=== PATIENT | female | born 1945 | race Caucasian/White ===

== ENCOUNTER → 2019-01-19 | Outpatient (CLI) | payer MEDICARE ==
[~2019-01-19] MED LIST: AMLO5TAB6 PO; ASPI-225 PO; CARV3.12 PO; CYCL10TA PO; DICL1GEL TD; DICY20TA PO; ELIQ5TAB PO; FLUO20CA8 PO; FURO40TA2 PO; GABA-843 PO; IPRA0.00 IN; LEVO137T2 PO; LISI-672 PO; LOPE2CAP PO; MELA1LIQ2 PO; NYST10006 EX; OMEP40CA2 PO; PARO40TA3 PO; POLY1.4S OU; SENN1TAB40 PO; SIMV10TA2 PO; TRAM50TA2 PO; TROS20TA3 PO; VITA2000 PO; VITA50005 PO; ZOFR4SOL PO; ZOFR4TAB16 PO; naproxen OR; ventolin inhaler INH
--- NOTE | 2019-01-19 15:50 | REP ---
Chest two views HISTORY: Renal mass Comparison: 02/07/1951 A calcified granuloma is present in the left upper lobe. The right lung is clear. The heart is normal in size. The pulmonary vasculature is normal in appearance. A calcification is present in the soft tissue of the right anterior hemithorax. Degenerative change is present in the thoracic spine. IMPRESSION: No acute disease. Electronically Signed by Christofer Murphy MD 01/19/2019 02:12 P
[2019-01-19 17:52] LABS: CALCIUM LEVEL 8.8 MG/DL (8.8-10.2); CREATININE FOR GFR 1.66 MG/DL (0.55-1.30); GLOMERULAR FILTRATION RATE 32.1 (>39); POTASSIUM SERUM 3.6 MEQ/L (3.5-5.1)
[2019-01-19 18:05] LABS: INR 1.09; PROTHROMBIN TIME 14.2 SECONDS (12.1-14.4)
[2019-01-19 18:06] LABS: PARTIAL THROMBOPLASTIN TIME 35.4 SECONDS (25.4-37.6)
[2019-01-19 18:19] LABS: HEMATOCRIT 40.8 % (36.0-47.0); HEMOGLOBIN 12.6 g/dl (12.0-15.5); MEAN CORPUSCULAR HEMOGLOBIN 27.6 pg (27.0-33.0); MEAN CORPUSCULAR HGB CONC 30.9 g/dl (32.0-36.5); MEAN CORPUSCULAR VOLUME 89.5 fl (80.0-96.0); PLATELET COUNT, AUTOMATED 224 10^3/uL (150-450); RED BLOOD COUNT 4.56 10^6/uL (4.00-5.40); WHITE BLOOD COUNT 7.8 10^3/uL (4.0-10.0)
== END ==
LOC: M SMT 13:46
PROVIDERS: ATTEND Nurse Practitioner Family
DX: Z01.818 Encounter for other preprocedural examination (principal); N28.89 Other specified disorders of kidney and ureter

== ENCOUNTER 2019-01-28 17:19 | Emergency (ER) | payer MEDICARE ==
[~2019-01-28] VITALS: Ht 165.1 cm; Wt 95.5 kg
--- NOTE | 2019-01-28 18:34 | REPVR ---
EXAM: CT Cervical Spine Without Contrast EXAM DATE/TIME: 01/28/2019 5:34 PM CLINICAL HISTORY: 74 years old, female; Injury or trauma; Fall; Initial encounter; Blunt trauma TECHNIQUE: Imaging protocol: Axial computed tomography images of the cervical spine without intravenous contrast. Coronal and sagittal reformatted images were created and reviewed. Radiation optimization: All CT scans at this facility use at least one of these dose optimization techniques: automated exposure control; mA and/or kV adjustment per patient size (includes targeted exams where dose is matched to clinical indication); or iterative reconstruction. COMPARISON: CR C-SPINE W,AP,FLEX,EXT VIEWS 12/14/2014 12:33 PM FINDINGS: Vertebrae: No acute fracture. Grade 1 spondylolisthesis at C3-4 with 2.3 mm of retrolisthesis of C4 with respect to C3.. C2-C3: No disc herniation. No spinal stenosis. No neural foraminal narrowing. C3-C4: Hypertrophic facet arthropathy on the left. No disc herniation. No spinal stenosis. No neural foraminal narrowing. C4-C5: Broad-based posterior disc bulge. Moderate uncovertebral hypertrophy. Facet arthropathy. Mild right foraminal stenosis. No spinal stenosis. C5-C6: Narrowed intervertebral disc space. Advanced hypertrophic facet arthropathy. Moderate to severe bilateral foraminal stenosis. Central canal measures 8 mm. No disc herniation. C6-C7: Narrowed intervertebral disc space. Advanced uncovertebral hypertrophy. Mild to moderate bilateral foraminal stenosis left greater than right . No spinal stenosis. C7-T1: No disc herniation. No spinal stenosis. No neural foraminal narrowing. Soft tissues: Old avulsion fracture versus ossification of the ligamentum nuchae adjacent to the spinous process of T1 . Vascular calcifications related to the carotid bulb and internal carotid arteries bilaterally. Lungs: Lung apices are normal. IMPRESSION: 1. No acute findings 2. Moderately advanced degenerative disc disease in the mid and lower cervical spine. Multilevel foraminal stenosis. Mild central stenosis at C5-6. Electronically signed by: Joseline Wilkerson On 01/28/2019 18:34:16 PM
--- NOTE | 2019-01-28 18:41 | REPVR ---
EXAM: CT Head Without Contrast EXAM DATE/TIME: 01/28/2019 5:34 PM CLINICAL HISTORY: 74 years old, female; Injury or trauma; Fall; Initial encounter; Blunt trauma (contusions or hematomas); Consciousness not specified TECHNIQUE: Imaging protocol: Axial computed tomography images of the head/brain without contrast. Radiation optimization: All CT scans at this facility use at least one of these dose optimization techniques: automated exposure control; mA and/or kV adjustment per patient size (includes targeted exams where dose is matched to clinical indication); or iterative reconstruction. COMPARISON: MRI-Brain W/O FOLL BY WITH 02/22/2015 9:10 AM FINDINGS: Brain: Mild Low density seen in the periventricular white matter extending into the garsia radiata and the centrum semiovale bilaterally. No hemorrhage Ventricles: Normal. No ventriculomegaly. Bones/joints: Motion artifact degrades images of the skull base. Sinuses: Visualized sinuses are unremarkable. No acute sinusitis. Mastoid air cells: Visualized mastoid air cells are unremarkable. No mastoid effusion. Soft tissues: Unremarkable. Other: Faint calcifications in the left lentiform nucleus. IMPRESSION: 1. No acute findings. 2. Mild chronic microvascular ischemic change in the deep white matter Electronically signed by: Joseline Wilkerson On 01/28/2019 18:41:19 PM
[2019-01-28 18:45] VITALS: BP 144/63
== END 2019-01-28 19:11 | disposition home or self-care (01) ==
LOC: M ED 17:19 → EDBD 17:19 → M ED 19:11
DX: S09.90XA Unspecified injury of head, initial encounter (principal); W22.09XA Striking against other stationary object, initial encounter; Y92.019 Unspecified place in single-family (private) house as the place of occurrence of the external cause

== ENCOUNTER 2019-02-02 05:47 | Inpatient (IN) | payer MEDICARE ==
[~2019-02-02] VITALS: Ht 165.1 cm; Wt 94.9 kg
[2019-02-02] VITALS (7 sets, daily range): BP systolic 115–126; BP diastolic 68–86; O2SAT 98
[2019-02-02] MEDS ORDERED: ceFAZolin 2 GM/D5W 50 ML IV BAG (J0690 PER 500MG) As Ordered ONE (06:38)
[2019-02-02] MEDS ORDERED: LR 1,000 ML IV SCH ×2 (07:00→12:15)
[2019-02-02] MEDS ORDERED: fentaNYL 250 MCG/5 ML INJECTION (J3010) As Ordered ONE (07:08)
[2019-02-02] MEDS ORDERED: HYDROmorphone HCL 2 MG/ML 1ML VIAL (J1170) As Ordered ONE (07:09)
[2019-02-02] MEDS ORDERED: LIDOCAINE 1% SDV INJ 30 ML VIAL As Ordered ONE (07:09)
[2019-02-02] MEDS ORDERED: MIDAZOLAM INJ 2 MG/2 ML VIAL (J2250) As Ordered ONE (07:09)
[2019-02-02] MEDS ORDERED: ROCURONIUM BROMIDE 50 MG/5 ML VIAL As Ordered ONE ×2 (07:09→08:48)
[2019-02-02] MEDS ORDERED: PROPOFOL 200 MG/20 ML VIAL As Ordered ONE (07:09)
[2019-02-02] MEDS ORDERED: dexameTHASONE 4 MG/ML 1ML VIAL (J1100) As Ordered ONE (07:09)
[2019-02-02] MEDS ORDERED: LIDOCAINE 2% INJ 100 MG/5 ML SDV (FOR ANES.) As Ordered ONE (07:09)
[2019-02-02] MEDS ORDERED: ONDANSETRON 4MG/2ML VIAL (J2405) As Ordered ONE (07:09)
[2019-02-02] MEDS ORDERED: BUPIVACAINE HCL 0.25% 30 ML VIAL As Ordered ONE (07:09)
[2019-02-02] MEDS ORDERED: ONDANSETRON 4MG/2ML VIAL (J2405) IV PRN ×2 (07:45→12:15)
[2019-02-02] MEDS ORDERED: COMBIVENT RESPIMAT 100-20MCG INHALER 4GM INH PRN (07:45)
[2019-02-02] MEDS ORDERED: PERCOCET 5MG/325MG TAB PO PRN ×2 (07:45→12:15)
[2019-02-02] MEDS ORDERED: ACETAMINOPHEN TAB 650MG DOSE (2X325MG) PO PRN (07:45)
[2019-02-02] MEDS ORDERED: LEVO150T7 PO (08:04)
[2019-02-02] MEDS ORDERED: GLYCOPYRROLATE INJ 0.2 MG/ML 2 ML VIAL As Ordered ONE (08:09)
[2019-02-02] MEDS: CARVedilol 6.25 MG TAB PO SCH ×2 (09:00→20:10)
[2019-02-02] MEDS: GABAPENTIN 300 MG CAP PO SCH ×3 (09:00→20:08)
[2019-02-02] MEDS: DOCUSATE SODIUM 100 MG CAP PO SCH ×2 (09:00→20:08)
[2019-02-02] MEDS ORDERED: MANNITOL 25% 12.5 GM/50 ML VIAL (J2150) As Ordered ONE (09:13)
[2019-02-02] MEDS ORDERED: ACETAMINOPHEN 1000MG 100ML IV BTL (OFIRMEV) (J0131 PER 10MG) As Ordered ONE (11:00)
[2019-02-02] MEDS ORDERED: SUGAMMADEX SODIUM 500 MG/5 ML VIAL (BRIDION) As Ordered ONE (11:04)
[2019-02-02] MEDS ORDERED: LABETALOL HCL 100 MG/20 ML VIAL As Ordered ONE (12:00)
[2019-02-02] MEDS: LABETALOL HCL 100 MG/20 ML VIAL IV SCH ×4 (12:01→12:50)
[2019-02-02] MEDS ORDERED: METOCLOPRAMIDE INJ 10MG/2ML VIAL (J2765) IV PRN (12:15)
[2019-02-02] MEDS ORDERED: fentaNYL 100 MCG/2 ML INJECTION (J3010) IV PRN (12:15)
[2019-02-02] MEDS ORDERED: MEPERIDINE INJ 25 MG/ML VIAL (J2175) IV PRN (12:15)
--- NOTE | 2019-02-02 12:51 | ROOPDOC ---
[facility] Report Of Operation Report of Operation DATE OF PROCEDURE: 02/02/19 PREPROCEDURE DIAGNOSES: Right Renal Neoplasm. POSTPROCEDURE DIAGNOSES: Right Renal Neoplasm. PROCEDURE: Right Robotic-assisted Laparoscopic Partial Nephrectomy with Intraoperative Ultrasound for Tumor Mapping, Laparoscopic Lysis of Adhesions. SURGEON: Casey Paul MD LIQUID SUGAR FORTIFIER: Yina Alfaro NP ANESTHESIA: General OPERATIVE INDICATIONS: This is a 74 year old female with a 2cm right renal neopl asm concerning for cancer. She was brought to the operating room today for removal of the mass. DESCRIPTION OF PROCEDURE: The patient was brought to the operating room and general anesthesia was induced. Prophylactic antibiotics were infused. A Buitrago catheter was placed under sterile conditions. The patient was then placed in the left lateral decubitus position. All pressure points were appropriately padded and an axillary roll was placed. She was secured to the table with tape. The patient was then prepped and draped in the usual sterile fashion. The initial incision was for a 12 mm port in line with the 11th rib along the lateral rectus margin. A Veress needle was then utilized to achieve the pneumoperitoneum. An 8mm port was then placed in through this incision and through which the camera was inserted. There were no injuries from Veress needle placement or initial trocar placement. The remaining ports were then placed under vision. The right hand robotic port was placed along the costal margin in line with the camera port. Another 5 mm port was placed just inferior to the xyphoid for access for a liver retractor. Two left robotic ports were placed with one just inferior to the camera port, and the other between the anterior-superior iliac spine and the umbilicus. Due to adhesions between omentum and the anterior abdominal wall we began by performing a laparoscopic lysis of adhesions. Once the omentum was brought down, the robot was then docked. We started by lifting up the liver with a laparoscopic locking Allis clamp. Next the right colon was dissected off of Gerota's fascia. We then Kocherized the duodenum. At this point the inferior vena cava (IVC) was identified. A plane was made onto the lateral aspect of the IVC and this was carried cephalad until the right renal vein was encountered. This was carefully dissected and just inferior and posterior to the renal vein, the right renal artery was identified. This was also carefully dissected. Next I anesthesia administered 12.5g of mannitol. Gerota's fascia was then opened and I defatted the kidney. On the posterior and inferior aspect of the kidney the tumor was seen. It was mostly exophytic. Ultrasound was then utilized to kel the boundaries of the tumor. Next a bulldog clamp was placed on the renal artery and we began resecting the tumor. The tumor was dissected completely and it appeared that we had a good margin. Once the tumor was removed, the renorrhaphy was performed first by ligating all vessels in the base of resection with a 2-0 vicryl suture using figure of eight stitches. The capsule of the kidney was then reapproximated using 0-vicryl suture with Weck clips to cinch down the suture. Once this was done the clamp was removed and and hemostasis was excellent. The warm ischemia time was 25 minutes. Next Sukhdeep was applied to the resection bed and the tumor was placed in an endocatch bag. The liver retractor was then removed and the robot was undocked after confirming hemostasis within the abdomen. The clerical administrative assistant port was then extended at the skin level and then at the fascia. The specimen was then removed in the endocatch bag. The fascia was then closed with a running #0 Vicryl suture. At this point, the abdomen was reinsufflated and we looked back in with the camera and there was no bleeding underneath the extraction site. No abdominal contents were caught within the closure either. We then removed all the ports under direct vision and there was no bleeding from any of the port sites. At this point, all the incisions were thoroughly irrigated. The subcutaneous tissue of the extraction incision was then reapproximated using interrupted #3-0 Vicryl suture. We then closed the ski n of each site using a running #4-0 subcuticular Monocryl stitch. Local anesthetic was then applied to each incision and Dermabond was then applied and this marked the conclusion of the procedure. The patient was then taken out of the left lateral decubitus position, awakened from anesthesia and transported to the recovery room in stable condition. ESTIMATED BLOOD LOSS: 100 mL INTRAOPERATIVE COMPLICATIONS: None SPECIMENS: Right renal neoplasm WARM ISCHEMIA TIME: 25 minutes NORMAL RIGHT RENAL PARENCHYMA SPARED: 95% PLAN: The patient will be admitted to the hospital postoperatively and she will be discharged home once her renal function is stable and she is tolerating regular diet. CASEY PAUL MD Feb 02, 2019 12:51
[2019-02-02 12:52] LABS: HEMATOCRIT 37.8 % (36.0-47.0); HEMOGLOBIN 11.7 g/dl (12.0-15.5); MEAN CORPUSCULAR HEMOGLOBIN 28.3 pg (27.0-33.0); MEAN CORPUSCULAR VOLUME 91.5 fl (80.0-96.0); PLATELET COUNT, AUTOMATED 166 10^3/uL (150-450); RED BLOOD COUNT 4.13 10^6/uL (4.00-5.40); WHITE BLOOD COUNT 8.9 10^3/uL (4.0-10.0)
[2019-02-02 13:18] LABS: CALCIUM LEVEL 8.3 MG/DL (8.8-10.2); CREATININE FOR GFR 1.34 MG/DL (0.55-1.30); POTASSIUM SERUM 3.9 MEQ/L (3.5-5.1)
[2019-02-02] MEDS ORDERED: LACTATED RINGER'S 500 ML IV ONE (14:00)
[2019-02-02] MEDS: ASPIRIN 81 MG ENTERIC TAB PO SCH (15:17)
[2019-02-02] MEDS: ceFAZolin SOD 1 GM in D5W MINI-BAG PLUS 50 ML IV SCH (15:17)
[2019-02-02] MEDS: NS 1,000 ML IV SCH ×2 (15:17→15:19)
[2019-02-02] MEDS ORDERED: METOPROLOL TART 25 MG TABLET PO PRN (15:45)
[2019-02-02 16:00] LABS: FREE T4 1.51 NG/DL (0.76-1.46); MAGNESIUM LEVEL 1.5 MG/DL (1.8-2.4); THYROID STIMULATING HORMONE 10.4 uIU/ML (0.358-3.740)
[2019-02-02 16:07] LABS: TOTAL T3 57.2 NG/DL (60.0-181.0)
--- NOTE | 2019-02-02 17:03 | CR.PDOC ---
General Date of Consultation: Feb 02, 2019 Referring Provider: CASEY PAUL MD Consultation REASON FOR CONSULTATION/CHIEF COMPLAINT: Atrial fibrillation with rapid ventricular response HISTORY OF PRESENT ILLNESS: The patient is a 73-year-old female with a history of proximal atrial fibrillation on the course as well as carvedilol underwent laparoscopic robotic partial nephrectomy for a 2 cm right kidney mass. In traoperatively, patient was noticed to have gone into atrial fibrillation with rapid ventricular response. She received labetalol without any improvement in the heart rate but did have some problems with dropping of blood pressure. Hospice service was consulted for further management of the patient's atrial fibrillation. I saw the patient on the medical unit postoperatively. She denies any problems with chest pain or shortness of breath. Denies any dizziness or lightheadedness. Does not notice any palpitations. Denies any headache/change in vision. No abdominal pain/nausea or vomiting. She reports she took the Coreg this morning. She reports she stopped the request on Wednesday for the surgery. She also reports some burning in her eyes at this time but no problems with visionno double vision or blurry vision. ALLERGIES: Please see below. HOME MEDICATIONS: Please see below. PAST MEDICAL HISTORY: Hypertension, hypothyroidism, hyperlipidemia, atrial fibrillation on liquids, Crohn's disease, history of congestive heart failure, GERD, obstructive sleep apnea but unable to tolerate CPAP, episode of seizure in 1977, genital warts, diverticulitis, arthritis in the knee, 2 cm right renal mass status post laparoscopic robotic partial nephrectomy today, 2 cm left adrenal adenoma PAST SURGICAL HISTORY: Hysterectomy, right breast lumpectomy for breast cancer followed by 6 weeks of radiation, cholecystectomy, right knee replacement, cardiac catheterization in 2006, small bowel resection for Crohn's disease in 2016, left elbow surgery, left ear surgery for lymph node, bilateral cataract surgery in 2016, status post right partial nephrectomy (laparoscopic, robotic) today as noted above FAMILY HISTORY: Father at 78 from heart attack, mom at 82she had three-vessel bypass, hypertension, heart disease and cancer, one sister passed from colon cancer, another sister had a tumor on her stomach SOCIAL HISTORY: Smoked cigarettes half pack per dayquit in 2018. Denies any history of focal abuse or drug abuse REVIEW OF SYSTEMS: Negative for 10 systems except as noted under history of present illness PHYSICAL EXAMINATION: VITAL SIGNS: Please see below. GENERAL APPEARANCE: Lying propped up in bed. No distress HEENT: PERRL, OMM RESPIRATORY: Clear to auscultation bilaterally. No wheeze. No crackles CARDIOVASCULAR: S1, S2 heard, irregular, tachycardic, no rubs or gallops ABDOMEN: Soft, nontender. Laparoscopic incisions appear intact and dry. Right lower abdominal surgical site incision with drain in place with sanguinous drainage EXTREMITIES: Bilateral pulses present, no edema NEUROLOGICAL: Awake, alert, oriented 3. Moving all 4 extremities. No latera lizing deficit noted. PSYCHIATRIC: Appropriate mood and affect LABORATORY DATA: Please see below. ASSESSMENT/PLAN: Atrial fibrillation with rapid ventricular response: -Likely went into atrial fibrillation related to the stress of surgery -She does see a local head inspector and had echocardiogram last year. -Carvedilol has been resumed. I will add as needed oral metoprolol every 6 hours if she has heart rate persistently over 120. Currently she seems to fluctuate between 90s to 120s. -Hopefully, if her rate is slowed down enough, she may be able to convert back into normal rhythm spontaneously. -Anticoagulation should be resumed once okay by Dr. Paul -Requested thyroid function panel - TSH elevated at 10, free T4 slightly elevated at 1.5, total T3 1 little low. I will leave her on current dosing of levothyroxine she reports this was increased recently -Magnesium level was lowgoal will be to try and keep it close to 2. Goal will be to keep potassium close to 4. Hypomagnesemia: -Replete and recheck Hypothyroidism: -Continue levothyroxine Hypertension: -Currently blood pressure is borderline low. I will discontinue the amlodipine and lisinopril for now. May resume tomorrow if blood pressures are elevated -Continue carvedilol Obstructive sleep apnea: -Did not tolerate CPAP in the past Burning sensation in eyes: -May be related to dryness -Ordered artificial tears Thank you for the consultation. We will continue to follow the patient with you Vital Signs/I&O Vital Signs Date Time Temp Pulse Resp B/P (MAP) Pulse Ox O2 Delivery O2 Flow Rate FiO2 02/02/19 15:24 98 Nasal Cannula 2.0 02/02/19 15:20 97.6 121 14 118/78 (91) Laboratory Data Labs 24H Laboratory Tests 2 02/02/19 11:59: Nucleated Red Blood Cells % (auto) 0.0, Anion Gap 10, Glomerular Filtration Rate 41.0, Blood Urea Nitrogen 25H, Creatinine 1.34H, Sodium Level 139, Potassium Level 3.9, Chloride Level 108H, Carbon Dioxide Level 21, Calcium Level 8.3L, Magnesium Level 1.5L, Thyroid Stimulating Hormone (TSH) 10.400H, Free Thyroxine 1.51H, Total Triiodothyronine 57.2L CBC/BMP Laboratory Tests 02/02/19 11:59 Red Blood Count 4.13, Mean Corpuscular Volume 91.5, Mean Corpuscular Hemoglobin 28.3, Mean Corpuscular Hemoglobin Concent 31.0 L, Red Cell Distribution Width 14.5, Calcium Level 8.3 L Allergies Coded Allergies: No Known Allergies (Verified , 02/02/19) Home Medications Scheduled Amlodipine Besylate (Amlodipine Besylate) 5 Mg Tab, 5 MG PO DAILY, (Reported) Apixaban (Eliquis) 5 Mg Tab, 5 MG PO BID, (Reported) Aspirin (Aspirin EC) 81 Mg Tab, 81 MG PO DAILY, (Reported) Carvedilol (Carvedilol) 3.125 Mg Tab, 2 TABS PO BID, (Reported) Cholecalciferol (Vitamin D3) (Vitamin D3) 2,000 Unit Cap, 2,000 UNIT PO DAILY, (Reported) Cyclobenzaprine HCl (Cyclobenzaprine HCl) 10 Mg Tab, 10 MG PO PRN, (Reported) Diclofenac Sodium (Diclofenac Sodium) 3 % Gel, 3 % TD BID, (Reported) Dicyclomine HCl (Dicyclomine HCl) 20 Mg Tab, 20 MG PO Q6H, (Reported) Ergocalciferol (Vitamin D2) (Vitamin D2) 50,000 Unit Cap, 50,000 UNIT PO Q7D, (Reported) Furosemide (Furosemide) 40 Mg Tab, 40 MG PO DAILY, (Reported) Gabapentin (Gabapentin) 300 Mg Cap, 300 MG PO TID, (Reported) Ipratropium/Albuterol Sulfate (Iprat-Albut 0.5-3(2.5) mg/3 ml) 1 Emre Emre, 1 EMRE IN Q6H, (Reported) Levothyroxine Sodium (Levothyroxine Sodium) 150 Mcg Tablet, 150 MCG PO DAILY, (Reported) Lisinopril (Lisinopril) 30 Mg Tab, 20 MG PO DAILY, (Reported) Loperamide HCl (Loperamide) 2 Mg Tab, 2 MG PO QID, (Reported) Nystatin (Nystop) 100,000 Unit/Gm Pow, 100,000 UNIT EX BID, (Reported) Omeprazole (Omeprazole) 40 Mg Cap, 40 MG PO DAILY, (Reported) Paroxetine HCl (Paroxetine) 40 Mg Tab, 40 MG PO DAILY, (Reported) Polyvinyl Alcohol (Polyvinyl Alcohol Eye Drops) 1.4 % Emre, 1 DROP OU TID, (Reported) Sennosides/Docusate Sodium (Senna Plus Tablet) 1 Tab Tab, 1 TAB PO DAILY, (Reported) Simvastatin (Simvastatin) 10 Mg Tab, 20 MG PO QHS, (Reported) Trospium Chloride (Trospium Chloride) 20 Mg Tab, 20 MG PO BID, (Reported) Scheduled PRN Melatonin (Melatonin) 1 Mg/Ml Liq, 1 MG PO QHSP PRN for SLEEP, (Reported) Ondansetron HCl (Zofran) 4 Mg Tab, 4 MG PO Q6HP PRN for NAUSEA, (Reported) BERTHA MOHAMUD MD Feb 02, 2019 17:03
[2019-02-02] MEDS: MAG SULF 1GM/100ML (MAG RUN) 1 GM in APPROPRIATE DILUENT 1 EA IV SCH ×2 (17:18→18:34)
[2019-02-02] MEDS: POLYVINYL ALCOHOL OPHTH SOLN 15 ML(LIQUITEARS) OU SCH ×2 (17:18→20:06)
[2019-02-02] MEDS: PERCOCET 5MG/325MG TAB PO PRN ×2 (17:22→23:05)
[2019-02-02] MEDS: SIMVASTATIN 20 MG TAB PO SCH (20:08)
[2019-02-03] VITALS (8 sets, daily range): BP systolic 114–144; BP diastolic 65–87; O2SAT 97
[2019-02-03] MEDS: ceFAZolin SOD 1 GM in D5W MINI-BAG PLUS 50 ML IV SCH (00:26)
[2019-02-03] MEDS: NS 1,000 ML IV SCH (00:27)
[2019-02-03] MEDS: MORPHINE 4 MG/ML 1ML VIAL/SYRINGE (J2270) IV PRN ×3 (00:28→20:18)
[2019-02-03] MEDS: LEVOTHYROXINE 150MCG TABLET (0.15MG) PO SCH (05:46)
[2019-02-03 06:51] LABS: MEAN CORPUSCULAR HEMOGLOBIN 27.8 pg (27.0-33.0); MEAN CORPUSCULAR HGB CONC 30.3 g/dl (32.0-36.5); MEAN CORPUSCULAR VOLUME 91.7 fl (80.0-96.0); PLATELET COUNT, AUTOMATED 139 10^3/uL (150-450); RED BLOOD COUNT 3.27 10^6/uL (4.00-5.40)
[2019-02-03 06:53] LABS: HEMOGLOBIN 9.1 g/dl (12.0-15.5)
[2019-02-03 07:02] LABS: CREATININE FOR GFR 1.45 MG/DL (0.55-1.30); GLOMERULAR FILTRATION RATE 37.5 (>39); MAGNESIUM LEVEL 1.9 MG/DL (1.8-2.4); POTASSIUM SERUM 3.5 MEQ/L (3.5-5.1)
--- NOTE | 2019-02-03 07:30 | IPNPDOC ---
Assessment/Plan Date Seen The patient was seen on 02/03/19. Patient Summary This is a 74 y/o F POD 1 s/p robotic right partial nephrectomy. She went in to a fib w/ RVR in the PACU and has since converted to sinus on her home meds. She is doing well w/ minimal pain. Cr is lower than baseline. Her Hb has trended down to 9.1 this am. UOP has been good. Plan/VTE VTE Prophylaxis Ordered?: Yes VTE Exclusion Mechanical Proph: N/A:VTE Prophy Ordered Plan/Urinary Catheter Urinary Catheter: D/C Buitrago Plan - appreciate hospitalist service following for a fib - d/c Buitrago - d/c IVF - strict I/Os - SCDs when in bed - continue home meds except eliquis (will need to be off for at least 2 wks) - advance diet as tolerated - possible discharge home later today or tomorrow if she stays in sinus and if Hb stable Subjective Review oF Systems Chief Complaint The patient is a 74-year-old female admitted with a reason for visit of Renal Mass. Events since Last Encounter No acute events o/n. Good pain control. No n/v. Denies chest pain or SOB. Tolerating diet. No f/c/ns. Objective Physical Examination General Exam: Alert, Cooperative ABDOMEN EXAM: Soft, Tenderness (minimal), Other (incisions clean/dry/intact; DORIS w/ serosanguinous output) Skin Exam: Nl turgor and temperature Psych Exam: Mood NL Other physical findings catheter draining clear urine Vital Signs/I&O Vital Signs Date Time Temp Pulse Resp B/P (MAP) Pulse Ox O2 Delivery O2 Flow Rate FiO2 02/03/19 06:00 97.2 68 12 117/68 (84) 97 2.0 02/03/19 02:59 Nasal Cannula I&O- Last 24 Hours up to 6 AM 02/03/19 06:00 Intake Total 5225 ml Output Total 1820 ml Balance 3405 ml Laboratory Data Labs 24H Laboratory Tests 2 02/02/19 11:59: Nucleated Red Blood Cells % (auto) 0.0, Anion Gap 10, Glomerular Filtration Rate 41.0, Blood Urea Nitrogen 25H, Creatinine 1.34H, Sodium Level 139, Potassium Level 3.9, Chloride Level 108H, Carbon Dioxide Level 21, Calcium Level 8.3L, Magnesium Level 1.5L, Thyroid Stimulating Hormone (TSH) 10.400H, Free Thyroxine 1.51H, Total Triiodothyronine 57.2L 02/03/19 06:11: Nucleated Red Blood Cells % (auto) 0.0, Anion Gap 9, Glomerular Filtration Rate 37.5L, Blood Urea Nitrogen 22H, Creatinine 1.45H, Sodium Level 143, Potassium Level 3.5, Chloride Level 107, Carbon Dioxide Level 27, Calcium Level 8.0L, Magnesium Level 1.9 CBC/BMP Laboratory Tests 02/02/19 11:59 Red Blood Count 4.13, Mean Corpuscular Volume 91.5, Mean Corpuscular Hemoglobin 28.3, Mean Corpuscular Hemoglobin Concent 31.0 L, Red Cell Distribution Width 14.5, Calcium Level 8.3 L 02/03/19 06:11 Red Blood Count 3.27 L, Mean Corpuscular Volume 91.7, Mean Corpuscular Hemoglobin 27.8, Mean Corpuscular Hemoglobin Concent 30.3 L, Red Cell Distrib ution Width 14.6 H, Calcium Level 8.0 L CASEY PAUL MD Feb 03, 2019 07:30
[2019-02-03] MEDS: DOCUSATE SODIUM 100 MG CAP PO SCH ×2 (07:57→20:16)
[2019-02-03] MEDS: OMEPRAZOLE 20 MG CAP PO SCH (07:57)
[2019-02-03] MEDS: ASPIRIN 81 MG ENTERIC TAB PO SCH (07:58)
[2019-02-03] MEDS: GABAPENTIN 300 MG CAP PO SCH ×3 (07:58→20:17)
[2019-02-03] MEDS: PARoxetine 20 MG TAB PO SCH (07:58)
[2019-02-03] MEDS: CARVedilol 6.25 MG TAB PO SCH ×2 (07:58→20:17)
[2019-02-03] MEDS: POLYVINYL ALCOHOL OPHTH SOLN 15 ML(LIQUITEARS) OU SCH ×4 (07:58→20:16)
[2019-02-03] MEDS ORDERED: FUROSEMIDE 40 MG TAB PO SCH (09:00)
[2019-02-03] MEDS ORDERED: LISINOPRIL 20 MG TAB PO SCH (09:00)
[2019-02-03] MEDS ORDERED: amLODIPine 5 MG TAB PO SCH (09:00)
[2019-02-03] MEDS: PERCOCET 5MG/325MG TAB PO PRN ×2 (10:14→16:38)
[2019-02-03] MEDS: SIMETHICONE 80 MG CHEW TAB PO SCH ×2 (16:38→20:16)
[2019-02-03] MEDS ORDERED: FUROSEMIDE 20 MG/2 ML VIAL (J1940) IV ONE (18:30)
--- NOTE | 2019-02-03 20:08 | REP ---
Portable chest, 06:10 p.m., single AP view, the patient semi upright: Comparison is 01/19/2019. There is mild atelectasis inferiorly in the right lung as an interval change. Right upper lobe is clear. The left lung is clear. Cardiac size is normal. The moira, mediastinum, skeletal structures are unremarkable. Impression: Mild atelectasis inferiorly in the right lung. Electronically Signed by Rocky Mejia MD 02/03/2019 08:00 P
[2019-02-03] MEDS: SIMVASTATIN 20 MG TAB PO SCH (20:16)
--- NOTE | 2019-02-03 20:40 | IPNPDOC ---
Subjective Date Seen The patient was seen on 02/03/19. Subjective Chief Complaint/HPI Medical consultation had been requested for atrial fibrillation with rapid ventricular response which the patient developed intraoperatively while undergoing right partial nephrectomy for right renal mass. Patient has a history of paroxysmal atrial fibrillation. Events since last encounter The patient this morning and some pain in her right flank region with some activity. At that time she also felt a little short of breath. Subsequently, the patient's symptoms did improve once she rested in the bed. Later in the day, the patient again had reported some shortness of breath. I will order serum and discontinued this morning. Patient was tolerating oral intake. Denies any nausea or vomiting. No chest pain. No dizziness or lightheadedness. Buitrago catheter was discontinued this morning. Denies feeling constipated. Reports some gaseous bloating but has been passing gas Objective Physical Examination General Exam: Positive: Alert, Cooperative, No Acute Distress Eye Exam: Positive: PERRLA Chest Exam: Positive: Clear to auscultation, Other (patient did not have any rales/rhonchi or wheezes this morning) Heart Exam: Positive: Rate Normal, Normal S1, Normal S2 Telemetry: Positive: Other Telemetry: (patient appeared to be in normal sinus rhythm. She did have a brief run of atrial fibrillation with rapid ventricular response this morning) Abdomen Exam: Positive: Soft, Other (nontender. Right abdominal drain in place with sanguineous drainage) Neuro Exam: Positive: Other (awake, alert, oriented 3 and answering questions appropriately) RAD Interpretation STUDY: CXR Rad Actions: Other Rad Comments: (chest x-ray done this afternoon shows some right lower lobe atelectasis. On my personal review, she also seems to have some slight vascular congestion.) Assessment /Plan Assessment Atrial fibrillation with rapid ventricular response, now in normal sinus rhythm: -And 2 carvedilol, when necessary metoprolol -Anticoagulation will be held for 2 weeks per urology postoperatively Hypomagnesemia: -Resolved Hypothyroidism: -Continue levothyroxine Hypertension: -Blood pressure controlled off amlodipine and lisinopril. -Continue carvedilol Obstructive sleep apnea: -Did not tolerate CPAP in the past Burning sensation in eyes: -Resolved Shortness of breath: -As noted, patient had some shortness of breath this afternoon. Chest x-ray appears to indicate some pulmonary vascular congestion on my review. We will give her a one-time dose of 20 mg IV Lasix. Plan/VTE VTE Prophylaxis Ordered?: Yes VTE Exclusion Mechanical Proph: N/A:VTE Prophy Ordered Plan/Urinary Catheter Urinary Catheter: D/C Buitrago VS, I&O, 24H, Fishbone Vital Signs/I&O Vital Signs Date Time Temp Pulse Resp B/P (MAP) Pulse Ox O2 Delivery O2 Flow Rate FiO2 02/03/19 20:18 22 96 1.0 02/03/19 20:17 82 144/78 02/03/19 18:00 98.4 02/03/19 02:59 Nasal Cannula I&O- Last 24 Hours up to 6 AM 02/03/19 06:00 Intake Total 5225 ml Output Total 1820 ml Balance 3405 ml Laboratory Data 24H LABS Laboratory Tests 2 02/03/19 06:11: Nucleated Red Blood Cells % (auto) 0.0, Anion Gap 9, Glomerular Filtration Rate 37.5L, Blood Urea Nitrogen 22H, Creatinine 1.45H, Sodium Level 143, Potassium Level 3.5, Chloride Level 107, Carbon Dioxide Level 27, Calcium Level 8.0L, Magnesium Level 1.9 CBC/BMP Laboratory Tests 02/03/19 06:11 Red Blood Count 3.27 L, Mean Corpuscular Volume 91.7, Mean Corpuscular Hemoglobin 27.8, Mean Corpuscular Hemoglobin Concent 30.3 L, Red Cell D istribution Width 14.6 H, Calcium Level 8.0 L 02/03/19 15:03 BERTHA MOHAMUD MD Feb 03, 2019 20:40
[2019-02-04 00:54] VITALS: O2SAT 94
[2019-02-04 02:00] VITALS: BP 118/59
[2019-02-04] MEDS: MORPHINE 4 MG/ML 1ML VIAL/SYRINGE (J2270) IV PRN (04:39)
[2019-02-04 06:00] VITALS: BP 120/57
[2019-02-04] MEDS: LEVOTHYROXINE 150MCG TABLET (0.15MG) PO SCH (06:13)
[2019-02-04 06:36] LABS: HEMATOCRIT 26.9 % (36.0-47.0); HEMOGLOBIN 8.4 g/dl (12.0-15.5); MEAN CORPUSCULAR HEMOGLOBIN 28.2 pg (27.0-33.0); MEAN CORPUSCULAR HGB CONC 31.2 g/dl (32.0-36.5); MEAN CORPUSCULAR VOLUME 90.3 fl (80.0-96.0); PLATELET COUNT, AUTOMATED 123 10^3/uL (150-450); RED BLOOD COUNT 2.98 10^6/uL (4.00-5.40); WHITE BLOOD COUNT 9.6 10^3/uL (4.0-10.0)
[2019-02-04 07:04] LABS: CALCIUM LEVEL 7.6 MG/DL (8.8-10.2); CREATININE FOR GFR 1.47 MG/DL (0.55-1.30); GLOMERULAR FILTRATION RATE 36.9 (>39); POTASSIUM SERUM 3.8 MEQ/L (3.5-5.1)
[2019-02-04] MEDS ORDERED: MAG SULF 1GM/100ML (MAG RUN) 1 GM in APPROPRIATE DILUENT 1 EA IV ONE (08:00)
[2019-02-04 08:30] VITALS: O2SAT 93
[2019-02-04] MEDS: PARoxetine 20 MG TAB PO SCH (09:07)
[2019-02-04] MEDS: OMEPRAZOLE 20 MG CAP PO SCH (09:07)
[2019-02-04] MEDS: GABAPENTIN 300 MG CAP PO SCH ×3 (09:07→20:24)
[2019-02-04] MEDS: ASPIRIN 81 MG ENTERIC TAB PO SCH (09:07)
[2019-02-04] MEDS: CARVedilol 6.25 MG TAB PO SCH ×2 (09:07→20:26)
[2019-02-04] MEDS: SIMETHICONE 80 MG CHEW TAB PO SCH ×4 (09:07→20:24)
[2019-02-04] MEDS: DOCUSATE SODIUM 100 MG CAP PO SCH ×2 (09:08→20:24)
[2019-02-04] MEDS: POLYVINYL ALCOHOL OPHTH SOLN 15 ML(LIQUITEARS) OU SCH ×4 (09:08→20:24)
--- NOTE | 2019-02-04 12:56 | IPNPDOC ---
Subjective Date Seen The patient was seen on 02/04/19. 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 She had received a dose of Lasix following which she reports she did urinate quite a bit last night. Reports she is using the incentive spirometer. Reports some discomfort in her abdomen with movement. Has not been out of the bed. This morning when I saw her earlier today. Denies any nausea or vomiting. Ate breakfast. Denies any chest pain. Denies any difficulty with urination. No bowel movement but denies feeling constipated. Passing gas. Objective Physical Examination General Exam: Positive: Alert, Cooperative, No Acute Distress, Other (sitting up in bed) Eye Exam: Positive: PERRLA Chest Exam: Positive: Other (diminished air entry at right lung base. Very slight crackles. No overt wheezing at this time.) Heart Exam: Positive: Rate Normal, Regular Rhythm, Normal S1, Normal S2 Abdomen Exam: Positive: Soft, Other (right abdominal DORIS drain is in place with sanguinous drainageminimal output. Surgical incisions intact with no drainage.) Extremity Exam: Positive: Normal pulses; Negative: Edema Neuro Exam: Positive: Other (awake, alert, oriented 3 and answering questions appropriately) Assessment /Plan Assessment Paroxysmal Atrial fibrillation with rapid ventricular response: -Currently remains in normal sinus rhythm -Continue carvedilol, prn metoprolol -Anticoagulation to be held for 2 weeks postoperatively per urology Hypomagnesemia: -Resolved Hypothyroidism: -Continue levothyroxine Hypertension: -Blood pressure controlled off amlodipine and lisinopril. -Continue carvedilol. Resumed Lasix Obstructive sleep apnea: -Did not tolerate CPAP in the past Burning sensation in eyes: -Resolved Shortness of breath: -Chest x-ray did not show any obvious infiltrates/pneumonia or obvious effusion -Resume home dosing of oral Lasix -Xopenex nebs every 6 hours prn with one treatment now. DVT prophylaxis: -SCDs/compression stockings Plan/VTE VTE Prophylaxis Ordered?: Yes VTE Exclusion Mechanical Proph: N/A:VTE Prophy Ordered Plan/Urinary Catheter Urinary Catheter: D/C Buitrago VS, I&O, 24H, Fishbone Vital Signs/I&O Vital Signs Date Time Temp Pulse Resp B/P (MAP) Pulse Ox O2 Delivery O2 Flow Rate FiO2 02/04/19 10:00 98.9 65 20 96 1.0 02/04/19 09:07 120/57 02/04/19 00:54 Nasal Cannula I&O- Last 24 Hours up to 6 AM 02/04/19 06:00 Intake Total 420 ml Output Total 2005 ml Balance -1585 ml Laboratory Data 24H LABS Laboratory Tests 2 02/04/19 06:06: Nucleated Red Blood Cells % (auto) 0.0, Anion Gap 7L, Glomerular Filtration Rate 36.9L, Blood Urea Nitrogen 23H, Creatinine 1.47H, Sodium Level 140, Potassium Level 3.8, Chloride Level 105, Carbon Dioxide Level 28, Calcium Level 7.6L, Magnesium Level 1.7L CBC/BMP Laboratory Tests 02/03/19 15:03 02/04/19 06:06 Red Blood Count 2.98 L, Mean Corpuscular Volume 90.3, Mean Corpuscular Hemoglobin 28.2, Mean Corpuscular Hemoglobin Concent 31.2 L, Red Cell Distribution Width 14.6 H, Calcium Level 7.6 L BERTHA MOHAMUD MD Feb 04, 2019 12:56
[2019-02-04] MEDS ORDERED: LEVALBUTEROL 1.25 MG/0.5 ML CONCENTRATE NEB INH ONE (13:00)
[2019-02-04] MEDS: FUROSEMIDE 40 MG TAB PO SCH (13:33)
[2019-02-04] MEDS ORDERED: LEVALBUTEROL 1.25 MG/0.5 ML CONCENTRATE NEB INH SCH (14:00)
[2019-02-04] MEDS ORDERED: LEVALBUTEROL 1.25 MG/0.5 ML CONCENTRATE NEB INH PRN (14:00)
[2019-02-04] MEDS: MIRALAX *UNIT DOSE* 17GM PACKET PO SCH (15:11)
[2019-02-04] MEDS: SIMVASTATIN 20 MG TAB PO SCH (20:24)
[2019-02-04 22:00] VITALS: BP 117/54
[2019-02-05 02:35] VITALS: O2SAT 92
[2019-02-05 06:00] VITALS: BP 153/92
[2019-02-05] MEDS ORDERED: MAGNESIUM OXIDE 400 MG TAB (MAG-OX) PO ONE (06:00)
[2019-02-05] MEDS: LEVOTHYROXINE 150MCG TABLET (0.15MG) PO SCH (06:33)
[2019-02-05 07:05] LABS: HEMATOCRIT 28.9 % (36.0-47.0); HEMOGLOBIN 9.1 g/dl (12.0-15.5); MEAN CORPUSCULAR HEMOGLOBIN 28.6 pg (27.0-33.0); MEAN CORPUSCULAR HGB CONC 31.5 g/dl (32.0-36.5); MEAN CORPUSCULAR VOLUME 90.9 fl (80.0-96.0); PLATELET COUNT, AUTOMATED 129 10^3/uL (150-450); RED BLOOD COUNT 3.18 10^6/uL (4.00-5.40); WHITE BLOOD COUNT 8.3 10^3/uL (4.0-10.0)
[2019-02-05 07:20] LABS: CALCIUM LEVEL 8.2 MG/DL (8.8-10.2); CREATININE FOR GFR 1.51 MG/DL (0.55-1.30); GLOMERULAR FILTRATION RATE 35.8 (>39); MAGNESIUM LEVEL 1.8 MG/DL (1.8-2.4); POTASSIUM SERUM 3.8 MEQ/L (3.5-5.1)
[2019-02-05 08:30] VITALS: O2SAT 96
--- NOTE | 2019-02-05 08:39 | IPN ---
DATE: 02/04/2019 The patient is here status post right heminephrectomy by Dr. Lima. Patient's postoperative course was complicated by atrial fibrillation with rapid ventricular response for which she is being treated. She denies any abdominal pain today. She does have some sense of discomfort in the chest, but did not have any rapid ventricular response today, as per all the documentation, and is in normal sinus rhythm. Denies any fever, chills, cough or any postsurgical issues. On physical exam, she is alert, awake, oriented times three, afebrile with stable vital signs. Abdomen is soft, not distended, nontender. There is no hematoma or bruising on the skin. The drain is in place with very little, maybe less than 30 mL in the drain. She has been voiding well since the catheter has been removed yesterday. Her hemoglobin did have a slight dip to 8.4 from 9.4, but this is not anything significant as there is no major drain output. IMPRESSION: Status post right partial nephrectomy, doing well. PLAN: Continue to follow her from a medical standpoint. Once that is stable, she can be discharged. No anticoagulation at least for 2 weeks.
[2019-02-05] MEDS: PARoxetine 20 MG TAB PO SCH (09:09)
[2019-02-05] MEDS: MIRALAX *UNIT DOSE* 17GM PACKET PO SCH (09:09)
[2019-02-05] MEDS: DOCUSATE SODIUM 100 MG CAP PO SCH (09:09)
[2019-02-05] MEDS: OMEPRAZOLE 20 MG CAP PO SCH (09:09)
[2019-02-05 09:10] VITALS: BP 153/92
[2019-02-05] MEDS: POLYVINYL ALCOHOL OPHTH SOLN 15 ML(LIQUITEARS) OU SCH ×2 (09:10→12:17)
[2019-02-05] MEDS: FUROSEMIDE 40 MG TAB PO SCH (09:10)
[2019-02-05] MEDS: ASPIRIN 81 MG ENTERIC TAB PO SCH (09:10)
[2019-02-05] MEDS: SIMETHICONE 80 MG CHEW TAB PO SCH ×2 (09:10→12:16)
[2019-02-05] MEDS: CARVedilol 6.25 MG TAB PO SCH (09:10)
[2019-02-05] MEDS: GABAPENTIN 300 MG CAP PO SCH ×2 (09:10→15:23)
[2019-02-05 14:00] VITALS: BP 129/60
[2019-02-05] MEDS ORDERED: PERCOCET PO (15:09)
[2019-02-05] MEDS ORDERED: PEG1POW PO (15:09)
--- NOTE | 2019-02-05 15:19 | IPNPDOC ---
Subjective Date Seen The patient was seen on 02/05/19. Subjective Chief Complaint/HPI Right renal mass status post right partial nephrectomy, atrial fibrillation with rapid ventricular response Events since last encounter Patient what she is doing better as far as her breathing. Reports some slight wheeze at times. On room air. Denies any chest pain. No nausea or vomiting. Tolerating oral intake well. Had a bowel movement yesterday. Denies abdominal pain and this time although she haD not been out of the bed when I saw her this morning Objective Physical Examination General Exam: Positive: Alert, Cooperative, No Acute Distress, Other (Lying in bed) Eye Exam: Positive: PERRLA Chest Exam: Positive: Other (no overt wheeze today. Diminished air entry in right lung field especially at bases.) Heart Exam: Positive: Rate Normal, Regular Rhythm, Normal S1, Normal S2 Abdomen Exam: Positive: Soft, Other (right abdominal DORIS drain in placeslight sanguinous drainage.) Extremity Exam: Positive: Normal pulses; Negative: Edema Neuro Exam: Positive: Other (awake, alert, oriented 3 and answering questions appropriately) Assessment /Plan Assessment Paroxysmal Atrial fibrillation with rapid ventricular response: -Currently remains in normal sinus rhythm -Continue carvedilol -Anticoagulation to be held for 2 weeks postoperatively per urology Hypomagnesemia: -Resolved Hypothyroidism: -Continue levothyroxine Hypertension: -Holding lisinopril -Continue carvedilol, Lasix and amlodipine Obstructive sleep apnea: -Did not tolerate CPAP in the past Burning sensation in eyes: -Resolved Shortness of breath: -Chest x-ray did not show any obvious infiltrates/pneumonia or obvious effusion -Continue Lasix -Was on Xopenex prn may resume her usual nebs on discharge DVT prophylaxis: -SCDs/compression stockings Disposition: Medically stable for discharge home. Outpatient follow-up advised with the primary care provider in one week. Plan/VTE VTE Prophylaxis Ordered?: Yes VTE Exclusion Mechanical Proph: N/A:VTE Prophy Ordered Plan/Urinary Catheter Urinary Catheter: D/C Buitrago VS, I&O, 24H, Fishbone Vital Signs/I&O Vital Signs Date Time Temp Pulse Resp B/P (MAP) Pulse Ox O2 Delivery O2 Flow Rate FiO2 02/05/19 14:00 97.9 69 18 129/60 (83) 98 02/05/19 08:30 Room Air 02/04/19 14:00 1.0 I&O- Last 24 Hours up to 6 AM 02/05/19 06:00 Intake Total 1980 ml Output Total 720 ml Balance 1260 ml Laboratory Data 24H LABS Laboratory Tests 2 02/05/19 06:30: Nucleated Red Blood Cells % (auto) 0.0, Anion Gap 8, Glomerular Filtration Rate 35.8L, Blood Urea Nitrogen 23H, Creatinine 1.51H, Sodium Level 138, Potassium Level 3.8, Chloride Level 103, Carbon Dioxide Level 27, Calcium Level 8.2L, Phosphorus Level 3.0, Magnesium Level 1.8 CBC/BMP Laboratory Tests 02/05/19 06:30 Red Blood Count 3.18 L, Mean Corpuscular Volume 90.9, Mean Corpuscular Hemoglobin 28.6, Mean Corpuscular Hemoglobin Concent 31.5 L, Red Cell Distribution Width 14.6 H, Calcium Level 8.2 L BERTHA MOHAMUD MD Feb 05, 2019 15:19
--- NOTE | 2019-02-06 09:51 | IPN ---
DATE: 02/05/2019 FOLLOWUP NOTE: Seen this morning. She is status post right partial nephrectomy with atrial fibrillation with rapid ventricular response, which is better today. She has not been complaining of any problems this morning. Her vital signs are stable. She is awake, alert, oriented times three. Abdomen soft, nondistended and nontender. She has a drain in place, which put out less than 30 mL in the last 24 hours. Since her hemoglobin has been stable from 8.4 it came up to 9.1, and hematocrit of 28.9 with platelets of 210, it was decided to remove the drain. The drain was removed with all aseptic precautions and dressing was applied. Patient tolerated the procedure very well. PLAN: From surgical standpoint, patient is hemodynamically stable and can be discharged home if okay by medical specialists. TEE
--- NOTE | 2019-02-06 13:17 | DSES ---
DATE OF ADMISSION: 02/02/2019 DATE OF DISCHARGE: 02/05/2019 ADMISSION DIAGNOSIS: Right renal neoplasm. DISCHARGE DIAGNOSIS: Right renal oncocytoma. ADMITTING PHYSICIAN: Dez Lima MD DISCHARGING PHYSICIAN: Jesse Rivas MD HISTORY OF PRESENT ILLNESS: This is a 74-year-old female who was found with approximately 2-cm enhancing right renal neoplasm concerning for malignancy. She underwent a robotic-assisted laparoscopic right partial nephrectomy on 02/02/2019 and was in hospital postoperatively. HOSPITALIZATION COURSE: The patient's postoperative course was for the most part unremarkable. She had a history of atrial fibrillation and while in the recovery room went into rapid ventricular response. This quickly normalized when she was back on the floor, back on her normal beta donovan. The hospitalist service was consulted to help follow. She remained in sinus throughout the majority of her stay. The remainder of her vital signs were stable. She did have some weakness on postoperative days #1 and #2 and, therefore, was not discharged home on those days. By postoperative day #3, she was ambulating well and tolerating a regular diet. Her pain was very well controlled. Her hemoglobin remained stable at 9.1. Her creatinine was pretty close to her baseline. Her creatinine specifically was 1.5 at discharge, and her baseline appeared to be around 1.6. She had excellent urine output and normal amount out of the Arron-Watkins drain. Her Arron- Watkins drain was, therefore, removed prior to discharge. She was discharged home in good condition. She will followup in clinic in approximately 1 week to discuss pathology results in her postoperative visit. TEE
== END 2019-02-05 16:14 | disposition home or self-care (01) | DRG 658 ==
LOC: M OR 05:47 → M MSPAV 14:20
PROVIDERS: ADMIT Urology; ATTEND Urology
PROC: 8E0W4CZ Robotic Assisted Procedure of Trunk Region, Percutaneous Endoscopic Approach (ICD-10-PCS; 2019-02-02)
PROC: 0TB04ZZ Excision of Right Kidney, Percutaneous Endoscopic Approach (ICD-10-PCS; principal; 2019-02-02 07:30)
DX: D30.01 Benign neoplasm of right kidney (principal); I48.0 Paroxysmal atrial fibrillation; I10 Essential (primary) hypertension; E03.9 Hypothyroidism, unspecified; E78.5 Hyperlipidemia, unspecified; K21.9 Gastro-esophageal reflux disease without esophagitis; D35.01 Benign neoplasm of right adrenal gland; G47.33 Obstructive sleep apnea (adult) (pediatric); A63.0 Anogenital (venereal) warts; E83.42 Hypomagnesemia; Z85.3 Personal history of malignant neoplasm of breast; Z92.3 Personal history of irradiation; Z90.49 Acquired absence of other specified parts of digestive tract; Z96.651 Presence of right artificial knee joint; Z98.41 Cataract extraction status, right eye; Z98.42 Cataract extraction status, left eye; Z87.891 Personal history of nicotine dependence; Z79.82 Long term (current) use of aspirin; Z79.01 Long term (current) use of anticoagulants; Z79.899 Other long term (current) drug therapy

== ENCOUNTER → 2019-02-16 | Outpatient (CLI) | payer MEDICARE ==
[~2019-02-16] MED LIST changes: +LEVO150T7 PO; +PEG1POW PO; +PERCOCET PO
[2019-02-16 13:51] LABS: CALCIUM LEVEL 8.2 MG/DL (8.8-10.2); CREATININE FOR GFR 1.44 MG/DL (0.55-1.30); GLOMERULAR FILTRATION RATE 37.8 (>39); HEMATOCRIT 34.2 % (36.0-47.0); HEMOGLOBIN 10.5 g/dl (12.0-15.5); MEAN CORPUSCULAR HEMOGLOBIN 28.5 pg (27.0-33.0); MEAN CORPUSCULAR HGB CONC 30.7 g/dl (32.0-36.5); MEAN CORPUSCULAR VOLUME 92.7 fl (80.0-96.0); PLATELET COUNT, AUTOMATED 323 10^3/uL (150-450); POTASSIUM SERUM 3.6 MEQ/L (3.5-5.1); RED BLOOD COUNT 3.69 10^6/uL (4.00-5.40); WHITE BLOOD COUNT 6.8 10^3/uL (4.0-10.0)
== END ==
LOC: M SMT 11:06
PROVIDERS: ATTEND Urology
DX: D36.9 Benign neoplasm, unspecified site (principal)

== ENCOUNTER → 2019-04-21 | Outpatient (REF) | payer MEDICARE ==
[2019-04-21 11:51] LABS: BASO % 0.4 % (0.0-1.0); EOS # 0.1 10^3/uL (0.0-0.50); HEMOGLOBIN 11.7 g/dl (12.0-15.5); LYMPH # 1.7 10^3/uL (1.5-4.5); LYMPH % 30.8 % (24.0-44.0); MEAN CORPUSCULAR HGB CONC 30.8 g/dl (32.0-36.5); MEAN CORPUSCULAR VOLUME 90.9 fl (80.0-96.0); MONO # 0.6 10^3/uL (0.0-0.8); MONO % 10.3 % (0.0-5.0); NEUTROPHILS # 3.2 10^3/uL (1.8-7.7); NEUTROPHILS % 56.3 % (36.0-66.0); PLATELET COUNT, AUTOMATED 164 10^3/uL (150-450); RED BLOOD COUNT 4.18 10^6/uL (4.00-5.40); WHITE BLOOD COUNT 5.6 10^3/uL (4.0-10.0)
[2019-04-21 12:57] LABS: ALBUMIN 3.5 GM/DL (3.2-5.2); BILIRUBIN,TOTAL 0.3 MG/DL (0.2-1.0); CALCIUM LEVEL 8.6 MG/DL (8.8-10.2); CREATININE FOR GFR 1.39 MG/DL (0.55-1.30); FREE T4 1.38 NG/DL (0.76-1.46); GLOMERULAR FILTRATION RATE 39.3 (>39); POTASSIUM SERUM 3.9 MEQ/L (3.5-5.1); THYROID STIMULATING HORMONE 7.43 uIU/ML (0.358-3.740); TOTAL PROTEIN 7.4 GM/DL (6.4-8.2)
== END ==
LOC: M LABDRAW1 11:17
PROVIDERS: ATTEND Physician Assistant
DX: E03.9 Hypothyroidism, unspecified (principal); Z90.5 Acquired absence of kidney

== ENCOUNTER → 2019-05-15 | Outpatient (CLI) | payer MEDICARE ==
[2019-05-15 13:06] LABS: BASO % 0.3 % (0.0-1.0); EOS # 0.1 10^3/uL (0.0-0.50); EOS % 1.2 % (0.0-3.0); HEMATOCRIT 39.7 % (36.0-47.0); HEMOGLOBIN 12.4 g/dl (12.0-15.5); LYMPH # 2.3 10^3/uL (1.5-4.5); LYMPH % 33.9 % (24.0-44.0); MEAN CORPUSCULAR HEMOGLOBIN 28.1 pg (27.0-33.0); MEAN CORPUSCULAR HGB CONC 31.2 g/dl (32.0-36.5); MONO # 0.6 10^3/uL (0.0-0.8); MONO % 9.2 % (0.0-5.0); NEUTROPHILS # 3.7 10^3/uL (1.8-7.7); NEUTROPHILS % 55.2 % (36.0-66.0); PLATELET COUNT, AUTOMATED 191 10^3/uL (150-450); RED BLOOD COUNT 4.41 10^6/uL (4.00-5.40); WHITE BLOOD COUNT 6.7 10^3/uL (4.0-10.0)
[2019-05-15 13:31] LABS: ERYTHROCYTE SEDIMENTATION RATE 30 mm/hr (0-30)
[2019-05-18 08:06] LABS: IGASUB3 62.2 mg/dL (13.4-97.9); IgA SERUM (part of Subclasses) 219 mg/dL (64-422); TISSUE TRANSGLUTAMINASE IgA <2 U/mL (0-3); UNITSIGA FOR GLIADIN IGA 3 units (0-19); UNITSIGG FOR GLIADIN IGG 3 units (0-19)
== END ==
LOC: M LAB 11:43
PROVIDERS: ATTEND Internal Medicine Gastroenterology
DX: R19.7 Diarrhea, unspecified (principal)

== ENCOUNTER → 2019-05-18 | Outpatient (REF) | payer MEDICARE | LOC: M LAB REF 11:56 | PROVIDERS: ATTEND Internal Medicine Gastroenterology | DX: R19.7 Diarrhea, unspecified (principal) ==

== ENCOUNTER 2019-06-26 11:40 | Emergency (ER) | payer MEDICARE ==
[~2019-06-26] VITALS: Ht 165.1 cm; Wt 90.3 kg
[~2019-06-26 11:40] MED LIST changes: -IPRA0.00 IN; +IPRA0.00 INH; +LEVO175T2 PO; +MIRA3350 PO
[2019-06-26 13:03] LABS: BASO % 0.3 % (0.0-1.0); EOS # 0.1 10^3/uL (0.0-0.5); HEMATOCRIT 39.9 % (36.0-47.0); LYMPH # 2.3 10^3/uL (1.5-5.0); MEAN CORPUSCULAR HGB CONC 32.6 g/dl (32.0-36.5); MEAN CORPUSCULAR VOLUME 89.1 fl (80.0-96.0); MONO # 0.7 10^3/uL (0.0-0.8); MONO % 9.5 % (0.0-5.0); NEUTROPHILS # 4.7 10^3/uL (1.5-8.5); NEUTROPHILS % 59.9 % (36.0-66.0); PLATELET COUNT, AUTOMATED 183 10^3/uL (150-450); RED BLOOD COUNT 4.48 10^6/uL (4.00-5.40); WHITE BLOOD COUNT 7.8 10^3/uL (4.0-10.0)
[2019-06-26 13:16] LABS: CALCIUM LEVEL 8.8 MG/DL (8.8-10.2); CREATININE FOR GFR 1.24 MG/DL (0.55-1.30); FREE T4 1.45 NG/DL (0.76-1.46); GLOMERULAR FILTRATION RATE 44.9 (>39); POTASSIUM SERUM 3.6 MEQ/L (3.5-5.1); THYROID STIMULATING HORMONE 0.751 uIU/ML (0.358-3.740)
[2019-06-26] MEDS ORDERED: AMIODARONE 200 MG TAB (PACERONE) PO ONE (14:30)
[2019-06-26] MEDS ORDERED: AMIO200T PO (15:12)
[2019-06-26 15:36] VITALS: BP 142/65
--- NOTE | 2019-06-27 07:11 | ECGEPIP ---
[facility] - ED Test Date: 2019-06-26 Pat Name: JEREL CARVER Department: Room: - Gender: Female Header Up: [place] : 1945 Requested By: Lamonte Wilson Order Number: [id number] Reading MD: Lamonte Ramon Measurements Intervals [place] Rate: 67 P: 45 FL: 156 QRS: -19 QRSD: 158 T: 11 QT: 479 QTc: 508 Interpretive Statements SINUS RHYTHM WITH OCCASIONAL VENTRICULAR PREMATURE COMPLEXES INTRAVENTRICULAR CONDUCTION DELAY NO PRIORS FOR COMPARISON Electronically Signed on 06-27-2019 7:10:38 EDT by Lamonte Ramon
== END 2019-06-26 16:03 | disposition home or self-care (01) ==
LOC: M ED 11:40
DX: I48.91 Unspecified atrial fibrillation (principal); I50.9 Heart failure, unspecified; K50.90 Crohn's disease, unspecified, without complications; K21.9 Gastro-esophageal reflux disease without esophagitis; G47.33 Obstructive sleep apnea (adult) (pediatric); Z79.01 Long term (current) use of anticoagulants; Z79.899 Other long term (current) drug therapy

== ENCOUNTER 2019-07-04 08:14 | Day surgery (SDC) | payer MEDICARE ==
[~2019-07-04] VITALS: Ht 165.1 cm; Wt 87.5 kg
[2019-07-04] MEDS: NS 1,000 ML IV ONE (06:00)
[~2019-07-04 08:14] MED LIST changes: +AMIO200T PO
[2019-07-04] MEDS ORDERED: LIDOCAINE 2% INJ 100 MG/5 ML SDV (FOR ANES.) As Ordered ONE (10:05)
[2019-07-04] MEDS ORDERED: fentaNYL 100 MCG/2 ML INJECTION (J3010) As Ordered ONE (10:05)
[2019-07-04] MEDS ORDERED: PROPOFOL 500 MG/50 ML VIAL As Ordered ONE (10:05)
--- NOTE | 2019-07-04 10:58 | ROOR ---
Patient Name: Jennifer Herron Procedure Date: 07/04/2019 10:00 AM Date of : 1945 Age: 74 Room: [facility] Gender: Female Note Status: Finalized Procedure: Upper GI endoscopy Indications: Epigastric abdominal pain, Weight loss Providers: Marquez Vincent MD Referring MD: Jing WU DO Requesting Provider: Medicines: Monitored Anesthesia Care Complications: No immediate complications. Procedure: Pre-Anesthesia Assessment: - Prior to the procedure, a History and Physical was performed, and patient medications and allergies were reviewed. The patient is competent. The risks and benefits of the procedure and the sedation options and risks were discussed with the patient. All questions were answered and informed consent was obtained. Patient identification and proposed procedure were verified by the physician, the nurse and the anesthesiologist in the procedure room. Mental Status Examination: alert and oriented. Airway Examination: normal oropharyngeal airway and neck mobility. Respiratory Examination: clear to auscultation. CV Examination: normal. Prophylactic Antibiotics: The patient does not require prophylactic antibiotics. Prior Anticoagulants: The patient has taken Eliquis (apixaban), last dose was 3 days prior to procedure. ASA Grade Assessment: III - A patient with severe systemic disease. After reviewing the risks and benefits, the patient was deemed in satisfactory condition to undergo the procedure. The anesthesia plan was to use monitored anesthesia care (MAC). Immediately prior to administration of medications, the patient was re-assessed for adequacy to receive sedatives. The heart rate, respiratory rate, oxygen saturations, blood pressure, adequacy of pulmonary ventilation, and response to care were monitored throughout the procedure. The physical status of the patient was re-assessed after the procedure. The Endoscope was introduced through the mouth, and advanced to the second part of duodenum. The upper GI endoscopy was accomplished without difficulty. The patient tolerated the procedure well. Findings: The Z-line was regular and was found 39 cm from the incisors. No gross lesions were noted in the entire esophagus. Diffuse severe inflammation characterized by congestion (edema), erythema, friability and granularity was found in the gastric body and in the gastric antrum. Biopsies were taken with a cold forceps for histology. Verification of patient identification for the specimen was done by the physician and nurse using the patient's name, date and medical record number. A deformity was found in the gastric antrum. (suggestive of extrinsic compression). The duodenal bulb and second portion of the duodenum were normal. Biopsies for histology were taken with a cold forceps for evaluation of celiac disease. Impression: - Z-line regular, 39 cm from the incisors. - No gross lesions in esophagus. - Gastritis. Biopsied. - Deformity in the gastric antrum. - Normal duodenal bulb and second portion of the duodenum. Biopsied. Recommendation: - Patient has a contact number available for emergencies. The signs and symptoms of potential delayed complications were discussed with the patient. Return to normal activities tomorrow. Written discharge instructions were provided to the patient. - High fiber diet. - Resume Eliquis (apixaban) at prior dose tomorrow. Refer to primary physician for further adjustment of therapy. - Continue present medications. 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 - Await pathology results. - Return to GI clinic in [facility] (address [address], [address], [place] [address]) in 4 -- 6 weeks. Please call GI clinic @ [phone] for apppointment date and time. - Return to primary care physician. Marquez Vincent MD Marquez Vincent MD 07/04/2019 10:57:44 AM Electronically signed by Marquez Vincent MD Number of Addenda: 0 Note Initiated On: 07/04/2019 10:00 AM Estimated Blood Loss: Estimated blood loss: none.
[2019-07-04 11:16] VITALS: BP 154/79
--- NOTE | 2019-07-04 11:49 | ROOR ---
Patient Name: Jennifer Herron Procedure Date: 07/04/2019 10:00 AM Date of : 1945 Age: 74 Room: [facility] Gender: Female Note Status: Finalized Procedure: Colonoscopy Indications: Suspected Crohn's disease of the small bowel and colon Providers: Marquez Vincent MD Referring MD: Jing WU DO Requesting Provider: Medicines: Monitored Anesthesia Care Complications: No immediate complications. Procedure: Pre-Anesthesia Assessment: - Prior to the procedure, a History and Physical was performed, and patient medications and allergies were reviewed. The patient is competent. The risks and benefits of the procedure and the sedation options and risks were discussed with the patient. All questions were answered and informed consent was obtained. Patient identification and proposed procedure were verified by the physician, the nurse and the anesthesiologist in the procedure room. Mental Status Examination: alert and oriented. Airway Examination: normal oropharyngeal airway and neck mobility. Respiratory Examination: clear to auscultation. CV Examination: normal. Prophylactic Antibiotics: The patient does not require prophylactic antibiotics. Prior Anticoagulants: The patient has taken Eliquis (apixaban), last dose was 3 days prior to procedure. ASA Grade Assessment: III - A patient with severe systemic disease. After reviewing the risks and benefits, the patient was deemed in satisfactory condition to undergo the procedure. The anesthesia plan was to use monitored anesthesia care (MAC). Immediately prior to administration of medications, the patient was re-assessed for adequacy to receive sedatives. The heart rate, respiratory rate, oxygen saturations, blood pressure, adequacy of pulmonary ventilation, and response to care were monitored throughout the procedure. The physical status of the patient was re-assessed after the procedure. The Colonoscope was introduced through the anus and advanced to the terminal ileum, with identification of the appendiceal orifice and IC valve. The colonoscopy was performed without difficulty. The patient tolerated the procedure well. The quality of the bowel preparation was poor. The terminal ileum, the ileocecal valve, the appendiceal orifice and the rectum were photographed. Scope insertion time was 3 minutes. Scope withdrawal time was 9 minutes. The total duration of the procedure was 12 minutes. Findings: The perianal and digital rectal examinations were normal. The alem-terminal ileum appeared normal. A 10 mm polyp was found in the transverse colon. The polyp was sessile. The polyp was removed with a cold snare. Resection and retrieval were complete. Verification of patient identification for the specimen was done by the physician and nurse using the patient's name, date and medical record number. Estimated blood loss was minimal. A large amount of stool was found from sigmoid to ascending colon, interfering with visualization. Lavage of the area was performed using a large amount of sterile water, resulting in incomplete clearance with continued poor visualization. Multiple small and large-mouthed diverticula were found from sigmoid to descending colon. There was no evidence of diverticular bleeding. Non-bleeding external and internal hemorrhoids were found during retroflexion. The hemorrhoids were medium-sized. Impression: - Preparation of the colon was poor. - The examined portion of the ileum was normal. - One 10 mm polyp in the transverse colon, removed with a cold snare. Resected and retrieved. - Stool from sigmoid to ascending colon. - Moderate diverticulosis from sigmoid to descending colon. There was no evidence of diverticular bleeding. - Non-bleeding external and internal hemorrhoids. Recommendation: - Patient has a contact number available for emergencies. The signs and symptoms of potential delayed complications were discussed with the patient. Return to normal activities tomorrow. Written discharge instructions were provided to the patient. - High fiber diet. - Continue present medications. - Await pathology results. - Repeat colonoscopy in 3 months because the bowel preparation was poor and for surveillance based on pathology results. - Return to GI clinic in [facility] (address [address], [address], [place], [facility]) in 4 -- 6 weeks. Please call GI clinic @ [phone] for apppointment date and time. - Return to primary care physician. Marquez Vincent MD Marquez Vincent MD 07/04/2019 11:48:40 AM Electronically signed by Marquez Vincent MD Number of Addenda: 0 Note Initiated On: 07/04/2019 10:00 AM Estimated Blood Loss: Estimated blood loss was minimal.
== END 2019-07-04 11:30 | disposition home or self-care (01) ==
LOC: M OPP 08:14
PROVIDERS: ATTEND Internal Medicine Gastroenterology
DX: K64.8 Other hemorrhoids (principal); D12.3 Benign neoplasm of transverse colon; K57.30 Diverticulosis of large intestine without perforation or abscess without bleeding; K29.70 Gastritis, unspecified, without bleeding; K31.89 Other diseases of stomach and duodenum; R63.4 Abnormal weight loss; G47.30 Sleep apnea, unspecified; F17.210 Nicotine dependence, cigarettes, uncomplicated; Z79.899 Other long term (current) drug therapy; Z85.3 Personal history of malignant neoplasm of breast; Z92.3 Personal history of irradiation
CPT/HCPCS: 43239; 45385; 88305; J3010

== ENCOUNTER → 2019-07-06 | Outpatient (CLI) | payer MEDICARE ==
[2019-07-06 19:47] LABS: ALBUMIN 3.7 GM/DL (3.2-5.2); BILIRUBIN,TOTAL 0.2 MG/DL (0.2-1.0); CALCIUM LEVEL 8.9 MG/DL (8.8-10.2); CREATININE FOR GFR 1.34 MG/DL (0.55-1.30); FREE T4 1.41 NG/DL (0.76-1.46); POTASSIUM SERUM 4.1 MEQ/L (3.5-5.1); THYROID STIMULATING HORMONE 1.48 uIU/ML (0.358-3.740); TOTAL PROTEIN 7.1 GM/DL (6.4-8.2)
== END ==
LOC: M SMT 14:35
PROVIDERS: ATTEND Family Medicine
DX: N18.3 Chronic kidney disease, stage 3 (moderate) (principal); E03.9 Hypothyroidism, unspecified

== ENCOUNTER 2019-08-01 13:29 | Emergency (ER) | payer MEDICARE ==
[~2019-08-01] VITALS: Ht 165.1 cm; Wt 90.0 kg
[~2019-08-01 13:29] MED LIST changes: -OMEP40CA2 PO; +OMEP40CA97 PO; +SENN-53 PO; -SENN1TAB40 PO
[2019-08-01] MEDS ORDERED: TETRACAINE 0.5% OPHTH SOLN 4ML OU ONE (15:00)
[2019-08-01] MEDS ORDERED: FLUORESCEIN OPHTH 1 MG STRIP OS ONE (15:00)
[2019-08-01 15:43] VITALS: BP 144/74
== END 2019-08-01 15:59 | disposition home or self-care (01) ==
LOC: M ED 13:29
DX: I48.91 Unspecified atrial fibrillation (principal); I50.9 Heart failure, unspecified; I10 Essential (primary) hypertension; F17.200 Nicotine dependence, unspecified, uncomplicated; Z79.01 Long term (current) use of anticoagulants; Z79.84 Long term (current) use of oral hypoglycemic drugs; Z79.899 Other long term (current) drug therapy

== ENCOUNTER 2019-08-24 07:12 | Inpatient (IN) | payer MEDICARE ==
[~2019-08-24] VITALS: Ht 165.1 cm; Wt 74.5 kg
[2019-08-24] VITALS (8 sets, daily range): BP systolic 80–154; BP diastolic 39–74
[2019-08-24] MEDS ORDERED: PACE200T PO (07:34)
[2019-08-24 08:04] LABS: BASO % 0.3 % (0.0-1.0); EOS # 0.1 10^3/uL (0.0-0.5); EOS % 0.8 % (0.0-3.0); HEMATOCRIT 38.3 % (36.0-47.0); HEMOGLOBIN 11.5 g/dl (12.0-15.5); LYMPH # 1.2 10^3/uL (1.5-5.0); LYMPH % 12.2 % (24.0-44.0); MEAN CORPUSCULAR HEMOGLOBIN 28.8 pg (27.0-33.0); MONO # 0.6 10^3/uL (0.0-0.8); MONO % 6.4 % (0.0-5.0); NEUTROPHILS # 7.6 10^3/uL (1.5-8.5); NEUTROPHILS % 79.9 % (36.0-66.0); PLATELET COUNT, AUTOMATED 171 10^3/uL (150-450); RED BLOOD COUNT 3.99 10^6/uL (4.00-5.40); WHITE BLOOD COUNT 9.5 10^3/uL (4.0-10.0)
[2019-08-24 08:16] LABS: INR 1.05; PROTHROMBIN TIME 13.4 SECONDS (11.8-14.0)
[2019-08-24 08:35] LABS: ALBUMIN 3.1 GM/DL (3.2-5.2); BILIRUBIN,DIRECT 0.1 MG/DL (0.0-0.2); BILIRUBIN,TOTAL 0.5 MG/DL (0.2-1.0); CALCIUM LEVEL 8.5 MG/DL (8.8-10.2); CK-MB VALUE MASS 1.9 NG/ML (<3.6); CREATININE FOR GFR 1.51 MG/DL (0.55-1.30); GLOMERULAR FILTRATION RATE 35.8 (>39); MB/CK RELATIVE INDEX 2.07 (< OR =4); POTASSIUM SERUM 3.9 MEQ/L (3.5-5.1); THYROID STIMULATING HORMONE 0.73 uIU/ML (0.358-3.740); THYROXINE (T4) 13.7 UG/DL (4.5-12.0); TOTAL PROTEIN 6.4 GM/DL (6.4-8.2); TROPONIN I 0.03 NG/ML (< 0.10)
--- NOTE | 2019-08-24 09:14 | REP ---
Portable chest, 08:18 a.m., single AP view with the patient sitting: Comparison is 02/03/2019. There is focally increased radiodensity inferiorly in the right lung. This is nonspecific and could represent atelectasis or could represent artifact from the superimposed right breast. The interstitium is mildly coarsened. Cardiac size is upper normal. The moira, mediastinum, skeletal structures are unremarkable. Impression: Increased density inferiorly in the right lung versus artifact from superimposed right breast. Mild interstitial coarsening. Electronically Signed by Rocky Mejia MD 08/24/2019 09:05 A
[2019-08-24] MEDS ORDERED: FUROSEMIDE 40 MG/4 ML VIAL (J1940) IV ONE (09:45)
[2019-08-24] MEDS ORDERED: METOPROLOL 5 MG/5 ML VIAL IV SCH (09:45)
[2019-08-24] MEDS ORDERED: MELA1TAB33 PO (10:35)
[2019-08-24] MEDS ORDERED: ACET-897 PO (10:35)
[2019-08-24] MEDS ORDERED: SIMV20TA2 PO (10:35)
[2019-08-24] MEDS ORDERED: MAALOX 30 ML SUSP *UDC PO PRN (11:45)
[2019-08-24] MEDS: IPRATROPIUM 0.02% SOLN 0.5MG/2.5 ML NEB INH SCH ×3 (12:00→20:24)
[2019-08-24] MEDS: LEVALBUTEROL 1.25 MG/0.5 ML CONCENTRATE NEB INH SCH ×3 (12:00→20:24)
[2019-08-24] MEDS: LOPERAMIDE 2 MG CAPLET PO SCH ×2 (13:40→20:47)
[2019-08-24] MEDS: APIXABAN 5 MG TAB (ELIQUIS) PO SCH ×2 (13:40→20:49)
[2019-08-24] MEDS: METOPROLOL TART 12.5 MG PER 1/2 TAB PO SCH ×2 (13:41→18:00)
[2019-08-24] MEDS: GABAPENTIN 300 MG CAP PO SCH ×2 (16:33→20:46)
[2019-08-24] MEDS ORDERED: FUROSEMIDE 20 MG/2 ML VIAL (J1940) IV SCH (17:00)
[2019-08-24] MEDS ORDERED: FUROSEMIDE 40 MG/4 ML VIAL (J1940) IV SCH (17:00)
[2019-08-24] MEDS: guaiFENesin SYRUP 200 MG/10 ML UDC PO PRN (18:28)
[2019-08-24] MEDS ORDERED: NS 250 ML IV ONE (18:30)
--- NOTE | 2019-08-24 18:47 | ECHO ---
DATE OF PROCEDURE: 08/24/2019 REFERRING PHYSICIAN: Dr. Neena Lawson INDICATION: Congestive heart failure. Height 165 cm, weight 91 kg. DIMENSIONS: IVS: 1.2 LV: 4.4 LVPW: 1.1 LA: 4.5 Aorta: 2.9 IVC: 2.2 FINDINGS: The study is of rather limited technical quality with very difficult visualization. The patient is in atrial fibrillation with controlled rate. Left ventricle is normal size. Mild left ventricular hypertrophy is noted. There is dyskinetic septal motion likely related to underlying conductive system disease. There appears to be global hypokinesis with overall approximately moderate left ventricular (LV) systolic dysfunction. This is based on very limited views. Right ventricle does not appear grossly enlarged. There is biatrial enlargement. Aortic valve is sclerotic but mobility of leaflets is preserved. Same applies for mitral valve. Tricuspid valve appears normal. Pulmonic valve was not well seen. No pericardial effusion is noted. Inferior vena cava is dilated, and there is no appreciable collapse with respiration, indicative of likely high central venous pressure. Aortic root is normal. Aortic arch and abdominal aorta were not well seen. Doppler interrogation of aortic valve reveals no significant stenosis or insufficiency. There is mild mitral and mild tricuspid insufficiency. Calculated pulmonary artery pressure at minimum in 40s, corresponding to moderate pulmonary hypertension. Evaluation of diastolic function is inconclusive due to underlying atrial fibrillation. CONCLUSIONS: 1. Study is of poor technical quality. 2. Normal left ventricular (LV) size with borderline left ventricular hypertrophy (LVH), septal wall motion abnormality and overall probably moderate LV systolic dysfunction. This is not very reliable based on very poor visualization. Right ventricle does not appear grossly enlarged. 3. Biatrial enlargement. 4. No hemodynamically significant valvular disease. 5. Likely high central venous pressure and at least moderate pulmonary hypertension. COMMENT: Subacute bacterial endocarditis (SBE) prophylaxis is not recommended. Both ischemic and nonischemic etiology of the patient's cardiomyopathy should be considered.
[2019-08-24] MEDS: DICYCLOMINE 10 MG CAP PO SCH (20:46)
[2019-08-24] MEDS: SIMVASTATIN 20 MG TAB PO SCH (20:47)
[2019-08-24] MEDS: DOCUSATE SODIUM 100 MG CAP PO SCH (20:47)
--- NOTE | 2019-08-24 20:48 | ECGEPIP ---
[facility] - ED Test Date: 2019-08-24 Pat Name: JEREL CARVER Department: Room: - Gender: Female Contract Assistant: GRANT : 1945 Requested By: AUSTEN Baugh Order Number: [id number] Reading MD: Austen Avalos Measurements Intervals [place] Rate: 120 P: [place]: 0 QRS: 115 QRSD: 166 T: 26 QT: 379 QTc: 538 Interpretive Statements ATRIAL FIBRILLATION WITH RAPID VENTRICULAR RESPONSE WITH ABERRANT CONDUCTION OR VENTRICULAR PREMATURE COMPLEXES Prolonged QTc interval INTRAVENTRICULAR CONDUCTION DELAY Afib is new since tracing done 06-26-19 Electronically Signed on 08-24-2019 20:48:24 EST by Austen Avalos
--- NOTE | 2019-08-24 21:48 | HPEPDOC ---
General Date of Admission Aug 24, 2019 at 11:35 Date of Service: Aug 24, 2019 Chief Complaint The patient is a 74-year-old female admitted with a reason for visit of Atrial Fibrillation With Rvr. 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 2 to 3 days ago she developed a cough, sore throat, congestion and then started having sob and wheezing which became very bad this am and she was unable to catch her breath so came to the ED. In the ED she was found to have afib with rvr. CXR showed chronic interstitial changes and coarse lung markings. ProBNP was elevated. It was felt she had CHF exacerbation and was give IV lasix and metoprolol. SHe had good response to IV lasix and her her rate became controlled . She was admitted ot he hospitalist service for Afib with rvr with CHF exacerbation possibly precipitated by a upper respiratory tract infection or dietary indiscretion. Patient is a current smoker Home Medications Scheduled Amiodarone Hcl (Pacerone) 200 Mg Tablet, 200 MG PO DAILY, (Reported) Apixaban (Eliquis) 5 Mg Tablet, 5 MG PO BID, (Reported) Cholecalciferol (Vitamin D3) (Vitamin D3) 2,000 Unit Cap, 2,000 UNIT PO QHS, (Reported) Dicyclomine HCl (Dicyclomine HCl) 20 Mg Tab, 20 MG PO BID, (Reported) Furosemide (Furosemide) 40 Mg Tab, 40 MG PO DAILY, (Reported) Gabapentin (Gabapentin) 300 Mg Cap, 300 MG PO TID, (Reported) Levothyroxine Sodium (Levothyroxine Sodium) 175 Mcg Tablet, 175 MCG PO DAILY, (Reported) Loperamide HCl (Loperamide) 2 Mg Tab, 2 MG PO BID, (Reported) Omeprazole (Omeprazole) 40 Mg Cap, 40 MG PO DAILY, (Reported) Paroxetine HCl (Paroxetine) 40 Mg Tab, 40 MG PO DAILY, (Reported) Simvastatin (Simvastatin) 20 Mg Tablet, 20 MG PO QHS, (Reported) Trospium Chloride (Trospium Chloride) 20 Mg Tab, 20 MG PO DAILY, (Reported) Scheduled PRN Acetaminophen (Tylenol Extra Strength) 500 Mg Tablet, 1,000 MG PO QID PRN for PAIN, (Reported) Ipratropium/Albuterol Sulfate (Iprat-Albut 0.5-3(2.5) mg/3 ml) 1 Emre Emre, 1 EMRE INH Q6H PRN for SHORTNESS OF BREATH, (Reported) Melatonin (Melatonin) 1 Mg Tablet, 1 MG PO QHS PRN for SLEEP, (Reported) Allergies Coded Allergies: No Known Allergies (Verified , 06/20/19) Past Medical History Medical History Hypertension, hypothyroidism, hyperlipidemia, paroxysmal atrial fibrillation on eliquis, Crohn's disease, Systolic congestive heart failure, GERD, obstructive sleep apnea but unable to tolerate CPAP, episode of seizure in 1977, genital warts, diverticulosis, arthritis in the knee, 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, 2 cm left adrenal adenoma Surgical History Hysterectomy, right breast lumpectomy for breast cancer followed by 6 weeks of radiation, cholecystectomy, right knee replacement, cardiac catheterization in 2006, small bowel resection for Crohn's disease in 2016, left elbow surgery, left ear surgery for lymph node, bilateral cataract surgery in 2015, status post right partial nephrectomy showed oncocytoma Family History Father at 78 from heart attack, mom at 82she had three- vessel bypass, hypertension, heart disease and cancer, one sister passed from colon cancer, another sister had a tumor on her stomach Social History * Smoker: current smoker Alcohol: Denies Drugs: denies A-FIB/CHADSVASC A-FIB History Current/History of A-Fib/PAF?: No Review of Systems Constitutional: Reports: Weakness, Fatigue; Denies: Chills, Fever, Night Sweats Eyes: Denies: Pain, Vision change ENT: Reports: Sore Throat Skin: Denies: Rash, Lesions, Breakdown Pulmonary: Reports: Dyspnea, Cough Cardiovascular: Reports: Palpitations, Orthopnea Gastrointestinal: Reports: Diarrhea; Denies: Nausea, Vomiting, Abdominal Pain Genitourinary: Denies: Dysuria, Frequency, Incontinence, Retention Hematologic: Denies: Bruising, Bleeding Excessively Musculoskeletal: Denies: Neck Pain, Back Pain, Joint Pain, Muscle Pain, Spasms Neurological: Denies: Weakness, Numbness, Change in speech, Confusion Physical Examination General Exam: Positive: Alert, Cooperative, No Acute Distress Eye Exam: Positive: PERRLA, Conjunctiva & lids normal, EOMI; Negative: Sclera icteric ENT Exam: Positive: Atraumatic, Mucous membr. moist/pink, Pharynx Normal Neck Exam: Positive: Supple, JVD; Negative: thyromegaly Chest Exam: Positive: Rales, Rhonchi, Wheezing Heart Exam: Positive: Tachycardic, Irregular Rhythm, Normal S1, Normal S2; Negative: Rate Normal, Bradycardic, Regular Rhythm, Gallops, Murmurs, Rubs Telemetry: Positive: Atrial fibrillation Abdomen Exam: Positive: Normal bowel sounds, Soft; Negative: Tenderness, Hepatospenomegaly Extremity Exam: Negative: Clubbing, Cyanosis, Edema Skin Exam: Positive: Nl turgor and temperature; Negative: Breakdown, Lesion Neuro Exam: Positive: Normal Speech, Strength at 5/5 X4 ext, Normal Tone Psych Exam: Positive: Mental status NL, Mood NL, Oriented x 3 Vital Signs Vital Signs Date Time Temp Pulse Resp B/P (MAP) Pulse Ox O2 Delivery O2 Flow Rate FiO2 08/24/19 16:04 Nasal Cannula 1.0 08/24/19 13:41 108 130/74 08/24/19 12:31 98 08/24/19 07:30 98.0 18 Laboratory Data Labs 24H Laboratory Tests 2 08/24/19 07:52: Immature Granulocyte % (Auto) 0.4, Neutrophils (%) (Auto) 79.9H, Lymphocytes (%) (Auto) 12.2L, Monocytes (%) (Auto) 6.4H, Eosinophils (%) (Auto) 0.8, Basophils (%) (Auto) 0.3, Neutrophils # (Auto) 7.6, Lymphocytes # (Auto) 1.2L, Monocytes # (Auto) 0.6, Eosinophils # (Auto) 0.1, Basophils # (Auto) 0.0, Nucleated Red Blood Cells % (auto) 0.0, Prothrombin Time 13.4, Prothromb Time International Ratio 1.05, Anion Gap 6L, Glomerular Filtration Rate 35.8L, Lactic Acid Level 1.3, Calcium Level 8.5L, Total Bilirubin 0.5, Direct Bilirubin 0.1, Aspartate Amino Transf (AST/SGOT) 26, Alanine Aminotransferase (ALT/SGPT) 25, Alkaline Phosphatase 108, Total Creatine Kinase 92, Creatine Kinase MB 1.9, Creatine Kinase MB Relative Index 2.07, Troponin I 0.03, JK-Qmc-[id number]-Type Natriuretic Peptide 5153H, Total Protein 6.4, Albumin 3.1L, Albumin/Globulin Ratio 0.94L, Thyroid Stimulating Hormone (TSH) 0.730, Thyroxine (T4) 13.7H CBC/BMP Laboratory Tests 08/24/19 07:52 Microbiology Microbiology 08/24/19 Respiratory Virus Panel (PCR) ([facility]) - Final, Complete 08/24/19 Blood Culture, Received Pending 08/24/19 Blood Culture, Received Pending Assessment/Plan 74 year old female with PMH of Hypertension, hypothyroidism, hyperlipidemia, Paroxysmal atrial fibrillation on eliquis, Crohn's disease, Systolic congestive heart failure with EF of 45%, GERD, obstructive sleep apnea but unable to tolerate CPAP, episode of seizure in 1977, genital warts, diverticulosis, arthritis in the knee, 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 2 to 3 days ago she developed a cough, sore throat, congestion and then started having sob and wheezing which became very bad this am and she was unable to catch her breath so came to the ED. In the ED she was found to have afib with rvr. CXR showed chronic interstitial changes and coarse lung markings. ProBNP was elevated. It was felt she had CHF exacerbation and was give IV lasix and metoprolol. SHe had good response to IV lasix and her her rate became controlled . She was admitted ot he hospitalist service for Afib with rvr with CHF exacerbation possibly precipitated by a upper respiratory tract infection or dietary indiscretion. Patient is a current smoker Afib with rvr pateint has history of paroxysmal afib rate became uncontrolled probably due to a upper respiratory tract infection, use of nebs at home. rate was controlled with metoprolol . However her bp dropped later in the ev ening after laisx and metoprolol so metoprolol was stopped. so was given a small bolus of fluid with improvement of BP continue amiodarone and eliquis contsulted cardiology Systolic CHF exacerbation this was probably due to afib with uncontrolled rate Systolic CHF is probably due to ischemic vs non ischemic cardiomyopathy as per echo. had good response to 1 dose of lasix with 1100 cc unire output. however there was Bp drop after this so further doses were held cardiology consulted echo reviewed Moderate pulmonary hypertension with right heart failure will give diuretics prn as needed. Hypothyroid continue synthroid Hyperlipidemia continue statin Chronic diarrhea after bowel surgery for crohn's disease. continue imodium dicyclomine Gi prophylaxis in place. Plan / VTE VTE Prophylaxis Ordered?: Yes ДМИТРИЙ LONGORIA MD Aug 24, 2019 17:32
[2019-08-25] VITALS (8 sets, daily range): BP systolic 100–140; BP diastolic 52–87
[2019-08-25 04:52] LABS: BASO % 0.3 % (0.0-1.0); EOS # 0.1 10^3/uL (0.0-0.5); EOS % 1.5 % (0.0-3.0); HEMOGLOBIN 10.7 g/dl (12.0-15.5); LYMPH # 1.6 10^3/uL (1.5-5.0); LYMPH % 26.4 % (24.0-44.0); MEAN CORPUSCULAR HEMOGLOBIN 29.2 pg (27.0-33.0); MEAN CORPUSCULAR HGB CONC 30.6 g/dl (32.0-36.5); MEAN CORPUSCULAR VOLUME 95.6 fl (80.0-96.0); MONO # 0.7 10^3/uL (0.0-0.8); MONO % 11.5 % (0.0-5.0); NEUTROPHILS # 3.7 10^3/uL (1.5-8.5); NEUTROPHILS % 60.1 % (36.0-66.0); PLATELET COUNT, AUTOMATED 143 10^3/uL (150-450); RED BLOOD COUNT 3.66 10^6/uL (4.00-5.40); WHITE BLOOD COUNT 6.1 10^3/uL (4.0-10.0)
[2019-08-25 05:12] LABS: CALCIUM LEVEL 8.2 MG/DL (8.8-10.2); CREATININE FOR GFR 1.46 MG/DL (0.55-1.30); GLOMERULAR FILTRATION RATE 37.2 (>39); POTASSIUM SERUM 3.7 MEQ/L (3.5-5.1)
[2019-08-25] MEDS: LEVOTHYROXINE 75MCG TABLET (0.075MG) PO SCH (06:28)
[2019-08-25] MEDS: guaiFENesin SYRUP 200 MG/10 ML UDC PO PRN ×2 (06:28→18:22)
[2019-08-25] MEDS: LEVOTHYROXINE 100MCG TABLET (0.1MG) PO SCH (06:28)
[2019-08-25] MEDS: IPRATROPIUM 0.02% SOLN 0.5MG/2.5 ML NEB INH SCH ×4 (08:19→20:15)
[2019-08-25] MEDS: LEVALBUTEROL 1.25 MG/0.5 ML CONCENTRATE NEB INH SCH ×4 (08:19→20:15)
[2019-08-25] MEDS: DOCUSATE SODIUM 100 MG CAP PO SCH ×2 (08:47→20:24)
[2019-08-25] MEDS ORDERED: ENOXAPARIN 40 MG/0.4 ML SYRINGE (J1650) SC SCH (09:00)
[2019-08-25] MEDS: DICYCLOMINE 10 MG CAP PO SCH ×2 (09:21→20:24)
[2019-08-25] MEDS: LOPERAMIDE 2 MG CAPLET PO SCH ×2 (09:21→20:23)
[2019-08-25] MEDS: ACETAMINOPHEN 500 MG TAB PO PRN (09:22)
[2019-08-25] MEDS: GABAPENTIN 300 MG CAP PO SCH ×3 (09:22→20:24)
[2019-08-25] MEDS: AMIODARONE 200 MG TAB (PACERONE) PO SCH (09:22)
[2019-08-25] MEDS: APIXABAN 5 MG TAB (ELIQUIS) PO SCH ×2 (09:22→20:23)
[2019-08-25] MEDS: OMEPRAZOLE 20 MG CAP PO SCH (09:22)
[2019-08-25] MEDS: TROSPIUM 20 MG TAB PO SCH (09:22)
[2019-08-25] MEDS: PARoxetine 20 MG TAB PO SCH (09:29)
[2019-08-25] MEDS ORDERED: DIGOXIN INJ 0.5 MG/2 ML AMP (J1160) IV ONE (13:15)
--- NOTE | 2019-08-25 13:17 | IPNPDOC ---
Subjective Date Seen The patient was seen on 08/25/19. Subjective Chief Complaint/HPI Feels much better that yesterday. Though continues to have bouts of coughing but less than before. SHe still has wheezing. No fever or chills overnight. Heart rate controlled in 90s and low 100s overnight however now has again become uncontrolled to 120s. will give digoxin. Objective Physical Examination General Exam: Positive: Alert, Cooperative, No Acute Distress Eye Exam: Positive: PERRLA, Conjunctiva & lids normal, EOMI; Negative: Sclera icteric ENT Exam: Positive: Atraumatic, Mucous membr. moist/pink, Pharynx Normal Neck Exam: Positive: Supple, JVD; Negative: thyromegaly Chest Exam: Positive: Rhonchi, Wheezing Heart Exam: Positive: Tachycardic, Irregular Rhythm, Normal S1, Normal S2; Negative: Rate Normal, Bradycardic, Regular Rhythm, Gallops, Murmurs, Rubs Telemetry: Positive: Atrial fibrillation Abdomen Exam: Positive: Normal bowel sounds, Soft; Negative: Tenderness, Hepatospenomegaly Extremity Exam: Negative: Clubbing, Cyanosis, Edema Skin Exam: Positive: Nl turgor and temperature; Negative: Breakdown, Lesion Neuro Exam: Positive: Normal Speech, Strength at 5/5 X4 ext, Normal Tone Psych Exam: Positive: Mental status NL, Mood NL, Oriented x 3 Assessment /Plan Assessment 74 year old female with PMH of Hypertension, hypothyroidism, hyperlipidemia, Paroxysmal atrial fibrillation on eliquis, Crohn's disease, Systolic congestive heart failure with EF of 45%, GERD, obstructive sleep apnea but unable to tolerate CPAP, episode of seizure in 1977, genital warts, diverticulosis, arthritis in the knee, 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 2 to 3 days ago she developed a cough, sore throat, congestion and then started having sob and wheezing which became very bad this am and she was unable to catch her breath so came to the ED. In the ED she was found to have afib with rvr. CXR showed chronic interstitial changes and coarse lung markings. ProBNP was elevated. It was felt she had CHF exacerbation and was give IV lasix and metoprolol. SHe had good response to IV lasix and her her rate became co ntrolled . She was admitted ot he hospitalist service for Afib with rvr with CHF exacerbation possibly precipitated by a upper respiratory tract infection or dietary indiscretion. Patient is a current smoker Afib with rvr patient has history of paroxysmal afib rate became uncontrolled probably due to a upper respiratory tract infection, use of nebs at home. rate was controlled with metoprolol however Bp dropped so will give digoxin today. continue amiodarone and eliquis consulted cardiology Systolic CHF exacerbation this was probably due to afib with uncontrolled rate responded well to 1 dose of lasix. now looks euvolemic will continue with fluid restriction , I/O and daily weights, Systolic CHF is probably due to ischemic vs non ischemic cardiomyopathy as per echo. cardiology consulted echo reviewed Moderate pulmonary hypertension with right heart failure will give diuretics prn as needed. Hypothyroid continue synthroid Hyperlipidemia continue statin Chronic diarrhea after bowel surgery for crohn's disease. continue imodium dicyclomine Gi prophylaxis in place. Plan/VTE VTE Prophylaxis Ordered?: Yes VS, I&O, 24H, Fishbone Vital Signs/I&O Vital Signs Date Time Temp Pulse Resp B/P (MAP) Pulse Ox O2 Delivery O2 Flow Rate FiO2 08/25/19 12:53 137 100/52 (68) 08/25/19 08:00 98.0 16 92 Room Air 08/24/19 16:26 1.0 I&O- Last 24 Hours up to 6 AM 08/25/19 06:00 Intake Total 1210 ml Output Total 1100 ml Balance 110 ml Laboratory Data 24H LABS Laboratory Tests 2 08/25/19 04:35: Immature Granulocyte % (Auto) 0.2, Neutrophils (%) (Auto) 60.1, Lymphocytes (%) (Auto) 26.4, Monocytes (%) (Auto) 11.5H, Eosinophils (%) (Auto) 1.5, Basophils (%) (Auto) 0.3, Neutrophils # (Auto) 3.7, Lymphocytes # (Auto) 1.6, Monocytes # (Auto) 0.7, Eosinophils # (Auto) 0.1, Basophils # (Auto) 0.0, Nucleated Red Blood Cells % (auto) 0.0, Anion Gap 3L, Glomerular Filtration Rate 37.2L, Calcium Level 8.2L CBC/BMP Laboratory Tests 08/25/19 04:35 Microbiology Microbiology 08/25/19 Gram Stain - Final, Resulted 08/25/19 Sputum Culture, Resulted Pending 08/24/19 Respiratory Virus Panel (PCR) ([facility]) - Final, Complete 08/24/19 Blood Culture - Preliminary, Resulted No growth after 24 hours . All specim... 08/24/19 Blood Culture - Preliminary, Resulted No growth after 24 hours . All specim... ДМИТРИЙ LONGORIA MD Aug 25, 2019 13:17
[2019-08-25] MEDS ORDERED: SLF 3 ML SYR IV PRN (16:00)
[2019-08-25] MEDS: SIMVASTATIN 20 MG TAB PO SCH (20:22)
[2019-08-25] MEDS: CARVedilol 3.125 MG TAB PO SCH (20:23)
[2019-08-25] MEDS: SLF 3 ML SYR IV SCH (20:25)
[2019-08-26] VITALS: BP 106/78
[2019-08-26] MEDS: guaiFENesin SYRUP 200 MG/10 ML UDC PO PRN ×2 (03:39→21:24)
[2019-08-26 04:00] VITALS: BP 148/81
[2019-08-26] MEDS ORDERED: LEVALBUTEROL 1.25 MG/0.5 ML CONCENTRATE NEB INH PRN ×2 (04:30→06:30)
[2019-08-26] MEDS: LEVOTHYROXINE 75MCG TABLET (0.075MG) PO SCH (05:26)
[2019-08-26] MEDS: LEVOTHYROXINE 100MCG TABLET (0.1MG) PO SCH (05:26)
[2019-08-26] MEDS: SLF 3 ML SYR IV SCH ×3 (05:26→20:44)
[2019-08-26 06:08] LABS: BASO % 0.3 % (0.0-1.0); EOS # 0.1 10^3/uL (0.0-0.5); EOS % 1.4 % (0.0-3.0); HEMATOCRIT 35.7 % (36.0-47.0); HEMOGLOBIN 10.7 g/dl (12.0-15.5); LYMPH # 1.3 10^3/uL (1.5-5.0); LYMPH % 18.5 % (24.0-44.0); MEAN CORPUSCULAR HEMOGLOBIN 28.5 pg (27.0-33.0); MEAN CORPUSCULAR VOLUME 95.2 fl (80.0-96.0); MONO # 0.6 10^3/uL (0.0-0.8); MONO % 8.4 % (0.0-5.0); NEUTROPHILS # 5.1 10^3/uL (1.5-8.5); PLATELET COUNT, AUTOMATED 138 10^3/uL (150-450); RED BLOOD COUNT 3.75 10^6/uL (4.00-5.40); WHITE BLOOD COUNT 7.2 10^3/uL (4.0-10.0)
[2019-08-26 06:25] LABS: CREATININE FOR GFR 1.29 MG/DL (0.55-1.30); GLOMERULAR FILTRATION RATE 42.9 (>39); POTASSIUM SERUM 3.6 MEQ/L (3.5-5.1)
[2019-08-26 06:26] LABS: CALCIUM LEVEL 8.5 MG/DL (8.8-10.2)
[2019-08-26] MEDS ORDERED: METOPROLOL TART 25 MG TABLET PO ONE (06:30)
[2019-08-26 07:32] VITALS: BP 137/87
[2019-08-26] MEDS: IPRATROPIUM 0.02% SOLN 0.5MG/2.5 ML NEB INH SCH ×4 (07:46→20:00)
[2019-08-26] MEDS: DICYCLOMINE 10 MG CAP PO SCH ×2 (08:14→20:40)
[2019-08-26] MEDS: APIXABAN 5 MG TAB (ELIQUIS) PO SCH ×2 (08:15→20:40)
[2019-08-26] MEDS: OMEPRAZOLE 20 MG CAP PO SCH (08:15)
[2019-08-26] MEDS: TROSPIUM 20 MG TAB PO SCH (08:15)
[2019-08-26] MEDS: GABAPENTIN 300 MG CAP PO SCH ×3 (08:15→20:40)
[2019-08-26] MEDS: DOCUSATE SODIUM 100 MG CAP PO SCH ×2 (08:15→20:40)
[2019-08-26] MEDS: AMIODARONE 200 MG TAB (PACERONE) PO SCH (08:15)
[2019-08-26] MEDS: CARVedilol 3.125 MG TAB PO SCH ×2 (08:17→20:41)
[2019-08-26] MEDS: PARoxetine 20 MG TAB PO SCH (08:17)
[2019-08-26] MEDS: LOPERAMIDE 2 MG CAPLET PO SCH ×2 (08:17→20:44)
[2019-08-26] MEDS: ACETAMINOPHEN 500 MG TAB PO PRN (08:22)
[2019-08-26] MEDS: SYMBICORT 80/4.5MCG INHALER 6GM INH SCH ×2 (09:00→20:23)
--- NOTE | 2019-08-26 10:03 | IPNPDOC ---
Subjective Date Seen The patient was seen on 08/26/19. Subjective Chief Complaint/HPI Feels better than before . Say her breathing is better and cough is less. though still has audible wheezing . Her pulse rate is better controlled this morning. she did get a dose of metoprolol at 1 am. No fever or chills, says the nebs are helping. says her appetite is ok and she is eating normal. Objective Physical Examination General Exam: Positive: Alert, Cooperative, No Acute Distress Eye Exam: Positive: PERRLA, Conjunctiva & lids normal, EOMI; Negative: Sclera icteric ENT Exam: Positive: Atraumatic, Mucous membr. moist/pink, Pharynx Normal Neck Exam: Positive: Supple, JVD; Negative: thyromegaly Chest Exam: Positive: Rhonchi, Wheezing Heart Exam: Positive: Tachycardic, Irregular Rhythm, Normal S1, Normal S2; Negative: Rate Normal, Bradycardic, Regular Rhythm, Gallops, Murmurs, Rubs Telemetry: Positive: Atrial fibrillation Abdomen Exam: Positive: Normal bowel sounds, Soft; Negative: Tenderness, Hepatospenomegaly Extremity Exam: Negative: Clubbing, Cyanosis, Edema Skin Exam: Positive: Nl turgor and temperature; Negative: Breakdown, Lesion Neuro Exam: Positive: Normal Speech, Strength at 5/5 X4 ext, Normal Tone Psych Exam: Positive: Mental status NL, Mood NL, Oriented x 3 Assessment /Plan Assessment 74 year old female with PMH of Hypertension, hypothyroidism, hyperlipidemia, Paroxysmal atrial fibrillation on eliquis, Crohn's disease, Systolic congestive heart failure with EF of 45%, GERD, obstructive sleep apnea but unable to tolerate CPAP, episode of seizure in 1977, genital warts, diverticulosis, arthritis in the knee, 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 2 to 3 days ago she developed a cough, sore throat, congestion and then started having sob and wheezing which became very bad this am and she was unable to catch her breath so came to the ED. In the ED she was found to have afib with rvr. CXR showed chronic interstitial changes and coarse lung markings. ProBNP was elevated. It was felt she had CHF exacerbation and was give IV lasix and metoprolol. SHe had good response to IV lasix and her her rate became controlled . She was admitted ot he hospitalist service for Afib with rvr with CHF exacerbation possibly precipitated by a upper respiratory tract infection or dietary indiscretion. Patient is a current smoker Afib with rvr patient has history of paroxysmal afib rate became uncontrolled probably due to a upper respiratory tract infection, use of nebs at home. started on coreg. continue amiodarone and eliquis cardiology following. Suspected COPD with exacerbation probably form a upper respiratory tract viral infection. patient is a smoker for many years. will get pft will start on methyl pred, symbicort continue xopenex and albuterol. Systolic CHF exacerbation EF is about 45% this was probably due to afib with uncontrolled rate responded well to 1 dose of lasix. now looks euvolemic will continue with fluid restriction , I/O and daily weights, Systolic CHF is probably due to ischemic vs non ischemic cardiomyopathy as per echo. cardiology consulted echo reviewed Moderate pulmonary hypertension with right heart failure will give diuretics prn as needed. Hypothyroid continue synthroid Hyperlipidemia continue statin Chronic diarrhea after bowel surgery for crohn's disease. continue imodium dicyclomine Gi prophylaxis in place. Plan/VTE VTE Prophylaxis Ordered?: Yes VS, I&O, 24H, Fishbone Vital Signs/I&O Vital Signs Date Time Temp Pulse Resp B/P (MAP) Pulse Ox O2 Delivery O2 Flow Rate FiO2 08/26/19 09:13 94 Room Air 08/26/19 08:17 91 140/80 08/26/19 07:32 97.4 18 08/24/19 16:26 1.0 I&O- Last 24 Hours up to 6 AM 08/26/19 05:59 Intake Total 1560 ml Output Total 950 ml Balance 610 ml Laboratory Data 24H LABS Laboratory Tests 2 08/26/19 05:27: Immature Granulocyte % (Auto) 0.4, Neutrophils (%) (Auto) 71.0H, Lymphocytes (%) (Auto) 18.5L, Monocytes (%) (Auto) 8.4H, Eosinophils (%) (Auto) 1.4, Basophils (%) (Auto) 0.3, Neutrophils # (Auto) 5.1, Lymphocytes # (Auto) 1.3L, Monocytes # (Auto) 0.6, Eosinophils # (Auto) 0.1, Basophils # (Auto) 0.0, Nucleated Red Blood Cells % (auto) 0.0, Anion Gap 4L, Glomerular Filtration Rate 42.9, Calcium Level 8.5L CBC/BMP Laboratory Tests 08/26/19 05:27 Microbiology Microbiology 08/25/19 Gram Stain - Final, Resulted 08/25/19 Sputum Culture, Resulted Pending 08/24/19 Respiratory Virus Panel (PCR) ([facility]) - Final, Complete 08/24/19 Blood Culture - Preliminary, Resulted No Growth after 48 hours. All Specime... 08/24/19 Blood Culture - Preliminary, Resulted No Growth after 48 hours. All Specime... ДМИТРИЙ LONGORIA MD Aug 26, 2019 10:03
[2019-08-26] MEDS: methylPREDNISolone INJ 40 MG/1 ML VIAL (J2920) IV SCH ×2 (10:19→17:21)
[2019-08-26 12:00] VITALS: BP 163/88
[2019-08-26] MEDS: NYSTATIN 100,000 UNITS/GM TOPICAL PWD 15 GM TOP SCH ×2 (12:13→20:43)
[2019-08-26] MEDS ORDERED: FUROSEMIDE 20 MG/2 ML VIAL (J1940) IV ONE (12:45)
[2019-08-26] MEDS ORDERED: RAMIPRIL 1.25 MG CAP PO ONE (12:45)
--- NOTE | 2019-08-26 13:51 | IPN ---
DATE OF SERVICE: 08/26/2019 Mrs. Jennifer Herron was seen earlier today, she was supine in bed in no acute distress at rest and her granddaughter was at bedside. She denies any chest pain or palpitations. She stated her cough has improved. There is no report of bleeding. She was initially seen on 08/24/2019 and she was admitted with atrial fibrillation with a rapid ventricular rate. She was given IV and by mouth beta donovan and she became hypotensive. Her by mouth beta donovan was held. She was on amiodarone and we continued with the IV amiodarone. She responded after 250 mL of normal saline bolus, her blood pressure. Since then, her heart rate has been under control and she has received also some IV digoxin and yesterday we had decided to restart her beta donovan at a small dose. She was still in atrial fibrillation with a rapid ventricular rate. She denies any nausea, vomiting, diarrhea, melena or hematemesis. She denies any pedal edema. As mentioned above, her cough has improved. She continues to have minimal wheezing. There is no focal manifestation. PHYSICAL EXAMINATION: The patient is alert and oriented, in no acute distress at rest very pleasant. Her vital signs this morning reveal a blood pressure of 140/83 with a pulse of 91, respirations 18 and maximum temperature of 97.4 degrees Fahrenheit with an oxygen saturation of 94-96% on room air. She has a positive fluid balance of 610 mL. Examination of Head: Atraumatic. Neck is supple and no jugular venous distention (JVD) appreciated. Lungs: Revealed minimal end expiratory wheezing, but no crackles. Heart examination revealed irregular heart sounds without gallops. The PMI is slightly displaced inferiorly. There is no rub. I could not appreciate any murmurs. The abdomen is unremarkable. Extremities revealed no pedal edema. Neurological Examination: Negative for focal deficit. LABORATORY DATA: CBC done today revealed a WBC of 7.12, hemoglobin 10.7, hematocrit 35.7 and platelets 138,000. BMP done today revealed a sodium of 141, potassium 3.6, chloride 108, CO2 29, BUN 18, creatinine 1.29, GFR 42.9, fasting glucose 103 and calcium 8.5. Respiratory virus panel was negative. Blood cultures have been negative. Sputum gram stain revealed moderate WBCs and many gram-positive cocci in pairs. Chest x-ray on admission revealed density noted inferiorly in the right lung versus artifact. That was superimposed with the right breast. Minimal interstitial markings noted. Telemetry revealed atrial fibrillation. Echocardiogram done on admission revealed probably moderate global left ventricular systolic dysfunction, septal wall motion abnormality and biatrial enlargement. The study was technically limited due to poor acoustic window. ASSESSMENT: 74-year-old woman with a history of atrial fibrillation, mild left ventricular systolic dysfunction who was admitted on 08/24/2019. She was initially in atrial fibrillation with uncontrolled ventricular rate. Further cardiac workup revealed findings consistent with congestive failure and her echocardiogram revealed probably some deterioration in her left ventricular ejection fraction (LVEF). Initially, she was hypotensive after receiving IV and by mouth beta donovan, but blood pressure has been stable and she was restarted on the carvedilol yesterday in the evening. She is on by mouth amiodarone and she will continue the same. She is also on anticoagulation therapy with Apixaban and she will continue the same. Today, she will be started on a small dose of on SHE inhibitor for her low ejection fraction (EF) and she will be monitored. Will monitor closely her BUN, creatinine and serum potassium. We have discussed about further intervention for her atrial fibrillation, mechanical cardioversion versus ablation and that will be done as outpatient after she sees her primary attendant [employer]. If she remains stable, she can be discharged home on Wednesday. We also have discussed about further cardiac workup, she will benefit from a stress test as outpatient if not done recently. Smoking cessation was also discussed with her and recommended, she is willing to quit. TEE
[2019-08-26] MEDS: LEVALBUTEROL 1.25 MG/0.5 ML CONCENTRATE NEB INH SCH ×3 (14:17→20:00)
[2019-08-26 15:40] VITALS: BP 118/74
[2019-08-26 20:00] VITALS: BP 170/93
[2019-08-26] MEDS: SIMVASTATIN 20 MG TAB PO SCH (20:40)
[2019-08-27] VITALS (8 sets, daily range): BP systolic 138–155; BP diastolic 74–103
[2019-08-27] MEDS: methylPREDNISolone INJ 40 MG/1 ML VIAL (J2920) IV SCH ×3 (01:35→17:14)
[2019-08-27] MEDS: guaiFENesin SYRUP 200 MG/10 ML UDC PO PRN ×3 (03:35→20:21)
[2019-08-27 05:48] LABS: HEMATOCRIT 34.6 % (36.0-47.0); HEMOGLOBIN 10.8 g/dl (12.0-15.5); LYMPH # 0.6 10^3/uL (1.5-5.0); LYMPH % 7.5 % (24.0-44.0); MEAN CORPUSCULAR HEMOGLOBIN 29.2 pg (27.0-33.0); MEAN CORPUSCULAR HGB CONC 31.2 g/dl (32.0-36.5); MEAN CORPUSCULAR VOLUME 93.5 fl (80.0-96.0); MONO # 0.3 10^3/uL (0.0-0.8); MONO % 3.3 % (0.0-5.0); NEUTROPHILS # 6.8 10^3/uL (1.5-8.5); NEUTROPHILS % 88.8 % (36.0-66.0); PLATELET COUNT, AUTOMATED 146 10^3/uL (150-450); WHITE BLOOD COUNT 7.7 10^3/uL (4.0-10.0)
[2019-08-27] MEDS: LEVOTHYROXINE 75MCG TABLET (0.075MG) PO SCH (06:09)
[2019-08-27] MEDS: LEVOTHYROXINE 100MCG TABLET (0.1MG) PO SCH (06:09)
[2019-08-27] MEDS: SLF 3 ML SYR IV SCH ×3 (06:10→20:21)
[2019-08-27 06:25] LABS: CALCIUM LEVEL 8.7 MG/DL (8.8-10.2); CREATININE FOR GFR 1.39 MG/DL (0.55-1.30); GLOMERULAR FILTRATION RATE 39.3 (>39)
[2019-08-27] MEDS: IPRATROPIUM 0.02% SOLN 0.5MG/2.5 ML NEB INH SCH ×4 (08:00→20:00)
[2019-08-27] MEDS: LEVALBUTEROL 1.25 MG/0.5 ML CONCENTRATE NEB INH SCH ×4 (08:00→20:00)
[2019-08-27] MEDS: GABAPENTIN 300 MG CAP PO SCH ×3 (08:29→20:20)
[2019-08-27] MEDS: AMIODARONE 200 MG TAB (PACERONE) PO SCH (08:30)
[2019-08-27] MEDS: TROSPIUM 20 MG TAB PO SCH (08:30)
[2019-08-27] MEDS: DOCUSATE SODIUM 100 MG CAP PO SCH ×2 (08:30→20:20)
[2019-08-27] MEDS: CARVedilol 3.125 MG TAB PO SCH (08:30)
[2019-08-27] MEDS: DICYCLOMINE 10 MG CAP PO SCH ×2 (08:30→20:19)
[2019-08-27] MEDS: APIXABAN 5 MG TAB (ELIQUIS) PO SCH ×2 (08:30→20:20)
[2019-08-27] MEDS: OMEPRAZOLE 20 MG CAP PO SCH (08:30)
[2019-08-27] MEDS: PARoxetine 20 MG TAB PO SCH (08:31)
[2019-08-27] MEDS: NYSTATIN 100,000 UNITS/GM TOPICAL PWD 15 GM TOP SCH ×2 (08:31→20:20)
[2019-08-27] MEDS: LOPERAMIDE 2 MG CAPLET PO SCH ×2 (08:31→20:22)
[2019-08-27] MEDS: SYMBICORT 80/4.5MCG INHALER 6GM INH SCH ×3 (09:00→20:00)
--- NOTE | 2019-08-27 09:20 | IPNPDOC ---
Subjective Date Seen The patient was seen on 08/27/19. Subjective Chief Complaint/HPI SOB and wheezing much better after starting the steroids yesterday. She is off oxygen and has been freely ambulatory in the room. Her cough is also better. Her heart rate is controlled this morning . she is in Afib. Over the night she had converted to sinus rhythm but is back to afib this morning. Objective Physical Examination General Exam: Positive: Alert, Cooperative, No Acute Distress Eye Exam: Positive: PERRLA, Conjunctiva & lids normal, EOMI; Negative: Sclera icteric ENT Exam: Positive: Atraumatic, Mucous membr. moist/pink, Pharynx Normal Neck Exam: Positive: Supple, JVD; Negative: thyromegaly Chest Exam: Positive: Rhonchi, Wheezing Heart Exam: Positive: Tachycardic, Irregular Rhythm, Normal S1, Normal S2; Negative: Rate Normal, Bradycardic, Regular Rhythm, Gallops, Murmurs, Rubs Telemetry: Positive: Atrial fibrillation Abdomen Exam: Positive: Normal bowel sounds, Soft; Negative: Tenderness, Hepatospenomegaly Extremity Exam: Negative: Clubbing, Cyanosis, Edema Skin Exam: Positive: Nl turgor and temperature; Negative: Breakdown, Lesion Neuro Exam: Positive: Normal Speech, Strength at 5/5 X4 ext, Normal Tone Psych Exam: Positive: Mental status NL, Mood NL, Oriented x 3 Assessment /Plan Assessment 74 year old female with PMH of Hypertension, hypothyroidism, hyperlipidemia, Paroxysmal atrial fibrillation on eliquis, Crohn's disease, Systolic congestive heart failure with EF of 45%, GERD, obstructive sleep apnea but unable to tolerate CPAP, episode of seizure in 1977, genital warts, diverticulosis, arthritis in the knee, 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 2 to 3 days ago she developed a cough, sore throat, congestion and then started having sob and wheezing which became very bad this am and she was unable to catch her breath so came to the ED. In the ED she was found to have afib with rvr. CXR showed chronic interstitial changes and coarse lung markings. ProBNP was elevated. It was felt she had CHF exacerbation and was give IV lasix and metoprolol. SHe had good response to IV lasix and her her rate became controlled . She was admitted ot he hospitalist service for Afib with rvr with CHF exacerbation possibly precipitated by a upper respiratory tract infection or dietary indiscretion. Patient is a current smoker Afib with rvr patient has history of paroxysmal afib rate became uncontrolled probably due to a upper respiratory tract infection, use of nebs at home. started on coreg. continue amiodarone and eliquis cardiology following. Suspected COPD with exacerbation probably form a upper respiratory tract viral infection. patient is a smoker for many years. will get pft on methyl pred, symbicort continue xopenex and albuterol. Will get CT chest because of abnormal CXR. Breast lump near her prior surgical site just below the right axilla. Said she feel on her right side about 2 weeks prior to admission could be deep heatoma in fatty tissues If does not resolved in 2 weeks will have to get further evaluation She did say she had her routine mammogram this year and everything was fine. Systolic CHF exacerbation EF is about 45% Systolic CHF is probably due to ischemic vs non ischemic cardiomyopathy as per echo. this was probably due to afib with uncontrolled rate responded well to 1 dose of lasix. now looks euvolemic will continue with fluid restriction , I/O and daily weights started on ramipril Moderate pulmonary hypertension with right heart failure will give diuretics prn as needed. Hypothyroid continue synthroid Hyperlipidemia continue statin Chronic diarrhea after bowel surgery for crohn's disease. continue imodium dicyclomine Gi prophylaxis in place. Plan/VTE VTE Prophylaxis Ordered?: Yes VS, I&O, 24H, Matthewbongonzalo Vital Signs/I&O Vital Signs Date Time Temp Pulse Resp B/P (MAP) Pulse Ox O2 Delivery O2 Flow Rate FiO2 08/27/19 08:30 95 134/86 08/27/19 07:26 97.6 18 97 Nasal Cannula 2.0 I&O- Last 24 Hours up to 6 AM 08/27/19 06:00 Intake Total 1370 ml Output Total 1000 ml Balance 370 ml Laboratory Data 24H LABS Laboratory Tests 2 08/27/19 05:14: Immature Granulocyte % (Auto) 0.4, Neutrophils (%) (Auto) 88.8H, Lymphocytes (%) (Auto) 7.5L, Monocytes (%) (Auto) 3.3, Eosinophils (%) (Auto) 0.0, Basophils (%) (Auto) 0.0, Neutrophils # (Auto) 6.8, Lymphocytes # (Auto) 0.6L, Monocytes # (Auto) 0.3, Eosinophils # (Auto) 0.0, Basophils # (Auto) 0.0, Nucleated Red Blood Cells % (auto) 0.0, Anion Gap 7L, Glomerular Filtration Rate 39.3, Calcium Level 8.7L CBC/BMP Laboratory Tests 08/27/19 05:14 Microbiology Microbiology 08/27/19 Gram Stain, Received Pending 08/27/19 Sputum Culture, Received Pending 08/25/19 Gram Stain - Final, Complete 08/25/19 Sputum Culture - Final, Complete 08/24/19 Respiratory Virus Panel (PCR) ([facility]) - Final, Complete 08/24/19 Blood Culture - Preliminary, Resulted No Growth after 72 hours. All specime... 08/24/19 Blood Culture - Preliminary, Resulted No Growth after 72 hours. All specime... ДМИТРИЙ LONGORIA MD Aug 27, 2019 09:20
--- NOTE | 2019-08-27 09:50 | PFTRPT ---
Height: 65.00 Inches Weight: 176.00 Lbs BSA: 1.87 Diagnosis: A-Fib with RVR, amioderone DATE OF PROCEDURE: 08/27/2019 ORDERED BY: Dr. Lawson Spirometry: Study of excellent technical quality. Forced vital capacity reduced. FEV1 out of proportion. Obstructive index is, therefore, reduced. Flow Volume Loop: Expiratory limb of the flow volume loop consistent with significant flow rate limitation. IMPRESSION: Moderate to severe obstructive ventilatory impairment with air trapping versus true concomitant restriction. Full study recommended. MTDD
[2019-08-27] MEDS: RAMIPRIL 1.25 MG CAP PO SCH (11:33)
--- NOTE | 2019-08-27 11:38 | REP ---
CT of the chest without IV contrast: The study is correlated with the portable plain film study of 08/24/2019. On the comparison portable plain film study there was nonspecific increased density inferiorly in the right lung. On the CT scan today there is a small right pleural effusion. There is also a small left pleural effusion. In addition there is a subtle 2.3 cm ground-glass density medially in the superior segment right lower lobe. This is nonspecific and could represent infiltrate or neoplasm. Follow-up is recommended. There are no other nodules or masses. There are no other infiltrates or pleural effusions. There is no mediastinal or axillary lymphadenopathy. The study is insensitive for hilar lymphadenopathy in the absence of IV contrast. The thoracic aorta is unremarkable except for calcified atheroma. Cardiac size is normal. There is no pericardial effusion. In the upper abdomen the visualized unenhanced hepatic parenchyma, pancreas and spleen are unremarkable. There are surgical clips in the gallbladder fossa. The adrenals are unremarkable. There is a right renal exophytic 2.9 cm right renal upper pole cyst. Impression: Small bilateral pleural effusions. Nonspecific ground-glass density in the superior segment right lower lobe, neoplasm versus infiltrate. I would recommend follow-up to complete resolution. Right renal upper pole cyst. Electronically Signed by Rocky Mejia MD 08/27/2019 11:30 A
[2019-08-27] MEDS ORDERED: CARVedilol 3.125 MG TAB PO ONE (12:00)
[2019-08-27] MEDS: FUROSEMIDE 20 MG TAB PO SCH (12:30)
--- NOTE | 2019-08-27 14:58 | IPN ---
DATE: 08/27/2019 Mrs. Jennifer Herron was seen earlier today, she was laying supine in bed in no acute distress at rest. She appears to be doing better and she stated that she feels much better. She continues to cough, but this has improved. A CAT scan was ordered because of the persistent cough. She continues to be in atrial fibrillation but with a better controlled ventricular rate. She has been on carvedilol and amiodarone. Her echocardiogram in the hospital revealed a moderately depressed global left ventricular systolic function and I started her yesterday on a small dose of an SHE inhibitor. She denies any chest pain or palpitation, she has been ambulating around the nursing station. There is no report of bleeding. There is no nausea or vomiting, diarrhea, melena or hematemesis. PHYSICAL EXAMINATION: The patient is alert and oriented, in no acute distress at rest. Her most recent vital signs this morning reveal a blood pressure of 160/100 and prior to that it was 153/75 with a pulse of 96, respirations 18 and a maximum temperature is 97.3 degrees Fahrenheit with an oxygen saturation of 92% on room air. She has a fluid balance of 300 mL for 08/26/2019. Examination of the Head: Atraumatic. Neck: Neck is supple and no jugular venous distention (JVD) appreciated. The lungs revealed increased respiratory phase, but no wheezing or crackles. There is good air entry. Heart examination revealed irregular heart sound without gallops. The PMI is displaced inferiorly and laterally. There is no rub. Abdomen is soft and nontender. Extremities reveal no pedal edema. Neurological examination is negative for focal deficit. LABORATORY DATA: CBC done today revealed WBC of 7.7 with a hemoglobin of 10.8, hematocrit 36.4 and platelet 146,000. BMP revealed a sodium of 141, potassium 4.0, chloride 106, CO2 28, BUN 24, creatinine 1.39, GFR 39.3 and fasting glucose 136 with a calcium of 8.7. Chest CT done today revealed small bilateral pleural effusion and a nonspecific ground-glass density in the superior segment of the right lower lobe that could be an infiltrate versus a neoplasm. Followup CT is recommended. Upper pole right renal cyst also noted, exophytic and measuring 2.9 cm. IMPRESSION: 1. Status post decompensated congestive failure, acute on chronic, and systolic in nature. Currently on a small dose of SHE inhibitor that started yesterday, beta donovan. She appears to be well compensated. There is slight deterioration in her kidney function and she will need to be monitored. She also was started on a small dose of diuretics with furosemide. 2. Atrial fibrillation, persistent in nature, and heart rate is under control. Today, I have increased her beta donovan. She is on Eliquis/Apixaban for prevention of thromboembolic event and she will continue the same. She is also on amiodarone. 3. Hypertension and this has been under control, but mildly elevated today and she will be monitored. Currently on a higher dose of the carvedilol and also on SHE inhibitor. 4. Hyperlipidemia, on a statin. 5. History of hypothyroidism, on supplement. 6. Right lower lobe density, infiltrate versus neoplasm. This will need to be monitored. She does have a long history of smoking. 7. Right breast nodule reported by the patient and this was discussed with the hospitalist. It will need to be addressed and it seems that she had recent mammogram that was reported as normal. It was a pleasure to participate in the care of Mrs. Jennifer Herron for her underlying cardiac condition. Dr. Brewer will see her if she is still in the hospital tomorrow, 08/28/2019. Just in case she goes home, she should be seen within a week. She also will need a BMP to be done prior to her discharge to check her BUN, creatinine and serum potassium. TEE
[2019-08-27] MEDS ORDERED: METOPROLOL 5 MG/5 ML VIAL IV STA (16:08)
[2019-08-27] MEDS: SIMVASTATIN 20 MG TAB PO SCH (20:20)
[2019-08-27] MEDS: CARVedilol 6.25 MG TAB PO SCH (20:20)
[2019-08-28] MEDS: methylPREDNISolone INJ 40 MG/1 ML VIAL (J2920) IV SCH ×2 (01:02→10:15)
[2019-08-28 04:00] VITALS: BP 164/96
[2019-08-28 05:11] LABS: HEMATOCRIT 33.9 % (36.0-47.0); HEMOGLOBIN 10.4 g/dl (12.0-15.5); LYMPH # 0.6 10^3/uL (1.5-5.0); LYMPH % 6.1 % (24.0-44.0); MEAN CORPUSCULAR HEMOGLOBIN 29.1 pg (27.0-33.0); MEAN CORPUSCULAR HGB CONC 30.7 g/dl (32.0-36.5); MONO # 0.4 10^3/uL (0.0-0.8); MONO % 4.3 % (0.0-5.0); NEUTROPHILS % 88.8 % (36.0-66.0); PLATELET COUNT, AUTOMATED 155 10^3/uL (150-450); RED BLOOD COUNT 3.57 10^6/uL (4.00-5.40)
[2019-08-28] MEDS: SLF 3 ML SYR IV SCH ×2 (05:25→13:43)
[2019-08-28] MEDS: LEVOTHYROXINE 75MCG TABLET (0.075MG) PO SCH (05:25)
[2019-08-28] MEDS: LEVOTHYROXINE 100MCG TABLET (0.1MG) PO SCH (05:25)
[2019-08-28 05:33] LABS: CALCIUM LEVEL 8.4 MG/DL (8.8-10.2); CREATININE FOR GFR 1.41 MG/DL (0.55-1.30); GLOMERULAR FILTRATION RATE 38.7 (>39); POTASSIUM SERUM 3.5 MEQ/L (3.5-5.1)
[2019-08-28] MEDS: IPRATROPIUM 0.02% SOLN 0.5MG/2.5 ML NEB INH SCH ×2 (07:44→11:39)
[2019-08-28] MEDS: LEVALBUTEROL 1.25 MG/0.5 ML CONCENTRATE NEB INH SCH ×2 (07:44→11:39)
[2019-08-28] MEDS: SYMBICORT 80/4.5MCG INHALER 6GM INH SCH (07:50)
[2019-08-28 08:00] VITALS: BP 142/62
--- NOTE | 2019-08-28 08:08 | IPN ---
DATE: 08/28/2019 Mrs. Herron tells me that she is feeling 100% improved since admission and has had no complaints today. She was able to sleep overnight. She had multiple questions regarding her condition. Vital signs this morning - blood pressure was 164/96, even though most of the time is much lower than that, heart rate has been in 60s since she converted to sinus rhythm yesterday afternoon. She has been afebrile. Saturation 93% on 2 liters of oxygen. Weight is documented at 74.5 kg. She is alert and oriented and appropriate. I do not appreciate any distress. Her jugular venous pulse (JVP) is not elevated. Lungs are reasonably clear. Occasional crackle over mostly right base. No wheeze. Heart exam regular rhythm. I would do not appreciate any gallop or rub. Abdomen is soft, nontender. Extremities are free of edema. Neurologically she is intact. LABORATORY: Hemoglobin 10.4, hematocrit 33, platelet count 155,000 and basic metabolic panel reveals sodium 142, potassium 3.5, BUN 34, creatinine 1.4, glucose 127. CURRENT MEDICATIONS: Coreg 6.25 twice a day, furosemide 20 mg daily, ramipril 121 mg daily. She is getting Solu-Medrol, amiodarone 200 mg daily, omeprazole 40 mg daily, Paxil 40 mg daily, Sanctura 20 mg daily, levothyroxine 75 mcg daily, simvastatin 20 mg at bedtime and Eliquis 5 mg twice a day. ASSESSMENT AND PLAN: Mrs. Herron is a 74-year-old female who came with shortness of breath who was found to be in atrial fibrillation with rapid ventricular response (RVR) and had approximately moderate left ventricular systolic dysfunction. 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 She converted back to sinus rhythm. She feels much improved. Telemetry monitoring revealed conversion of sinus rhythm yesterday evening. She still has relatively frequent premature ventricular contractions (PVCs) but I did not find any ventricular tachycardia. I believe it is okay for the patient to go home. I would leave her on current medications. I will see her in followup next week. Anticoagulation obviously should be continued and I would also continue amiodarone and carvedilol. There are several additional problems as far as the finding on CT of the chest is concerned, she should followup with either primary care or pulmonary in this regard.
[2019-08-28] MEDS: DOCUSATE SODIUM 100 MG CAP PO SCH (08:47)
[2019-08-28] MEDS: GABAPENTIN 300 MG CAP PO SCH (08:47)
[2019-08-28] MEDS: OMEPRAZOLE 20 MG CAP PO SCH (08:47)
[2019-08-28] MEDS: FUROSEMIDE 20 MG TAB PO SCH (08:48)
[2019-08-28] MEDS: APIXABAN 5 MG TAB (ELIQUIS) PO SCH (08:48)
[2019-08-28] MEDS: DICYCLOMINE 10 MG CAP PO SCH (08:48)
[2019-08-28] MEDS: AMIODARONE 200 MG TAB (PACERONE) PO SCH (08:48)
[2019-08-28] MEDS: RAMIPRIL 1.25 MG CAP PO SCH (08:48)
[2019-08-28] MEDS: TROSPIUM 20 MG TAB PO SCH (08:48)
[2019-08-28 08:49] VITALS: BP 142/62
[2019-08-28] MEDS: CARVedilol 6.25 MG TAB PO SCH (08:49)
[2019-08-28] MEDS: PARoxetine 20 MG TAB PO SCH (08:49)
[2019-08-28] MEDS: LOPERAMIDE 2 MG CAPLET PO SCH (08:49)
[2019-08-28] MEDS: NYSTATIN 100,000 UNITS/GM TOPICAL PWD 15 GM TOP SCH (08:49)
[2019-08-28] MEDS ORDERED: RAMIPRIL 1.25 MG CAP PO SCH (09:00)
[2019-08-28] MEDS: guaiFENesin SYRUP 200 MG/10 ML UDC PO PRN (10:15)
[2019-08-28] MEDS ORDERED: CARV6.25 PO (11:10)
[2019-08-28] MEDS ORDERED: BREO1INH3 PO (11:15)
[2019-08-28] MEDS ORDERED: AZIT500T5 PO (11:15)
[2019-08-28] MEDS ORDERED: PRED20TA PO (11:15)
[2019-08-28] MEDS ORDERED: GUAI100S51 PO (11:15)
[2019-08-28] MEDS ORDERED: ALTA1CAP PO (11:15)
[2019-08-28 12:00] VITALS: BP 150/67
--- NOTE | 2019-08-31 11:18 | BSSPIR ---
DATE OF PROCEDURE: 08/27/2019 ORDERED BY: Dr. Lawson Study of excellent technical quality. Forced vital capacity reduced. FEV1 out of proportion, obstructive index is therefore reduced. Expiratory limb of the flow volume loop suggests significant flow rate limitation. IMPRESSION: Moderate to severe obstructive ventilatory impairment with air trapping versus true concomitant restriction. Full study recommended.
--- NOTE | 2019-09-06 14:02 | DS.PDOC ---
Discharge Summary General Date of Admission Aug 24, 2019 at 11:35 Date of Discharge 08/28/19 Discharge Summary PROCEDURES PERFORMED DURING STAY: [None]. DISCHARGE DIAGNOSES: Atrial fibrillation with rvr COPD exacerbation URI Breast lump on the right Needs follow up. Systolic CHF exacerbation Ischemic Vs non ischemic Cardiomyopathy Moderate pulmonary hypertension with right heart failure Lung opacity needs follow up CT in 3 months. 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 2 to 3 days ago she developed a cough, sore throat, congestion and then started having sob and wheezing which became very bad this am and she was unable to catch her breath so came to the ED. In the ED she was found to have afib with rvr. CXR showed chronic interstitial changes and coarse lung markings. ProBNP was elevated. It was felt she had CHF exacerbation and was give IV lasix and metoprolol. SHe had good response to IV lasix and her her rate became controlled . She was admitted ot he hospitalist service for Afib with rvr with CHF exacerbation possibly precipitated by a upper respiratory tract infection or dietary indiscretion. Patient is a current smoker Afib with rvr patient has history of paroxysmal afib rate became uncontrolled probably due to a upper respiratory tract infection, use of nebs at home. started on coreg. continue amiodarone and eliquis Suspected COPD with exacerbation probably form a upper respiratory tract viral infection. patient is a smoker for many years. BEdside Spirometry showed Moderate to severe obstructive ventilatory impairment with air trapping versus true concomitant restriction. Full study recommended. continue Breo, prednisone, azithromycin and albuterol CT chest showed Nonspecific ground-glass density in the superior segment right lower lobe, neoplasm versus infiltrate. Breast lump near her prior surgical site just below the right axilla. Said she feel on her right side about 2 weeks prior to admission could be deep heatoma in fatty tissues If does not resolved in 2 weeks will have to get further evaluation She did say she had her routine mammogram this year and everything was fine. Systolic CHF exacerbation EF is about 45% Systolic CHF is probably due to ischemic vs non ischemic cardiomyopathy as per echo. this was probably due to afib with uncontrolled rate responded well to 1 dose of lasix. now looks euvolemic will continue with fluid restriction started on ramipril Moderate pulmonary hypertension with right heart failure will give diuretics prn as needed. Hypothyroid continue synthroid Hyperlipidemia continue statin Chronic diarrhea after bowel surgery for crohn's disease. continue imodium dicyclomine DISCHARGE MEDICATIONS: Please see below. ALLERGIES: Please see below. PHYSICAL EXAMINATION ON DISCHARGE: VITAL SIGNS: Please see below. General Exam: Positive: Alert, Cooperative, No Acute Distress Eye Exam: Positive: PERRLA, Conjunctiva & lids normal, EOMI; Negative: Sclera icteric ENT Exam: Positive: Atraumatic, Mucous membr. moist/pink, Pharynx Normal Neck Exam: Positive: Supple, JVD; Negative: thyromegaly Chest Exam: Positive: Rhonchi, Wheezing Heart Exam: Positive: Tachycardic, Irregular Rhythm, Normal S1, Normal S2; Negative: Rate Normal, Bradycardic, Regular Rhythm, Gallops, Murmurs, Rubs Telemetry: Positive: Atrial fibrillation Abdomen Exam: Positive: Normal bowel sounds, Soft; Negative: Tenderness, Hepatospenomegaly Extremity Exam: Negative: Clubbing, Cyanosis, Edema Skin Exam: Positive: Nl turgor and temperature; Negative: Breakdown, Lesion Neuro Exam: Positive: Normal Speech, Strength at 5/5 X4 ext, Normal Tone Psych Exam: Positive: Mental status NL, Mood NL, Oriented x 3 LABORATORY DATA: Please see below. ACTIVITY: [As tolerated]. DIET: As tolerated with 1800 cc fluid restriction. DISPOSITION: 01 Home, Self-Care. DISCHARGE INSTRUCTIONS: Follow up PMD in 1 to 2 weeks Needs PFT Needs follow up on right breast lump. DISCHARGE CONDITION: [Stable]. TIME SPENT ON DISCHARGE: 35 minutes. Vital Signs/I&Os Vital Signs Label Value Date Time Patient Temperature 97.5 degrees F 08/28/19 1200 Temperature Source Temporal 08/28/19 1200 Pulse 63 08/28/191199 Respiratory Rate 20 bpm 08/28/191199 Blood Pressure Assessment 150/67 (94) 08/28/191199 Bedside Pulse Oximetry 93 % 08/28/19 1200 Item Value Date Time Oxygen Delivery Method Nasal Cannula 08/28/191199 Oxygen Flow Rate 2.0 L/min 08/28/191199 Laboratory Data CBC/BMP Item Value Date Time White Blood Count 9.0 10^3/uL 08/28/19 0448 Red Blood Count 3.57 10^6/uL L 08/28/198 Hemoglobin 10.4 g/dl L 08/28/198 Hematocrit 33.9 % L 08/28/198 Mean Corpuscular Volume 95.0 fl 08/28/19447 Mean Corpuscular Hemoglobin 29.1 pg 08/28/198 Mean Corpuscular Hemoglobin Concent 30.7 g/dl L 08/28/198 Red Cell Distribution Width 15.2 % H 08/28/198 Platelet Count 155 10^3/uL 08/28/19 0448 Immature Granulocyte % (Auto) 0.8 % 08/28/19 0448 Neutrophils (%) (Auto) 88.8 % H 08/28/19 0448 Lymphocytes (%) (Auto) 6.1 % L 08/28/198 Monocytes (%) (Auto) 4.3 % 08/28/19 0448 Eosinophils (%) (Auto) 0.0 % 08/28/19 0448 Basophils (%) (Auto) 0.0 % 08/28/19 0448 Neutrophils # (Auto) 8.0 10^3/uL 08/28/19 0448 Lymphocytes # (Auto) 0.6 10^3/uL L 08/28/19 0448 Monocytes # (Auto) 0.4 10^3/uL 08/28/19 0448 Eosinophils # (Auto) 0.0 10^3/uL 08/28/19 0448 Basophils # (Auto) 0.0 10^3/uL 11/11/19 0448 Nucleated Red Blood Cells % (auto) 0.0 % 08/28/19447 Sodium Level 142 MEQ/L 08/28/19447 Potassium Level 3.5 MEQ/L 08/28/19447 Chloride Level 109 MEQ/L H 08/28/19447 Carbon Dioxide Level 28 MEQ/L 08/28/19447 Anion Gap 5 MEQ/L L 08/28/19447 Blood Urea Nitrogen 34 MG/DL H 08/28/198 Creatinine 1.41 MG/DL H 08/28/198 Glomerular Filtration Rate 38.7 L 08/28/198 Fasting Glucose 127 MG/DL H 08/28/198 Calcium Level 8.4 MG/DL L 08/28/19447 Microbiology Microbiology 08/27/19 Gram Stain - Final, Complete 08/27/19 Sputum Culture - Final, Complete Klebsiella Pneumoniae Discharge Medications Scheduled Amiodarone Hcl (Pacerone) 200 Mg Tablet, 200 MG PO DAILY, (Reported) Apixaban (Eliquis) 5 Mg Tablet, 5 MG PO BID, (Reported) Azithromycin (Azithromycin) 500 Mg Tablet, 500 MG PO DAILY Carvedilol (Carvedilol) 6.25 Mg Tablet, 6.25 MG PO BID Cholecalciferol (Vitamin D3) (Vitamin D3) 2,000 Unit Cap, 2,000 UNIT PO QHS, ( Reported) Dicyclomine HCl (Dicyclomine HCl) 20 Mg Tab, 20 MG PO BID, (Reported) Fluticasone/Vilanterol (Breo Ellipta 200-25 Mcg INH) 1 Each Blst.w.dev, 1 PUFF PO DAILY Furosemide (Furosemide) 40 Mg Tab, 40 MG PO DAILY, (Reported) Gabapentin (Gabapentin) 300 Mg Cap, 300 MG PO TID, (Reported) Levothyroxine Sodium (Levothyroxine Sodium) 175 Mcg Tablet, 175 MCG PO DAILY, (Reported) Loperamide HCl (Loperamide) 2 Mg Tab, 2 MG PO BID, (Reported) Omeprazole (Omeprazole) 40 Mg Cap, 40 MG PO DAILY, (Reported) Paroxetine HCl (Paroxetine) 40 Mg Tab, 40 MG PO DAILY, (Reported) Prednisone (Prednisone) 20 Mg Tablet, 2 TAB PO DAILY Ramipril (Altace) 1.25 Mg Capsule, 1.25 MG PO DAILY Simvastatin (Simvastatin) 20 Mg Tablet, 20 MG PO QHS, (Reported) Trospium Chloride (Trospium Chloride) 20 Mg Tab, 20 MG PO DAILY, (Reported) Scheduled PRN Acetaminophen (Tylenol Extra Strength) 500 Mg Tablet, 1,000 MG PO QID PRN for PAIN, (Reported) Guaifenesin (Guaifenesin) 100 Mg/5 Ml Liquid, 5 ML PO Q6HP PRN for COUGH Ipratropium/Albuterol Sulfate (Iprat-Albut 0.5-3(2.5) mg/3 ml) 1 Emre Emre, 1 EMRE INH Q6H PRN for SHORTNESS OF BREATH, (Reported) Melatonin (Melatonin) 1 Mg Tablet, 1 MG PO QHS PRN for SLEEP, (Reported) Allergies Coded Allergies: No Known Allergies (Verified , 06/20/19) ДМИТРИЙ LONGORIA MD Sep 06, 2019 14:02
== END 2019-08-28 14:28 | disposition home or self-care (01) | DRG 308 ==
LOC: M ED 07:12 → EDBD 07:12 → M ED INP 11:35 → M ICU 13:12 → M PCU 08-25 11:01
PROVIDERS: ADMIT Internal Medicine Nephrology; ATTEND Internal Medicine Nephrology
DX: I48.0 Paroxysmal atrial fibrillation (principal); I50.21 Acute systolic (congestive) heart failure; K50.90 Crohn's disease, unspecified, without complications; J44.1 Chronic obstructive pulmonary disease with (acute) exacerbation; D35.00 Benign neoplasm of unspecified adrenal gland; J06.9 Acute upper respiratory infection, unspecified; I11.0 Hypertensive heart disease with heart failure; E03.9 Hypothyroidism, unspecified; E78.5 Hyperlipidemia, unspecified; I27.29 Other secondary pulmonary hypertension; I42.8 Other cardiomyopathies; K52.9 Noninfective gastroenteritis and colitis, unspecified; K21.9 Gastro-esophageal reflux disease without esophagitis; G47.33 Obstructive sleep apnea (adult) (pediatric); F17.210 Nicotine dependence, cigarettes, uncomplicated; M17.10 Unilateral primary osteoarthritis, unspecified knee; N63.10 Unspecified lump in the right breast, unspecified quadrant; N28.1 Cyst of kidney, acquired; R91.8 Other nonspecific abnormal finding of lung field; Z79.01 Long term (current) use of anticoagulants; Z90.79 Acquired absence of other genital organ(s); Z90.49 Acquired absence of other specified parts of digestive tract; Z85.3 Personal history of malignant neoplasm of breast; Z92.3 Personal history of irradiation; Z96.651 Presence of right artificial knee joint; Z95.5 Presence of coronary angioplasty implant and graft; Z98.41 Cataract extraction status, right eye; Z98.42 Cataract extraction status, left eye; Z79.899 Other long term (current) drug therapy; Z86.19 Personal history of other infectious and parasitic diseases; Z86.69 Personal history of other diseases of the nervous system and sense organs

== ENCOUNTER → 2020-02-28 | Outpatient (CLI) | payer MEDICARE ==
[~2020-02-28] MED LIST changes: +ACET-897 PO; +ALTA1CAP PO; -ASPI-225 PO; +ASPI81TA78 PO; +AZIT500T5 PO; +BREO1INH3 PO; +CARV6.25 PO; +CYCL-707 PO; -CYCL10TA PO; +FLUO20CA20 PO; -FLUO20CA8 PO; +GUAI100S51 PO; -LISI-672 PO; +LISI30TA4 PO; +MELA1TAB33 PO; +PACE200T PO; +PRED20TA PO; -SIMV10TA2 PO; +SIMV10TA21 PO; +SIMV20TA22 PO
[2020-02-28 13:13] LABS: BASO % 0.5 % (0.0-1.0); EOS # 0.1 10^3/uL (0.0-0.5); EOS % 1.6 % (0.0-3.0); HEMATOCRIT 37.9 % (36.0-47.0); HEMOGLOBIN 12.3 g/dl (12.0-15.5); LYMPH # 2.1 10^3/uL (1.5-5.0); LYMPH % 33.1 % (24.0-44.0); MEAN CORPUSCULAR HEMOGLOBIN 30.6 pg (27.0-33.0); MEAN CORPUSCULAR HGB CONC 32.5 g/dl (32.0-36.5); MEAN CORPUSCULAR VOLUME 94.3 fl (80.0-96.0); MONO # 0.5 10^3/uL (0.0-0.8); MONO % 8.2 % (0.0-5.0); NEUTROPHILS # 3.6 10^3/uL (1.5-8.5); NEUTROPHILS % 56.4 % (36.0-66.0); PLATELET COUNT, AUTOMATED 188 10^3/uL (150-450); RED BLOOD COUNT 4.02 10^6/uL (4.00-5.40); WHITE BLOOD COUNT 6.3 10^3/uL (4.0-10.0)
[2020-02-28 13:42] LABS: ALBUMIN 3.4 GM/DL (3.2-5.2); BILIRUBIN,TOTAL 0.2 MG/DL (0.2-1.0); CALCIUM LEVEL 8.9 MG/DL (8.8-10.2); CHOLESTEROL RISK RATIO 2.969 (<5); CREATININE FOR GFR 1.26 MG/DL (0.55-1.30); FREE T4 1.38 NG/DL (0.76-1.46); POTASSIUM SERUM 3.6 MEQ/L (3.5-5.1); THYROID STIMULATING HORMONE 0.659 uIU/ML (0.358-3.740); TOTAL 25(OH) VITAMIN D 22.3 NG/ML (30.0-100.0); TOTAL PROTEIN 6.6 GM/DL (6.4-8.2)
== END ==
LOC: M PLALAB 12:11
PROVIDERS: ATTEND Physician Assistant
DX: E03.9 Hypothyroidism, unspecified (principal); I48.0 Paroxysmal atrial fibrillation; E78.2 Mixed hyperlipidemia; F33.0 Major depressive disorder, recurrent, mild

== ENCOUNTER → 2020-09-03 | Outpatient (CLI) | payer MEDICARE ==
[~2020-09-03] MED LIST changes: -AMIO200T PO; +AMIO200T3 PO; +AMLO1TAB24 PO; -AMLO5TAB6 PO; +MELA1TAB2 PO; -MELA1TAB33 PO
[2020-09-03 10:24] LABS: BASO % 0.5 % (0.0-1.0); EOS # 0.1 10^3/uL (0.0-0.5); EOS % 2.2 % (0.0-3.0); HEMATOCRIT 39.5 % (36.0-47.0); HEMOGLOBIN 12.2 g/dl (12.0-15.5); LYMPH # 1.4 10^3/uL (1.5-5.0); LYMPH % 22.3 % (24.0-44.0); MEAN CORPUSCULAR HEMOGLOBIN 29.8 pg (27.0-33.0); MEAN CORPUSCULAR HGB CONC 30.9 g/dl (32.0-36.5); MEAN CORPUSCULAR VOLUME 96.3 fl (80.0-96.0); MONO # 0.5 10^3/uL (0.0-0.8); MONO % 8.2 % (0.0-5.0); NEUTROPHILS # 4.2 10^3/uL (1.5-8.5); NEUTROPHILS % 66.5 % (36.0-66.0); PLATELET COUNT, AUTOMATED 202 10^3/uL (150-450); WHITE BLOOD COUNT 6.3 10^3/uL (4.0-10.0)
[2020-09-03 11:11] LABS: ALBUMIN 3.5 GM/DL (3.2-5.2); BILIRUBIN,TOTAL 0.7 MG/DL (0.2-1.0); CALCIUM LEVEL 8.9 MG/DL (8.8-10.2); CHOLESTEROL RISK RATIO 2.081 (<5); CREATININE FOR GFR 1.33 MG/DL (0.55-1.30); FREE T4 1.88 NG/DL (0.76-1.46); GLOMERULAR FILTRATION RATE 41.3 (>39); POTASSIUM SERUM 3.9 MEQ/L (3.5-5.1); THYROID STIMULATING HORMONE 0.069 uIU/ML (0.358-3.740); TOTAL PROTEIN 7.2 GM/DL (6.4-8.2)
== END ==
LOC: M LAB 09:16
PROVIDERS: ATTEND Physician Assistant
DX: R19.7 Diarrhea, unspecified (principal); I48.0 Paroxysmal atrial fibrillation; Z79.899 Other long term (current) drug therapy

== ENCOUNTER → 2020-09-03 | Outpatient (CLI) | payer MEDICARE ==
[2020-09-03 10:22] LABS: BASO % 0.5 % (0.0-1.0); EOS # 0.2 10^3/uL (0.0-0.5); EOS % 2.3 % (0.0-3.0); HEMATOCRIT 41.1 % (36.0-47.0); HEMOGLOBIN 12.6 g/dl (12.0-15.5); LYMPH # 1.5 10^3/uL (1.5-5.0); LYMPH % 22.4 % (24.0-44.0); MEAN CORPUSCULAR HEMOGLOBIN 29.7 pg (27.0-33.0); MEAN CORPUSCULAR HGB CONC 30.7 g/dl (32.0-36.5); MEAN CORPUSCULAR VOLUME 96.9 fl (80.0-96.0); MONO # 0.5 10^3/uL (0.0-0.8); MONO % 8.3 % (0.0-5.0); NEUTROPHILS # 4.3 10^3/uL (1.5-8.5); NEUTROPHILS % 66.3 % (36.0-66.0); PLATELET COUNT, AUTOMATED 200 10^3/uL (150-450); RED BLOOD COUNT 4.24 10^6/uL (4.00-5.40); WHITE BLOOD COUNT 6.5 10^3/uL (4.0-10.0)
[2020-09-03 11:11] LABS: CALCIUM LEVEL 8.8 MG/DL (8.8-10.2); CREATININE FOR GFR 1.37 MG/DL (0.55-1.30); FREE T4 1.86 NG/DL (0.76-1.46); GLOMERULAR FILTRATION RATE 39.9 (>39); POTASSIUM SERUM 3.8 MEQ/L (3.5-5.1); THYROID STIMULATING HORMONE 0.069 uIU/ML (0.358-3.740); TOTAL T3 84.3 NG/DL (60.0-181.0)
== END ==
LOC: M LAB 09:21
PROVIDERS: ATTEND Internal Medicine Cardiovascular Disease
DX: I48.0 Paroxysmal atrial fibrillation (principal)

== ENCOUNTER → 2020-10-10 | Outpatient (CLI) | payer MEDICARE | LOC: M LABSMTC 09:34 | PROVIDERS: ATTEND Internal Medicine Cardiovascular Disease | DX: Z20.828 Contact with and (suspected) exposure to other viral communicable diseases (principal) ==

== ENCOUNTER 2020-10-28 03:29 | Inpatient (IN) | payer MEDICARE ==
[~2020-10-28] VITALS: Ht 165.1 cm; Wt 100.6 kg
[~2020-10-28 03:29] MED LIST changes: -DICY20TA PO; +DICY20TA3 PO; +GABA-282 PO; -GABA-843 PO; -MELA1TAB2 PO; +MELA1TAB31 PO
[2020-10-28 04:08] LABS: BASO % 0.2 % (0.0-1.0); EOS # 0.1 10^3/uL (0.0-0.5); EOS % 0.3 % (0.0-3.0); HEMATOCRIT 35.5 % (36.0-47.0); HEMOGLOBIN 10.6 g/dl (12.0-15.5); LYMPH # 0.9 10^3/uL (1.5-5.0); LYMPH % 5.6 % (24.0-44.0); MEAN CORPUSCULAR HEMOGLOBIN 29.4 pg (27.0-33.0); MEAN CORPUSCULAR HGB CONC 29.9 g/dl (32.0-36.5); MEAN CORPUSCULAR VOLUME 98.6 fl (80.0-96.0); MONO # 0.1 10^3/uL (0.0-0.8); MONO % 0.4 % (0.0-5.0); NEUTROPHILS # 14.8 10^3/uL (1.5-8.5); NEUTROPHILS % 93.1 % (36.0-66.0); PLATELET COUNT, AUTOMATED 342 10^3/uL (150-450); WHITE BLOOD COUNT 15.9 10^3/uL (4.0-10.0)
[2020-10-28 04:42] LABS: ALBUMIN 3.2 GM/DL (3.2-5.2); ALT/SGPT 314 U/L (12-78); BILIRUBIN,TOTAL 1.5 MG/DL (0.2-1.0); BLOOD UREA NITROGEN 22 MG/DL (7-18); CALCIUM LEVEL 8.5 MG/DL (8.8-10.2); CARBON DIOXIDE LEVEL 29 MEQ/L (21-32); CHLORIDE LEVEL 105 MEQ/L (98-107); CPK CREATINE PHOSPHOKINASE 58 U/L (26-192); CREATININE FOR GFR 1.37 MG/DL (0.55-1.30); GLOMERULAR FILTRATION RATE 39.9 (>39); GLUCOSE, FASTING 135 MG/DL (70-100); MB/CK RELATIVE INDEX 1.72 (< OR =4); NT-PRO BNP 799 PG/ML (<450); POTASSIUM SERUM 3.8 MEQ/L (3.5-5.1); SODIUM LEVEL 140 MEQ/L (136-145); TOTAL PROTEIN 6.9 GM/DL (6.4-8.2); TROPONIN I < 0.02 NG/ML (< 0.10)
[2020-10-28 04:48] LABS: INR 1.79; PROTHROMBIN TIME 21.2 SECONDS (12.5-14.3)
[2020-10-28 05:09] LABS: LIPASE 131 U/L (73-393)
--- NOTE | 2020-10-28 05:27 | REPVR ---
PROCEDURE INFORMATION: Exam: XR Chest, 1 View Exam date and time: 10/28/2020 5:11 AM Age: 75 years old Clinical indication: Cough and dyspnea; Additional info: Dyspnea/cough TECHNIQUE: Imaging protocol: XR of the chest Views: 1 view. COMPARISON: CT Chest without contrast 08/27/2019 9:33 AM FINDINGS: Lungs: There is right lower lobe infiltrate. Pleural space: Unremarkable. No pleural effusion. No pneumothorax. Heart/Mediastinum: The cardiomediastinal silhouette is magnified versus enlarged. Vasculature: There is aortic knob calcifications. Bones/joints: Unremarkable. IMPRESSION: Right lower lobe lung infiltrates. Electronically signed by: Pa Allen On 10/28/2020 05:28:06 AM
[2020-10-28] MEDS ORDERED: METO1TAB87 PO (05:54)
[2020-10-28] MEDS ORDERED: FUROSEMIDE 40 MG TAB PO ONE (06:30)
[2020-10-28] MEDS ORDERED: METOPROLOL TART 25 MG TABLET PO ONE (06:30)
[2020-10-28] MEDS ORDERED: COMBIVENT RESPIMAT 100-20MCG INHALER 4GM INH SCH (06:30)
[2020-10-28] MEDS ORDERED: ISOVUE-370 76% 100ML VIAL As Ordered ONE (06:31)
[2020-10-28] MEDS ORDERED: AMIO200T3 PO (07:16)
[2020-10-28] MEDS ORDERED: XARE10TA PO (07:16)
[2020-10-28] MEDS ORDERED: D200CAP3 PO (07:16)
[2020-10-28] MEDS ORDERED: ARIP1TAB6 PO (07:16)
[2020-10-28] MEDS ORDERED: SYNT150T PO (07:16)
[2020-10-28] MEDS ORDERED: MELA1TAB9 PO (07:16)
[2020-10-28] MEDS ORDERED: NYST1POW9 TOP (07:16)
[2020-10-28] MEDS ORDERED: PARO40TA3 PO (07:16)
[2020-10-28] MEDS ORDERED: TROS20TA3 PO (07:16)
[2020-10-28] MEDS ORDERED: METO25TA4 PO (07:16)
[2020-10-28] MEDS ORDERED: FURO40TA2 PO (07:16)
[2020-10-28] MEDS ORDERED: LISI-538 PO (07:16)
[2020-10-28] MEDS ORDERED: ATOR40TA75 PO (07:17)
[2020-10-28 07:18] VITALS: O2SAT 90
[2020-10-28] MEDS ORDERED: cefTRIAXone SOD 2 GM in D5W MINI-BAG PLUS 50 ML IV ONE (07:30)
[2020-10-28] MEDS ORDERED: DOXYCYCLINE HYCLATE 100 MG in D5W MINI-BAG PLUS 100 ML IV ONE (07:30)
--- NOTE | 2020-10-28 07:51 | REPVR ---
PROCEDURE INFORMATION: Exam: CT Angiography Chest With Contrast Exam date and time: 10/28/2020 7:16 AM Age: 75 years old Clinical indication: Other: Pleuritic cp, R/O clot TECHNIQUE: Imaging protocol: Computed tomographic angiography of the chest with intravenous contrast. 3D rendering (Not supervised by radiologist): MIP and/or 3D reconstructed images were created by the technologist. Radiation optimization: All CT scans at this facility use at least one of these dose optimization techniques: automated exposure control; mA and/or kV adjustment per patient size (includes targeted exams where dose is matched to clinical indication); or iterative reconstruction. Contrast material: ISOVUE 370; Contrast volume: 100 ml; Contrast route: INTRAVENOUS (IV); COMPARISON: CT Chest without contrast 08/27/2019 9:33 AM FINDINGS: Pulmonary arteries: Study is suboptimal for the evaluation of mid to distal segmental and subsegmental pulmonary arteries. No filling defect seen through the proximal segmental pulmonary arteries. The pulmonary trunk is dilated measuring up to 3.8 centimetres. There is dilatation of the main pulmonary arteries. Aorta: There is [id number] aortic mural calcifications. Lungs: There is 8 mm left apical calcified nodule. There is trace bilateral pleural effusions . There is right lower lobe thickened interlobular septi coupled with bronchial wall thickening. There is a 2-3 mm nodule in the inferior right upper lobe on axial image 82. Pleural space: See "Lungs" finding. Heart: There is no right heart dilatation or septal deviation to the left. There is moderate pericardial effusion predominantly anterior measuring up to 1.8 cm in thickness. Lymph nodes: Unremarkable. No enlarged lymph nodes. Bones/joints: Unremarkable. No acute fracture. Soft tissues: There are coarse calcifications in the right breast. IMPRESSION: 1. No CT evidence of pulmonary embolism through the proximal segmental pulmonary arteries. 2. Dilated pulmonary trunk and arteries suggestive of pulmonary hypertension but no CT findings of right heart strain. 3. Moderate pericardial effusion more pronounced anteriorly measuring up to 1.8 cm in thickness. Correlation with echocardiography is suggested. 4. Right lower lobe peribronchial thickening with nonspecific thickened interlobular septi. Findings could be secondary to bronchitis. Early interstitial infiltrates cannot be excluded. 5. Trace bilateral pleural effusions. 6. 2-3 mm nodule in the inferior right upper lobe.For patients at low risk (minimal or absent history of smoking and of other known risk factors), no routine follow-up is indicated. For patients at high risk (history of smoking or of other known risk factors), consider optional CT Chest at 12 months. (Reference: Nasim) Please refer to CT of the abdomen and pelvis performed at the same time for detailed findings in the upper abdomen. REFERENCES: Nasim Chery, et al. Guidelines for Management of Incidental Pulmonary Nodules Detected on CT Images: From the [employer]ner Society 2017. Radiology. 2017;284(1):228-243. Electronically signed by: Pa Allen On 10/28/2020 07:51:49 AM
--- NOTE | 2020-10-28 08:02 | REPVR ---
PROCEDURE INFORMATION: Exam: US Abdomen, Limited; Right Upper Quadrant Exam date and time: 10/28/2020 7:54 AM Age: 75 years old Clinical indication: Abdominal pain; Prior surgery; Surgery date: 6+ months; Surgery type: Velia; Additional info: Upper abd pain, elevated lfts TECHNIQUE: Imaging protocol: US abdomen. Real time ultrasound with image documentation. Limited exam focused on the right upper quadrant. COMPARISON: CT ABD PELVIS WITH CONTRAST 10/28/2020 7:12 AM FINDINGS: Liver: There is a 4.9 x 7.8 x 3.0 cm left hepatic lobe complex cystic structure. Gallbladder: Patient is status post cholecystectomy. Common bile duct: There is CHD dilatation measuring up to 1.4 cm with moderate intrahepatic biliary ductal dilatation. Pancreas: The pancreas is obscured by bowel gas. Right kidney: The right kidney measures 9.0 x 5.7 x 5.4 cm. There is no right sided hydronephrosis. There is 2.9 x 2.8 x 3.0 cm right upper renal pole exophytic simple appearing cyst. IMPRESSION: 1. Status post cholecystectomy. 2. Dilated extrahepatic and intrahepatic biliary tree could be secondary to distal CBD stricture, stones or pancreatic head obstructive process. Pancreas obscured by bowel gas. Correlate with LFTs and bilirubin level. MRI of the pancreas with contrast with MRCP is suggested for further evaluation. 3. 4.9 x 7.8 x 3.0 cm complex left hepatic lobe cystic structure corresponding to subcapsular collection seen on CT scan likely hematoma. 4. 2.9 x 2.8 x 3.0 cm simple right upper renal pole cyst. COMMENTS: Consistent with the [employer]'s Incidental Findings Committee white paper (J Am Lena Radiol 2018): Any incidental renal lesion less than 1 cm or classified as too small to characterize, or any incidental cystic renal lesion characterized as simple-appearing, is likely benign. No follow-up imaging is recommended for these lesions per consensus recommendations based on imaging criteria. Electronically signed by: Pa Allen On 10/28/2020 08:02:50 AM
--- NOTE | 2020-10-28 08:09 | REPVR ---
PROCEDURE INFORMATION: Exam: CT Abdomen And Pelvis With Contrast Exam date and time: 10/28/2020 7:16 AM Age: 75 years old Clinical indication: Other: Pleuritic cp, R/O clot TECHNIQUE: Imaging protocol: Computed tomography of the abdomen and pelvis with intravenous contrast. Radiation optimization: All CT scans at this facility use at least one of these dose optimization techniques: automated exposure control; mA and/or kV adjustment per patient size (includes targeted exams where dose is matched to clinical indication); or iterative reconstruction. Contrast material: ISOVUE 370; Contrast volume: 100 ml; Contrast route: INTRAVENOUS (IV); COMPARISON: No relevant prior studies available. FINDINGS: Liver: There is a 8.3 x 6.0 x 3.1 cm left hepatic lobe heterogeneous slightly dense collection with concave deformity of the left hepatic lobe underneath it. Few incompletely characterize left hepatic lobe hypodensity seen measuring up to 1.5 cm. Gallbladder and bile ducts: The patient is status post cholecystectomy. There is significant CBD dilatation measuring up to 1.7 centimetres coupled with moderate to severe intrahepatic biliary ductal dilatation. Distal CBD in the region of the ampulla is not clearly visualized. Pancreas: Normal. No ductal dilation. Spleen: The spleen is significantly heterogeneous in enhancement with large peripheral areas of hypoattenuation. Adrenal glands: There is 1.4 cm right adrenal gland and 2.1 cm left adrenal gland nodules. Kidneys and ureters: There is 3 cm right upper renal pole exophytic simple cyst. Few small left renal cysts seen the largest measuring 9 mm. There is no hydronephrosis. There is bilateral perinephric stranding more pronounced on the left. Stomach and bowel: There is suggestion of mild diffuse colonic wall thickening as well as some thickened small bowel loops. Appendix: No evidence of appendicitis. Intraperitoneal space: Unremarkable. No free air. No significant fluid collection. Vasculature: There is moderate aortic and iliac mural calcifications. The infrarenal aorta is ectatic measuring 2.5 cm in diameter. Lymph nodes: Unremarkable. No enlarged lymph nodes. Urinary bladder: Unremarkable as visualized. Reproductive: The patient is status post hysterectomy. There is no adnexal mass. Bones/joints: There is marked multilevel lumbar spine DJD. Soft tissues: Unremarkable. IMPRESSION: 1. 8.3 x 6.0 x 3.1 cm heterogeneous slightly dense mass/collection in the left hepatic lobe with concave deformity of the underlying liver possibly subcapsular hematoma although hepatic lesion cannot be completely excluded. Additionally seen are few scattered left hepatic lobe hypodense lesions measuring up to 1.5 cm, not characterized on this exam. Correlate with patient's clinical history. If indicated MRI with contrast may be obtained for further evaluation. 2. Status post cholecystectomy. 3. Significant extrahepatic and intrahepatic biliary ductal dilatation with the distal CBD not clearly seen. Findings could be secondary to distal CBD stricture, obstructing stone or subtle/occult pancreatic head lesion. MRI with contrast with MRCP is suggested for further evaluation. 4. Heterogeneous spleen with large peripheral areas of hypoattenuation. It is not clear if these represent splenic infarcts or due to heterogeneous early phase of imaging. Follow-up exam is suggested. Main splenic artery is patent. 5. Bilateral non characterized adrenal nodules measuring 1.4 cm on the right and 2.1 cm on the left. These can be further evaluated with the above suggested MRI as. 6. Bilateral simple appearing renal cysts. 7. Bilateral perinephric stranding much more pronounced than on the left kidney. Underlying element of pyelonephritis cannot be completely excluded although no CT findings of pyelonephritis seen. 8. Suggestion of thickened small and large bowel loops. Correlate clinically for enterocolitis. 9. Status post hysterectomy with no adnexal mass seen. 10. Ectatic infrarenal aorta measuring up to 2.5 centimetres.Follow-up imaging in 5 years is recommended. COMMENTS: Consistent with the [employer]'s Incidental Findings Committee white paper (J Am Lena Radiol 2018): Any incidental renal lesion less than 1 cm or classified as too small to characterize, or any incidental cystic renal lesion characterized as simple-appearing, is likely benign. No follow-up imaging is recommended for these lesions per consensus recommendations based on imaging criteria. Electronically signed by: Pa Allen On 10/28/2020 08:10:22 AM
[2020-10-28] MEDS ORDERED: XARE15TA PO (12:33)
--- NOTE | 2020-10-28 13:54 | REP ---
INDICATION: biliary tract dilation, elevated LFTs/bilirubin. COMPARISON: CT abdomen 10/28/2020. TECHNIQUE: Multiple heavily T2 weighted sequences are obtained in the axial and coronal planes. 3D MIP reconstruction images are performed. FINDINGS: The patient has had prior cholecystectomy. There is mild prominence of the intrahepatic bile ducts as well as the common bile duct, as expected status post cholecystectomy. The maximum diameter of the common bile duct is approximately 8 mm. This appears to have decreased in caliber compared to the prior CT of abdomen performed earlier today. There is no evidence of choledocholithiasis. The pancreatic duct is normal in caliber. The suspected fluid collection in the left lobe of the liver is noted measuring approximately 2.9 by 4.9 x 7.6 cm. There are 2 cysts in the upper pole the right kidney. Study is limited due to patient motion. IMPRESSION: Status post cholecystectomy. Mild prominence of intrahepatic bile ducts as well as common bile duct, as expected. Maximum diameter of the common bile duct is 8 mm. No choledocholithiasis. The caliber of the biliary system has decreased since the CT exam performed earlier today. <Electronically signed by Rocky Mcclain > 10/28/20 [id number]
--- NOTE | 2020-10-28 15:04 | HPEPDOC ---
General Date of Admission Oct 28, 2020 at 14:29 Date of Service: Oct 28, 2020 Chief Complaint The patient is a 75-year-old female admitted with a reason for visit of CHF. 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 Also patient stated that she has been having nausea and one episode of vomiting without blo od. Of note patient had cardiac ablation on 10/12/20 In ER patient was found to have white blood count of 15.9, hemoglobin 10.6, total bilirubin 1.5, AST 556, ALT 314, alk phos 596, BNP 799, creat 1.3. MRI ducts as well as common bile duct, as expected. Maximum diameter of the common bile duct is 8 mm. No choledocholithiasis. The caliber of the biliary system has decreased since the CT exam performed earlier today. Chest CT showed No CT evidence of pulmonary embolism through the proximal segmental pulmonary arteries. Dilated pulmonary trunk and arteries suggestive of pulmonary hypertension but no CT findings of right heart strain. Moderate pericardial effusion more pronounced anteriorly measuring up to 1.8 cm in thickness. CTA Moderate pericardial effusion more pronounced anteriorly measuring up to 1.8 cm in thickness. Correlation with echocardiography is suggested. Home Medications Scheduled Amiodarone HCl (Amiodarone HCl) 200 Mg Tablet, 200 MG PO DAILY, (Reported) Aripiprazole (Aripiprazole) 5 Mg Tablet, 5 MG PO QHS, (Reported) Atorvastatin Calcium (Atorvastatin Calcium) 40 Mg Tablet, 40 MG PO QHS, (Reported) Cholecalciferol (Vitamin D3) (Vitamin D3) 50 Mcg Capsule, 2,000 UNITS PO DAILY, (Reported) Furosemide (Furosemide) 40 Mg Tablet, 40 MG PO DAILY, (Reported) Levothyroxine Sodium (Synthroid) 150 Mcg Tablet, 150 MCG PO QAM, (Reported) Lisinopril (Lisinopril) 20 Mg Tablet, 20 MG PO DAILY, (Reported) Melatonin (Melatonin) 5 Mg Tablet, 5 MG PO QHS, (Reported) Metoprolol Tartrate (Metoprolol Tartrate) 25 Mg Tablet, 25 MG PO BID, (Reported) Nystatin (Nystatin Powder) 15 Gm Powder, 1 APLCT TOP DAILY, (Reported) APPLY TO ABDOMEN Paroxetine HCl (Paroxetine) 40 Mg Tablet, 40 MG PO DAILY, (Reported) Rivaroxaban (Xarelto) 15 Mg Tablet, 15 MG PO QHS, (Reported) SAMPLE FROM 'S OFFICE, VERIFIED DOSE WITH NURSE Trospium Chloride (Trospium Chloride) 20 Mg Tablet, 20 MG PO DAILY, (Reported) Allergies Coded Allergies: No Known Allergies (Verified , 10/28/20) Past Medical History Medical History Hypertension, hypothyroidism, hyperlipidemia, paroxysmal atrial fibrillation on eliquis, Crohn's disease, Systolic congestive heart failure, GERD, obstructive sleep apnea but unable to tolerate CPAP, episode of seizure in 1977, genital warts, diverticulosis, arthritis in the knee, 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, 2 cm left adrenal adenoma Surgical History Hysterectomy, right breast lumpectomy for breast cancer followed by 6 weeks of radiation, cholecystectomy, right knee replacement, cardiac catheterization in 2006, small bowel resection for Crohn's disease in 2016, left elbow surgery, left ear surgery for lymph node, bilateral cataract surgery in 2015, status post right partial nephrectomy showed oncocytoma Family History Father at 78 from heart attack, mom at 82she had three- vessel bypass, hypertension, heart disease and cancer, one sister passed from colon cancer, another sister had a tumor on her stomach Social History * Smoker: former Smoker Alcohol: Denies Drugs: denies A-FIB/CHADSVASC A-FIB History Current/History of A-Fib/PAF?: Yes Current PO Anticoag Therapy: Yes Review of Systems Constitutional: Denies: Chills, Fever Eyes: Denies: Pain ENT: Denies: Head Aches Skin: Denies: Rash, Lesions Pulmonary: Reports: Dyspnea Cardiovascular: Denies: Chest Pain Gastrointestinal: Reports: Nausea, Vomiting Genitourinary: Denies: Dysuria, Frequency Hematologic: Denies: Bruising Endocrine: Denies: Polydipsia Musculoskeletal: Denies: Neck Pain Neurological: Denies: Weakness Psych: Reports: Mood Normal Physical Examination General Exam: Positive: Alert, Cooperative Eye Exam: Positive: PERRLA ENT Exam: Positive: Atraumatic Neck Exam: Positive: Supple, JVD Chest Exam: Positive: Diminished Heart Exam: Positive: Irregular Rhythm Telemetry: Positive: Atrial fibrillation Abdomen Exam: Positive: Normal bowel sounds Extremity Exam: Negative: Cyanosis Skin Exam: Positive: Nl turgor and temperature Neuro Exam: Positive: Strength at 5/5 X4 ext, Cranial Nerves 3-12 NL Psych Exam: Positive: Mental status NL Vital Signs Vital Signs Date Time Temp Pulse Resp B/P (MAP) Pulse Ox O2 Delivery O2 Flow Rate FiO2 10/28/20 12:47 80 93 10/28/20 12:17 18 Room Air 10/28/20 10:45 135/82 (99) 10/28/20 07:41 98.2 10/28/20 04:01 96 Laboratory Data Labs 24H Laboratory Tests 2 10/28/20 03:52: Immature Granulocyte % (Auto) 0.4, Neutrophils (%) (Auto) 93.1H, Lymphocytes (%) (Auto) 5.6L, Monocytes (%) (Auto) 0.4, Eosinophils (%) (Auto) 0.3, Basophils (%) (Auto) 0.2, Neutrophils # (Auto) 14.8H, Lymphocytes # (Auto) 0.9L, Monocytes # (Auto) 0.1, Eosinophils # (Auto) 0.1, Basophils # (Auto) 0.0, Nucleated Red Blood Cells % (auto) 0.0, Prothrombin Time 21.2H, Prothromb Time International Ratio 1.79, Anion Gap 6L, Glomerular Filtration Rate 39.9, Calcium Level 8.5L, Total Bilirubin 1.5H, Direct Bilirubin 1.0H, Aspartate Amino Transf (AST/SGOT) 556H, Alanine Aminotransferase (ALT/SGPT) 314H, Alkaline Phosphatase 596H, Total Creatine Kinase 58, Creatine Kinase MB 1.0, Creatine Kinase MB Relative Index 1.72, Troponin I < 0.02, [id number]-Type Natriuretic Peptide 799H, Total Protein 6.9, Albumin 3.2, Albumin/Globulin Ratio 0.9L, Lipase 131, Thyroid Stimulating Hormone (TSH) 2.130 CBC/BMP Laboratory Tests 10/28/20 03:52 Microbiology Microbiology 10/28/20 Blood Culture, Received Pending 10/28/20 Blood Culture, Received Pending 10/28/20 Respiratory Virus Panel (PCR) ([facility]) - Final, Complete Assessment/Plan Patient is 75 years old female with past medical history of Hypertension, hypothyroidism, hyperlipidemia, Paroxysmal atrial fibrillation on eliquis, Crohn 's disease, congestive heart failure with EF of 45%, GERD, obstructive sleep apnea but unable to tolerate CPAP, episode of seizure in 1977, genital warts, diverticulosis, arthritis in the knee, 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 Also patient stated that she has been having nausea and one episode of vomiting without blood. Of note patient had cardiac ablation on 10/12/20 In ER patient was found to have white blood count of 15.9, hemoglobin 10.6, total bilirubin 1.5, AST 556, ALT 314, alk phos 596, BNP 799, creat 1.3. MRI ducts as well as common bile duct, as expected. Maximum diameter of the common bile duct is 8 mm. No choledocholithiasis. The caliber of the biliary system has decreased since the CT exam performed earlier today. Chest CT showed No CT evidence of pulmonary embolism through the proximal segmental pulmonary arteries. Dilated pulmonary trunk and arteries suggestive of pulmonary hypertension but no CT findings of right heart strain. Moderate pericardial effusion more pronounced anteriorly measuring up to 1.8 cm in thickness. CTA Moderate pericardial effusion more pronounced anteriorly measuring up to 1.8 cm in thickness. Correlation with echocardiography is suggested. Problems (1) Pericardial effusion Status: Acute Problem Text: There is concern for hemopericardium given recent cardiac ablation in September 2020 I discussed the case with Dr. Brewer. Recommendation echo STAT Dr. Brewer will talk with market development executive from [facility] Patient hemodynamically stable for now (2) Liver lesion Problem Text: CT showed There is a 8.3 x 6.0 x 3.1 cm left hepatic lobe heterogeneous slightly dense collection with concave deformity of the left hepatic lobe underneath it. Few incompletely characterize left hepatic lobe hypodensity seen measuring up to 1.5 cm. MRCP showed The suspected fluid collection in the left lobe of the liver is noted measuring approximately 2.9 by 4.9 x 7.6 cm. There are 2 cysts in the upper pole the right kidney. We'll check stool for parasites and ova, antibiotic for echinococcus and ameba. Due to concern of liver abscess we started Zosyn LFT showed obstructive pattern with transaminitis. We will check hep panel Appreciate/agree with GI consult I talked to Dr. 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 Plan for EGD tomorrow. However also concern for possible subscapular bleeding, patient was on anticoagulation Nothing by mouth after midnight (3) Dilation of biliary tract Status: Acute Problem Text: MRCP showed the size of CBD 8 mm There is possibility that patient has passed the stone after CT was done Will continue to monitor LFT (4) Atrial fibrillation Status: Chronic Problem Text: Heart rate under control Oral targeted anticoagulation on hold due to possible EGD tomorrow and possible hemopericardium Plan / VTE VTE Prophylaxis Ordered?: Yes JEREMY KATZ DO Oct 28, 2020 15:04
[2020-10-28 18:34] LABS: HEPATITIS A ANTIBODY IGM NEGATIVE (NEGATIVE); HEPATITIS B CORE ANTIBODY IGM NEGATIVE (NEGATIVE); HEPATITIS B SURFACE ANTIGEN NEGATIVE (NEGATIVE); HEPATITIS C VIRUS ABY INDEX < 0.0 INDEX (<0.8)
--- NOTE | 2020-10-28 18:37 | CR.PDOC ---
General Date of Consultation: Oct 28, 2020 Referring Provider: JEREMY KATZ DO Attending Physician: CANDIS ADORNO MD Consultation Primary physician/ hospitalist: -Dr. Mcclain / Dr. Pena Reason for consult: Abnormal liver tests and abdominal imaging. HPI: 75 years old female with HTN, HLD, CHF, Paroxysmal atrial fibrillation ( switched from eliquis to Xarelto recently, h/o recent cardiac ablation therapy in 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 Patient reports having similar episodes in past with worsening shortness of breath when she was treated in [facility]. This time patient also noted to have mild epigastric pain and some nausea with atleast one reported episode of vomiting. Patient was noted to have liver subcapsular collection/ cyst on CT scan and abnormal Labs and GI was consulted for the same, Patient on examination denies any severe or uncontrolled abdominal pain, has normal appetite and denies any active GI symptoms. On specific questioning she reports some discomfort in epigastric area where she had some intervention done in [facility] ( patient is not clear about what exactly was done from epigastric area, but on exam there is some erythematous goff). Patient denies any active nausea or vomiting or fever when I examined the patient. Pertinent negative GI symptoms: Patient denies fever, sick contacts, recent travel, diarrhea, loss of appetite, early satiety or unintentional weight loss. No history of hematemesis, melena or hematochezia. Patient reports regular bowel movements. Review of Systems: GI: as stated above CVS: No chest pain, No palpitations, No leg swelling. 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 Skin: No rash : No hematuria, No burning sensation of the urine ENT: No ear discharge/ pain, No dysphagia. Eyes: No photophobia. Jaundice Home medications: reviewed. Antithrombotic agents: - On Xarelto (last dose on Wednesday - As per patient) Medical h/o: As above. Surgical h/o: None on abdomen. Social h/o: Alcohol: -Denies, smoking: Denies, IVDA/ drugs: Denies. Family h/o of GI cancers - None Prior Endoscopies: Had EGD and Colonoscopy in 2019 in [facility] - reports reviewed in provation. Noted gastritis, no H. pylori, no celiac, Colon bowel prep was poor, noted prior right colon surgery with ileo-colonic anastomosis, no IBD noted. but had one tubular adenoma. Recommended surveillance Colonoscopy in 1 year. Prior GI evaluations: Previously seen in Gi clinic by me. Exam: Vitals: reviewed General: Alert and oriented x 3, not in distress HEENT: NO pallor, no icterus. Normal oropharynx, NO cervical lymph nodes. Chest: symmetric with bilateral clear air entry, CVS: S1, S2 heard, normal, no murmurs . Abdomen: non-distended, some erythema in epigastric area with minimal tenderness, soft, no palpable masses, normal bowel sounds heard. Rectal exam: Patient refused / Deferred at this time in view of scheduled colonoscopy. Extremities: no pedal edema, pulses palpable. 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 Moves all extremities Skin: no rash. Labs: reviewed. Imaging: reviewed. Impression: - Mild epigastric pain and Abnormal Liver tests with cystic lesion in periphery of the left hepatic lobe ( appears subcapsular collection) -- new, with recent history of cardiac ablation in [facility], also noted biliary dilation in CT scan but not noted in MRCP -- DDx-- Cholangitis from biliary obstruction vs infected collection in liver vs rule out malignant process. In view of recent intervention cannot rule out hematoma with secondary infection in liver. Recommendations: - Patient educated about the test results, possible differential diagnoses and A ll questions answered. - Broad spectrum antibiotics. - Septic work up - Obtain prior records from [facility] and prior imaging and labs if any to compare. - In view of the clinical picture, will proceed with ERCP with possible CBD stent placement. The procedure, indications, risks (bleeding, perforation, infection, hypotension, respiratory depression, allergy, need for endotracheal intubation, surgery, colostomy, cardiac arrest, even ), benefits, limitations (e.g., missing a lesion), and all other alternatives (including no intervention) were explained to the patient who understood and agreed for the procedure. - Cardiology evaluation - If not contraindicated from cardiology, consider holding Xarelto for now as there is high suspicion for hematoma/ internal bleeding ( drop in hemoglobin). - Monitor hemoglobin and hematocrit and transfuse if needed. - Follow operative note for ERCP for post procedure recommendations. Plan of care discussed with patient and primary team. Patient verbalized understanding and agreed with the plan. Vital Signs/I&O Vital Signs Date Time Temp Pulse Resp B/P (MAP) Pulse Ox O2 Delivery O2 Flow Rate FiO2 10/28/20 17:53 82 16 Room Air 10/28/20 12:47 93 10/28/20 10:45 135/82 (99) 10/28/20 07:41 98.2 10/28/20 04:01 96 Laboratory Data Labs 24H Laboratory Tests 2 10/28/20 03:52: Immature Granulocyte % (Auto) 0.4, Neutrophils (%) (Auto) 93.1H, Lymphocytes (%) (Auto) 5.6L, Monocytes (%) (Auto) 0.4, Eosinophils (%) (Auto) 0.3, Basophils (%) (Auto) 0.2, Neutrophils # (Auto) 14.8H, Lymphocytes # (Auto) 0.9L, Monocytes # (Auto) 0.1, Eosinophils # (Auto) 0.1, Basophils # (Auto) 0.0, Nucleated Red Blood Cells % (auto) 0.0, Prothrombin Time 21.2H, Prothromb Time International Ratio 1.79, Anion Gap 6L, Glomerular Filtration Rate 39.9, Calcium Level 8.5L, Total Bilirubin 1.5H, Direct Bilirubin 1.0H, Aspartate Amino Transf (AST/SGOT) 556H, Alanine Aminotransferase (ALT/SGPT) 314H, Alkaline Phosphatase 596H, Total Creatine Kinase 58, Creatine Kinase MB 1.0, Creatine Kinase MB Relative Index 1.72, Troponin I < 0.02, XM-Yjy-C-Type Natriuretic Peptide 799H, Total Protein 6.9, Albumin 3.2, Albumin/Globulin Ratio 0.9L, Lipase 131, Thyroid Stimulating Hormone (TSH) 2.130 10/28/20 17:09: CBC/BMP Laboratory Tests 10/28/20 03:52 Microbiology Microbiology 10/28/20 Blood Culture, Received Pending 10/28/20 Blood Culture, Received Pending 10/28/20 Respiratory Virus Panel (PCR) (NATAN) - Final, Complete Allergies Coded Allergies: No Known Allergies (Verified , 10/28/20) Home Medications Scheduled Amiodarone HCl (Amiodarone HCl) 200 Mg Tablet, 200 MG PO DAILY, (Reported) Aripiprazole (Aripiprazole) 5 Mg Tablet, 5 MG PO QHS, (Reported) Atorvastatin Calcium (Atorvastatin Calcium) 40 Mg Tablet, 40 MG PO QHS, (Reported) Cholecalciferol (Vitamin D3) (Vitamin D3) 50 Mcg Capsule, 2,000 UNITS PO DAILY, (Reported) Furosemide (Furosemide) 40 Mg Tablet, 40 MG PO DAILY, (Reported) Levothyroxine Sodium (Synthroid) 150 Mcg Tablet, 150 MCG PO QAM, (Reported) Lisinopril (Lisinopril) 20 Mg Tablet, 20 MG PO DAILY, (Reported) Melatonin (Melatonin) 5 Mg Tablet, 5 MG PO QHS, (Reported) Metoprolol Tartrate (Metoprolol Tartrate) 25 Mg Tablet, 25 MG PO BID, (Reported) Nystatin (Nystatin Powder) 15 Gm Powder, 1 APLCT TOP DAILY, (Reported) APPLY TO ABDOMEN Paroxetine HCl (Paroxetine) 40 Mg Tablet, 40 MG PO DAILY, (Reported) Rivaroxaban (Xarelto) 15 Mg Tablet, 15 MG PO QHS, (Reported) SAMPLE FROM 'S OFFICE, VERIFIED DOSE WITH NURSE Trospium Chloride (Trospium Chloride) 20 Mg Tablet, 20 MG PO DAILY, (Reported) CANDIS ADORNO MD Oct 28, 2020 18:37
[2020-10-28] MEDS: PIPERACILLIN/TAZOBACTAM SOD 3.375 GM in D5W MINI-BAG PLUS 50 ML IV SCH ×2 (20:04→23:28)
[2020-10-28] MEDS: PARoxetine 20MG TABLET PO SCH (20:04)
[2020-10-28] MEDS: METOPROLOL TART 25 MG TABLET PO SCH (21:00)
[2020-10-28 22:17] VITALS: BP 115/56
[2020-10-29] MEDS ORDERED: FUROSEMIDE 40MG/4ML VIAL (J1940) IV SCH
[2020-10-29] MEDS: PIPERACILLIN/TAZOBACTAM SOD 3.375 GM in D5W MINI-BAG PLUS 50 ML IV SCH ×4 (03:46→21:48)
[2020-10-29] MEDS: ACETAMINOPHEN TAB 650MG DOSE (2X325MG) PO PRN ×2 (03:46→11:10)
[2020-10-29 04:00] VITALS: BP 128/60
[2020-10-29 06:03] LABS: HEMATOCRIT 26.2 % (36.0-47.0); MEAN CORPUSCULAR HEMOGLOBIN 30.3 pg (27.0-33.0); MEAN CORPUSCULAR HGB CONC 31.7 g/dl (32.0-36.5); MEAN CORPUSCULAR VOLUME 95.6 fl (80.0-96.0); PLATELET COUNT, AUTOMATED 214 10^3/uL (150-450); RED BLOOD COUNT 2.74 10^6/uL (4.00-5.40); WHITE BLOOD COUNT 23.9 10^3/uL (4.0-10.0)
[2020-10-29 06:09] LABS: HEMOGLOBIN 8.3 g/dl (12.0-15.5)
[2020-10-29] MEDS: LEVOTHYROXINE 150MCG TABLET (0.15MG) PO SCH (06:15)
[2020-10-29 06:34] LABS: ALBUMIN 2.3 GM/DL (3.2-5.2); CALCIUM LEVEL 7.6 MG/DL (8.8-10.2); CREATININE FOR GFR 1.7 MG/DL (0.55-1.30); GLOMERULAR FILTRATION RATE 31.1 (>39); MAGNESIUM LEVEL 1.7 MG/DL (1.8-2.4); POTASSIUM SERUM 3.4 MEQ/L (3.5-5.1); TOTAL PROTEIN 5.7 GM/DL (6.4-8.2)
[2020-10-29] MEDS ORDERED: POTASSIUM CHLORIDE 10 MEQ SR TABLET PO ONE (06:45)
[2020-10-29 08:00] VITALS: BP 132/90
--- NOTE | 2020-10-29 08:00 | ECGEPIP ---
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
[2020-10-29] MEDS: PARoxetine 20MG TABLET PO SCH (08:20)
[2020-10-29] MEDS: METOPROLOL TART 25 MG TABLET PO SCH ×2 (08:21→21:00)
[2020-10-29] MEDS: MAGNESIUM OXIDE 400 MG TAB (MAG-OX) PO SCH (08:21)
--- NOTE | 2020-10-29 08:46 | ECGEPIP ---
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
[2020-10-29] MEDS ORDERED: AMIODARONE 200 MG TAB (PACERONE) PO SCH (09:00)
--- NOTE | 2020-10-29 09:47 | ECHO ---
DATE OF PROCEDURE: 10/28/2020 Age: 75 Gender: Female Height: 65 inches Weight: 209 pounds Body surface area: 2.02 m2 PATIENT LOCATION: Inpatient currently in the emergency room holding area. REFERRING PHYSICIAN: Dwight Meyer DO INDICATION: Pericardial effusion. MEASUREMENTS: 2D Measurements: RV 3.2 cm LV 4.6 cm Septum 1.3 cm Posterior wall 1.3 cm Aortic Root 3.2 cm LA 4.7 cm LVEF 50% Doppler Measurements: AV 1.82 m/s LVOT 1.06 m/s MV-E 110, A 87, E/A ratio 1.2 Early mitral deceleration time 203 msec E prime medial 7.3, A prime medial 5.4, E prime lateral 6.5 Average E/E prime ratio 15.5/PCWP 22.7 mmHg PV 0.7 m/s Pulmonary artery acceleration time 90 msec RVSP 39 mmHg IVC 1.8 cm COMMENTS: Normal sinus rhythm with left bundle branch block. Technically challenging study in light of the patients body habitus, but diagnostically useful information was still obtained. M-mode and two-dimensional echocardiography was performed with pulse, continuous wave, color flow, and tissue Doppler studies. Mild concentric left ventricular hypertrophy with septal wall motion abnormality due to left bundle branch block, but no more than minimally impaired global resting systolic function. Moderately dilated left atrium with grade 2 LV diastolic dysfunction and currently elevated mean left atrial pressure. Normal right ventricular chamber size with Doppler evidence of at least mild pulmonary hypertension. Normal right atrial size and IVC size with normal respiratory collapse against an elevated central venous pressure. Normal aortic dimensions. Mild aortic valvular sclerosis without stenosis or insufficiency. [id number]-[id number] degenerative changes of the mitral valve apparatus without inflow tract obstruction, but moderate insufficiency. Normal appearing tricuspid valve with moderate insufficiency. No apparent intracardiac mass. Small posterior pericardial effusion measuring 2-4 mm and also small anterior effusion measuring 4 mm. No sign of cardiac compression or cardiac tamponade echocardiographically. MTDD
[2020-10-29] MEDS: D5W 1,000 ML IV SCH (11:09)
[2020-10-29] MEDS: ONDANSETRON 4MG/2ML VIAL IV PRN (11:10)
[2020-10-29 12:00] VITALS: BP 140/72
[2020-10-29] MEDS ORDERED: ISOVUE-300 61% 50ML VIAL As Ordered ONE (13:20)
[2020-10-29] MEDS ORDERED: ROCURONIUM BROMIDE 50 MG/5 ML VIAL As Ordered ONE (13:30)
[2020-10-29] MEDS ORDERED: propofoL 200 MG/20 ML VIAL As Ordered ONE (13:30)
[2020-10-29] MEDS ORDERED: METOCLOPRAMIDE INJ 10MG/2ML VIAL (J2765 PER 1) As Ordered ONE (13:30)
[2020-10-29] MEDS ORDERED: LIDOCAINE 2% 100MG/5ML SDV (FOR ANES.) As Ordered ONE (13:30)
[2020-10-29] MEDS ORDERED: MIDAZOLAM INJ 2MG/2ML VIAL (J2250 PER 1MG) As Ordered ONE (13:30)
[2020-10-29] MEDS ORDERED: fentaNYL 100 MCG/2 ML INJECTION (J3010) As Ordered ONE ×2 (13:30→15:49)
[2020-10-29] MEDS ORDERED: ONDANSETRON 4MG/2ML VIAL As Ordered ONE (13:30)
--- NOTE | 2020-10-29 14:51 | IPNPDOC ---
Text Note Date of Service The patient was seen on 10/29/20. NOTE Subjective: No any acute events overnight. Patient denied fever, chills, nausea, vomiting. Complains of headache Objective: GENERAL APPEARANCE: NAD HEENT: no scleral icterus, no JVD, EOMI CARDIOVASCULAR: Irregularly irregular LUNGS: CTA ABDOMEN: soft & not tender w palpitation MUSCULOSKELETAL: no cyanosis, no swelling INTEGUMENT: no generalized palor NEUROLOGICAL: cranial nerve function from 2-12 intact intact, follows commands, speech not dysarthric Assessment/Plan Patient is 75 years old female with past medical history of Hypertension, hypothyroidism, hyperlipidemia, Paroxysmal atrial fibrillation on eliquis, Crohn's disease, congestive heart failure with EF of 45%, GERD, obstructive sleep apnea but unable to tolerate CPAP, episode of seizure in 1977, genital w arts, diverticulosis, arthritis in the knee, 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 Also patient stated that she has been having nausea and one episode of vomiting without blood. Of note patient had cardiac ablation on 10/12/20 In ER patient was found to have white blood count of 15.9, hemoglobin 10.6, total bilirubin 1.5, AST 556, ALT 314, alk phos 596, BNP 799, creat 1.3. MRI ducts as well as common bile duct, as expected. Maximum diameter of the common bile duct is 8 mm. No choledocholithiasis. The caliber of the biliary system has decreased since the CT exam performed earlier today. Chest CT showed No CT evidence of pulmonary embolism through the proximal segmental pulmonary arteries. Dilated pulmonary trunk and arteries suggestive of pulmonary hypertension but no CT findings of right heart strain. Moderate pericardial effusion more pronounced anteriorly measuring up to 1.8 cm in thickness. CTA Moderate pericardial effusion more pronounced anteriorly measuring up to 1.8 cm in thickness. Correlation with echocardiography is suggested. Problems (1) Pericardial effusion here is concern for hemopericardium given recent cardiac ablation in September 2020 I discussed the case with Dr. Brewer. Recommendation echo STAT Echo was done and showed Small posterior pericardial effusion measuring 2-4 mm and also small anterior effusion measuring 4 mm. No sign of cardiac compression or cardiac tamponade echocardiographically. No indication for drain (2) Liver lesion Problem Text: CT showed There is a 8.3 x 6.0 x 3.1 cm left hepatic lobe heterogeneous slightly dense collection with concave deformity of the left hepatic lobe underneath it. Few incompletely characterize left hepatic lobe hypodensity seen measuring up to 1.5 cm. MRCP showed The suspected fluid collection in the left lobe of the liver is noted measuring approximately 2.9 by 4.9 x 7.6 cm. There are 2 cysts in the upper pole the right kidney. Await stool for parasites and ova, antibiotic for echinococcus and ameba. Due to concern of liver abscess we started Zosyn LFT showed obstructive pattern with transaminitis. hep panel negative I talked to Dr. 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 Plan for EGD tomorrow. also concern for possible subscapular infected hematoma, patient was on anticoagulation. With rising leukocytes count there is possibility for abscess. .US shows 4.9 x 7.8 x 3.0 cm complex left hepatic lobe cystic structure corresponding to subcapsular collection seen on CT scan likely hematoma IR will drain its tomorrow Nothing by mouth after midnight MRCP showed the size of CBD 8 mm There is possibility that patient has passed the stone after CT was done Will continue to monitor LFT ERCP will be done today Atrial fibrillation Heart rate under control Oral targeted anticoagulation on hold Headache Pain management VS,Fishbone, I+O VS, Fishbone, I+O Laboratory Tests 10/29/20 05:47 Vital Signs Date Time Temp Pulse Resp B/P (MAP) Pulse Ox O2 Delivery O2 Flow Rate FiO2 10/29/20 12:00 97.8 78 18 140/72 (94) 92 Room Air 10/28/20 04:01 96 I&O- Last 24 Hours up to 6 AM 10/29/20 06:00 Intake Total 200 ml Output Total 300 ml Balance -100 ml JEREMY KATZ DO Oct 29, 2020 14:51
[2020-10-29] MEDS ORDERED: SUGAMMADEX SODIUM 500 MG/5 ML VIAL (BRIDION) As Ordered ONE (15:23)
[2020-10-29] MEDS ORDERED: fentaNYL 100 MCG/2 ML INJECTION (J3010) IV PRN (15:30)
[2020-10-29] MEDS ORDERED: LR 1,000 ML IV SCH (15:30)
[2020-10-29] MEDS ORDERED: oxyCODONE 5MG TAB PO PRN (15:30)
[2020-10-29] MEDS ORDERED: ONDANSETRON 4MG/2ML VIAL IV PRN (15:30)
--- NOTE | 2020-10-29 15:30 | ROOR ---
Patient Name: Jennifer Herron Procedure Date: 10/29/2020 1:36 PM Date of : 1945 Age: 75 Room: Main OR Gender: Female Note Status: Finalized Procedure: ERCP Indications: Abnormal abdominal CT, Suspected ascending cholangitis, Jaundice Providers: Marquez Vincent MD Referring MD: 2. Inpatient 2. Inpatient Requesting Provider: Medicines: Monitored Anesthesia Care Complications: No immediate complications. Procedure: Pre-Anesthesia Assessment: - Prior to the procedure, a History and Physical was performed, and patient medications and allergies were reviewed. The patient is competent. The risks and benefits of the procedure and the sedation options and risks were discussed with the patient. All questions were answered and informed consent was obtained. Patient identification and proposed procedure were verified by the physician, the nurse and the anesthesiologist in the procedure room. Mental Status Examination: normal. Airway Examination: normal oropharyngeal airway and neck mobility. Respiratory Examination: clear to auscultation. CV Examination: normal. Prophylactic Antibiotics: The patient does not require prophylactic antibiotics. Prior Anticoagulants: The patient has taken no previous anticoagulant or antiplatelet agents. ASA Grade Assessment: II - A patient with mild systemic disease. After reviewing the risks and benefits, the patient was deemed in satisfactory condition to undergo the procedure. The anesthesia plan was to use monitored anesthesia care (MAC). Immediately prior to administration of medications, the patient was re-assessed for adequacy to receive sedatives. The heart rate, respiratory rate, oxygen saturations, blood pressure, adequacy of pulmonary ventilation, and response to care were monitored throughout the procedure. The physical status of the patient was re-assessed after the procedure. The Duodenoscope was introduced through the mouth, and advanced to the duodenum and used to inject contrast into the bile duct. The ERCP was accomplished without difficulty. The patient tolerated the procedure well. Findings: The car inspector film was normal. The esophagus was successfully intubated under direct vision without detailed examination of the pharynx, larynx, and associated structures, and upper GI tract. The upper GI tract was grossly normal. The major papilla was prominent. The major papilla was bulging. A 0.035 inch x 260 cm straight Hydra Jagwire was passed into the biliary tree. The short-nosed traction sphincterotome was passed over the guidewire and the bile duct was then deeply cannulated. Contrast was injected. I personally interpreted the bile duct images. Ductal flow of contrast was adequate. Image quality was adequate. Contrast extended to the entire biliary tree. The main bile duct was moderately dilated and diffusely dilated, uncertain significance. The largest diameter was 14 mm. The lower third of the main bile duct and hepatic duct bifurcation contained segmental stenoses. One 10 mm by 6 cm covered metal stent was placed into the common bile duct. Bile flowed through the stent. The stent was in good position. Cells for cytology were obtained by brushing in the hepatic duct bifurcation. Pancreatic duct was neither cannulated nor opacified. Sphincterotomy was not done due to recent use of anticoagulation and risk of bleeding. Impression: - The major papilla appeared to be prominent. - The major papilla appeared to be bulging. - Segmental biliary strictures were suspected in the lower third of the main bile duct and at bifurcation of the CBD. The strictures were indeterminate. - The entire main bile duct was moderately dilated, uncertain significance. - One covered metal stent was placed into the common bile duct. Dark Bile drained through the stent. No pus in CBD/ cholangitis. - Cells for cytology obtained at the hepatic duct bifurcation. Recommendation: - Return patient to [facility] for [facility] care. - Patient has a contact number available for emergencies. The signs and symptoms of potential delayed complications were discussed with the patient. Return to normal activities tomorrow. Written discharge instructions were provided to the patient. - No ibuprofen, naproxen, or other non-steroidal anti-inflammatory drugs. - Await cytology results. - Use broad spectrum antibiotics for 7 days. - Look elsewhere for a source of sepsis. - Perform magnetic resonance imaging (MRI) with gadolinium in 2 days to follow up on the lesion in left lobe of liver. - Refer to an interventional radiologist based on the clinical course and for liver collection. - Repeat ERCP in 3 months to remove stent. - Return to GI clinic in [facility] (address [address], [address], [place] [address]) in 4 -- 6 weeks. Please call GI clinic @ [phone] for apppointment date and time. - Return to primary care physician. Procedure Code(s): --- Professional --- 46470, Endoscopic retrograde cholangiopancreatography (ERCP); with placement of endoscopic stent into biliary or pancreatic duct, including pre- and post-dilation and guide wire passage, when performed, including sphincterotomy, when performed, each stent [id number], 26, Endoscopic catheterization of the biliary ductal system, radiological supervision and interpretation Diagnosis Code(s): --- Professional --- K83.8, Other specified diseases of biliary tract K83.1, Obstruction of bile duct R17, Unspecified jaundice R93.5, Abnormal findings on diagnostic imaging of other abdominal regions, including retroperitoneum CPT copyright 2019 [employer]. All rights reserved. The codes documented in this report are preliminary and upon tar chaser review may be revised to meet current compliance requirements. Marquez Vincent MD Marquez Vincent MD 10/29/2020 3:30:01 PM Electronically signed by Marquez Vincent MD Number of Addenda: 0 Note Initiated On: 10/29/2020 1:36 PM Estimated Blood Loss: Estimated blood loss: none.
[2020-10-29] MEDS ORDERED: oxyCODONE 5MG TAB As Ordered ONE (15:50)
[2020-10-29 16:15] VITALS: BP 135/58
[2020-10-29] MEDS ORDERED: amLODIPine 10 MG TAB PO ONE (16:30)
[2020-10-29] MEDS ORDERED: lisinopriL 20 MG TAB PO ONE (16:30)
--- NOTE | 2020-10-29 17:15 | REP ---
INDICATION: ABNORMAL LIVER TESTS. COMPARISON: None. TECHNIQUE: Multiple C-arm views performed during ERCP. FINDINGS: Metallic clips are seen in the gallbladder fossa. The common bile duct is catheterized and contrast is injected. There is opacification of intrahepatic and extrahepatic bile ducts. The cystic duct remnant is opacified. A stent is placed in the distal common bile duct. 31 seconds of fluoroscopy time was utilized. IMPRESSION: Placement of stent distal common bile duct. <Electronically signed by Rocky Mcclain > 10/29/20 [id number]
[2020-10-29 18:31] LABS: BASO % 0.1 % (0.0-1.0); HEMATOCRIT 30.2 % (36.0-47.0); HEMOGLOBIN 9.3 g/dl (12.0-15.5); LYMPH # 0.4 10^3/uL (1.5-5.0); LYMPH % 1.6 % (24.0-44.0); MEAN CORPUSCULAR HEMOGLOBIN 29.5 pg (27.0-33.0); MEAN CORPUSCULAR HGB CONC 30.8 g/dl (32.0-36.5); MEAN CORPUSCULAR VOLUME 95.9 fl (80.0-96.0); MONO # 0.4 10^3/uL (0.0-0.8); MONO % 1.8 % (0.0-5.0); NEUTROPHILS # 21.1 10^3/uL (1.5-8.5); PLATELET COUNT, AUTOMATED 219 10^3/uL (150-450); RED BLOOD COUNT 3.15 10^6/uL (4.00-5.40); WHITE BLOOD COUNT 23.7 10^3/uL (4.0-10.0)
[2020-10-29 19:04] LABS: ALBUMIN 2.8 GM/DL (3.2-5.2); BILIRUBIN,DIRECT 1.9 MG/DL (0.0-0.2); BILIRUBIN,TOTAL 2.3 MG/DL (0.2-1.0); CREATININE FOR GFR 1.92 MG/DL (0.55-1.30); TOTAL PROTEIN 5.9 GM/DL (6.4-8.2)
[2020-10-29 20:00] VITALS: BP 98/56
--- NOTE | 2020-10-29 20:32 | CR ---
CONSULTATION DATE: 10/29/2020 REFERRING PHYSICIAN: Dwight Meyer DO INDICATION: Pericardial effusion. HISTORY OF PRESENT ILLNESS: Mrs. Herron is known to me. She is a pleasant 75-year-old female who has longstanding history of paroxysmal atrial fibrillation and dilated cardiomyopathy. She presented to [facility] yesterday with complaints about epigastric discomfort, dyspnea and feeling exhausted. The evaluation in the emergency room revealed presence of sinus rhythm but imaging of the chest that included CT angiography and later also MRI of the liver revealed evidence for pericardial effusion that was judged to be moderate and also a cystic structure in the left lobe of the liver with wide differential diagnosis. Liver function tests were also quite elevated. Because of pericardial effusion, Dr. Meyer asked me to see the patient. She later had an echocardiogram that I eventually interpreted yesterday late evening. It revealed mildly reduced left ventricular systolic function but only at worst small pericardial effusion, certainly not moderate. When I saw the patient again this morning, she reported that since yesterday her condition improved a little bit. The discomfort in the epigastric area and over the lower chest is better. It is principally when she takes a deep breath or pushes in her abdomen. It has been present since she has A fib ablation on October 15, 2020. The procedure then was complicated by pericardial effusion that required pericardiocentesis from subxiphoid approach. Approximately 300 mL of blood were aspirated then but the drain was removed the following day and she was discharged home without any obvious consequences but yet she reports that almost since discharge, she had the symptoms that eventually made her to come to our emergency room. PAST MEDICAL HISTORY: 1. Paroxysmal atrial fibrillation as above. 2. Brachial plexopathy. 3. Dilated cardiomyopathy. 4. Lumbar spondylosis. 5. Hyperlipidemia. 6. Hypertension. 7. Spinal stenosis. 8. Obesity. 9. History of anemia. Last echocardiogram was at [facility] on October 18 that revealed EF estimated around 55% with septal wall motion abnormalities consistent with her conductive system disease and mild mitral insufficiency. She does not have known coronary artery disease. Last functional evaluation was in June, where a nuclear stress test revealed normal perfusion. SURGICAL HISTORY: 1. Right breast lumpectomy. 2. Cataract surgery. 3. Cholecystectomy. 4. Hysterectomy. 5. Right knee arthroplasty. 6. Lymphadenectomy. 7. Partial right nephrectomy. OUTPATIENT MEDICATIONS: 1. Lipitor 40 mg a day. 2. Zyrtec 10 mg a day. 3. Vitamin D. 4. Furosemide 40 mg daily. 5. DuoNeb inhaler. 6. Levothyroxine 150 mcg daily. 7. Lisinopril 20 mg daily. 8. Metoprolol 25 mg twice a day. 9. Paxil 40 mg a day. 10. Xarelto 15 mg daily. 11. Sanctura 20 mg daily. ALLERGIES: No known mediation allergies. FAMILY HISTORY: Both parents had heart attack. SOCIAL HISTORY: The patient currently is a nonsmoker. She denies significant alcohol use. REVIEW OF SYSTEMS: She denies any recent fever, chills, nausea, vomiting or diarrhea. She has chest discomfort and epigastric discomfort as described above. She has chronic dyspnea that she believes is mildly worse. No PND, no orthopnea. No vomiting even though she had episodes of nausea and no visible bleeding. No peripheral edema. No palpitations. No near/syncope. PHYSICAL EXAMINATION: Mrs. Herron is an elderly white female who appeared somewhat than her calendar age, currently in no apparent distress. During my evaluation this morning, her blood pressure was reported as 128/60, heart rate was in the 70s, sinus rhythm with very rare ectopic beats. She was afebrile and saturation was 92 to 96% on room air. Her JVP was about 2 cm above clavicle. Lungs sounded clear. I did not appreciate any wheezing, crackles or rhonchi. Heart exam revealed a regular rhythm without appreciable murmur, gallop or rub. There was tenderness over the lower sternum and epigastrium in the right upper quadrant. No guarding per se. Bowel sounds present. Extremities are free of edema. Peripheral pulses palpable and neurologically, she was intact. LABORATORY DATA: As of this morning, basic metabolic panel revealed sodium 136, potassium 3,4, BUN 34, creatinine 1.7, glucose 79. Liver function tests elevated at AST 323, ALT 330, alkaline phosphatase 414, albumin 2.3. CBC this morning: WBC count 23.7 with hemoglobin 9.3, hematocrit 30.2 and platelet count 219,000. Urinalysis that was obtained since I saw the patient this morning is essentially unremarkable with only 1+ positive leukocyte esterase and some white blood cells. She had blood cultures that are present and are growing gram negative bacteria from yesterday. ECG reveals presence of sinus rhythm with nonspecific IVCD of left bundle branch type. She had several imaging studies that were outlined in history of present illness but in general, they indicate the presence of small pericardial effusion, some chronic lung abnormalities and this cystic structure in the liver. ASSESSMENT AND PLAN: Mrs. Herron is an elderly white female who has a history of dilated cardiomyopathy with only mildly reduced left ventricular systolic function and longstanding history of symptomatic paroxysmal atrial fibrillation. She underwent AF ablation on October 15, 2020 in [facility]. The procedure was complicated by pericardial effusion that required drainage from subxiphoid access. I believe that the cystic structure in the liver is very likely hematoma that was caused during pericardiocentesis. It fits the clinical characteristics. As far as the pericardial effusion is concerned, it is fairly minimal by an echocardiogram and I do not believe that it requires any specific intervention. What is more perplexing is the patient's elevated white cell counts today and positive blood culture. The source is unclear. Apparently, there is considerable that the cystic structure can be infected which I certainly cannot rule out. I will leave evaluation in this matter to the appropriate specialists. I would also check for other more prosaic causes of gram negative bacteremia like UTI even though the patient does not report any obvious symptoms to suggest so. As far as cardiac issues are concerned, I would discontinue the patient's amiodarone which was already done. The medication that used to be used on an outpatient basis was actually discontinued already several months ago. I also would not administer Xarelto at least for several days. It is possible that patient may need some invasive procedures and she is currently in sinus rhythm and consequently I believe that it is safer to monitor the patient without any anticoagulation. I will follow the patient with you. NOED
[2020-10-29] MEDS: ATORVASTATIN 20 MG TAB PO SCH (21:48)
[2020-10-30] VITALS (8 sets, daily range): BP systolic 90–140; BP diastolic 51–65
[2020-10-30] MEDS: ACETAMINOPHEN TAB 650MG DOSE (2X325MG) PO PRN ×2 (01:50→09:09)
[2020-10-30] MEDS: D5W 1,000 ML IV SCH (05:03)
[2020-10-30] MEDS: LEVOTHYROXINE 150MCG TABLET (0.15MG) PO SCH (05:03)
[2020-10-30] MEDS: PIPERACILLIN/TAZOBACTAM SOD 3.375 GM in D5W MINI-BAG PLUS 50 ML IV SCH ×2 (05:03→10:39)
[2020-10-30] MEDS: METOPROLOL TART 25 MG TABLET PO SCH ×2 (09:00→20:54)
[2020-10-30] MEDS ORDERED: NS 500 ML IV ONE (09:00)
[2020-10-30] MEDS: amLODIPine 10 MG TAB PO SCH (09:00)
[2020-10-30] MEDS: lisinopriL 20 MG TAB PO SCH (09:00)
[2020-10-30] MEDS: PARoxetine 20MG TABLET PO SCH (09:03)
[2020-10-30] MEDS: MAGNESIUM OXIDE 400 MG TAB (MAG-OX) PO SCH (09:04)
[2020-10-30] MEDS ORDERED: SLF 3 ML SYR IV PRN (10:15)
[2020-10-30] MEDS: MORPHINE 2 MG/ML 1ML VIAL (J2270) IV PRN ×2 (12:31→20:56)
[2020-10-30] MEDS: SLF 3 ML SYR IV SCH ×2 (13:20→21:51)
[2020-10-30] MEDS ORDERED: fentaNYL 100 MCG/2 ML INJECTION (J3010) As Ordered ONE (14:02)
[2020-10-30] MEDS ORDERED: diphenhydrAMINE 50MG/ML VIAL (J1200) As Ordered ONE (14:02)
[2020-10-30] MEDS ORDERED: LIDOCAINE 1% MDV 20ML VIAL As Ordered ONE (14:02)
--- NOTE | 2020-10-30 14:02 | IRMSE ---
[facility] IR Moderate Sedation Eval. Date and Time Date: Oct 30, 2020 Time: 14:02 ASA Classification ASA Classification: III-Severe systemic dis. Mallampati Score: II NPO: Yes Obstructive Sleep Apnea: No Interval Plan: moderate sedation MARCOS SPENCER MD Oct 30, 2020 14:02
[2020-10-30] MEDS ORDERED: MIDAZOLAM INJ 2MG/2ML VIAL (J2250 PER 1MG) As Ordered ONE (14:03)
--- NOTE | 2020-10-30 15:01 | IRINPTCON ---
[facility] IR Inpatient Consultation IR Inpatient Consultation DATE: Oct 30, 2020 REASON FOR CONSULTATION/CHIEF COMPLAINT: Liver abscess. HISTORY OF PRESENT ILLNESS: 75-year-old female with extensive heart history underwent cardiac ablation at the latter part of September 2020. She was in the hospital for a few days after her heart ablation. At the time of her heart ablation she was told that the liver may have been impacted. After discharge, medina sánchez describes feeling short of breath and couldn't quite catch her breath. She was always cold but denies fevers. She was nauseous. She denies extreme abdominal pain, fevers, chills or rigors. She noticed her urine was dark but no change in stool color. She denies jaundice. She denies recent travel, any prior liver abscess, liver procedures, liver disease or malignancy. She was then admitted to the hospital at which time a CT scan was performed. This demonstrated internal/external hepatic biliary obstruction for which she underwent ERCP yesterday. At ERCP she was noted to have segmental biliary strictures which were biopsied and she underwent CBD stent placement. On CT there was a low-density lesion seen in the left hepatic lob, suspected hematoma and/or abscess and she was referred to me for abscess drain. ALLERGIES: Please see below. HOME MEDICATIONS: Please see below. PAST MEDICAL HISTORY: Hypertension Hyperlipidemia CHF Proximal atrial fibrillation JONNA PAST SURGICAL HISTORY: Cardiac ablation Ileocolonic anastomosis Prior bowel surgery Laparoscopic partial nephrectomy FAMILY HISTORY: Noncontributory SOCIAL HISTORY: Former smoker. Denies alcohol or drugs. REVIEW OF SYSTEMS: Otherwise negative PHYSICAL EXAMINATION: VITAL SIGNS: Please see below. GENERAL APPEARANCE: Appears well. Comfortable at rest. HEENT: No scleral icterus. RESPIRATORY: Normal breathing at rest. CARDIOVASCULAR: Normal rate. ABDOMEN: Non-distended. Soft nontender. No rebound or guarding. No tenderness over left hepatic lobe. EXTREMITIES: Edematous. NEUROLOGICAL: Alert and oriented. PSYCHIATRIC: Appropriate to circumstance. LABORATORY DATA: 10/29/2020 hemoglobin 9.3 hematocrit 30.2 WBC 23.7 platelets 219 sodium 136 potassium 3.4 BUN 34 creatinine 1.7 bilirubin 2.3 AST 254 ALT 310 ALP 448 INR 1.79 on 10/28/2020 Imaging: I personally reviewed the CT abdomen and pelvis with IV contrast performed 10/28/2020. Hypodense non-rim enhancing lesion in the left hepatic lobe. This measures 50 Hounsfield units. Right and left hepatic lobe Intra hepatic biliary duct dilation and extra hepatic biliary duct dilation. I performed a focused noncontrast CT through the liver. This demonstrates no hypodense collection in the left hepatic lobe. The appearance on the contrast- enhanced CT is that of an ablation zone. On this noncontrast images, the area measures 46 Hounsfield units. ASSESSMENT/PLAN: 75-year-old female status post recent cardiac ablation at at which time she was informed that the liver may have been impacted. She presented to the ER with shortness of breath and nausea and was incidentally found to have intra-and extra hepatic biliary duct dilation of unknown etiology and leukocytosis. She underwent ERCP and CBD stent placement for segmental stenosis. The area on her left hepatic lobe on noncontrast and contrast-enhanced images combined, appears to be that of an ablation zone. There is no indication at present to interrogate this region further with a needle. I recommend patient to follow-up with her classifier operator at [facility] after disch arge. Thank you for this referral. Allergies Coded Allergies: No Known Allergies (Verified , 10/28/20) Home Medications Scheduled Amiodarone HCl (Amiodarone HCl), 200 MG PO DAILY, (Reported) Aripiprazole (Aripiprazole), 5 MG PO QHS, (Reported) Atorvastatin Calcium (Atorvastatin Calcium), 40 MG PO QHS, (Reported) Cholecalciferol (Vitamin D3) (Vitamin D3), 2,000 UNITS PO DAILY, (Reported) Furosemide (Furosemide), 40 MG PO DAILY, (Reported) Levothyroxine Sodium (Synthroid), 150 MCG PO QAM, (Reported) Lisinopril (Lisinopril), 20 MG PO DAILY, (Reported) Melatonin (Melatonin), 5 MG PO QHS, (Reported) Metoprolol Tartrate (Metoprolol Tartrate), 25 MG PO BID, (Reported) Nystatin (Nystatin Powder), 1 APLCT TOP DAILY, (Reported) Paroxetine HCl (Paroxetine), 40 MG PO DAILY, (Reported) Rivaroxaban (Xarelto), 15 MG PO QHS, (Reported) Trospium Chloride (Trospium Chloride), 20 MG PO DAILY, (Reported) Discontinued Medications Acetaminophen (Tylenol Extra Strength), 1,000 MG PO QID PRN for PAIN, (Reported) Discontinued Reason: Re-entering as new Amiodarone Hcl (Pacerone), 200 MG PO DAILY, (Reported) Discontinued Reason: Re-entering as new Apixaban (Eliquis), 5 MG PO BID, (Reported) Discontinued Reason: Re-entering as new Azithromycin (Azithromycin), 500 MG PO DAILY Discontinued Reason: Re-entering as new Carvedilol (Carvedilol), 6.25 MG PO BID Discontinued Reason: Re-entering as new Cholecalciferol (Vitamin D3) (Vitamin D3), 2,000 UNIT PO QHS, (Reported) Discontinued Reason: Re-entering as new Dicyclomine HCl (Dicyclomine HCl), 20 MG PO BID, (Reported) Discontinued Reason: Re-entering as new Fluticasone/Vilanterol (Breo Ellipta 200-25 Mcg INH), 1 PUFF PO DAILY Discontinued Reason: Re-entering as new Furosemide (Furosemide), 40 MG PO DAILY, (Reported) Discontinued Reason: Re-entering as new Gabapentin (Gabapentin), 300 MG PO TID, (Reported) Discontinued Reason: Re-entering as new Guaifenesin (Guaifenesin), 5 ML PO Q6HP PRN for COUGH Discontinued Reason: Re-entering as new Ipratropium/Albuterol Sulfate (Iprat-Albut 0.5-3(2.5) mg/3 ml), 1 EMRE INH Q6H PRN for SHORTNESS OF BREATH, (Reported) Discontinued Reason: Re-entering as new Levothyroxine Sodium (Levothyroxine Sodium), 175 MCG PO DAILY, (Reported) Discontinued Reason: Re-entering as new Loperamide HCl (Loperamide), 2 MG PO BID, (Reported) Discontinued Reason: Re-entering as new Melatonin (Melatonin), 1 MG PO QHS PRN for SLEEP, (Reported) Discontinued Reason: Re-entering as new Metoprolol Tartrate (Metoprolol Tartrate), 25 MG PO DAILY, (Reported) Discontinued Reason: Re-entering as new Omeprazole (Omeprazole), 40 MG PO DAILY, (Reported) Discontinued Reason: Re-entering as new Paroxetine HCl (Paroxetine), 40 MG PO DAILY, (Reported) Discontinued Reason: Re-entering as new Prednisone (Prednisone), 2 TAB PO DAILY Discontinued Reason: Re-entering as new Ramipril (Altace), 1.25 MG PO DAILY Discontinued Reason: Re-entering as new Rivaroxaban (Xarelto), 1 TAB PO QHS, (Reported) Discontinued Reason: Prescription changed Simvastatin (Simvastatin), 20 MG PO QHS, (Reported) Discontinued Reason: Re-entering as new Trospium Chloride (Trospium Chloride), 20 MG PO DAILY, (Reported) Discontinued Reason: Re-entering as new VS, I&O, 24H, Fishbone Vital Signs/I&O Vital Signs Date Time Temp Pulse Resp B/P (MAP) Pulse Ox O2 Delivery O2 Flow Rate FiO2 10/30/20 12:41 20 10/30/20 12:00 97.0 63 103/56 (72) 94 Room Air 10/30/20 00:00 2.0 10/28/20 04:01 96 I&O- Last 24 Hours up to 6 AM 10/30/20 06:00 Intake Total 1505 ml Output Total 600 ml Balance 905 ml Laboratory Data 24H LABS Laboratory Tests 2 10/29/20 16:55: Urine Color LUIS, Urine Appearance CLOUDYH, Urine pH 5.0, Urine Specific [place] 1.025, Urine Protein 1+H, Urine Glucose (UA) NEGATIVE, Urine Ketones NEGATIVE, Urine Blood NEGATIVE, Urine Nitrite NEGATIVE, Urine Bilirubin NEGATIVE, Urine Urobilinogen 0.2, Urine Leukocyte Esterase 1+H, Urine WBC (Auto) 53H, Urine RBC (Auto) 3, Urine Hyaline Casts (Auto) 0, Urine Bacteria (Auto) NEGATIVE, Urine Squamous Epithelial Cells 16, Urine Transitional Epithelial Cells 1, Urine Renal Epithelial Cells 1, Urine Sperm (Auto) 10/29/20 18:06: Immature Granulocyte % (Auto) 7.5H, Neutrophils (%) (Auto) 89.0H, Lymphocytes (%) (Auto) 1.6L, Monocytes (%) (Auto) 1.8, Eosinophils (%) (Auto) 0.0, Basophils (%) (Auto) 0.1, Neutrophils # (Auto) 21.1H, Lymphocytes # (Auto) 0.4L, Monocytes # (Auto) 0.4, Eosinophils # (Auto) 0.0, Basophils # (Auto) 0.0, Nucleated Red Blood Cells % (auto) 0.0, Glomerular Filtration Rate 27.0L, Total Bilirubin 2.3H, Direct Bilirubin 1.9H, Aspartate Amino Transf (AST/SGOT) 254H, Alanine Aminotransferase (ALT/SGPT) 310H, Alkaline Phosphatase 448H, Total Protein 5.9L, Albumin 2.8#L, Albumin/Globulin Ratio 0.9L 10/30/20 09:31: Procalcitonin 40.55 CBC/BMP Laboratory Tests 10/29/20 18:06 Microbiology Microbiology 10/29/20 Urine Culture - Final, Complete 10/29/20 Blood Culture - Preliminary, Resulted No growth after 24 hours . All specim... 10/29/20 Blood Culture - Preliminary, Resulted No growth after 24 hours . All specim... 10/29/20 Campylobacter (PCR), Received Pending 10/29/20 Clostridium difficile Toxin A&B PCR, Received Pending 10/29/20 Plesiomonas shigelloides (PCR), Received Pending 10/29/20 Salmonella (PCR)(NATAN), Received Pending 10/29/20 Vibrio Species (PCR), Received Pending 10/29/20 Vibrio Cholerae (PCR), Received Pending 10/29/20 Yersinia enterocolitica (PCR), Received Pending 10/29/20 Enteroaggregative E. coli (PCR), Received Pending 10/29/20 Enteropathogenic E. coli (PCR), Received Pending 10/29/20 Enterotoxigenic E. coli (PCR), Received Pending 10/29/20 E. coli Shiga-like Toxin (PCR), Received Pending 10/29/20 Escherichia coli 0157 (PCR), Received Pending 10/29/20 Enteroinvasive E. coli/Shigella PCR, Received Pending 10/29/20 Cryptosporidium (PCR), Received Pending 10/29/20 Cyclospora cayetanensis (PCR), Received Pending 10/29/20 Entamoeba histolytica (PCR), Received Pending 10/29/20 Giardia lamblia (PCR), Received Pending 10/29/20 Adenovirus Type F 40/41 (PCR), Received Pending 10/29/20 Astrovirus (PCR), Received Pending 10/29/20 Norovirus GI/GII (PCR), Received Pending 10/29/20 Rotavirus A (PCR), Received Pending 10/29/20 Sapovirus I/II/IV/V (PCR), Received Pending 10/28/20 Blood Culture - Final, Complete Escherichia Coli 10/28/20 Blood Culture - Final, Complete Escherichia Coli 10/28/20 Respiratory Virus Panel (PCR) (NATAN) - Final, Complete MARCOS SPENCER MD Oct 30, 2020 15:01
[2020-10-30] MEDS: NS 1,000 ML IV SCH (15:19)
--- NOTE | 2020-10-30 15:21 | IPNPDOC ---
Text Note Date of Service The patient was seen on 10/30/20. NOTE Subjective: Patient complains of generalized weakness. No fever overnight Objective: GENERAL APPEARANCE: NAD HEENT: no scleral icterus, no JVD, EOMI CARDIOVASCULAR: Irregularly irregular LUNGS: CTA ABDOMEN: soft & not tender w palpitation MUSCULOSKELETAL: no cyanosis, no swelling INTEGUMENT: no generalized palor NEUROLOGICAL: cranial nerve function from 2-12 intact intact, follows commands, speech not dysarthric Assessment/Plan Patient is 75 years old female with past medical history of Hypertension, hypothyroidism, hyperlipidemia, Paroxysmal atrial fibrillation on eliquis, Crohn's disease, congestive heart failure with EF of 45%, GERD, obstructive sleep apnea but unable to tolerate CPAP, episode of seizure in 1977, genital warts, diverticulosis, arthritis in the knee, 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 Also patient stated that she has been having nausea and one episode of vomiting without blood. Of note patient had cardiac ablation on 10/12/20 In ER patient was found to have white blood count of 15.9, hemoglobin 10.6, total bilirubin 1.5, AST 556, ALT 314, alk phos 596, BNP 799, creat 1.3. MRI ducts as well as common bile duct, as expected. Maximum diameter of the common bile duct is 8 mm. No choledocholithiasis. The caliber of the biliary system has decreased since the CT exam performed earlier today. Chest CT showed No CT evidence of pulmonary embolism through the proximal segmental pulmonary arteries. Dilated pulmonary trunk and arteries suggestive of pulmonary hypertension but no CT findings of right heart strain. Moderate pericardial effusion more pronounced anteriorly measuring up to 1.8 cm in thickness. CTA Moderate pericardial effusion more pronounced anteriorly measuring up to 1.8 cm in thickness. Correlation with echocardiography is suggested. Problems Sepsis Patient developed hypotension with increased leukocytosis Source of infection most likely from GI system 2 sets of Blood culture positive for Escherichia coli IV fluid Continue broad-spectrum antibiotics Pericardial effusion here is concern for hemopericardium given recent cardiac ablation in September 2020 I discussed the case with Dr. Brewer. Recommendation echo STAT Echo was done and showed Small posterior pericardial effusion measuring 2-4 mm and also small anterior effusion measuring 4 mm. No sign of cardiac compression or cardiac tamponade echocardiographically. No indication for drain Liver lesion Problem Text: CT showed There is a 8.3 x 6.0 x 3.1 cm left hepatic lobe heterogeneous slightly dense collection with concave deformity of the left hepatic lobe underneath it. Few incompletely characterize left hepatic lobe hypodensity seen measuring up to 1.5 cm. MRCP showed The suspected fluid collec tion in the left lobe of the liver is noted measuring approximately 2.9 by 4.9 x 7.6 cm. There are 2 cysts in the upper pole the right kidney. Await stool for parasites and ova, antibiotic for echinococcus and ameba. Due to concern of liver abscess we started Zosyn LFT showed obstructive pattern with transaminitis. hep panel negative I talked to Dr. 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 Plan for EGD tomorrow. also concern for possible subscapular infected hematoma, patient was on anticoagulation. With rising leukocytes count there is possibility for abscess. .US shows 4.9 x 7.8 x 3.0 cm complex left hepatic lobe cystic structure corresponding to subcapsular collection seen on CT scan likely hematoma IR will drain its today Nothing by mouth after midnight MRCP showed the size of CBD 8 mm There is possibility that patient has passed the stone after CT was done Will continue to monitor LFT ERCP was done on 10/29/20, stent was placed in the distal part of common bile duct Atrial fibrillation Heart rate under control Oral targeted anticoagulation on hold Headache Pain management VS,Fishbone, I+O VS, Fishbone, I+O Laboratory Tests 10/29/20 18:06 Vital Signs Date Time Temp Pulse Resp B/P (MAP) Pulse Ox O2 Delivery O2 Flow Rate FiO2 10/30/20 12:41 20 10/30/20 12:00 97.0 63 103/56 (72) 94 Room Air 10/30/20 00:00 2.0 10/28/20 04:01 96 I&O- Last 24 Hours up to 6 AM 10/30/20 06:00 Intake Total 1505 ml Output Total 600 ml Balance 905 ml JEREMY KATZ DO Oct 30, 2020 15:21
[2020-10-30] MEDS ORDERED: ALBUTEROL 90 MCG/ACT 8GM HFA INHALER INH PRN (15:45)
[2020-10-30] MEDS: CEFEPIME HCL 1 GM in D5W MINI-BAG PLUS 50 ML IV SCH (15:57)
[2020-10-30 16:10] LABS: BASO % 0.2 % (0.0-1.0); EOS # 0.2 10^3/uL (0.0-0.5); EOS % 1.2 % (0.0-3.0); HEMATOCRIT 29.8 % (36.0-47.0); HEMOGLOBIN 9.2 g/dl (12.0-15.5); LYMPH # 0.6 10^3/uL (1.5-5.0); LYMPH % 4.3 % (24.0-44.0); MEAN CORPUSCULAR HEMOGLOBIN 29.9 pg (27.0-33.0); MEAN CORPUSCULAR HGB CONC 30.9 g/dl (32.0-36.5); MEAN CORPUSCULAR VOLUME 96.8 fl (80.0-96.0); MONO # 0.4 10^3/uL (0.0-0.8); MONO % 3.1 % (0.0-5.0); NEUTROPHILS # 11.8 10^3/uL (1.5-8.5); NEUTROPHILS % 89.2 % (36.0-66.0); PLATELET COUNT, AUTOMATED 182 10^3/uL (150-450); RED BLOOD COUNT 3.08 10^6/uL (4.00-5.40); WHITE BLOOD COUNT 13.2 10^3/uL (4.0-10.0)
[2020-10-30 16:54] LABS: ALBUMIN 2.6 GM/DL (3.2-5.2); BILIRUBIN,TOTAL 1.4 MG/DL (0.2-1.0); CALCIUM LEVEL 7.9 MG/DL (8.8-10.2); CREATININE FOR GFR 2.04 MG/DL (0.55-1.30); GLOMERULAR FILTRATION RATE 25.2 (>39); POTASSIUM SERUM 3.7 MEQ/L (3.5-5.1)
[2020-10-30] MEDS: BENZONATATE 100 MG CAP PO SCH (20:55)
[2020-10-30] MEDS: ATORVASTATIN 20 MG TAB PO SCH (20:55)
[2020-10-31] VITALS (7 sets, daily range): BP systolic 108–151; BP diastolic 58–94
[2020-10-31] MEDS: NS 1,000 ML IV SCH ×3 (00:59→20:57)
[2020-10-31] MEDS: CEFEPIME HCL 1 GM in D5W MINI-BAG PLUS 50 ML IV SCH ×2 (03:00→14:05)
[2020-10-31 05:04] LABS: BASO % 0.1 % (0.0-1.0); EOS # 0.1 10^3/uL (0.0-0.5); EOS % 0.9 % (0.0-3.0); HEMATOCRIT 27.3 % (36.0-47.0); HEMOGLOBIN 8.5 g/dl (12.0-15.5); LYMPH # 0.7 10^3/uL (1.5-5.0); LYMPH % 6.4 % (24.0-44.0); MEAN CORPUSCULAR HEMOGLOBIN 29.6 pg (27.0-33.0); MEAN CORPUSCULAR HGB CONC 31.1 g/dl (32.0-36.5); MEAN CORPUSCULAR VOLUME 95.1 fl (80.0-96.0); MONO # 0.5 10^3/uL (0.0-0.8); MONO % 4.9 % (0.0-5.0); NEUTROPHILS # 9.4 10^3/uL (1.5-8.5); NEUTROPHILS % 87.3 % (36.0-66.0); PLATELET COUNT, AUTOMATED 163 10^3/uL (150-450); RED BLOOD COUNT 2.87 10^6/uL (4.00-5.40); WHITE BLOOD COUNT 10.7 10^3/uL (4.0-10.0)
[2020-10-31 05:32] LABS: ALBUMIN 2.3 GM/DL (3.2-5.2); BILIRUBIN,TOTAL 0.8 MG/DL (0.2-1.0); CALCIUM LEVEL 7.6 MG/DL (8.8-10.2); CREATININE FOR GFR 1.5 MG/DL (0.55-1.30); GLOMERULAR FILTRATION RATE 35.9 (>39); POTASSIUM SERUM 3.7 MEQ/L (3.5-5.1); TOTAL PROTEIN 5.4 GM/DL (6.4-8.2)
[2020-10-31] MEDS: LEVOTHYROXINE 150MCG TABLET (0.15MG) PO SCH (05:41)
[2020-10-31] MEDS: ACETAMINOPHEN TAB 650MG DOSE (2X325MG) PO PRN ×2 (05:41→14:45)
[2020-10-31] MEDS: SLF 3 ML SYR IV SCH ×3 (05:41→22:00)
[2020-10-31] MEDS: METOPROLOL TART 25 MG TABLET PO SCH ×2 (09:00→20:58)
[2020-10-31] MEDS: amLODIPine 10 MG TAB PO SCH (09:02)
[2020-10-31] MEDS: MORPHINE 2 MG/ML 1ML VIAL (J2270) IV PRN ×2 (09:02→17:21)
[2020-10-31] MEDS: PARoxetine 20MG TABLET PO SCH (09:03)
[2020-10-31] MEDS: MAGNESIUM OXIDE 400 MG TAB (MAG-OX) PO SCH (09:03)
[2020-10-31] MEDS: BENZONATATE 100 MG CAP PO SCH ×2 (09:03→20:58)
[2020-10-31] MEDS: lisinopriL 20 MG TAB PO SCH (09:03)
[2020-10-31] MEDS ORDERED: AMIODARONE 200 MG TAB (PACERONE) PO ONE (13:30)
--- NOTE | 2020-10-31 14:14 | IPNPDOC ---
Text Note Date of Service The patient was seen on 10/31/20. NOTE Subjective: Patient stated that he continues to have generalized weakness. Du ring the daytime patient developed 34 beats of V. tach on telemetry Objective: GENERAL APPEARANCE: NAD HEENT: no scleral icterus, no JVD, EOMI CARDIOVASCULAR: Irregularly irregular LUNGS: CTA ABDOMEN: soft & not tender w palpitation MUSCULOSKELETAL: no cyanosis, no swelling INTEGUMENT: no generalized palor NEUROLOGICAL: cranial nerve function from 2-12 intact intact, follows commands, speech not dysarthric Assessment/Plan Patient is 75 years old female with past medical history of Hypertension, hypothyroidism, hyperlipidemia, Paroxysmal atrial fibrillation on eliquis, Crohn's disease, congestive heart failure with EF of 45%, GERD, obstructive sleep apnea but unable to tolerate CPAP, episode of seizure in 1977, genital warts, diverticulosis, arthritis in the knee, 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 Also patient stated that she has been having nausea and one episode of vomiting without blood. Of note patient had cardiac ablation on 10/12/20 In ER patient was found to have white blood count of 15.9, hemoglobin 10.6, total bilirubin 1.5, AST 556, ALT 314, alk phos 596, BNP 799, creat 1.3. MRI ducts as well as common bile duct, as expected. Maximum diameter of the common bile duct is 8 mm. No choledocholithiasis. The caliber of the biliary system has decreased since the CT exam performed earlier today. Chest CT showed No CT evidence of pulmonary embolism through the proximal segmental pulmonary arteries. Dilated pulmonary trunk and arteries suggestive of pulmonary hypertension but no CT findings of right heart strain. Moderate pericardial effusion more pronounced anteriorly measuring up to 1.8 cm in thickness. CTA Moderate pericardial effusion more pronounced anteriorly measuring up to 1.8 cm in thickness. Correlation with echocardiography is suggested. Problems Sepsis Resolved No leukocytosis today Source of infection most likely from GI system 2 sets of Blood culture positive for Escherichia coli. Repeated blood culture negative Continue broad-spectrum antibiotics Pericardial effusion here is concern for hemopericardium given recent cardiac ablation in September 2020 I discussed the case with Dr. Brewer. Recommendation echo STAT Echo was done and showed Small posterior pericardial effusion measuring 2-4 mm a nd also small anterior effusion measuring 4 mm. No sign of cardiac compression or cardiac tamponade echocardiographically. No indication for drain Liver lesion Problem Text: CT showed There is a 8.3 x 6.0 x 3.1 cm left hepatic lobe heterogeneous slightly dense collection with concave deformity of the left hepatic lobe underneath it. Few incompletely characterize left hepatic lobe hypodensity seen measuring up to 1.5 cm. MRCP showed The suspected fluid collection in the left lobe of the liver is noted measuring approximately 2.9 by 4.9 x 7.6 cm. There are 2 cysts in the upper pole the right kidney. Await stool for parasites and ova, antibiotic for echinococcus and ameba. Due to concern of liver abscess we started Zosyn LFT showed obstructive pattern with transaminitis. hep panel negative I talked to Dr. 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 Plan for EGD tomorrow. also concern for possible subscapular infected hematoma, patient was on anticoagulation. With rising leukocytes count there is possibility for abscess. .US shows 4.9 x 7.8 x 3.0 cm complex left hepatic lobe cystic structure corresponding to subcapsular collection seen on CT scan likely hematoma Dr John reviewed CT and she thinks this is abscess and no fluid to drain. Most likely it some necrotic liver tissue which was accidentally burned during cardiac ablation Common bile duct dilatation MRCP showed the size of CBD 8 mm There is possibility that patient has passed the stone after CT was done Will continue to monitor LFT ERCP was done on 10/29/20, stent was placed in the distal part of common bile duct LFT improved Atrial fibrillation Heart rate under control Oral targeted anticoagulation on hold Headache Pain management Vtach EKG shows normal sinus rhythm I talked Dr. Brewer, amiodarone was started again VS,Fishbone, I+O VS, Fishbone, I+O Laboratory Tests 10/30/20 15:16 10/31/20 04:53 Vital Signs Date Time Temp Pulse Resp B/P (MAP) Pulse Ox O2 Delivery O2 Flow Rate FiO2 10/31/20 12:00 96.8 72 18 151/82 (105) 98 Room Air 10/31/20 04:00 1.0 10/28/20 04:01 96 I&O- Last 24 Hours up to 6 AM 10/31/20 06:00 Intake Total 1340 ml Output Total 850 ml Balance 490 ml JEREMY KATZ DO Oct 31, 2020 14:14
--- NOTE | 2020-10-31 14:43 | IPN ---
PROGRESS NOTE DATE: 10/31/2020 SUBJECTIVE: Mrs. Herron remains about the same. She denies any chest pain or shortness of breath and was able to sleep without difficulty. She still has epigastric discomfort, especially when taking a deep breath. The aspiration of liver mass planned for yesterday was not performed as it was felt not appropriate by IR. OBJECTIVE: VITAL SIGNS: This morning blood pressure 140/69, heart rate has been 60s and 70s. She has been afebrile. O2 saturation 97% on room air. GENERAL APPEARANCE: She is alert and oriented x2. NECK: Her JVP is not high. LUNGS: Clear. HEART: Reveals regular rhythm without gallop, rub, or murmur. ABDOMEN: Soft. EXTREMITIES: Free of edema. LABORATORY DATA: CBC with WBC count of 10.7, hemoglobin 8.5, hematocrit 27.3, and platelet count 163,000. Basic metabolic panel is essentially normal with sodium 138, potassium 3.7, BUN 28, creatinine 1.5, and glucose 83. ASSESSMENT AND PLAN: Mrs. Herron is a 75-year-old female who underwent atrial fibrillation ablation on 10/15/2020, that was complicated by pericardial effusion that required drainage. She presented to our facility approximately one week later complaining of epigastric discomfort and she has a cystic lesion in the liver, which in my opinion most likely represents hematoma. Also, she somewhat surprisingly to me was grown gram-negative rods from blood. It was felt that she might have infected hematoma of the liver, but Dr. Villarreal apparently made the judgment that the collection in the liver should not be drained, and she is being treated medically. From a cardiac perspective, she has been well. She is maintaining sinus rhythm. There have not been any arrhythmias on telemetry. We have been holding her anticoagulation because of, in my opinion, while she is being monitored it is fairly safe and there is still potential for bleeding including significant drop in hemoglobin since her admission. By echocardiogram, she has fairly trivial pericardial effusion even though it was judged to be moderate by CT scan, but I do not believe there is any concern about the need for pericardiocentesis. I do believe that the anticoagulation can be restarted probably within a day or two, definitely upon discharge. Otherwise, I do not have much else to contribute to her management and I am going to sign off her care. TEE
--- NOTE | 2020-10-31 19:25 | ECGEPIP ---
[facility] Test Date: 2020-10-31 Pat Name: JEREL CARVER Department: Room: [place] [address] Gender: Female [employer]: LEI : [id number] Requested By: JEREMY KATZ Order Number: [id number] Reading MD: Darrin Brewer Measurements Intervals [place] Rate: 78 P: 40 NE: 163 QRS: 116 QRSD: 160 T: 34 QT: 434 QTc: 496 Interpretive Statements SINUS RHYTHM INTRAVENTRICULAR CONDUCTION DELAY OF LEFT BUNDLE BRANCH BLOCK TYPE SIMILAR TO 10/28/20 Electronically Signed on 10-31-2020 19:25:33 EST by Darrin Brewer
[2020-10-31] MEDS: ATORVASTATIN 20 MG TAB PO SCH (20:58)
[2020-11-01] VITALS: BP 122/58
[2020-11-01] MEDS: ACETAMINOPHEN TAB 650MG DOSE (2X325MG) PO PRN (00:33)
[2020-11-01 04:00] VITALS: BP 142/64
[2020-11-01] MEDS: CEFEPIME HCL 1 GM in D5W MINI-BAG PLUS 50 ML IV SCH ×2 (04:09→16:04)
[2020-11-01 05:27] LABS: BASO % 0.2 % (0.0-1.0); EOS # 0.1 10^3/uL (0.0-0.5); EOS % 1.1 % (0.0-3.0); HEMOGLOBIN 8.8 g/dl (12.0-15.5); LYMPH % 8.8 % (24.0-44.0); MEAN CORPUSCULAR HEMOGLOBIN 29.2 pg (27.0-33.0); MEAN CORPUSCULAR HGB CONC 30.3 g/dl (32.0-36.5); MEAN CORPUSCULAR VOLUME 96.3 fl (80.0-96.0); MONO # 0.9 10^3/uL (0.0-0.8); MONO % 8.4 % (0.0-5.0); NEUTROPHILS % 81.1 % (36.0-66.0); PLATELET COUNT, AUTOMATED 162 10^3/uL (150-450); RED BLOOD COUNT 3.01 10^6/uL (4.00-5.40); WHITE BLOOD COUNT 11.1 10^3/uL (4.0-10.0)
[2020-11-01] MEDS: ONDANSETRON 4MG/2ML VIAL IV PRN (05:30)
[2020-11-01] MEDS: SLF 3 ML SYR IV SCH ×3 (05:30→20:35)
[2020-11-01] MEDS: LEVOTHYROXINE 150MCG TABLET (0.15MG) PO SCH (05:30)
[2020-11-01 06:05] LABS: ALBUMIN 2.4 GM/DL (3.2-5.2); BILIRUBIN,TOTAL 0.7 MG/DL (0.2-1.0); CALCIUM LEVEL 8.1 MG/DL (8.8-10.2); CREATININE FOR GFR 1.07 MG/DL (0.55-1.30); GLOMERULAR FILTRATION RATE 53.1 (>39); POTASSIUM SERUM 3.7 MEQ/L (3.5-5.1); TOTAL PROTEIN 6.5 GM/DL (6.4-8.2)
[2020-11-01 08:00] VITALS: BP 164/78
[2020-11-01] MEDS: PARoxetine 20MG TABLET PO SCH (08:36)
[2020-11-01] MEDS: AMIODARONE 200 MG TAB (PACERONE) PO SCH (08:37)
[2020-11-01] MEDS: BENZONATATE 100 MG CAP PO SCH ×2 (08:37→20:33)
[2020-11-01] MEDS: lisinopriL 20 MG TAB PO SCH (08:37)
[2020-11-01] MEDS: MAGNESIUM OXIDE 400 MG TAB (MAG-OX) PO SCH (08:37)
[2020-11-01] MEDS: amLODIPine 10 MG TAB PO SCH (08:37)
[2020-11-01] MEDS: MORPHINE 2 MG/ML 1ML VIAL (J2270) IV PRN ×2 (08:38→20:36)
[2020-11-01] MEDS: METOPROLOL TART 25 MG TABLET PO SCH ×2 (08:39→20:35)
[2020-11-01] MEDS: FUROSEMIDE 40MG/4ML VIAL (J1940) IV SCH ×3 (11:26→23:56)
--- NOTE | 2020-11-01 11:35 | REP ---
INDICATION: sob. COMPARISON: 10/28/2020 TECHNIQUE: Portable FINDINGS: The technique utilized in obtaining the radiograph has magnified the cardiac silhouette and attenuated the interstitial markings. The patchy opacities seen previously in the right lower lobe are essentially unchanged possibly increased slightly. There is cardiomegaly accentuated by technique status quo. There are no additional abnormal opacities. IMPRESSION: As above <Electronically signed by Venkata Valdovinos > 11/01/20 0222
[2020-11-01 12:00] VITALS: BP 152/65
[2020-11-01] MEDS ORDERED: LORazepam 1 MG TAB PO ONE (12:45)
[2020-11-01] MEDS: IPRATROPIUM 0.5MG/ALBUTEROL 2.5MG INH SOL UD 3ML (DUONEB) NEB SCH ×2 (13:28→21:00)
[2020-11-01 16:00] VITALS: BP 164/88
--- NOTE | 2020-11-01 16:32 | IPNPDOC ---
Text Note Date of Service The patient was seen on 11/01/20. NOTE Subjective: Patient stated that she is very sad about multiple hospitalization for past 2 months. She stated that her dose of antidepressants was recently increased Objective: GENERAL APPEARANCE: NAD HEENT: no scleral icterus, no JVD, EOMI CARDIOVASCULAR: Irregularly irregular LUNGS: CTA ABDOMEN: soft & not tender w palpitation MUSCULOSKELETAL: no cyanosis, no swelling INTEGUMENT: no generalized palor NEUROLOGICAL: cranial nerve function from 2-12 intact intact, follows commands, speech not dysarthric Assessment/Plan Patient is 75 years old female with past medical history of Hypertension, hypothyroidism, hyperlipidemia, Paroxysmal atrial fibrillation on eliquis, Cr ohn's disease, congestive heart failure with EF of 45%, GERD, obstructive sleep apnea but unable to tolerate CPAP, episode of seizure in 1977, genital warts, diverticulosis, arthritis in the knee, 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 Also patient stated that she has been having nausea and one episode of vomiting without blood. Of note patient had cardiac ablation on 10/12/20 In ER patient was found to have white blood count of 15.9, hemoglobin 10.6, total bilirubin 1.5, AST 556, ALT 314, alk phos 596, BNP 799, creat 1.3. MRI ducts as well as common bile duct, as expected. Maximum diameter of the common bile duct is 8 mm. No choledocholithiasis. The caliber of the biliary system has decreased since the CT exam performed earlier today. Chest CT showed No CT evidence of pulmonary embolism through the proximal segmental pulmonary arteries. Dilated pulmonary trunk and arteries suggestive of pulmonary hypertension but no CT findings of right heart strain. Moderate pericardial effusion more pronounced anteriorly measuring up to 1.8 cm in thickness. CTA Moderate pericardial effusion more pronounced anteriorly measuring up to 1.8 cm in thickness. Correlation with echocardiography is suggested. Problems Sepsis Resolved No leukocytosis today Source of infection most likely from GI system 2 sets of Blood culture positive for Escherichia coli. Repeated blood culture negative Continue broad-spectrum antibiotics Pericardial effusion here is concern for hemopericardium given recent cardiac ablation in September 2020 I discussed the case with Dr. Brewer. Recommendation echo STAT Echo was done and showed Small posterior pericardial effusion measuring 2-4 mm and also small anterior effusion measuring 4 mm. No sign of cardiac compression or cardiac tamponade echocardiographically. No indication for drain Liver lesion Problem Text: CT showed There is a 8.3 x 6.0 x 3.1 cm left hepatic lobe heterogeneous slightly dense collection with concave deformity of the left hepatic lobe underneath it. Few incompletely characterize left hepatic lobe hypodensity seen measuring up to 1.5 cm. MRCP showed The suspected fluid collection in the left lobe of the liver is noted measuring approximately 2.9 by 4.9 x 7.6 cm. There are 2 cysts in the upper pole the right kidney. Await stool for parasites and ova, antibiotic for echinococcus and ameba. Due to concern of liver abscess we started Zosyn LFT showed obstructive pattern with transaminitis. hep panel negative I talked to Dr. 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 Plan for EGD tomorrow. also concern for possible subscapular infected hematoma, patient was on anticoagulation. With rising leukocytes count there is possibility for abscess. .US shows 4.9 x 7.8 x 3.0 cm complex left hepatic lobe cystic structure corresponding to subcapsular collection seen on CT scan likely hematoma Dr John reviewed CT and she thinks this is abscess and no fluid to drain. Most likely it some necrotic liver tissue which was accidentally burned during cardiac ablation Common bile duct dilatation MRCP showed the size of CBD 8 mm There is possibility that patient has passed the stone after CT was done Will continue to monitor LFT ERCP was done on 10/29/20, stent was placed in the distal part of common bile duct LFT improved Atrial fibrillation Heart rate under control Oral targeted anticoagulation on hold Headache Pain management Vtach resolved Acute diastolic CHF Secondary to fluid overload due to treatment of sepsis Lasix IV Fluid restriction I's and O's Cardiac diet VS,Fishbone, I+O VS, Fishbone, I+O Laboratory Tests 11/01/20 05:10 Vital Signs Date Time Temp Pulse Resp B/P (MAP) Pulse Ox O2 Delivery O2 Flow Rate FiO2 11/01/20 12:00 97.2 90 22 152/65 (94) 94 Nasal Cannula 2.0 10/28/20 04:01 96 I&O- Last 24 Hours up to 6 AM 11/01/20 06:00 Intake Total 1260 ml Output Total 1250 ml Balance 10 ml DROZHZHIN,JEREMY DO Nov 01, 2020 16:32
[2020-11-01] MEDS ORDERED: RIVAROXABAN 15 MG TAB (XARELTO) PO SCH ×2 (18:00→21:00)
[2020-11-01 20:00] VITALS: BP 152/83
[2020-11-01] MEDS: ATORVASTATIN 20 MG TAB PO SCH (20:33)
[2020-11-02] VITALS: BP 135/69
[2020-11-02] MEDS: IPRATROPIUM 0.5MG/ALBUTEROL 2.5MG INH SOL UD 3ML (DUONEB) NEB SCH ×3 (01:50→13:18)
[2020-11-02] MEDS: CEFEPIME HCL 1 GM in D5W MINI-BAG PLUS 50 ML IV SCH (03:46)
[2020-11-02 04:00] VITALS: BP 140/78
[2020-11-02] MEDS: LEVOTHYROXINE 150MCG TABLET (0.15MG) PO SCH (05:23)
[2020-11-02] MEDS: SLF 3 ML SYR IV SCH (05:23)
[2020-11-02] MEDS: MORPHINE 2 MG/ML 1ML VIAL (J2270) IV PRN (05:24)
[2020-11-02 08:00] VITALS: BP 141/63
[2020-11-02 09:41] LABS: BASO % 0.2 % (0.0-1.0); EOS # 0.1 10^3/uL (0.0-0.5); HEMATOCRIT 26.2 % (36.0-47.0); HEMOGLOBIN 8.3 g/dl (12.0-15.5); LYMPH % 9.3 % (24.0-44.0); MEAN CORPUSCULAR HEMOGLOBIN 29.6 pg (27.0-33.0); MEAN CORPUSCULAR HGB CONC 31.7 g/dl (32.0-36.5); MEAN CORPUSCULAR VOLUME 93.6 fl (80.0-96.0); MONO # 1.1 10^3/uL (0.0-0.8); MONO % 10.6 % (0.0-5.0); NEUTROPHILS # 8.1 10^3/uL (1.5-8.5); NEUTROPHILS % 78.3 % (36.0-66.0); PLATELET COUNT, AUTOMATED 160 10^3/uL (150-450); WHITE BLOOD COUNT 10.3 10^3/uL (4.0-10.0)
[2020-11-02 10:21] LABS: ALBUMIN 2.3 GM/DL (3.2-5.2); BILIRUBIN,TOTAL 0.7 MG/DL (0.2-1.0); CALCIUM LEVEL 7.8 MG/DL (8.8-10.2); CREATININE FOR GFR 1.05 MG/DL (0.55-1.30); GLOMERULAR FILTRATION RATE 54.2 (>39); MAGNESIUM LEVEL 1.8 MG/DL (1.8-2.4); POTASSIUM SERUM 3.4 MEQ/L (3.5-5.1); TOTAL PROTEIN 5.5 GM/DL (6.4-8.2)
[2020-11-02] MEDS: FUROSEMIDE 40MG/4ML VIAL (J1940) IV SCH (10:49)
[2020-11-02 10:50] VITALS: BP 141/63
[2020-11-02] MEDS: amLODIPine 10 MG TAB PO SCH (10:50)
[2020-11-02] MEDS: MAGNESIUM OXIDE 400 MG TAB (MAG-OX) PO SCH (10:50)
[2020-11-02] MEDS: lisinopriL 20 MG TAB PO SCH (10:51)
[2020-11-02] MEDS: METOPROLOL TART 25 MG TABLET PO SCH (10:51)
[2020-11-02] MEDS: BENZONATATE 100 MG CAP PO SCH (10:51)
[2020-11-02] MEDS: AMIODARONE 200 MG TAB (PACERONE) PO SCH (10:51)
[2020-11-02] MEDS: PARoxetine 20MG TABLET PO SCH (10:53)
[2020-11-02] MEDS ORDERED: LEVO500T3 PO (11:10)
[2020-11-02] MEDS ORDERED: LASI40TA9 PO (11:10)
[2020-11-02] MEDS ORDERED: AMLO1TAB25 PO (11:10)
[2020-11-02 12:00] VITALS: BP 145/71
--- NOTE | 2020-11-02 15:59 | DS.PDOC ---
Discharge Summary General Date of Admission Oct 28, 2020 at 14:29 Date of Discharge 11/02/20 Discharge Summary PROCEDURES PERFORMED DURING STAY: [None]. ADMITTING DIAGNOSES: Sepsis Pericardial effusion Liver lesion Common bile duct dilatation Atrial fibrillation chronic Headache Vtach Acute diastolic CHF DISCHARGE DIAGNOSES: Sepsis Pericardial effusion Liver lesion Common bile duct dilatation Atrial fibrillation chronic Headache Vtach Acute diastolic CHF COMPLICATIONS/CHIEF COMPLAINT: CHF. 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 Also patient stated that she has been having nausea and one episode of vomiting without blood. Of note patient had cardiac ablation on 10/12/20 In ER patient was found to have white blood count of 15.9, hemoglobin 10.6, total bilirubin 1.5, AST 556, ALT 314, alk phos 596, BNP 799, creat 1.3. MRI ducts as well as common bile duct, as expected. Maximum diameter of the common bile duct is 8 mm. No choledocholithiasis. The caliber of the biliary system has decreased since the CT exam performed earlier today. Chest CT showed No CT evidence of pulmonary embolism through the proximal segmental pulmonary arteries. Dilated pulmonary trunk and arteries suggestive of pulmonary hypertension but no CT findings of right heart strain. Moderate pericardial effusion more pronounced anteriorly measuring up to 1.8 cm in thickness. CTA M oderate pericardial effusion more pronounced anteriorly measuring up to 1.8 cm in thickness. Correlation with echocardiography is suggested. During hospital stay following issue addressed Sepsis Resolved No leukocytosis today Source of infection most likely from GI system 2 sets of Blood culture positive for Escherichia coli. Repeated blood culture negative Patient received Continue broad-spectrum antibiotics Pericardial effusion here is concern for hemopericardium given recent cardiac ablation in September 2020 I discussed the case with Dr. Brewer. Recommendation echo STAT Echo was done and showed Small posterior pericardial effusion measuring 2-4 mm and also small anterior effusion measuring 4 mm. No sign of cardiac compression or cardiac tamponade echocardiographically. No indication for drain Liver lesion Problem Text: CT showed There is a 8.3 x 6.0 x 3.1 cm left hepatic lobe heterogeneous slightly dense collection with concave deformity of the left hepatic lobe underneath it. Few incompletely characterize left hepatic lobe hypodensity seen measuring up to 1.5 cm. MRCP showed The suspected fluid collection in the left lobe of the liver is noted measuring approximately 2.9 by 4.9 x 7.6 cm. There are 2 cysts in the upper pole the right kidney. Await stool for parasites and ova, antibiotic for echinococcus and ameba. Due to concern of liver abscess we started Zosyn LFT showed obstructive pattern with transaminitis. hep panel negative I talked to Dr. 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 Plan for EGD tomorrow. also concern for possible subscapular infected hematoma, patient was on anticoagulation. With rising leukocytes count there is possibility for abscess. .US shows 4.9 x 7.8 x 3.0 cm complex left hepatic lobe cystic structure corresponding to subcapsular collection seen on CT scan likely hematoma Dr John reviewed CT and she thinks this is abscess and no fluid to drain. Most likely it some necrotic liver tissue which was accidentally burned during cardiac ablation Common bile duct dilatation MRCP showed the size of CBD 8 mm There is possibility that patient has passed the stone after CT was done Will continue to monitor LFT ERCP was done on 10/29/20, stent was placed in the distal part of common bile duct LFT improved Atrial fibrillation Heart rate under control Oral targeted anticoagulation on hold Headache Pain management Vtach resolved Amiodarone Acute diastolic CHF Secondary to fluid overload due to treatment of sepsis Lasix IV Fluid restriction I's and O's Cardiac diet DISCHARGE MEDICATIONS: Please see below. ALLERGIES: Please see below. PHYSICAL EXAMINATION ON DISCHARGE: VITAL SIGNS: Please see below. GENERAL APPEARANCE: NAD HEENT: no scleral icterus, no JVD, EOMI CARDIOVASCULAR: Irregularly irregular LUNGS: CTA ABDOMEN: soft & not tender w palpitation MUSCULOSKELETAL: no cyanosis, no swelling INTEGUMENT: no generalized palor NEUROLOGICAL: cranial nerve function from 2-12 intact intact, follows commands, speech not dysarthric LABORATORY DATA: Please see below. IMAGING:Exam: CT Abdomen And Pelvis With Contrast Exam date and time: 10/28/2020 7:16 AM Age: 75 years old Clinical indication: Other: Pleuritic cp, R/O clot TECHNIQUE: Imaging protocol: Computed tomography of the abdomen and pelvis with intravenous contrast. Radiation optimization: All CT scans at this facility use at least one of these dose optimization techniques: automated exposure control; mA and/or kV adjustment per patient size (includes targeted exams where dose is matched to clinical indication); or iterative reconstruction. Contrast material: ISOVUE 370; Contrast volume: 100 ml; Contrast route: INTRAVENOUS (IV); COMPARISON: No relevant prior studies available. FINDINGS: Liver: There is a 8.3 x 6.0 x 3.1 cm left hepatic lobe heterogeneous slightly dense collection with concave deformity of the left hepatic lobe underneath it. Few incompletely characterize left hepatic lobe hypodensity seen measuring up to 1.5 cm. Gallbladder and bile ducts: The patient is status post cholecystectomy. There is significant CBD dilatation measuring up to 1.7 centimetres coupled with moderate to severe intrahepatic biliary ductal dilatation. Distal CBD in the region of the ampulla is not clearly visualized. Pancreas: Normal. No ductal dilation. Spleen: The spleen is significantly heterogeneous in enhancement with large peripheral areas of hypoattenuation. Adrenal glands: There is 1.4 cm right adrenal gland and 2.1 cm left adrenal gland nodules. Kidneys and ureters: There is 3 cm right upper renal pole exophytic simple cyst. Few small left renal cysts seen the largest measuring 9 mm. There is no hydronephrosis. There is bilateral perinephric stranding more pronounced on the left. Stomach and bowel: There is suggestion of mild diffuse colonic wall thickening as well as some thickened small bowel loops. Appendix: No evidence of appendicitis. Intraperitoneal space: Unremarkable. No free air. No significant fluid collection. Vasculature: There is moderate aortic and iliac mural calcifications. The infrarenal aorta is ectatic measuring 2.5 cm in diameter. Lymph nodes: Unremarkable. No enlarged lymph nodes. Urinary bladder: Unremarkable as visualized. Reproductive: The patient is status post hysterectomy. There is no adnexal mass. Bones/joints: There is marked multilevel lumbar spine DJD. Soft tissues: Unremarkable. IMPRESSION: 1. 8.3 x 6.0 x 3.1 cm heterogeneous slightly dense mass/collection in the left hepatic lobe with concave deformity of the underlying liver possibly subcapsular hematoma although hepatic lesion cannot be completely excluded. Additionally seen are few scattered left hepatic lobe hypodense lesions measuring up to 1.5 cm, not characterized on this exam. Correlate with patient's clinical history. If indicated MRI with contrast may be obtained for further evaluation. 2. Status post cholecystectomy. 3. Significant extrahepatic and intrahepatic biliary ductal dilatation with the distal CBD not clearly seen. Findings could be secondary to distal CBD stricture, obstructing stone or subtle/occult pancreatic head lesion. MRI with contrast with MRCP is suggested for further evaluation. 4. Heterogeneous spleen with large peripheral areas of hypoattenuation. It is not clear if these represent splenic infarcts or due to heterogeneous early phase of imaging. Follow-up exam is suggested. Main splenic artery is patent. 5. Bilateral non characterized adrenal nodules measuring 1.4 cm on the right and 2.1 cm on the left. These can be further evaluated with the above suggested MRI as. 6. Bilateral simple appearing renal cysts. 7. Bilateral perinephric stranding much more pronounced than on the left kidney. Underlying element of pyelonephritis cannot be completely excluded although no CT findings of pyelonephritis seen. 8. Suggestion of thickened small and large bowel loops. Correlate clinically for enterocolitis. 9. Status post hysterectomy with no adnexal mass seen. 10. Ectatic infrarenal aorta measuring up to 2.5 centimetres.Follow-up imaging in 5 years is recommended. COMMENTS: Consistent with the [employer]'s Incidental Findings Committee white paper (J Am Lena Radiol 2018): Any incidental renal lesion less than 1 cm or classified as too small to characterize, or any incidental cystic renal lesion characterized as simple-appearing, is likely benign. No follow-up imaging is recommended for these lesions per consensus recommendations based on imaging criteria. Electronically signed by: Justino Allen On 10/28/2020 08:10:22 AM DD: JUSTINO ALLEN MD 10/28/20 0716 DT: LEONARD 10/28/20809 DS: ABRAHAN 10/28/20809 [~ rep ct labl] PROGNOSIS: Fair ACTIVITY: [As tolerated]. DIET: Cardiac ITEMS TO FOLLOWUP ON ON OUTPATIENT: Follow-up with singing waiter or waitress, build and release manager and PCP DISCHARGE CONDITION: [Stable]. TIME SPENT ON DISCHARGE: Greater than 40minutes. Vital Signs/I&Os Vital Signs Date Time Temp Pulse Resp B/P (MAP) Pulse Ox O2 Delivery O2 Flow Rate FiO2 11/02/20 12:00 97.7 65 20 145/71 (95) 96 Room Air 11/02/20 00:00 2.0 10/28/20 04:01 96 I&O- Last 24 Hours up to 6 AM 11/02/20 06:00 Intake Total 900 ml Output Total 2950 ml Balance -2050 ml Laboratory Data Labs 24H Laboratory Tests 2 11/02/20 09:13: Immature Granulocyte % (Auto) 0.6, Neutrophils (%) (Auto) 78.3H, Lymphocytes (%) (Auto) 9.3L, Monocytes (%) (Auto) 10.6H, Eosinophils (%) (Auto) 1.0, Basophils (%) (Auto) 0.2, Neutrophils # (Auto) 8.1, Lymphocytes # (Auto) 1.0L, Monocytes # (Auto) 1.1H, Eosinophils # (Auto) 0.1, Basophils # (Auto) 0.0, Nucleated Red Blood Cells % (auto) 0.0, Anion Gap 8, Glomerular Filtration Rate 54.2, Calcium Level 7.8L, Magnesium Level 1.8, Total Bilirubin 0.7, Aspartate Amino Transf (AST/SGOT) 48H, Alanine Aminotransferase (ALT/SGPT) 101H, Alkaline Phosphatase 268H, Total Protein 5.5L, Albumin 2.3L, Albumin/Globulin Ratio 0.7L CBC/BMP Laboratory Tests 11/02/20 09:13 Microbiology Microbiology 10/29/20 Urine Culture - Final, Complete 10/29/20 Blood Culture - Preliminary, Resulted No Growth after 72 hours. All specime... 10/29/20 Blood Culture - Preliminary, Resulted No Growth after 72 hours. All specime... 10/29/20 Campylobacter (PCR) - Final, Complete 10/29/20 Clostridium difficile Toxin A&B PCR - Final, Complete 10/29/20 Plesiomonas shigelloides (PCR) - Final, Complete 10/29/20 Salmonella (PCR)(NATAN) - Final, Complete 10/29/20 Vibrio Species (PCR) - Final, Complete 10/29/20 Vibrio Cholerae (PCR) - Final, Complete 10/29/20 Yersinia enterocolitica (PCR) - Final, Complete 10/29/20 Enteroaggregative E. coli (PCR) - Final, Complete 10/29/20 Enteropathogenic E. coli (PCR) - Final, Complete 10/29/20 Enterotoxigenic E. coli (PCR) - Final, Complete 10/29/20 E. coli Shiga-like Toxin (PCR) - Final, Complete 10/29/20 Escherichia coli 0157 (PCR) - Final, Complete 10/29/20 Enteroinvasive E. coli/Shigella PCR - Final, Complete 10/29/20 Cryptosporidium (PCR) - Final, Complete 10/29/20 Cyclospora cayetanensis (PCR) - Final, Complete 10/29/20 Entamoeba histolytica (PCR) - Final, Complete 10/29/20 Giardia lamblia (PCR) - Final, Complete 10/29/20 Adenovirus Type F 40/41 (PCR) - Final, Complete 10/29/20 Astrovirus (PCR) - Final, Complete 10/29/20 Norovirus GI/GII (PCR) - Final, Complete 10/29/20 Rotavirus A (PCR) - Final, Complete 10/29/20 Sapovirus I/II/IV/V (PCR) - Final, Complete 10/28/20 Blood Culture - Final, Complete Escherichia Coli 10/28/20 Blood Culture - Final, Complete Escherichia Coli 10/28/20 Respiratory Virus Panel (PCR) (NATAN) - Final, Complete Discharge Medications Scheduled Amiodarone HCl (Amiodarone HCl) 200 Mg Tablet, 200 MG PO DAILY, (Reported) Amlodipine Besylate (Amlodipine Besylate) 10 Mg Tablet, 10 MG PO DAILY Aripiprazole (Aripiprazole) 5 Mg Tablet, 5 MG PO QHS, (Reported) Atorvastatin Calcium (Atorvastatin Calcium) 40 Mg Tablet, 40 MG PO QHS, (Reported) Cholecalciferol (Vitamin D3) (Vitamin D3) 50 Mcg Capsule, 2,000 UNITS PO DAILY, (Reported) Furosemide (Lasix) 40 Mg Tablet, 40 MG PO BID Levofloxacin (Levofloxacin) 500 Mg Tablet, 1 TAB PO DAILY Levothyroxine Sodium (Synthroid) 150 Mcg Tablet, 150 MCG PO QAM, (Reported) Lisinopril (Lisinopril) 20 Mg Tablet, 20 MG PO DAILY, (Reported) Melatonin (Melatonin) 5 Mg Tablet, 5 MG PO QHS, (Reported) Metoprolol Tartrate (Metoprolol Tartrate) 25 Mg Tablet, 25 MG PO BID, (Reported) Nystatin (Nystatin Powder) 15 Gm Powder, 1 APLCT TOP DAILY, (Reported) APPLY TO ABDOMEN Paroxetine HCl (Paroxetine) 40 Mg Tablet, 40 MG PO DAILY, (Reported) Rivaroxaban (Xarelto) 15 Mg Tablet, 15 MG PO QHS, (Reported) SAMPLE FROM 'S OFFICE, VERIFIED DOSE WITH NURSE Trospium Chloride (Trospium Chloride) 20 Mg Tablet, 20 MG PO DAILY, (Reported) Allergies Coded Allergies: No Known Allergies (Verified , 10/28/20) JEREMY KATZ DO Nov 02, 2020 15:59
== END 2020-11-02 16:04 | disposition home health service (06) | DRG 862 ==
LOC: M ED 03:29 → M ED INP 14:29 → M PCU 22:15
PROVIDERS: ADMIT Internal Medicine; ATTEND Internal Medicine
PROC: 0FB78ZX Excision of Common Hepatic Duct, Via Natural or Artificial Opening Endoscopic, Diagnostic (ICD-10-PCS; 2020-10-29)
PROC: 0F798DZ Dilation of Common Bile Duct with Intraluminal Device, Via Natural or Artificial Opening Endoscopic (ICD-10-PCS; principal; 2020-10-29 14:00)
DX: T81.43XA Infection following a procedure, organ and space surgical site, initial encounter (principal); K83.1 Obstruction of bile duct; I50.31 Acute diastolic (congestive) heart failure; A41.51 Sepsis due to Escherichia coli [E. coli]; I31.3 Pericardial effusion (noninflammatory); K50.90 Crohn's disease, unspecified, without complications; I48.20 Chronic atrial fibrillation, unspecified; R17 Unspecified jaundice; I42.0 Dilated cardiomyopathy; I97.638 Postprocedural hematoma of a circulatory system organ or structure following other circulatory system procedure; I47.2 Ventricular tachycardia; I11.0 Hypertensive heart disease with heart failure; E03.9 Hypothyroidism, unspecified; K21.9 Gastro-esophageal reflux disease without esophagitis; G47.33 Obstructive sleep apnea (adult) (pediatric); D35.02 Benign neoplasm of left adrenal gland; K76.89 Other specified diseases of liver; N28.1 Cyst of kidney, acquired; E78.5 Hyperlipidemia, unspecified; Z79.01 Long term (current) use of anticoagulants; Z79.899 Other long term (current) drug therapy; Z90.5 Acquired absence of kidney; Z85.3 Personal history of malignant neoplasm of breast; Z92.3 Personal history of irradiation; Z90.49 Acquired absence of other specified parts of digestive tract; Z96.651 Presence of right artificial knee joint; Z98.41 Cataract extraction status, right eye; Z98.42 Cataract extraction status, left eye; Z87.891 Personal history of nicotine dependence; Z11.52 Encounter for screening for COVID-19; Z98.0 Intestinal bypass and anastomosis status; R93.5 Abnormal findings on diagnostic imaging of other abdominal regions, including retroperitoneum; R51.9 Headache, unspecified; Y83.8 Other surgical procedures as the cause of abnormal reaction of the patient, or of later complication, without mention of misadventure at the time of the procedure; Z53.09 Procedure and treatment not carried out because of other contraindication

== ENCOUNTER → 2020-11-12 | Outpatient (CLI) | payer MEDICARE ==
[~2020-11-12] MED LIST changes: +AMLO1TAB25 PO; +ARIP1TAB6 PO; +ATOR40TA75 PO; +D200CAP3 PO; +LASI40TA9 PO; +LEVO500T3 PO; +LISI20TA33 PO; +MELA1TAB9 PO; +METO1TAB87 PO; +METO25TA4 PO; +NYST1POW9 TOP; +SYNT150T PO; +XARE10TA PO; +XARE15TA PO
[2020-11-12 10:53] LABS: BASO # 0.1 10^3/uL (0.0-0.2); EOS # 0.1 10^3/uL (0.0-0.5); EOS % 2.1 % (0.0-3.0); HEMATOCRIT 33.5 % (36.0-47.0); HEMOGLOBIN 10.2 g/dl (12.0-15.5); LYMPH # 1.8 10^3/uL (1.5-5.0); LYMPH % 26.5 % (24.0-44.0); MEAN CORPUSCULAR HEMOGLOBIN 28.7 pg (27.0-33.0); MEAN CORPUSCULAR HGB CONC 30.4 g/dl (32.0-36.5); MEAN CORPUSCULAR VOLUME 94.4 fl (80.0-96.0); MONO # 0.8 10^3/uL (0.0-0.8); MONO % 11.7 % (0.0-5.0); NEUTROPHILS # 3.9 10^3/uL (1.5-8.5); NEUTROPHILS % 58.4 % (36.0-66.0); PLATELET COUNT, AUTOMATED 378 10^3/uL (150-450); RED BLOOD COUNT 3.55 10^6/uL (4.00-5.40); WHITE BLOOD COUNT 6.7 10^3/uL (4.0-10.0)
[2020-11-12 11:20] LABS: ALBUMIN 3.3 GM/DL (3.2-5.2); BILIRUBIN,TOTAL 0.6 MG/DL (0.2-1.0); CALCIUM LEVEL 9.2 MG/DL (8.8-10.2); CREATININE FOR GFR 2.04 MG/DL (0.55-1.30); GLOMERULAR FILTRATION RATE 25.2 (>39); MAGNESIUM LEVEL 1.9 MG/DL (1.8-2.4); POTASSIUM SERUM 4.1 MEQ/L (3.5-5.1); TOTAL PROTEIN 7.2 GM/DL (6.4-8.2)
== END ==
LOC: M PLALAB 08:35
PROVIDERS: ATTEND Physician Assistant
DX: R78.81 Bacteremia (principal)

== ENCOUNTER → 2020-11-28 | Outpatient (CLI) | payer MEDICARE ==
[2020-11-28 14:21] LABS: BASO % 0.5 % (0.0-1.0); EOS # 0.3 10^3/uL (0.0-0.5); EOS % 4.3 % (0.0-3.0); HEMATOCRIT 36.5 % (36.0-47.0); LYMPH # 1.6 10^3/uL (1.5-5.0); LYMPH % 25.2 % (24.0-44.0); MEAN CORPUSCULAR HEMOGLOBIN 28.5 pg (27.0-33.0); MEAN CORPUSCULAR HGB CONC 30.1 g/dl (32.0-36.5); MEAN CORPUSCULAR VOLUME 94.6 fl (80.0-96.0); MONO # 0.8 10^3/uL (0.0-0.8); MONO % 11.7 % (0.0-5.0); NEUTROPHILS # 3.8 10^3/uL (1.5-8.5); PLATELET COUNT, AUTOMATED 198 10^3/uL (150-450); RED BLOOD COUNT 3.86 10^6/uL (4.00-5.40); WHITE BLOOD COUNT 6.5 10^3/uL (4.0-10.0)
[2020-11-28 14:57] LABS: ALBUMIN 3.5 GM/DL (3.2-5.2); BILIRUBIN,TOTAL 0.4 MG/DL (0.2-1.0); CALCIUM LEVEL 8.5 MG/DL (8.8-10.2); CREATININE FOR GFR 2.04 MG/DL (0.55-1.30); FREE T4 1.78 NG/DL (0.76-1.46); GLOMERULAR FILTRATION RATE 25.2 (>39); POTASSIUM SERUM 4.4 MEQ/L (3.5-5.1); THYROID STIMULATING HORMONE 0.638 uIU/ML (0.358-3.740); TOTAL 25(OH) VITAMIN D 27.5 NG/ML (30.0-100.0); TOTAL PROTEIN 7.2 GM/DL (6.4-8.2)
== END ==
LOC: M PLALAB 09:58
PROVIDERS: ATTEND Physician Assistant
DX: I50.22 Chronic systolic (congestive) heart failure (principal); I48.0 Paroxysmal atrial fibrillation; Z79.899 Other long term (current) drug therapy

== ENCOUNTER → 2020-12-19 | Outpatient (CLI) | payer MEDICARE ==
[~2020-12-19] MED LIST changes: +E-Z-GAS II EFFERVESCENT PACKET (SODIUM BICARB./CITRIC ACID/SIMETHICONE) As Ordered ONE; +E-Z-HD 98% w/w 340GM SUSP BTL As Ordered ONE; +E-Z-PAQUE 96% w/w SUSP 176GM BTL As Ordered ONE; -PEG1POW PO; +POLY17PO18 PO
--- NOTE | 2020-12-19 17:06 | REP ---
INDICATION: CROHNS, ABNORMAL FINDING ON IMAGING. COMPARISON: None TECHNIQUE: This procedure was performed by Priscilla Heredia [facility], under the direct supervision of Dr. Mcclain. Images were reviewed with Dr. Mcclain prior to dictation. Liquid barium and gas producing crystals were given in the erect position, as well as liquid barium in the prone oblique position in order to perform a double contrast upper GI examination. Additionally liquid barium was given at the end of the examination in order to perform a small-bowel follow-through. FINDINGS: The packager machine film shows no organomegaly or pathological masses. The intestinal gas pattern is unremarkable. The oral and pharyngeal stages of deglutition were unremarkable. Esophageal transport is prompt and efficient and there is no evidence of esophagitis, stricture, or mucosal ring. There is evidence of a hiatal hernia. Gastroesophageal reflux was visualized to the level of the hortensia. The stomach lora are normally outlined. The rugal folds are smooth and regular. There is no gastritis, neoplasm, or ulcerative disease. The duodenal lora are normally outlined. The mucosal folds are smooth and regular. There is no duodenitis, peptic ulcer disease or neoplasm. The visualized portion of the proximal small bowel appears normal in course and caliber. The barium column was followed through the small bowel to the level of the terminal ileum. Small bowel transit time is approximately 120 minutes. During fluoroscopy gentle palpation shows all loops are freely movable and pliable. There is no fixed angulated loops. The small bowel mucosal pattern is normal in course and caliber. There is no transition to suggest a partial small bowel obstruction. Spot filming of the terminal ileum shows it to be unremarkable. IMPRESSION: 1. Gastroesophageal reflux to the level of the hortensia. 2. Small hiatal hernia. 3. Unremarkable small bowel follow-through. 1.0 minutes of fluoroscopy time was utilized for this procedure. Some fluoroscopic images are performed with last image hold technology. These images require no additional radiation. <Electronically signed by Priscilla Heredia > 12/19/20 1647 <Electronically signed by Rocky Mcclain > 12/19/20 1707
== END ==
LOC: M RAD 07:58
PROVIDERS: ATTEND Internal Medicine Gastroenterology
DX: R93.3 Abnormal findings on diagnostic imaging of other parts of digestive tract (principal); K21.9 Gastro-esophageal reflux disease without esophagitis; K44.9 Diaphragmatic hernia without obstruction or gangrene; K50.90 Crohn's disease, unspecified, without complications

== ENCOUNTER → 2020-12-30 | Outpatient (CLI) | payer MEDICARE ==
[~2020-12-30] MED LIST changes: -E-Z-GAS II EFFERVESCENT PACKET (SODIUM BICARB./CITRIC ACID/SIMETHICONE) As Ordered ONE; -E-Z-HD 98% w/w 340GM SUSP BTL As Ordered ONE; -E-Z-PAQUE 96% w/w SUSP 176GM BTL As Ordered ONE
--- NOTE | 2020-12-30 08:03 | REP ---
INDICATION: CROHNS, ABNORMAL FINDING ON IMAGING COMPARISON: None. TECHNIQUE: Real time leija scale ultrasound examination using curved array transducer. FINDINGS: Liver demonstrates coarsened echotexture and a 2.9 x 1.6 x 1.5 cm hypoechoic lesion along the left lobe which may represent complex cyst but has decreased in size when compared with CT dated 10/28/2020. Pancreas is incompletely evaluated due to interposed bowel gas. The gallbladder is surgically absent. Compensatory ductal dilatation is appreciated and the common bile duct measures 8.5 mm diameter. Right kidney is normal in reniform shape without hydronephrosis and measures 9.6 x 6.4 x 4.9 cm with 2.5 x 3.0 x 2.9 cm and 1.1 x 1.1 x 1.0 cm upper pole cysts. No ascites in the visualized right upper quadrant. IMPRESSION: 1. Hepatocellular disease/fatty infiltration to the liver with 2.9 cm presumed complex cyst which is decreased in size from CT dated 10/28/2020. Consider pre and postcontrast CT of the abdomen for confirmation. <Electronically signed by Tin Vuong > 12/30/20 075
== END ==
LOC: M RAD 06:24
PROVIDERS: ATTEND Internal Medicine Gastroenterology
DX: R93.3 Abnormal findings on diagnostic imaging of other parts of digestive tract (principal); K76.0 Fatty (change of) liver, not elsewhere classified

== ENCOUNTER → 2021-01-23 | Outpatient (CLI) | payer MEDICARE ==
[2021-01-23 13:58] LABS: BASO # 0.1 10^3/uL (0.0-0.2); BASO % 0.6 % (0.0-1.0); EOS # 0.3 10^3/uL (0.0-0.5); EOS % 3.4 % (0.0-3.0); HEMATOCRIT 40.3 % (36.0-47.0); HEMOGLOBIN 12.5 g/dl (12.0-15.5); LYMPH # 1.8 10^3/uL (1.5-5.0); LYMPH % 22.1 % (24.0-44.0); MEAN CORPUSCULAR HEMOGLOBIN 28.5 pg (27.0-33.0); MONO # 0.8 10^3/uL (0.0-0.8); MONO % 9.6 % (2.0-8.0); NEUTROPHILS # 5.2 10^3/uL (1.5-8.5); NEUTROPHILS % 64.1 % (36.0-66.0); PLATELET COUNT, AUTOMATED 198 10^3/uL (150-450); RED BLOOD COUNT 4.38 10^6/uL (4.00-5.40); WHITE BLOOD COUNT 8.1 10^3/uL (4.0-10.0)
[2021-01-23 14:31] LABS: ALBUMIN 3.7 GM/DL (3.2-5.2); BILIRUBIN,DIRECT 0.1 MG/DL (0.0-0.2); BILIRUBIN,TOTAL 0.4 MG/DL (0.2-1.0); TOTAL PROTEIN 7.5 GM/DL (6.4-8.2)
== END ==
LOC: M PLALAB 10:29
PROVIDERS: ATTEND Internal Medicine Gastroenterology
DX: R93.3 Abnormal findings on diagnostic imaging of other parts of digestive tract (principal); K76.9 Liver disease, unspecified; R94.5 Abnormal results of liver function studies

== ENCOUNTER → 2021-03-18 | Outpatient (CLI) | payer MEDICARE ==
[~2021-03-18] MED LIST changes: +ACET1TAB16 PO; +TIZA4TAB4 PO; +VITA200016 PO
== END ==
LOC: M LABSMTC 10:47
PROVIDERS: ATTEND Anesthesiology
DX: Z01.818 Encounter for other preprocedural examination (principal); Z11.52 Encounter for screening for COVID-19

== ENCOUNTER 2021-03-21 10:58 | Day surgery (SDC) | payer MEDICARE ==
[~2021-03-21] VITALS: Ht 165.1 cm; Wt 97.3 kg
[~2021-03-21 10:58] MED LIST changes: +LIDOCAINE 1% MDV 20ML VIAL SQ PRN; +LR 1,000 ML IV ONE; +NS 1,000 ML IV ONE
[2021-03-21] MEDS ORDERED: ISOVUE-300 61% 50ML VIAL As Ordered ONE (12:45)
[2021-03-21] MEDS ORDERED: fentaNYL 100 MCG/2 ML INJECTION (J3010) As Ordered ONE (13:37)
[2021-03-21] MEDS ORDERED: ROCURONIUM BROMIDE 50 MG/5 ML VIAL As Ordered ONE (13:37)
[2021-03-21] MEDS ORDERED: MIDAZOLAM INJ 2MG/2ML VIAL (J2250 PER 1MG) As Ordered ONE (13:37)
[2021-03-21] MEDS ORDERED: propofoL 200 MG/20 ML VIAL As Ordered ONE (13:37)
[2021-03-21] MEDS ORDERED: ONDANSETRON 4MG/2ML VIAL As Ordered ONE (13:37)
[2021-03-21] MEDS ORDERED: LIDOCAINE 2% 100MG/5ML SDV (FOR ANES.) As Ordered ONE (13:37)
[2021-03-21] MEDS ORDERED: dexameTHASONE 4 MG/ML 1ML VIAL (J1100 PER 1MG) As Ordered ONE (13:37)
[2021-03-21] MEDS ORDERED: SUGAMMADEX SODIUM 500 MG/5 ML VIAL (BRIDION) As Ordered ONE (13:48)
[2021-03-21] MEDS ORDERED: KETOROLAC 60MG 2ML VIAL As Ordered ONE (13:50)
--- NOTE | 2021-03-21 14:22 | ROOR ---
Patient Name: Jennifer Herron Procedure Date: 03/21/2021 12:44 PM Date of : 1945 Age: 76 Room: [facility] Gender: Female Note Status: Finalized Procedure: ERCP Indications: Biliary stent removal Providers: Marquez Vincent MD Referring MD: Jing WU DO Requesting Provider: Medicines: Monitored Anesthesia Care Complications: No immediate complications. Procedure: Pre-Anesthesia Assessment: - Prior to the procedure, a History and Physical was performed, and patient medications and allergies were reviewed. The patient is competent. The risks and benefits of the procedure and the sedation options and risks were discussed with the patient. All questions were answered and informed consent was obtained. Patient identification and proposed procedure were verified by the physician, the nurse and the anesthesiologist in the procedure room. Mental Status Examination: alert and oriented. Airway Examination: normal oropharyngeal airway and neck mobility. Respiratory Examination: clear to auscultation. CV Examination: normal. Prophylactic Antibiotics: The patient does not require prophylactic antibiotics. Prior Anticoagulants: The patient has taken no previous anticoagulant or antiplatelet agents. ASA Grade Assessment: III - A patient with severe systemic disease. After reviewing the risks and benefits, the patient was deemed in satisfactory condition to undergo the procedure. The anesthesia plan was to use monitored anesthesia care (MAC). Immediately prior to administration of medications, the patient was re-assessed for adequacy to receive sedatives. The heart rate, respiratory rate, oxygen saturations, blood pressure, adequacy of pulmonary ventilation, and response to care were monitored throughout the procedure. The physical status of the patient was re-assessed after the procedure. The Duodenoscope was introduced through the mouth, and advanced to the duodenum and used to locate the major papilla. The ERCP was accomplished without difficulty. The patient tolerated the procedure well. Findings: A senior net developer film of the abdomen was obtained. Surgical clips, consistent with a previous cholecystectomy, were seen in the area of the right upper quadrant of the abdomen. The esophagus was successfully intubated under direct vision. The scope was advanced to a normal major papilla in the descending duodenum without detailed examination of the pharynx, larynx and associated structures, and upper GI tract. The upper GI tract was grossly normal. There was no stent seen emerging from the major papilla. A biliary sphincterotomy had been performed. The sphincterotomy appeared open. A standard esophagogastroduodenoscopy scope was used for the examination of the upper gastrointestinal tract. The scope was passed under direct vision through the upper GI tract. Scattered moderate inflammation characterized by erythema and granularity was found in the gastric antrum. Impression: - No biliary stent seen. ( spontaneously passed). - Prior biliary sphincterotomy appeared open. - Gastritis. Recommendation: - The patient will be observed post-procedure, until all discharge criteria are met. - Patient has a contact number available for emergencies. The signs and symptoms of potential delayed complications were discussed with the patient. Return to normal activities tomorrow. Written discharge instructions were provided to the patient. - No ibuprofen, naproxen, or other non-steroidal anti-inflammatory drugs. - Continue present medications. - Return to GI clinic if persistent symptoms or new symptoms. - Return to primary care physician. Procedure Code(s): --- Professional --- 21941, Esophagogastroduodenoscopy, flexible, transoral; diagnostic, including collection of specimen(s) by brushing or washing, when performed (separate procedure) Diagnosis Code(s): --- Professional --- K29.70, Gastritis, unspecified, without bleeding Z46.59, Encounter for fitting and adjustment of other gastrointestinal appliance and device CPT copyright 2019 [employer]. All rights reserved. The codes documented in this report are preliminary and upon demolition crane operator review may be revised to meet current compliance requirements. Marquez Vincent MD Marquez Vincent MD 03/21/2021 2:22:13 PM Electronically signed by Marquez Vincent MD Number of Addenda: 0 Note Initiated On: 03/21/2021 12:44 PM Estimated Blood Loss: Estimated blood loss was minimal.
--- NOTE | 2021-03-21 14:35 | REP ---
INDICATION: REMOVED COMMON BILE DUCT STENT, BRUSH CYTOLOGY. COMPARISON: None. TECHNIQUE: Multiple C-arm views abdomen. FINDINGS: Endoscope overlies the gastroesophageal region with the tip in the right upper quadrant. Cholecystectomy clips are noted in the right upper quadrant. Bowel gas pattern is normal. IMPRESSION: 9 seconds of fluoroscopy time was utilized. <Electronically signed by Rocky Mcclain > 03/21/21 [id number]
[2021-03-21] MEDS ORDERED: ONDANSETRON 4MG/2ML VIAL IV PRN (14:45)
[2021-03-21] MEDS ORDERED: METOCLOPRAMIDE INJ 10MG/2ML VIAL (J2765 PER 1) IV PRN (14:45)
[2021-03-21] MEDS ORDERED: fentaNYL 100 MCG/2 ML INJECTION (J3010) IV PRN (14:45)
[2021-03-21] MEDS ORDERED: LR 1,000 ML IV SCH (14:45)
[2021-03-21] MEDS ORDERED: ACETAMINOPHEN TAB 650MG DOSE (2X325MG) PO PRN (14:50)
[2021-03-21 15:30] VITALS: BP 165/90
[2021-03-21 16:00] VITALS: BP 171/89
[2021-03-21 17:00] VITALS: BP 165/92
[2021-03-21 18:00] VITALS: BP 151/76
[2021-03-21 19:00] VITALS: BP 140/82
[2021-03-21 19:46] VITALS: BP 147/84
[2021-03-22 02:00] VITALS: BP 156/82
[2021-03-22 06:06] VITALS: BP 176/89
== END 2021-03-22 14:40 | disposition home or self-care (01) ==
LOC: M SDC 10:58 → M MS5PR 15:30 → M SDC 03-22 14:40
PROVIDERS: ATTEND Internal Medicine Gastroenterology
DX: K29.70 Gastritis, unspecified, without bleeding (principal); I48.91 Unspecified atrial fibrillation; I10 Essential (primary) hypertension; E78.00 Pure hypercholesterolemia, unspecified; E03.9 Hypothyroidism, unspecified; K50.90 Crohn's disease, unspecified, without complications; K21.9 Gastro-esophageal reflux disease without esophagitis; F41.9 Anxiety disorder, unspecified; F32.9 Major depressive disorder, single episode, unspecified; R51.9 Headache, unspecified; G47.30 Sleep apnea, unspecified; R56.9 Unspecified convulsions; M19.90 Unspecified osteoarthritis, unspecified site; Z87.891 Personal history of nicotine dependence; Z85.3 Personal history of malignant neoplasm of breast; J44.9 Chronic obstructive pulmonary disease, unspecified; Z92.3 Personal history of irradiation; Z79.899 Other long term (current) drug therapy; Z79.891 Long term (current) use of opiate analgesic; Z79.01 Long term (current) use of anticoagulants
CPT/HCPCS: 43275; 74330; J1100; J1885; J2250; J2405; J3010; Q9967

== ENCOUNTER → 2021-05-05 | Outpatient (REF) | payer MEDICARE ==
[~2021-05-05] MED LIST changes: -LIDOCAINE 1% MDV 20ML VIAL SQ PRN; -LR 1,000 ML IV ONE; -NS 1,000 ML IV ONE; +OMEP40CA4 PO; -OMEP40CA97 PO
== END ==
LOC: M LAB REF 17:55
PROVIDERS: ATTEND Internal Medicine Nephrology
DX: E83.42 Hypomagnesemia (principal)

== ENCOUNTER 2021-05-29 21:45 | Inpatient (IN) | payer MEDICARE ==
[~2021-05-29] VITALS: Ht 165.1 cm; Wt 95.5 kg
[~2021-05-29 21:45] MED LIST changes: +RIVAROXABAN 15 MG TAB (XARELTO) PO SCH
[2021-05-29] MEDS ORDERED: METOPROLOL TART 25 MG TABLET PO ONE (22:10)
[2021-05-29] MEDS: METOPROLOL 5 MG/5 ML VIAL IV SCH ×3 (22:21→22:43)
[2021-05-29 22:44] LABS: BASO % 0.4 % (0.0-1.0); EOS # 0.2 10^3/uL (0.0-0.5); EOS % 2.9 % (0.0-3.0); HEMATOCRIT 40.4 % (36.0-47.0); LYMPH # 2.1 10^3/uL (1.5-5.0); LYMPH % 25.5 % (24.0-44.0); MEAN CORPUSCULAR HEMOGLOBIN 29.7 pg (27.0-33.0); MEAN CORPUSCULAR HGB CONC 32.2 g/dl (32.0-36.5); MEAN CORPUSCULAR VOLUME 92.2 fl (80.0-96.0); MONO # 0.8 10^3/uL (0.0-0.8); MONO % 9.9 % (2.0-8.0); NEUTROPHILS # 5.1 10^3/uL (1.5-8.5); NEUTROPHILS % 61.2 % (36.0-66.0); PLATELET COUNT, AUTOMATED 169 10^3/uL (150-450); RED BLOOD COUNT 4.38 10^6/uL (4.00-5.40); WHITE BLOOD COUNT 8.3 10^3/uL (4.0-10.0)
[2021-05-29 23:14] LABS: CALCIUM LEVEL 8.4 MG/DL (8.8-10.2); CREATININE FOR GFR 1.45 MG/DL (0.55-1.30); FREE T4 1.29 NG/DL (0.76-1.46); GLOMERULAR FILTRATION RATE 37.3 (>39); POTASSIUM SERUM 3.2 MEQ/L (3.5-5.1); THYROID STIMULATING HORMONE 10.4 uIU/ML (0.358-3.740)
--- NOTE | 2021-05-29 23:30 | REPVR ---
PROCEDURE INFORMATION: Exam: XR Chest Exam date and time: 05/29/21 (10:24pm) Age: 76 years old Clinical indication: Angina pectoris TECHNIQUE: Imaging protocol: Portable CXR Views: 1 view COMPARISON: Portable CXR of 11/01/20 Portable CXR of 08/24/19 FINDINGS: Comparison is made with portable CXR's done on 11/01/20 and 08/24/19. Stable cardiomegaly. Uncoiled thoracic aorta. Aortic knob calcifications again seen. Diffuse prominent coarse lung markings again seen. No focal infiltrates. No pleural effusions. No pneumothorax. IMPRESSION: No definite acute pathology. No consolidation. No pleural effusions. Prominent coarse lung markings again seen, diffusely (appear to be chronic changes). Electronically signed by: Ashley Garber On 05/29/2021 23:29:55 PM
[2021-05-29] MEDS ORDERED: POTASSIUM CHLORIDE 10 MEQ SR TABLET PO ONE (23:35)
[2021-05-29 23:45] LABS: MAGNESIUM LEVEL 1.3 MG/DL (1.8-2.4)
[2021-05-30] MEDS ORDERED: MAG SULF 1GM/100ML (MAG RUN) 1 GM in IV 1 EA IV ONE ×2 (01:00→09:00)
[2021-05-30] MEDS ORDERED: AMIODARONE HCL 150 MG in IV 1 EA IV ONE ×2 (01:20→03:00)
[2021-05-30] MEDS ORDERED: ACETAMINOPHEN TAB 650MG DOSE (2X325MG) PO PRN (03:45)
[2021-05-30] MEDS ORDERED: XARE15TA PO (04:00)
[2021-05-30] MEDS ORDERED: METO1TAB87 PO (04:00)
[2021-05-30] MEDS ORDERED: ACET-897 PO (04:00)
[2021-05-30] MEDS ORDERED: PAXI40TA10 PO (04:00)
[2021-05-30] MEDS ORDERED: OMEP-221 PO (04:00)
[2021-05-30] MEDS ORDERED: SYNT150T PO (04:00)
[2021-05-30] MEDS ORDERED: NYST1POW9 TOP (04:00)
[2021-05-30] MEDS ORDERED: TROS20TA3 PO (04:00)
[2021-05-30] MEDS ORDERED: ALBU83IN INH (04:00)
[2021-05-30] MEDS ORDERED: ABIL1TAB11 PO (04:00)
[2021-05-30] MEDS ORDERED: HOME MED LIST COMPLETE! XX SCH (04:00)
[2021-05-30] MEDS ORDERED: TIZA4TAB4 PO (04:00)
[2021-05-30] MEDS ORDERED: LISI20TA33 PO (04:00)
[2021-05-30] MEDS ORDERED: D200CAP PO (04:00)
[2021-05-30] MEDS ORDERED: ALBUTEROL SULFATE 2.5 MG/0.5 ML INH NEB SOLN INH PRN (04:25)
[2021-05-30] MEDS ORDERED: traMADol 50 MG TAB PO PRN (04:25)
--- NOTE | 2021-05-30 04:39 | HPEPDOC ---
General Date of Admission 05/30/21 Date of Service: May 30, 2021 Chief Complaint The patient is a 76-year-old female admitted with a reason for visit of Heart Racing. 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 Patient found to be in A. fib RVR. Patient reports that she can still feel her heart racing but otherwise without complaints. Pt denies cunningham, sinus congestion, sore throat, productive cough, sob,chest pain, n/v/d, abdominal pain, weakness, sensory changes or syncope. Patient reports she has been in her usual state of health until Wednesday when she had an episode of A. fib RVR and went to [facility] given a dose of metoprolol with resolution and went home until this evening reported -while sitting down -palpitations sensation. When she checked her heart rate -she said it was as high in the 140s and thus, she decided to come in. Patient reports compliance with all medications and no new supplements, dietary changes, stress increase or new medications. Patient reports that in the past there was a consideration whether or not her metoprolol would be increased, however her kidney doctor did not want this to occur but she is unable to state why. Of note, EKG A. fib RVR. Trop 0.04, potassium 3.2 and magnesium 1.3. 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 Heart rate during exam while receiving amiodarone bolus in the 120s. Patient will be admitted for further evaluation management presenting concerns Home Medications Scheduled Aripiprazole (Abilify) 5 Mg Tablet, 5 MG PO QHS, (Reported) Cholecalciferol (Vitamin D3) (Vitamin D3) 50 Mcg Capsule, 50 MCG PO QHS, (Re ported) Levothyroxine Sodium (Synthroid) 150 Mcg Tablet, 150 MCG PO DAILY, (Reported) Lisinopril (Lisinopril) 20 Mg Tablet, 20 MG PO QHS, (Reported) Metoprolol Tartrate (Metoprolol Tartrate) 25 Mg Tablet, 25 MG PO BID, (Reported) Nystatin (Nystatin Powder) 15 Gm Powder, 1 DOSE TOP DAILY, (Reported) APPLY TO ABDOMEN AFTER SHOWER Omeprazole (Omeprazole) 40 Mg Capsule.dr, 40 MG PO DAILY, (Reported) Paroxetine HCl (Paxil) 40 Mg Tablet, 40 MG PO DAILY, (Reported) Rivaroxaban (Xarelto) 15 Mg Tablet, 15 MG PO QHS, (Reported) Tizanidine HCl (Tizanidine HCl) 4 Mg Tablet, 4 MG PO QHS, (Reported) Trospium Chloride (Trospium Chloride) 20 Mg Tablet, 20 MG PO DAILY, (Reported) Scheduled PRN Acetaminophen (Tylenol Extra Strength) 500 Mg Tablet, 1,000 MG PO Q6H PRN for PAIN LEVEL 1-5, (Reported) Albuterol Sulf (Albuterol Sulfate) 2.5 Mg/3 Ml Vial.neb, 2.5 MG INH Q4H PRN for SHORTNESS OF BREATH, (Reported) Allergies Coded Allergies: No Known Allergies (Verified , 03/14/21) Past Medical History Medical History Hypertension, hypothyroidism, hyperlipidemia, Paroxysmal atrial fibrillation on Xarelto, Crohn's disease, congestive heart failure, GERD, obstructive sleep apnea but unable to tolerate CPAP, episode of seizure in 1977, genital warts, diverticulosis status post bowel resection, arthritis in the knee, 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, 2 cm left adrenal adenoma and chronic back pain Surgical History bowel resection, 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, hysterectomy, cholecystectomy, cataract surgery OU, heart cath 2006, ablation 2019 Family History Significant Family History: No pertinent family hx Social History * Smoker: former Smoker Alcohol: Denies Drugs: denies Recent Travel/Sick Contacts: Denies: Recent travel, Recent sick contacts Psychosocial History: No pertinent psych hx A-FIB/CHADSVASC A-FIB History Current/History of A-Fib/PAF?: Yes Current PO Anticoag Therapy: Yes Review of Systems Constitutional: Reports: Malaise; Denies: Chills, Fever, Night Sweats Eyes: Denies: Pain, Vision change ENT: Denies: Head Aches, Ear Pain, Dysphagia Skin: Denies: Rash, Lesions, Breakdown Pulmonary: Denies: Dyspnea, Cough Cardiovascular: Reports: Palpitations; Denies: Chest Pain, Orthopnea, Paroxysmal Noc. Dyspnea, Lt Headedness Gastrointestinal: Denies: Nausea, Vomiting, Abdominal Pain, Diarrhea Genitourinary: Denies: Dysuria, Frequency, Incontinence, Retention Hematologic: Denies: Bruising, Bleeding Excessively Musculoskeletal: Denies: Neck Pain, Back Pain, Joint Pain, Muscle Pain, Spasms Neurological: Denies: Weakness, Numbness, Change in speech, Confusion Psych: Reports: Mood Normal; Denies: Depression, Memory Issues Physical Examination General Exam: Positive: Alert, No Acute Distress Eye Exam: Positive: PERRLA, Conjunctiva & lids normal, EOMI; Negative: Sclera icteric ENT Exam: Positive: Atraumatic, Mucous membr. moist/pink, Pharynx Normal Neck Exam: Positive: Supple; Negative: JVD, thyromegaly Chest Exam: Positive: Clear to auscultation, Normal air movement Heart Exam: Positive: Tachycardic, Irregular Rhythm, Normal S1, Normal S2; Negative: Murmurs, Rubs Telemetry: Positive: Atrial fibrillation Abdomen Exam: Positive: Normal bowel sounds, Soft; Negative: Tenderness, Hepatospenomegaly Extremity Exam: Positive: Edema (trace), Normal pulses; Negative: Clubbing, Cyanosis Skin Exam: Positive: Nl turgor and temperature; Negative: Breakdown, Lesion Neuro Exam: Positive: Normal Gait, Normal Speech, Cranial Nerves 3-12 NL, Reflexes 2+ Psych Exam: Positive: Mental status NL, Mood NL, Oriented x 3 Vital Signs Vital Signs Date Time Temp Pulse Resp B/P (MAP) Pulse Ox O2 Delivery O2 Flow Rate FiO2 05/30/21 02:16 138 93 05/30/21 01:49 131/66 (87) 05/29/21 23:48 98.3 05/29/21 23:46 20 Room Air Laboratory Data Labs 24H Laboratory Tests 2 05/29/21 22:33: Immature Granulocyte % (Auto) 0.1, Neutrophils (%) (Auto) 61.2, Lymphocytes (%) (Auto) 25.5, Monocytes (%) (Auto) 9.9H, Eosinophils (%) (Auto) 2.9, Basophils (%) (Auto) 0.4, Neutrophils # (Auto) 5.1, Lymphocytes # (Auto) 2.1, Monocytes # (Auto) 0.8, Eosinophils # (Auto) 0.2, Basophils # (Auto) 0.0, Nucleated Red Blood Cells % (auto) 0.0, Anion Gap 7L, Glomerular Filtration Rate 37.3L, Calcium Level 8.4L, Magnesium Level 1.3L, Thyroid Stimulating Hormone (TSH) 10.400H, Free Thyroxine 1.29 CBC/BMP Laboratory Tests 05/29/21 22:33 Assessment/Plan 1. A. fib RVR: -Telemetry, monitor on PCU. Patient status post second dose of amiodarone. -Continue patient's home medications. -Replete electrolytes. -Consider underlying stressors; will check cortisol given history of adrenal adenoma. -Continue Xarelto. -Consider further cardiology consultation pending patient response after amiodarone. 2. Hypomagnesium and hypokalemia: Replete. Recheck with a.m. labs. 3. Hypertension: Monitor, continue home medications 4. CKD: Patient stable at 1.47. Avoid nephrotoxins as able. 5. HDL: Continue home med. 6. Hypothyroid : TSH elevated with normal T4 . Continue Synthroid 7. Crohn's and GERD: Continue patient's home medications. 8. Depression/anxiety: Monitor patient mood and encourage expression. Continue home medications. De-escalation techniques as needed. 9. Chronic back pain: Patient reports back pain 8 out of 10 typically she takes Tylenol for this. She reports that her back pain has been bothering her but does not identify this as acute on chronic episode of back pain. Plan to monitor patient and encouraged nonpharmacologic management as able. As needed pain control. Will add Lidoderm patch. DVT: SCDs and Xarelto CODE STATUS: Full code Dispo planning: Home once heart rate stable Plan / VTE VTE Prophylaxis Ordered?: Yes DENIS CHÁVEZ NP May 30, 2021 03:49
[2021-05-30 04:42] LABS: RSV AMPLIFICATION NEGATIVE (NEGATIVE)
[2021-05-30 05:25] LABS: BASO % 0.3 % (0.0-1.0); EOS # 0.1 10^3/uL (0.0-0.5); EOS % 1.3 % (0.0-3.0); HEMATOCRIT 37.1 % (36.0-47.0); HEMOGLOBIN 12.1 g/dl (12.0-15.5); LYMPH # 1.5 10^3/uL (1.5-5.0); LYMPH % 18.8 % (24.0-44.0); MEAN CORPUSCULAR HEMOGLOBIN 30.2 pg (27.0-33.0); MEAN CORPUSCULAR HGB CONC 32.6 g/dl (32.0-36.5); MEAN CORPUSCULAR VOLUME 92.5 fl (80.0-96.0); MONO # 0.7 10^3/uL (0.0-0.8); MONO % 9.1 % (2.0-8.0); NEUTROPHILS # 5.6 10^3/uL (1.5-8.5); NEUTROPHILS % 70.2 % (36.0-66.0); PLATELET COUNT, AUTOMATED 152 10^3/uL (150-450); RED BLOOD COUNT 4.01 10^6/uL (4.00-5.40); WHITE BLOOD COUNT 7.9 10^3/uL (4.0-10.0)
[2021-05-30 05:53] LABS: NT-PRO BNP 3800 PG/ML (<450); TROPONIN I < 0.02 NG/ML (< 0.10)
[2021-05-30] MEDS ORDERED: LEVOTHYROXINE 150MCG TABLET (0.15MG) PO SCH (06:00)
[2021-05-30 06:02] LABS: CALCIUM LEVEL 8.4 MG/DL (8.8-10.2); CREATININE FOR GFR 1.44 MG/DL (0.55-1.30); GLOMERULAR FILTRATION RATE 37.6 (>39); MAGNESIUM LEVEL 1.6 MG/DL (1.8-2.4); POTASSIUM SERUM 3.8 MEQ/L (3.5-5.1)
--- NOTE | 2021-05-30 07:54 | ECGEPIP ---
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
[2021-05-30] MEDS ORDERED: LIDOCAINE 5% (LIDODERM) PATCH TD SCH (09:00)
[2021-05-30] MEDS ORDERED: PARoxetine 20MG TABLET PO SCH (09:00)
[2021-05-30] MEDS ORDERED: METOPROLOL TART 25 MG TABLET PO SCH (09:00)
[2021-05-30] MEDS ORDERED: PANTOPRAZOLE 40MG TAB (PROTONIX) PO SCH (09:00)
[2021-05-30 10:21] VITALS: BP 149/70
[2021-05-30 14:16] VITALS: BP 174/78
[2021-05-30 14:54] LABS: TROPONIN I 0.02 NG/ML (< 0.10)
[2021-05-30] MEDS ORDERED: MAGN64TASA PO (15:01)
--- NOTE | 2021-05-30 17:29 | DS.PDOC ---
Discharge Summary General Date of Admission May 30, 2021 at 03:42 Date of Discharge 05/30/21 Attending Physician: MISAEL CAMPBELL MD Discharge Summary PROCEDURES PERFORMED DURING STAY: None ADMITTING DIAGNOSES: 1. Afib RvR DISCHARGE DIAGNOSES: 1. Afib RvR 2/2 hypomagnesium and hypokalemia COMPLICATIONS/CHIEF COMPLAINT: Atrial Fibrillation With Rvr. HISTORY OF PRESENT ILLNESS: Jennifer is 76F PMH HTN, hypothyroidism, HLD, PAfib s/p ablation (2019) on Xarelto, CKD3B, CHF, Crohn's disease, GERD, JONNA noncompliant w/ CPAP, diverticulosis s/p bowel resection, 2cm right renal mass s/p partial nephrectomy and 2cm left adrenal adenoma who presented to ED w/ palpitations. She experienced palpitations 05/27/21 and went to [facility] where she was found to be in Afib RvR. She received Metoprolol (PO x1, IV x2) w/ resolution of sx and HR stabilization and was d/c home. She again experienced palpitations at rest (05/29/21) and came to [facility] ED. She was again found to be in Afib RVR w/ HR 145. Pt follows closely w/ Nephrology for CKD3B and claimed that she was advised not to increase Metoprolol home dose. Reported medication compliance. Denied recent illness, dietary changes, increased stress, new medications/supplements. Denied headache, changes in vision, chest pain, SOB, n/v, abd pain, weakness, syncope. ED EKG significant for Afib RVR, HR 150. ED labs significant for K+ 3.2, Mg2+ 1.3. Pt received appropriate electrolyte repletion, Metoprolol 40mg x1, Diltiazem 25mg x1, Amiodarone 150mg x2, as recommended by Cardiology. HR during Amiodarone administration in the 120s. HOSPITAL COURSE: Pt admitted for further electrolyte monitoring and HR stabilization. Pt continued Metoprolol 25mg BID w/ appropriate repletion Mg (1.6) and K+ (3.8). O2sat 93%RA, ProBNP 3800; CHF exacerbation unlikely based on clinical evaluation. TSH 10.4, Free T4 1.29. AM cortisol 15.4. Pt noted to be in NSR on telemetry (05/30). Pt reported resolution of palpitations and denied new onset additional sx. HR 87 and stabilized w/out exceeding 73 during her hospitalization. Kidney fxn (BUN 27, Cr 1.44) noted to be at pt's baseline. DISCHARGE MEDICATIONS: Please see below. ALLERGIES: Please see below. PHYSICAL EXAMINATION ON DISCHARGE: VITAL SIGNS: Please see below. GENERAL: walking around the room, NAD HEENT: NC/AT, EOMI, nares patent, moist mucous membranes NECK: supple CARDIOVASCULAR EXAMINATION: normal heart sounds, RRR, no MRG RESPIRATORY EXAMINATION: CTA b/l, no WRR, no accessory muscles used ABDOMINAL EXAMINATION: normal BS, soft nontender, nondistended EXTREMITIES: no edema, normal ROM SKIN: no new rashes/abrasions/wounds NEUROLOGICAL EXAMINATION: no FND PSYCHIATRIC EXAMINATION: AOx3, normal mood/affect LABORATORY DATA: Please see below. IMAGING: CXR (05/30): No definite acute pathology. No consolidation. No pleural effusions. Prominent coarse lung markings again seen, diffusely (appear to be chronic changes). PROGNOSIS: good ACTIVITY: As tolerated DIET: regular DISCHARGE PLAN: 1. Afib RvR 2/2 hypomagnesium and hypokalemia- F/u PCP 7-10days Continue Metoprolol 25mg BID Start MagChloride 64mg QD DISPOSITION: 01 Home, Self-Care. DISCHARGE INSTRUCTIONS: 1. F/u PCP, 7-10days ITEMS TO FOLLOWUP ON ON OUTPATIENT: 1. PCP- hypomagnesium, consider stopping PPI as this could be contributing to hypomagnesium DISCHARGE CONDITION: Stable TIME SPENT ON DISCHARGE: 20 minutes. Vital Signs/I&Os Vital Signs Date Time Temp Pulse Resp B/P (MAP) Pulse Ox O2 Delivery O2 Flow Rate FiO2 05/30/21 15:01 70 05/30/21 14:16 174/78 (110) 05/30/21 10:45 99 05/30/21 10:30 16 05/30/21 08:15 Room Air 05/29/21 23:48 98.3 Laboratory Data Labs 24H Laboratory Tests 2 05/29/21 22:33: Immature Granulocyte % (Auto) 0.1, Neutrophils (%) (Auto) 61.2, Lymphocytes (%) (Auto) 25.5, Monocytes (%) (Auto) 9.9H, Eosinophils (%) (Auto) 2.9, Basophils (%) (Auto) 0.4, Neutrophils # (Auto) 5.1, Lymphocytes # (Auto) 2.1, Monocytes # (Auto) 0.8, Eosinophils # (Auto) 0.2, Basophils # (Auto) 0.0, Nucleated Red Blood Cells % (auto) 0.0, Anion Gap 7L, Glomerular Filtration Rate 37.3L, Calcium Level 8.4L, Magnesium Level 1.3L, Thyroid Stimulating Hormone (TSH) 10.400H, Free Thyroxine 1.29 05/29/21 22:43: POC Troponin I (Misc) 0.03 05/30/21 03:56: Coronavirus (COVID-19)(PCR) NEGATIVE, Influenza Type A (RT-PCR) NEGATIVE, Influenza Type B (RT-PCR) NEGATIVE, Respiratory Syncytial Virus (PCR) NEGATIVE 05/30/21 05:13: Immature Granulocyte % (Auto) 0.3, Neutrophils (%) (Auto) 70.2H, Lymphocytes (%) (Auto) 18.8L, Monocytes (%) (Auto) 9.1H, Eosinophils (%) (Auto) 1.3, Basophils (%) (Auto) 0.3, Neutrophils # (Auto) 5.6, Lymphocytes # (Auto) 1.5, Monocytes # (Auto) 0.7, Eosinophils # (Auto) 0.1, Basophils # (Auto) 0.0, Nucleated Red Bloo d Cells % (auto) 0.0, Anion Gap 9, Glomerular Filtration Rate 37.6L, Calcium Level 8.4L, Magnesium Level 1.6L, Troponin I 0.02, AG-Oef-X-Type Natriuretic Peptide 3800H, Cortisol Baseline 15.4 CBC/BMP Laboratory Tests 05/29/21 22:33 05/30/21 05:13 Discharge Medications Scheduled Aripiprazole (Abilify) 5 Mg Tablet, 5 MG PO QHS, (Reported) Cholecalciferol (Vitamin D3) (Vitamin D3) 50 Mcg Capsule, 50 MCG PO QHS, (Reported) Levothyroxine Sodium (Synthroid) 150 Mcg Tablet, 150 MCG PO DAILY, (Reported) Lisinopril (Lisinopril) 20 Mg Tablet, 20 MG PO QHS, (Reported) Magnesium Chloride (Mag64) 64 Mg Tablet.dr, 64 MG PO DAILY Metoprolol Tartrate (Metoprolol Tartrate) 25 Mg Tablet, 25 MG PO BID, (Reported) Nystatin (Nystatin Powder) 15 Gm Powder, 1 DOSE TOP DAILY, (Reported) APPLY TO ABDOMEN AFTER SHOWER Omeprazole (Omeprazole) 40 Mg Capsule.dr, 40 MG PO DAILY, (Reported) Paroxetine HCl (Paxil) 40 Mg Tablet, 40 MG PO DAILY, (Reported) Rivaroxaban (Xarelto) 15 Mg Tablet, 15 MG PO QHS, (Reported) Tizanidine HCl (Tizanidine HCl) 4 Mg Tablet, 4 MG PO QHS, (Reported) Trospium Chloride (Trospium Chloride) 20 Mg Tablet, 20 MG PO DAILY, (Reported) Scheduled PRN Acetaminophen (Tylenol Extra Strength) 500 Mg Tablet, 1,000 MG PO Q6H PRN for PAIN LEVEL 1-5, (Reported) Albuterol Sulf (Albuterol Sulfate) 2.5 Mg/3 Ml Vial.neb, 2.5 MG INH Q4H PRN for SHORTNESS OF BREATH, (Reported) Allergies Coded Allergies: No Known Allergies (Verified , 03/14/21) Luisana Green DO May 30, 2021 17:29
[2021-05-30] MEDS ORDERED: **NOTE PATIENT COMMENT** MISC XX SCH (21:00)
--- NOTE | 2021-05-31 11:20 | ECGEPIP ---
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 Order Number: [id number] Reading MD: Armin Talbert Measurements Intervals [place] Rate: 59 P: 48 TN: 152 QRS: 163 QRSD: 154 T: 200 QT: 504 QTc: 498 Interpretive Statements sinus bradycardia with isolated PVC. extreme right axis deviation Left bundle branch block rhythm change from 05/29/21. current tracing appearance is similar to 10/31/20 Electronically Signed on 05-31-2021 11:20:33 EDT by Armin Talbert
== END 2021-05-30 15:57 | disposition home or self-care (01) | DRG 641 ==
LOC: M ED 22:55 → M ED INP 05-30 03:42
PROVIDERS: ADMIT Internal Medicine; ATTEND Internal Medicine
DX: E83.42 Hypomagnesemia (principal); K50.90 Crohn's disease, unspecified, without complications; I13.0 Hypertensive heart and chronic kidney disease with heart failure and stage 1 through stage 4 chronic kidney disease, or unspecified chronic kidney disease; I48.91 Unspecified atrial fibrillation; E87.6 Hypokalemia; E78.5 Hyperlipidemia, unspecified; E03.9 Hypothyroidism, unspecified; I50.9 Heart failure, unspecified; K21.9 Gastro-esophageal reflux disease without esophagitis; G47.33 Obstructive sleep apnea (adult) (pediatric); B07.9 Viral wart, unspecified; M17.0 Bilateral primary osteoarthritis of knee; Z79.899 Other long term (current) drug therapy; Z79.01 Long term (current) use of anticoagulants; Z87.891 Personal history of nicotine dependence; Z20.822 Contact with and (suspected) exposure to COVID-19; N18.9 Chronic kidney disease, unspecified; F32.9 Major depressive disorder, single episode, unspecified; F41.9 Anxiety disorder, unspecified; M54.9 Dorsalgia, unspecified

== ENCOUNTER 2021-06-03 07:12 | Emergency (ER) | payer MEDICARE ==
[~2021-06-03] VITALS: Ht 165.1 cm; Wt 97.7 kg
[~2021-06-03 07:12] MED LIST changes: +ABIL1TAB11 PO; +ALBU83IN INH; +D200CAP PO; +MAGN64TASA PO; +OMEP-221 PO; +PAXI40TA10 PO; -RIVAROXABAN 15 MG TAB (XARELTO) PO SCH
[2021-06-03] MEDS ORDERED: FURO40TA2 (07:34)
[2021-06-03 08:54] LABS: HEMATOCRIT 39.6 % (36.0-47.0); HEMOGLOBIN 12.4 g/dl (12.0-15.5); MEAN CORPUSCULAR HEMOGLOBIN 30.1 pg (27.0-33.0); MEAN CORPUSCULAR HGB CONC 31.3 g/dl (32.0-36.5); MEAN CORPUSCULAR VOLUME 96.1 fl (80.0-96.0); PLATELET COUNT, AUTOMATED 185 10^3/uL (150-450); RED BLOOD COUNT 4.12 10^6/uL (4.00-5.40); WHITE BLOOD COUNT 6.1 10^3/uL (4.0-10.0)
[2021-06-03 09:21] LABS: C REACTIVE PROTEIN QUANTITATIV 0.3 MG/DL (0.00-0.30); CALCIUM LEVEL 8.8 MG/DL (8.8-10.2); CREATININE FOR GFR 1.39 MG/DL (0.55-1.30); GLOMERULAR FILTRATION RATE 39.1 (>39)
[2021-06-03 09:29] LABS: BASO % 0.3 % (0.0-1.0); EOS # 0.2 10^3/uL (0.0-0.5); EOS % 2.6 % (0.0-3.0); LYMPH # 1.2 10^3/uL (1.5-5.0); LYMPH % 19.8 % (24.0-44.0); MONO # 0.6 10^3/uL (0.0-0.8); MONO % 10.4 % (2.0-8.0); NEUTROPHILS % 66.6 % (36.0-66.0)
[2021-06-03 09:39] LABS: PLATELET ESTIMATE NORMAL (NORMAL)
[2021-06-03 10:03] VITALS: BP 184/90
== END 2021-06-03 10:26 | disposition home or self-care (01) ==
LOC: M ED 07:12
DX: Z71.1 Person with feared health complaint in whom no diagnosis is made (principal); I48.91 Unspecified atrial fibrillation; I11.0 Hypertensive heart disease with heart failure; I50.9 Heart failure, unspecified; K21.9 Gastro-esophageal reflux disease without esophagitis; E07.9 Disorder of thyroid, unspecified; G47.33 Obstructive sleep apnea (adult) (pediatric); K76.9 Liver disease, unspecified; Z79.899 Other long term (current) drug therapy; Z79.01 Long term (current) use of anticoagulants

== ENCOUNTER → 2021-06-05 | Outpatient (CLI) | payer MEDICARE ==
[~2021-06-05] MED LIST changes: +FURO40TA2
--- NOTE | 2021-06-05 10:07 | REPMRS ---
Patient History The patient states she had a clinical breast exam in April 2021. Patient is postmenopausal, has history of cancer in the right breast at age 56, and had previous chest radiation therapy at age 56. Family history of breast cancer in mother, colorectal cancer in sister, unknown cancer in sister. No breast complaints today but best views possible-patient just discharged from the hospital-very weak and has lost weight not sure how much Patient signed the MRS sheet 1st covid vaccine 12/31/20-left arm-Moderna 2nd covid vaccine 01/28/21-left arm CBE-05/07 T-C/NA Priors done @ [facility]-on PACS Patient Identification Verified Digital Woman Screen Mammo: June 05, 2021 - Exam #: [id number] Bilateral CC and MLO view(s) were taken. Technologist: Tabatha Benjamin, Technologist FINDINGS: There are scattered fibroglandular densities. Screening. This patient?s lifetime risk for the development of invasive breast cancer can?t be calculated due to her age (less than 20 or greater than 85 years) or a prior history of in situ or invasive breast cancer. Digital screening (2D) mammography was performed bilaterally. Additionally, breast tomosynthesis (3D mammography) was performed bilaterally in the CC and MLO projections. Today's exam was compared to the prior exam/exams. By history, the patient has no complaints of a palpable breast abnormality or other significant breast complaints. The patient is status post lumpectomy/chemo radiation therapy due to breast carcinoma. The breasts are unchanged in size and shape. There are no alem-areas of internal architectural distortion. There are no alem-soft tissue densities or areas of spiculation.Once again, stable benign appearing calcifications are seen. There is unchanged post radiation skin thickening. IMPRESSION: BI-RADS Category 2- Benign Findings. There is no evidence of malignant alteration of the breasts. Routine bilateral screening mammogram recommended at its regularly scheduled annual interval. The Volpara volumetric breast density category is B, there are scattered areas of fibroglandular densities. This mammogram was read with the assistance of [employer],an FDA approved computer aided detection system for mammography. Negative x-ray reports should not delay surgical consultation if a dominant or clinically suspicious mass is present. Not all breast cancers can be identified by mammography. Therefore, we recommend that you continue to perform regular breast self-examination and physical examination and then promptly contact your physician of any concerns or changes. Adenosis and dense breasts may obscure an underlying neoplasm. Assessment: BI-RADS/ACR category 2 mammogram. Benign Findings. Recommendation Routine screening mammogram of both breasts in 1 year. Electronically Signed By: Venkata Valdovinos DO 06/05/21 1007
== END ==
LOC: M WHC 07:40
PROVIDERS: ATTEND Family Medicine
DX: Z12.31 Encounter for screening mammogram for malignant neoplasm of breast (principal)

== ENCOUNTER → 2021-07-09 | Outpatient (CLI) | payer MEDICARE ==
[2021-07-09 10:28] LABS: BASO % 0.5 % (0.0-1.0); EOS # 0.2 10^3/uL (0.0-0.5); EOS % 2.4 % (0.0-3.0); HEMATOCRIT 36.5 % (36.0-47.0); HEMOGLOBIN 11.5 g/dl (12.0-15.5); LYMPH # 1.6 10^3/uL (1.5-5.0); LYMPH % 23.6 % (24.0-44.0); MEAN CORPUSCULAR HEMOGLOBIN 29.5 pg (27.0-33.0); MEAN CORPUSCULAR HGB CONC 31.5 g/dl (32.0-36.5); MEAN CORPUSCULAR VOLUME 93.6 fl (80.0-96.0); MONO # 0.6 10^3/uL (0.0-0.8); MONO % 8.9 % (2.0-8.0); NEUTROPHILS # 4.2 10^3/uL (1.5-8.5); NEUTROPHILS % 64.3 % (36.0-66.0); PLATELET COUNT, AUTOMATED 165 10^3/uL (150-450); WHITE BLOOD COUNT 6.6 10^3/uL (4.0-10.0)
[2021-07-09 11:04] LABS: CREATININE FOR GFR 1.44 MG/DL (0.55-1.30); FREE T4 1.26 NG/DL (0.76-1.46); GLOMERULAR FILTRATION RATE 37.6 (>39); MAGNESIUM LEVEL 1.9 MG/DL (1.8-2.4); POTASSIUM SERUM 4.2 MEQ/L (3.5-5.1); THYROID STIMULATING HORMONE 2.92 uIU/ML (0.358-3.740)
== END ==
LOC: M PLALAB 08:09
PROVIDERS: ATTEND Physician Assistant
DX: I48.0 Paroxysmal atrial fibrillation (principal)

== ENCOUNTER 2021-07-11 18:10 | Inpatient (IN) | payer MEDICARE ==
[~2021-07-11] VITALS: Ht 165.1 cm; Wt 101.6 kg
[~2021-07-11 18:10] MED LIST changes: -FURO40TA2
[2021-07-11] MEDS ORDERED: METOPROLOL 5 MG/5 ML VIAL IV SCH (18:35)
[2021-07-11] MEDS ORDERED: FUROSEMIDE 100MG/10ML VIAL (J1940) IV ONE (18:35)
[2021-07-11] MEDS ORDERED: FUROSEMIDE 100MG/10ML VIAL (J1940) As Ordered ONE (18:35)
[2021-07-11] MEDS ORDERED: AMIODARONE 150MG/3ML INJ (J0282) IVP STA (18:42)
[2021-07-11] MEDS ORDERED: NITROGLYCERIN 2% OINT 1 GM *U/D* PKT TOP ONE (18:50)
[2021-07-11 18:53] LABS: BASO # 0.1 10^3/uL (0.0-0.2); BASO % 0.5 % (0.0-1.0); EOS # 0.2 10^3/uL (0.0-0.5); EOS % 1.7 % (0.0-3.0); HEMATOCRIT 48.8 % (36.0-47.0); HEMOGLOBIN 15.3 g/dl (12.0-15.5); LYMPH # 5.4 10^3/uL (1.5-5.0); LYMPH % 38.5 % (24.0-44.0); MEAN CORPUSCULAR HEMOGLOBIN 29.7 pg (27.0-33.0); MEAN CORPUSCULAR HGB CONC 31.4 g/dl (32.0-36.5); MEAN CORPUSCULAR VOLUME 94.6 fl (80.0-96.0); MONO % 7.4 % (2.0-8.0); NEUTROPHILS # 7.2 10^3/uL (1.5-8.5); NEUTROPHILS % 51.7 % (36.0-66.0); PLATELET COUNT, AUTOMATED 210 10^3/uL (150-450); RED BLOOD COUNT 5.16 10^6/uL (4.00-5.40)
--- NOTE | 2021-07-11 19:05 | REP ---
INDICATION: DYSPNEA/COUGH. COMPARISON: Portable chest, 05/29/2021. TECHNIQUE: Upright AP portable chest image was obtained. FINDINGS: There is cardiomegaly, pulmonary venous hypertension and pulmonary interstitial edema consistent with congestive heart failure. There are no significant pleural effusions. There is calcific vascular disease of the thoracic aorta. IMPRESSION: Congestive heart failure. <Electronically signed by Rayray Coello > 07/11/21 0700
--- NOTE | 2021-07-11 19:31 | ECGEPIP ---
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
[2021-07-11 19:43] LABS: ALBUMIN 3.8 GM/DL (3.2-5.2); ALT/SGPT 29 U/L (12-78); BILIRUBIN,DIRECT < 0.1 MG/DL (0.0-0.2); BILIRUBIN,TOTAL 0.6 MG/DL (0.2-1.0); BLOOD UREA NITROGEN 24 MG/DL (7-18); CALCIUM LEVEL 9.4 MG/DL (8.8-10.2); CARBON DIOXIDE LEVEL 21 MEQ/L (21-32); CHLORIDE LEVEL 107 MEQ/L (98-107); CK-MB VALUE MASS 2.6 NG/ML (<3.6); CPK CREATINE PHOSPHOKINASE 136 U/L (26-192); CREATININE FOR GFR 1.36 MG/DL (0.55-1.30); GLOMERULAR FILTRATION RATE 40.1 (>39); GLUCOSE, FASTING 145 MG/DL (70-100); MAGNESIUM LEVEL 2.3 MG/DL (1.8-2.4); MB/CK RELATIVE INDEX 1.91 (< OR =4); NT-PRO BNP 4338 PG/ML (<450); SODIUM LEVEL 138 MEQ/L (136-145); THYROXINE (T4) 12.6 UG/DL (4.5-12.0); TOTAL PROTEIN 8.3 GM/DL (6.4-8.2); TROPONIN I < 0.02 NG/ML (< 0.10)
[2021-07-11 20:15] LABS: RSV AMPLIFICATION NEGATIVE (NEGATIVE)
[2021-07-11] MEDS ORDERED: MAGN64TASA PO (20:19)
[2021-07-11] MEDS ORDERED: MED REC COMMENT (20:22)
[2021-07-11] MEDS ORDERED: HOME MED LIST COMPLETE! XX SCH (20:25)
[2021-07-11] MEDS ORDERED: ALBUTEROL SULFATE 2.5 MG/0.5 ML INH NEB SOLN INH PRN (21:30)
[2021-07-11] MEDS: RIVAROXABAN 15 MG TAB (XARELTO) PO SCH (21:43)
[2021-07-11] MEDS: tiZANidine 4 MG TAB PO SCH (21:44)
--- NOTE | 2021-07-11 22:01 | HPEPDOC ---
General Date of Admission Date of Service: Jul 11, 2021 Attending Physician: JUANJOSE BARTON MD Chief Complaint The patient is a 76-year-old female admitted with a reason for visit of Difficulty Breathing. History of Present Illness CC: palpitations and shortness of breath HISTORY OF PRESENT ILLNESS: Is a very pleasant 76-year-old elderly female who presents to [facility] ER with a chief complaint of palpitations and shortness of breath. Patient states that she started to feel shortness of breath and palpitations around the same time at about 1500 and shortly after started to experience 10 out of 10 chest pain. She then proceeded to call EMS and was brought into the ER. Patient also reports that she has noticed increased lower extremity swelling for the past week and also reports increased cough with clear sputum production for the past week but denies any paroxysmal nocturnal dyspnea. Upon arrival to the ER, she was hypoxic in the mid 80s and was placed on suppl emental oxygen and placed on the dye range tender and an EKG was performed showing A. fib with RVR. She was given Nitropaste for chest pain but she became progressively more lethargic and hypoxic and her heart rate went into the 170s. A decision was made to synchronize cardiovert her at 100 J which brought in her heart rate decreased to the 120s. She was then given 300 mg IV bolus of amiodarone. Patient also received 60 mg IV Lasix and placed on CPAP of 10 cm H20 and initially 50% of FiO2 however patient was still showed signs of respiratory distress and FiO2 was turned up to 70% with improvement of her symptoms. REVIEW OF SYSTEMS: General: Denies fever, shaking chills, unintentional weight loss HEENT: Denies changes in vision including blurry vision or double vision, or hearing loss nasal congestion or sore throat, she occasionally has intermittent dull headaches Heart: Experiencing out of 10 chest pain prior to arriving in the ER that has now resolved. Was experiencing palpitations prior to arriving to the ER but now feels comfortable. Has noticed increased lower extremity swelling in the past week. Pulm: Increased shortness of breath, cough with clear sputum production for the past week. Denies hemoptysis, epistaxis. 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 CAD, HTN, NM Father- . CAD, HTN, NM SOCIAL HISTORY: Former Smoker. Quit 1 year ago (1/2 pack per day) with 40+ pack year hx Denies ETOH or illicit drug use PHYSICAL EXAM: VS: Please see below GENERAL: Elderly female sitting up in bed satting with CPAP on face with settings of 10 cm of water and tidal volume 480 satting at 95%. She is able to converse with me without any acute respiratory distress or use of accessory muscles. AAOx3 NEURO: No focal neurological deficits HEENT: Head is normocephalic and atraumatic. Extraocular muscles are intact. Pupils are equal, round, and reactive to light and accommodation. Nares appears normal. Moist mucous membranes. PULM: Wheezing throughout diffuse crackles. No rhonchi of rales appreciated. No dullness to percussion or tactile fremitus. CARDIO: A. fib with rate controlled (70), no significant murmurs, gallops, rubs or clicks. 2+ peripheral edema bilaterally. PMI displaced. Unable to appreciate JVP with hepatojugular reflux. ABDOMEN: Obese, soft, nontender, and nondistended. Normal bowel sounds. No significant organomegaly appreciated. EXTREMITIES: No cyanosis, clubbing, rash, lesions. IMAGING: Chest x-ray: Cardiomegaly pulmonary venous hypertension and pulmonary interstitial edema consistent with CHF. No significant pleural effusions. Calcific vascular disease of the thoracic aorta ASSESSMENT AND PLAN: 76 y/o female with history of dilated cardiomyopathy, heart failure with preserved ejection fraction, longstanding history of symptomatic paroxysmal atrial fibrillation, status post AV ablation in September 2020, severe JONNA noncompliant on CPAP, who presents to [facility] ER with symptomatic abrupt onset A. fib with RVR. Patient's heart rate was in the 170s becoming disoriented and the decision was made to synchronize cardiovert at 100 J was given an additional 300 IV bolus of amiodarone. Her rate did improve initially from 170S-120s and when I saw her in the ER her rate was in the high 70s. Patient was hypoxic and was put on BiPAP on 10 cmH2O 50% FiO2 but was drawing low tidal volumes in the 200s and her FiO2 was increased to 70% she was able to sat over 90%. She is also noted to be in acute CHF e xacerbation and was diuresed with IV Lasix 60 mg in the hospitalist team was called to admit the patient for further management of her care. Katie jaeger RVR Admit to ICU with telemetry consult cardiology on-call (Dr. Morgan) Status post synchronized cardioversion, 300 mg IV bolus of amiodarone.rate is controlled currently Patient's last echo was done in October 2020 showing LVEF 50 percent. Mild concentric left ventricular hypertrophy with septal wall motion abnormality due to left bundle branch block. Moderately dilated left atrium with grade 2 left ventricular diastolic dysfunction and elevated mean left atrial pressure. Mild to moderate degenerative changes of the mitral valve without inflow tract obstruction but moderate insufficiency. She was given Nitropaste. Pressure did become soft with SBP at 1 point in the [address]scall Dr. Jeffries allergist/pediatric pulmonologist on-call he recommended to DC the Nitropaste hold her home lisinopril. We will Continue metoprolol 25 mg p.o. at q6H Tylenol 650 p.o. every 6 for fever or pain We will continue her Xarelto. Cardiology on consult appreciate further recommendations when is happening Acute decompensated systolic and diastolic heart failure Diuresed in ER with IV 60mg lasix, will continue her on lasix 40mg IV BID strict ins and outs and daily weigh ins consider upping her Lasix if she does not diurese. Out of bed with assistance with fall precautions Continue CPAP at 14 cm of H2O 2 g sodium diet Her home med lisinopril currently on hold per cardiology recommendations due to her pressures at one point being soft, but may resume if she becomes hypertensiv e Echo ordered pending Abnormal thyroid function tests Both her TSH and T4 are relatively high which is suspicious for pituitary adenoma and will order for an MRI brain Patient has a documented history of hypothyroidism and is taking Synthroidwe will hold Synthroid. If patient is hyperthyroid this may contribute to her symptomatic A. fib with RVR. Severe JONNA noncompliant with CPAP Patient was diagnosed with JONNA and was placed on 14 cm H2O to 18 cm H2O back in however patient states that she does not wear her machine due to intolerance She also had another pulmonary function test in 2019 with results showing moderate to severe obstructive ventilatory impairment with air trapping versus true concomitant restriction Will need to follow-up with pulmonary outpatient Obesity Complicating medical care DVT prophylaxis: Xarelto CODE STATUS full Home Medications Scheduled Aripiprazole (Abilify) 5 Mg Tablet, 5 MG PO QHS, (Reported) Cholecalciferol (Vitamin D3) (Vitamin D3) 50 Mcg Capsule, 50 MCG PO QHS, (Reported) Furosemide (Furosemide) 40 Mg Tablet, 40 MG PO DAILY, (Reported) Levothyroxine Sodium (Synthroid) 150 Mcg Tablet, 150 MCG PO DAILY, (Reported) Lisinopril (Lisinopril) 20 Mg Tablet, 20 MG PO QHS, (Reported) Magnesium Chloride (Mag64) 64 Mg Tablet.dr, 64 MG PO DAILY, (Reported) Metoprolol Tartrate (Metoprolol Tartrate) 25 Mg Tablet, 25 MG PO BID, (Reported) Nystatin (Nystatin Powder) 15 Gm Powder, 1 DOSE TOP DAILY, (Reported) APPLY TO ABDOMEN AFTER SHOWER Omeprazole (Omeprazole) 40 Mg Capsule.dr, 40 MG PO DAILY, (Reported) Paroxetine HCl (Paxil) 40 Mg Tablet, 40 MG PO DAILY, (Reported) Rivaroxaban (Xarelto) 15 Mg Tablet, 15 MG PO QHS, (Reported) Tizanidine HCl (Tizanidine HCl) 4 Mg Tablet, 4 MG PO QHS, (Reported) Trospium Chloride (Trospium Chloride) 20 Mg Tablet, 20 MG PO DAILY, (Reported) Scheduled PRN Acetaminophen (Tylenol Extra Strength) 500 Mg Tablet, 1,000 MG PO Q6H PRN for PA IN LEVEL 1-5, (Reported) Albuterol Sulf (Albuterol Sulfate) 2.5 Mg/3 Ml Vial.neb, 2.5 MG INH Q4H PRN for SHORTNESS OF BREATH, (Reported) Miscellaneous Medications [Med Rec Comment] , (Reported) USED EXTERNAL AND DISCHARGE FROM 08/13/21 PATIENT UNABLE TO VERIFY AND NO FAMILY Allergies Coded Allergies: No Known Allergies (Verified , 03/14/21) A-FIB/CHADSVASC A-FIB History Current/History of A-Fib/PAF?: Yes Current PO Anticoag Therapy: Yes Vital Signs Vital Signs Date Time Temp Pulse Resp B/P (MAP) Pulse Ox O2 Delivery O2 Flow Rate FiO2 07/11/21 20:00 91 26 176/89 (118) 97 NIPPV (BIPAP/CPAP) 70 07/11/21 18:30 4.0 Laboratory Data Labs 24H Laboratory Tests 2 07/11/21 18:35: Immature Granulocyte % (Auto) 0.2, Neutrophils (%) (Auto) 51.7, Lymphocytes (%) (Auto) 38.5, Monocytes (%) (Auto) 7.4, Eosinophils (%) (Auto) 1.7, Basophils (%) (Auto) 0.5, Neutrophils # (Auto) 7.2, Lymphocytes # (Auto) 5.4H, Monocytes # (Auto) 1.0H, Eosinophils # (Auto) 0.2, Basophils # (Auto) 0.1, Nucleated Red Blood Cells % (auto) 0.0, Anion Gap 10, Glomerular Filtration Rate 40.1, Calcium Level 9.4, Magnesium Level 2.3, Total Bilirubin 0.6, Direct Bilirubin < 0.1, Aspartate Amino Transf (AST/SGOT) 47H, Alanine Aminotransferase (ALT/SGPT) 29, Alkaline Phosphatase 142H, Total Creatine Kinase 136, Creatine Kinase MB 2.6, Creatine Kinase MB Relative Index 1.91, Troponin I < 0.02, YB-Pls-E-Type Natr iuretic Peptide 4338H, Total Protein 8.3H, Albumin 3.8, Albumin/Globulin Ratio 0.8L, Thyroid Stimulating Hormone (TSH) 8.920H, Thyroxine (T4) 12.6H 07/11/21 19:21: Coronavirus (COVID-19)(PCR) NEGATIVE, Influenza Type A (RT-PCR) NEGATIVE, Influenza Type B (RT-PCR) NEGATIVE, Respiratory Syncytial Virus (PCR) NEGATIVE CBC/BMP Laboratory Tests 07/11/21 18:35 Plan / VTE VTE Prophylaxis Ordered?: Yes GME ATTESTATION GME ATTESTATION My faculty preceptor for this patient encounter was physically present during the encounter and was fully available. All aspects of the patient interview, examination, medical decision making process, and medical care plan development were reviewed and approved by the faculty preceptor. The faculty preceptor is aware and concurs with the plan as stated in the body of this note and will attest to such by his/her cosignature. ATTENDING NOTE IDelphine, have independently examined this patient and performed my own physical exam, as well as reviewed the documentation and edited where necessary. I have discussed in detail with the resident / student the findings and plan of treatment as documented by the resident / student and edited their note. I agree with their findings and treatment plan and have edited their documentation. I will continue to follow the patient during this hospital stay. Michelle Villalta DO Jul 11, 2021 21:25 JUANJOSE BARTON MD Jul 13, 2021 06:36
[2021-07-11 22:14] VITALS: BP 143/80
[2021-07-11 22:31] VITALS: BP 122/69
[2021-07-12] VITALS (12 sets, daily range): BP systolic 102–160; BP diastolic 58–90
[2021-07-12] MEDS ORDERED: DOXYCYCLINE HYCLATE 100 MG in D5W MINI-BAG PLUS 100 ML IV SCH (01:00)
[2021-07-12 05:08] LABS: BASO % 0.2 % (0.0-1.0); LYMPH # 0.9 10^3/uL (1.5-5.0); LYMPH % 6.8 % (24.0-44.0); MEAN CORPUSCULAR HGB CONC 32.2 g/dl (32.0-36.5); MONO % 7.4 % (2.0-8.0); NEUTROPHILS # 11.2 10^3/uL (1.5-8.5); NEUTROPHILS % 85.2 % (36.0-66.0); PLATELET COUNT, AUTOMATED 158 10^3/uL (150-450); RED BLOOD COUNT 3.87 10^6/uL (4.00-5.40); WHITE BLOOD COUNT 13.2 10^3/uL (4.0-10.0)
[2021-07-12 05:14] LABS: HEMOGLOBIN 11.6 g/dl (12.0-15.5)
[2021-07-12 05:28] LABS: CALCIUM LEVEL 8.3 MG/DL (8.8-10.2); CREATININE FOR GFR 1.69 MG/DL (0.55-1.30); GLOMERULAR FILTRATION RATE 31.2 (>39); MAGNESIUM LEVEL 1.8 MG/DL (1.8-2.4); POTASSIUM SERUM 4.2 MEQ/L (3.5-5.1)
[2021-07-12] MEDS: METOPROLOL TART 25 MG TABLET PO SCH ×6 (06:00→23:44)
--- NOTE | 2021-07-12 08:34 | REP ---
INDICATION: dyspnea. COMPARISON: Portable chest, 07/11/2021. TECHNIQUE: Upright AP portable chest image was obtained. FINDINGS: There has been interval improved aeration of the lungs. There is improvement in the patient's congestive heart failure with mild pulmonary edema at this time. The heart is enlarged. There is calcific vascular disease of the thoracic aorta. IMPRESSION: Improved congestive heart failure. <Electronically signed by Rayray Coello > 07/12/21 [id number]
[2021-07-12] MEDS: FLUBLOK(EGG FREE)(QUAD)INFLUENZA VACC 0.5ML SYRINGE 18YRS & OLDER IM ONE ×2 (09:57→10:05)
[2021-07-12] MEDS: FUROSEMIDE 40MG/4ML VIAL (J1940) IV SCH ×2 (09:59→17:37)
[2021-07-12] MEDS: PANTOPRAZOLE 20 MG TAB PO SCH (10:00)
[2021-07-12] MEDS: PARoxetine 20MG TABLET PO SCH (10:01)
--- NOTE | 2021-07-12 11:42 | IPNPDOC ---
Subjective Date Seen The patient was seen on 07/12/21. Subjective Chief Complaint/HPI Feels much better this morning. Denies any shortness of breath. She remembers calling the ambulance and coming to the emergency room however the rest of the emergency room stay does not remember . She does not remember getting cardioverted. No fever or chills. Objective Physical Examination General Exam: Positive: Alert, Cooperative, No Acute Distress Eye Exam: Positive: PERRLA, Conjunctiva & lids normal, EOMI; Negative: Sclera icteric ENT Exam: Positive: Atraumatic, Mucous membr. moist/pink, Pharynx Normal Neck Exam: Positive: Supple; Negative: JVD, thyromegaly Chest Exam: Positive: Clear to auscultation, Normal air movement Heart Exam: Positive: Rate Normal, Regular Rhythm, Normal S1, Normal S2; Negative: Murmurs, Rubs Telemetry: Positive: Sinus Abdomen Exam: Positive: Normal bowel sounds, Soft; Negative: Tenderness Extremity Exam: Positive: Edema (Trace edema); Negative: Clubbing, Cyanosis Assessment /Plan Assessment 76-year-old elderly female with PMH of systolic and diastolic CHF, dilated cardiomyopathy paroxysmal Afib s/p ablation in sep 2020, obesity, JONNA does not use her CPAP , ductal carcinoma; s/p right lumpectomy with an axilla node dissection, Hypertension, Hyperlipidemia, Left bundle branch block, Supraventricular tachycardia, Hypothyroidism, Depression, Brachial plexopathy, Lumbar spondylosis Spinal stenosis, anemia presented to the ED with palpitation, chest pain, shortness of breath and leg swelling. Upon arrival to the ER, she was hypoxic in the mid 80s and was placed on supplemental oxygen and placed on the alarm security or surveillance monitor and an EKG was performed showing A. fib with RVR. She was given Nitropaste for chest pain but she became progressively more lethargic and hypoxic and her heart rate went into the 170s. A decision was made to synchronize cardiovert her at 100 J which brought in her heart rate decreased to the 120s. She was then given 300 mg IV bolus of amiodarone. Patient also received 60 mg IV Lasix and placed on CPAP. Patient was admitted for CHF exacerbation, A. fib with RVR, acute hypoxic respiratory failure, acute metabolic encephalopathy. A. fib with RVR Status post cardioversion on 07/11/2021 Now in sinus rhythm Continue with metoprolol, Xarelto Acute respiratory failure with hypoxia Due to CHF exacerbation Now improved Acute metabolic encephalopathy Likely due to hypoxia, Now resolved However will get MRI of brain to make sure she did not have any silent stroke. Systolic and diastolic CHF exacerbation Last echo shows an EF of 50% and grade 2 diastolic dysfunction Continue with Lasix Intake output Daily weight Fluid restriction 1.8 L Hypothyroid Synthroid Hypertension Continue high-dose of metoprolol We will hold lisinopril, to allow for lasix COPD Albuterol as needed Depression Continue Abilify, paroxetine Obesity/JONNA Noncompliant with CPAP Chronic back pain Continue home meds Plan/VTE VTE Prophylaxis Ordered?: Yes VS, I&O, 24H, Fishbone Vital Signs/I&O Vital Signs Date Time Temp Pulse Resp B/P (MAP) Pulse Ox O2 Delivery O2 Flow Rate FiO2 07/12/21 06:36 64 113/59 07/12/21 06:00 96 Nasal Cannula 2.0 07/12/21 04:00 99.6 07/12/21 00:00 18 07/11/21 21:45 70 I&O- Last 24 Hours up to 6 AM 07/12/21 06:00 Intake Total 220 ml Output Total 1800 ml Balance -1580 ml Laboratory Data 24H LABS Laboratory Tests 2 07/11/21 18:35: Immature Granulocyte % (Auto) 0.2, Neutrophils (%) (Auto) 51.7, Lymphocytes (%) (Auto) 38.5, Monocytes (%) (Auto) 7.4, Eosinophils (%) (Auto) 1.7, Basophils (%) (Auto) 0.5, Neutrophils # (Auto) 7.2, Lymphocytes # (Auto) 5.4H, Monocytes # (Auto) 1.0H, Eosinophils # (Auto) 0.2, Basophils # (Auto) 0.1, Nucleated Red Blood Cells % (auto) 0.0, Anion Gap 10, Glomerular Filtration Rate 40.1, Calcium Level 9.4, Magnesium Level 2.3, Total Bilirubin 0.6, Direct Bilirubin < 0.1, Aspartate Amino Transf (AST/SGOT) 47H, Alanine Aminotransferase (ALT/SGPT) 29, Alkaline Phosphatase 142H, Total Creatine Kinase 136, Creatine Kinase MB 2.6, Creatine Kinase MB Relative Index 1.91, Troponin I < 0.02, MA-Rkk-C-Type Natriuretic Peptide 4338H, Total Protein 8.3H, Albumin 3.8, Albumin/Globulin Ratio 0.8L, Procalcitonin <0.05, Thyroid Stimulating Hormone (TSH) 8.920H, Thyroxine (T4) 12.6H 07/11/21 19:21: Coronavirus (COVID-19)(PCR) NEGATIVE, Influenza Type A (RT-PCR) NEGATIVE, Influenza Type B (RT-PCR) NEGATIVE, Respiratory Syncytial Virus (PCR) NEGATIVE 07/11/21 22:39: Methicillin-Resist S.aureus DNA PCR NOT DETECTED 07/11/21 22:40: Lactic Acid Level 2.2*H 07/12/21 00:13: Bedside Glucose (Misc Panel) 85 07/12/21 04:51: Immature Granulocyte % (Auto) 0.4, Neutrophils (%) (Auto) 85.2H, Lymphocytes (%) (Auto) 6.8L, Monocytes (%) (Auto) 7.4, Eosinophils (%) (Auto) 0.0, Basophils (%) (Auto) 0.2, Neutrophils # (Auto) 11.2H, Lymphocytes # (Auto) 0.9L, Monocytes # (Auto) 1.0H, Eosinophils # (Auto) 0.0, Basophils # (Auto) 0.0, Nucleated Red Blood Cells % (auto) 0.0, Anion Gap 10, Glomerular Filtration Rate 31.2L, Lactic Acid Level 1.0, Calcium Level 8.3L, Magnesium Level 1.8 CBC/BMP Laboratory Tests 07/11/21 18:35 07/11/21 22:39 07/12/21 04:51 Microbiology Microbiology 07/12/21 Blood Culture, Received Pending 07/12/21 Blood Culture, Received Pending Neena Lawson MD Jul 12, 2021 11:42
[2021-07-12] MEDS: LEVOTHYROXINE 150MCG TABLET (0.15MG) PO SCH (12:23)
[2021-07-12] MEDS: tiZANidine 4 MG TAB PO SCH (20:21)
[2021-07-12] MEDS: RIVAROXABAN 15 MG TAB (XARELTO) PO SCH (20:22)
[2021-07-12] MEDS: ACETAMINOPHEN TAB 650MG DOSE (2X325MG) PO PRN (20:33)
[2021-07-13 04:00] VITALS: BP 116/85
[2021-07-13 05:14] LABS: BASO % 0.3 % (0.0-1.0); EOS # 0.2 10^3/uL (0.0-0.5); EOS % 2.7 % (0.0-3.0); HEMATOCRIT 33.3 % (36.0-47.0); HEMOGLOBIN 10.9 g/dl (12.0-15.5); LYMPH # 1.3 10^3/uL (1.5-5.0); LYMPH % 18.1 % (24.0-44.0); MEAN CORPUSCULAR HEMOGLOBIN 30.2 pg (27.0-33.0); MEAN CORPUSCULAR HGB CONC 32.7 g/dl (32.0-36.5); MEAN CORPUSCULAR VOLUME 92.2 fl (80.0-96.0); MONO # 0.9 10^3/uL (0.0-0.8); MONO % 12.9 % (2.0-8.0); NEUTROPHILS # 4.6 10^3/uL (1.5-8.5); NEUTROPHILS % 65.9 % (36.0-66.0); PLATELET COUNT, AUTOMATED 137 10^3/uL (150-450); RED BLOOD COUNT 3.61 10^6/uL (4.00-5.40)
[2021-07-13] MEDS: METOPROLOL TART 25 MG TABLET PO SCH (05:39)
[2021-07-13] MEDS: LEVOTHYROXINE 150MCG TABLET (0.15MG) PO SCH (05:44)
[2021-07-13 05:53] LABS: CREATININE FOR GFR 2.01 MG/DL (0.55-1.30); GLOMERULAR FILTRATION RATE 25.6 (>39); MAGNESIUM LEVEL 1.5 MG/DL (1.8-2.4); POTASSIUM SERUM 3.8 MEQ/L (3.5-5.1)
[2021-07-13] MEDS: ACETAMINOPHEN TAB 650MG DOSE (2X325MG) PO PRN ×2 (05:54→12:10)
[2021-07-13 08:00] VITALS: BP 136/61
[2021-07-13] MEDS: PARoxetine 20MG TABLET PO SCH (08:21)
[2021-07-13] MEDS: PANTOPRAZOLE 20 MG TAB PO SCH (08:23)
[2021-07-13] MEDS: MAG SULF 1GM/100ML (MAG RUN) 1 GM in IV 1 EA IV SCH ×2 (08:24→10:03)
[2021-07-13 09:00] VITALS: BP 136/61
[2021-07-13] MEDS ORDERED: METOPROLOL TART 25 MG TABLET PO SCH (09:00)
[2021-07-13] MEDS ORDERED: FLECAINIDE 50MG TABLET PO SCH (10:00)
[2021-07-13] MEDS ORDERED: FLEC25TA PO (11:10)
[2021-07-13] MEDS ORDERED: METO1TAB87 PO (11:10)
[2021-07-13 12:00] VITALS: BP 167/81
--- NOTE | 2021-07-13 15:12 | DS.PDOC ---
Discharge Summary General Date of Admission Jul 11, 2021 at 21:28 Date of Discharge 07/13/21 Discharge Summary PROCEDURES PERFORMED DURING STAY: [None]. 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 HOSPITAL COURSE: 76-year-old elderly female with PMH of systolic and diastolic CHF, dilated cardiomyopathy paroxysmal Afib s/p ablation in sep 2020, obesity, JONNA does not use her CPAP, CKD stage 3, ductal carcinoma; s/p right lumpectomy with an axilla node dissection, Hypertension, Hyperlipidemia, Left bundle branch block, Supraventricular tachycardia, Hypothyroidism, Depression, Brachial plexopathy, Lumbar spondylosis Spinal stenosis, anemia presented to the ED with palpitation, chest pain, shortness of breath and leg swelling. Upon arrival to the ER, she was hypoxic in the mid 80s and was placed on supplemental oxygen and placed on the monitoring coordinator and an EKG was performed showing A. fib with RVR. She was given Nitropaste for chest pain but she became progressively more lethargic and hypoxic and her heart rate went into the 170s. A decision was made to synchronize cardiovert her at 100 J which brought in her heart rate decreased to the 120s. She was then given 300 mg IV bolus of amiodarone. Patient also received 60 mg IV Lasix and placed on CPAP. Patient was admitted for CHF exacerbation, A. fib with RVR, acute hypoxic respiratory failure, acute metabolic encephalopathy. A. fib with RVR Status post cardioversion on 07/11/2021 Now in sinus rhythm Continue with metoprolol and flecainide and Xarelto CARMELO on CKD baseline creatinine about 1.5 Now creatinine slightly elevated from baseline likely due to carbiasc arrhythmia with CHF and aggresive diuresis. Hold lisinopril till creatinine starts improving BMP in 2 days. Acute respiratory failure with hypoxia Due to CHF exacerbation Now improved Acute metabolic encephalopathy Likely due to hypoxia, Now resolved Systolic and diastolic CHF exacerbation Last echo shows an EF of 50% and grade 2 diastolic dysfunction Continue with Lasix after 2 days Fluid restriction 1.8 L Hypothyroid Synthroid Hypertension Continue high-dose of metoprolol We will hold lisinopril, to allow for lasix COPD Albuterol as needed Depression Continue Abilify, paroxetine Obesity/JONNA Noncompliant with CPAP Chronic back pain Continue home meds DISCHARGE MEDICATIONS: Please see below. ALLERGIES: Please see below. PHYSICAL EXAMINATION ON DISCHARGE: VITAL SIGNS: Please see below. General Exam: Positive: Alert, Cooperative, No Acute Distress Eye Exam: Positive: PERRLA, Conjunctiva & lids normal, EOMI; Negative: Sclera icteric ENT Exam: Positive: Atraumatic, Mucous membr. moist/pink, Pharynx Normal Neck Exam: Positive: Supple; Negative: JVD, thyromegaly Chest Exam: Positive: Clear to auscultation, Normal air movement Heart Exam: Positive: Rate Normal, Regular Rhythm, Normal S1, Normal S2; Negative: Murmurs, Rubs Telemetry: Positive: Sinus Abdomen Exam: Positive: Normal bowel sounds, Soft; Negative: Tenderness Extremity Exam: Positive: Edema (Trace edema); Negative: Clubbing, Cyanosis LABORATORY DATA: Please see below. ACTIVITY: [As tolerated]. DIET: 2 gm sodium diet with 1.8 liter fluid restriction. DISPOSITION: 01 Home, Self-Care. DISCHARGE INSTRUCTIONS: Follow up with Cardiology in 2 weeks Follow up with PMD in 1 week ITEMS TO FOLLOWUP ON ON OUTPATIENT: Follow up Basic Metabolic Panel Follow up Final Echo results. DISCHARGE CONDITION: [Stable]. TIME SPENT ON DISCHARGE: 35 minutes. Vital Signs/I&Os Vital Signs Date Time Temp Pulse Resp B/P (MAP) Pulse Ox O2 Delivery O2 Flow Rate FiO2 07/13/21 12:00 98.5 66 18 167/81 (109) 93 Nasal Cannula 2.0 07/11/21 21:45 70 I&O- Last 24 Hours up to 6 AM 07/13/21 07:00 Intake Total 590 ml Output Total 2600 ml Balance -2010 ml Laboratory Data Labs 24H Laboratory Tests 2 07/13/21 05:02: Immature Granulocyte % (Auto) 0.1, Neutrophils (%) (Auto) 65.9, Lymphocytes (%) (Auto) 18.1L, Monocytes (%) (Auto) 12.9H, Eosinophils (%) (Auto) 2.7, Basophils (%) (Auto) 0.3, Neutrophils # (Auto) 4.6, Lymphocytes # (Auto) 1.3L, Monocytes # (Auto) 0.9H, Eosinophils # (Auto) 0.2, Basophils # (Auto) 0.0, Nucleated Red Blood Cells % (auto) 0.0, Anion Gap 7L, Glomerular Filtration Rate 25.6L, Calcium Level 8.0L, Magnesium Level 1.5L CBC/BMP Laboratory Tests 07/13/21 05:02 Microbiology Microbiology 07/12/21 Blood Culture - Preliminary, Resulted No growth after 24 hours . All specim... 07/12/21 Blood Culture - Preliminary, Resulted No growth after 24 hours . All specim... Discharge Medications Scheduled Aripiprazole (Abilify) 5 Mg Tablet, 5 MG PO QHS, (Reported) Cholecalciferol (Vitamin D3) (Vitamin D3) 50 Mcg Capsule, 50 MCG PO QHS, (Reported) Flecainide Acetate (Flecainide Acetate) 50 Mg Tablet, 50 MG PO BID Furosemide (Furosemide) 40 Mg Tablet, 40 MG PO DAILY, (Reported) Levothyroxine Sodium (Synthroid) 150 Mcg Tablet, 150 MCG PO DAILY, (Reported) Magnesium Chloride (Mag64) 64 Mg Tablet.dr, 64 MG PO DAILY, (Reported) Metoprolol Tartrate (Metoprolol Tartrate) 25 Mg Tablet, 50 MG PO BID Nystatin (Nystatin Powder) 15 Gm Powder, 1 DOSE TOP DAILY, (Reported) APPLY TO ABDOMEN AFTER SHOWER Omeprazole (Omeprazole) 40 Mg Capsule.dr, 40 MG PO DAILY, (Reported) Paroxetine HCl (Paxil) 40 Mg Tablet, 40 MG PO DAILY, (Reported) Rivaroxaban (Xarelto) 15 Mg Tablet, 15 MG PO QHS, (Reported) Tizanidine HCl (Tizanidine HCl) 4 Mg Tablet, 4 MG PO QHS, (Reported) Trospium Chloride (Trospium Chloride) 20 Mg Tablet, 20 MG PO DAILY, (Reported) Scheduled PRN Acetaminophen (Tylenol Extra Strength) 500 Mg Tablet, 1,000 MG PO Q6H PRN for PAIN LEVEL 1-5, (Reported) Albuterol Sulf (Albuterol Sulfate) 2.5 Mg/3 Ml Vial.neb, 2.5 MG INH Q4H PRN for SHORTNESS OF BREATH, (Reported) Allergies Coded Allergies: No Known Allergies (Verified , 03/14/21) Neena Lawson MD Jul 13, 2021 15:12
--- NOTE | 2021-07-14 08:25 | CR ---
CONSULTATION DATE: 07/12/2021 REFERRING PROVIDER: Ti Cutler MD REASON FOR CONSULTATION: Atrial fibrillation with rapid ventricular rate. HISTORY OF PRESENT ILLNESS: A 76-year-old woman, well known by the office and the last time she was there was on 07/08/2021 and at that time she stated that she was started on flecainide but has not been taking it. She does have a paroxysmal atrial fibrillation and had A fib ablation done on 10/15/2020 and so far she is on the third hospitalization in this month of May for paroxysmal atrial fibrillation/flutter. She was having shortness of breath at home and she has developed some pedal edema but around 3 p.m. on 07/11/2021, she developed a rapid heart rate associated with chest discomfort and she called EMS and she was brought to the ER for further evaluation. While in the ER, she was found to be hypoxemic and her EKG revealed atrial fibrillation with a rapid ventricular rate. Presumably in view of her chest pain, she was started on nitropaste and she became more lethargic and more hypoxemic and her heart rate went up to 170 beats per minute. She was mechanically cardioverted with 100 joules which brought her heart rate to 120 beats per minute. She then was given IV amiodarone 300 mg and IV Lasix 60 mg and then placed on CPAP with some relief of her respiratory syndrome after titrating her FiO2 up to 70%. When I spoke to the resident in the evening of 07/11/2021, have discontinued the nitropaste and put on hold her lisinopril, and increased her metoprolol tartrate to 25 mg q.6 hours. She was admitted to PCU for further management and monitoring and when I saw her on 07/12/2021, she was in a normal sinus rhythm. She was no having any chest pain. She had no pedal edema. She had no orthopnea or PND. She said that she feels fine and was ready to go home. There is no report of bleeding. There is no report of fever or chills. It seems that she has a history besides the paroxysmal atrial fibrillation, of dilated cardiomyopathy which has improved and according to the most recent echocardiogram on 10/18/2020, it was reported to be 55-60%, her LVEF. She also has a history of hypertension, hyperlipidemia, COPD, obstructive sleep apnea, hypothyroidism and she is a former smoker. There is no known history of CAD. She was found in the past by echocardiogram to have a small pericardial effusion, 10/28/2020. She also has a history of GERD, anxiety/depression. PAST SURGICAL HISTORY: Positive for right breast lumpectomy for ducal carcinoma, bilateral cataract extractions, cholecystectomy, hysterectomy, right knee arthroplasty, partial right nephrectomy, lymphadenectomy. MEDICATIONS AT HOME: Abilify 10 mg p.o. daily, atorvastatin 40 mg p.o. daily, Flexeril 10 mg p.o. daily and as needed, Lasix 40 mg p.o. daily, DuoNeb, levothyroxine 150 mcg p.o. daily, lisinopril 20 mg p.o. daily, Mag64 one tablet p.o. twice a day, melatonin 5 mg p.o. daily, metoprolol tartrate 25 mg p.o. twice a day, omeprazole 40 mg p.o. daily, paroxetine 40 mg p.o. daily, Xarelto 15 mg p.o. daily, tizanidine 4 mg p.o. q.6 hours p.r.n., 20 mg p.o. daily, vitamin D 2000 units p.o. daily and recently started on flecainide but has not picked it up yet from pharmacy. FAMILY HISTORY: Positive for heart disease, her father and her mother, now the sister. SOCIAL HISTORY: Patient denies any smoking, she is a former smoker and had stopped in 2019. There is no report of illicit drugs or ETOH abuse. ALLERGIES: No known drug allergies. PHYSICAL EXAMINATION: Patient is alert and oriented, in no acute distress at rest and her vital signs when I saw her revealed a blood pressure of 134/69 with a pulse of 83, respirations 18 and a maximum temperature was 98.3 degrees Fahrenheit with a maximum saturation of 92% on room air. Examination of the head: Atraumatic. Neck: Supple and no JVD appreciated. Lungs: Clear bilaterally without any wheezing or crackles. Heart examination: Revealed normal S-1 and S-2, no rubs or gallops. The PMI is slightly displaced inferiorly. There is no rub. I could not appreciate any murmurs. Abdomen: Soft and nontender. Extremities: Revealed no pedal edema. Neurologic examination: Negative for focal deficits. LABORATORY DATA: CBC on 07/12/2021 revealed a WBC of 13.2, hemoglobin 11.6, hematocrit 36.0 and platelets 158,000. BMP revealed a sodium of 142, potassium 4.2, chloride 106, CO2 26, BUN 32, creatinine 1.69 and GFR 31.2, fasting glucose 103 and calcium 8.3. Serum magnesium was 1.8. Serum lactic acid on admission was 2.2 and upon repeating it, it as 1.0. SARS COVID-19 as well as influenza A/B, RSV PCR and MRSA: Negative. Chest x-ray on admission, 07/11/2021 revealed manifestation of congestive heart failure and cardiomegaly. Chest x-ray done on 07/12/2021 revealed improved heart failure findings. There was mild cardiomegaly. Calcification was noted in the thoracic aorta. IMPRESSION: Atrial fibrillation, paroxysmal in nature and patient has been in normal sinus rhythm since earlier this morning. Her serum troponin was negative at less than 0.02 but serum proBNP on admission 4338. She also has an elevated TSH that will need to be addressed as outpatient. Patient has been ambulating on the floor and in the room without any symptoms. If she remains in normal sinus rhythm, she can be discharged home tomorrow, 07/13/2021 for follow up as outpatient. Prior to her discharge, she will be restarted on flecainide but first her echocardiogram will be reviewed. This was discussed with her as well as her hospitalist.
--- NOTE | 2021-07-14 12:39 | ECHO ---
ECHOCARDIOGRAM DATE OF PROCEDURE: 07/13/2021 REFERRING PROVIDER: JUANJOSE BARTON MD PATIENT LOCATION: Room 3213 REASON FOR ECHOCARDIOGRAM: Atrial fibrillation, mechanical cardioversion. 2D MEASUREMENTS: IVS 1.2 cm LV 4.9 cm LVPW 1.2 cm LA 4.7 cm Aortic root 3.3 cm Ascending aorta 3.7 cm IVC 2.1 cm DOPPLER MEASUREMENT Peak velocity across the aortic valve 1.7 m/s Peak gradient across the aortic valve 12 mmHg Mitral E 1.0 Mitral A 0.84 with a ratio of 1.2 Maximum tricuspid valve velocity 2.9 m/s 2D COMMENTS: 1. Normal left ventricular size, wall thickness, and normal global left ventricular systolic function. The estimated left ventricular systolic ejection fraction is 60% to 65%. 2. Mildly enlarged left atrium. Normal right atrium and right ventricle. 3. The atrial septum appeared to be normal without evidence of defect or shunt. 4. Normal aortic root. The ascending aorta is mildly enlarged at 3.7 cm. 5. Trace pericardial effusion noted, no evidence of cardiac tamponade. 6. Mildly calcified aortic valve with normal leaflet excursion. Mildly calcified mitral annulus with normal anterior mitral valve leaflet motion. Normal tricuspid valve. The pulmonic valve and the proximal pulmonary artery branches were not well visualized. 7. The inferior vena cava was mildly enlarged. Central venous pressure is mildly elevated. Doppler detects trace mitral regurgitation, mild tricuspid regurgitation. The calculated pulmonary artery systolic pressure varies between 35 to 45 mmHg. Assessment of the left ventricular diastolic function revealed a pseudonormal pattern. Left ventricular end-diastolic pressure might be elevated. IMPRESSION: 1. Normal global left ventricular systolic function. There are some features of grade 2 left ventricular diastolic dysfunction. 2. Aortic valve sclerosis with trivial aortic stenosis, but no aortic regurgitation. 3. Mitral annular calcification with a mildly enlarged left atrium and trace mitral regurgitation. 4. Mild tricuspid regurgitation with a [id number] pulmonary hypertension. 5. Trace pericardial effusion. 6. There are some features of elevated central venous pressure. The inferior vena cava was mildly enlarged.
== END 2021-07-13 13:35 | disposition home or self-care (01) | DRG 308 ==
LOC: EDBD 18:10 → M ED 18:10 → M ED INP 21:28 → M ICU 22:07 → M PCU 07-12 16:06
PROVIDERS: ADMIT Family Medicine; ATTEND Internal Medicine Nephrology
PROC: 5A2204Z Restoration of Cardiac Rhythm, Single (ICD-10-PCS; principal; 2021-07-11)
DX: I48.0 Paroxysmal atrial fibrillation (principal); I50.43 Acute on chronic combined systolic (congestive) and diastolic (congestive) heart failure; J96.01 Acute respiratory failure with hypoxia; G93.41 Metabolic encephalopathy; N17.9 Acute kidney failure, unspecified; I13.0 Hypertensive heart and chronic kidney disease with heart failure and stage 1 through stage 4 chronic kidney disease, or unspecified chronic kidney disease; G47.33 Obstructive sleep apnea (adult) (pediatric); E66.9 Obesity, unspecified; I42.0 Dilated cardiomyopathy; J44.9 Chronic obstructive pulmonary disease, unspecified; I44.7 Left bundle-branch block, unspecified; E78.5 Hyperlipidemia, unspecified; E03.9 Hypothyroidism, unspecified; N18.30 Chronic kidney disease, stage 3 unspecified; F32.9 Major depressive disorder, single episode, unspecified; M47.816 Spondylosis without myelopathy or radiculopathy, lumbar region; D64.9 Anemia, unspecified; R94.5 Abnormal results of liver function studies; Z87.891 Personal history of nicotine dependence; Z85.3 Personal history of malignant neoplasm of breast; Z79.01 Long term (current) use of anticoagulants; Z79.899 Other long term (current) drug therapy; Z20.822 Contact with and (suspected) exposure to COVID-19

== ENCOUNTER → 2021-07-15 | Outpatient (CLI) | payer MEDICARE ==
[~2021-07-15] MED LIST changes: +FLEC25TA PO; +MED REC COMMENT
[2021-07-15 13:50] LABS: CREATININE FOR GFR 1.76 MG/DL (0.55-1.30); GLOMERULAR FILTRATION RATE 29.8 (>39); POTASSIUM SERUM 4.2 MEQ/L (3.5-5.1)
== END ==
LOC: M PLALAB 09:30
PROVIDERS: ATTEND Internal Medicine Nephrology
DX: N17.9 Acute kidney failure, unspecified (principal); N18.9 Chronic kidney disease, unspecified

== ENCOUNTER 2022-01-10 09:20 | Emergency (ER) | payer MEDICARE ==
[~2022-01-10] VITALS: Ht 167.6 cm; Wt 102.3 kg
[~2022-01-10 09:20] MED LIST changes: -AMIO200T3 PO; +AMIO200T49 PO; +FLUO-96 PO; -FLUO20CA20 PO; -LEVO500T3 PO; +LEVO500T4 PO; -OMEP-221 PO; +OMEP40CA5 PO; +TIZA10TA PO; -TIZA4TAB4 PO
[2022-01-10] MEDS ORDERED: AMIO200T37 PO (09:29)
[2022-01-10] MEDS ORDERED: ATOR40TA75 PO (09:29)
[2022-01-10] MEDS ORDERED: AMLO1TAB24 PO (09:29)
[2022-01-10] MEDS ORDERED: ACETAMINOPHEN 500 MG TAB PO ONE (10:20)
[2022-01-10 13:06] VITALS: BP 171/77
[2022-01-10] MEDS ORDERED: ACET-653 PO (13:06)
== END 2022-01-10 13:46 | disposition home or self-care (01) ==
LOC: M ED 09:20
DX: M79.652 Pain in left thigh (principal); M25.552 Pain in left hip; M25.462 Effusion, left knee; M17.12 Unilateral primary osteoarthritis, left knee; M71.22 Synovial cyst of popliteal space [Baker], left knee; M54.50 Low back pain, unspecified; W18.30XA Fall on same level, unspecified, initial encounter; Y92.098 Other place in other non-institutional residence as the place of occurrence of the external cause; Y93.89 Activity, other specified; Y99.8 Other external cause status; I11.0 Hypertensive heart disease with heart failure; I50.9 Heart failure, unspecified; I25.10 Atherosclerotic heart disease of native coronary artery without angina pectoris; I48.91 Unspecified atrial fibrillation; E78.5 Hyperlipidemia, unspecified; Z79.899 Other long term (current) drug therapy; Z79.01 Long term (current) use of anticoagulants

== ENCOUNTER → 2022-02-26 | Outpatient (CLI) | payer MEDICARE ==
[~2022-02-26] MED LIST changes: +ACET-653 PO; -ACET1TAB16 PO; +ACET300T48 PO; +AMIO200T37 PO; -DICL1GEL TD; +DICL3GEL2 TD
[2022-02-26 13:56] LABS: BASO % 0.4 % (0.0-1.0); EOS # 0.2 10^3/uL (0.0-0.5); EOS % 2.4 % (0.0-3.0); HEMATOCRIT 36.5 % (36.0-47.0); HEMOGLOBIN 11.3 g/dl (12.0-15.5); LYMPH # 1.3 10^3/uL (1.5-5.0); LYMPH % 18.5 % (24.0-44.0); MEAN CORPUSCULAR HEMOGLOBIN 29.3 pg (27.0-33.0); MEAN CORPUSCULAR VOLUME 94.6 fl (80.0-96.0); MONO # 0.6 10^3/uL (0.0-0.8); MONO % 8.4 % (2.0-8.0); NEUTROPHILS # 4.7 10^3/uL (1.5-8.5); PLATELET COUNT, AUTOMATED 193 10^3/uL (150-450); RED BLOOD COUNT 3.86 10^6/uL (4.00-5.40); WHITE BLOOD COUNT 6.8 10^3/uL (4.0-10.0)
[2022-02-26 14:28] LABS: ALBUMIN 3.5 GM/DL (3.2-5.2); BILIRUBIN,TOTAL 0.6 MG/DL (0.2-1.0); CALCIUM LEVEL 8.9 MG/DL (8.8-10.2); CHOLESTEROL RISK RATIO 1.901 (<5); CREATININE FOR GFR 1.68 MG/DL (0.55-1.30); FREE T4 1.33 NG/DL (0.76-1.46); GLOMERULAR FILTRATION RATE 31.4 (>39); POTASSIUM SERUM 3.8 MEQ/L (3.5-5.1); THYROID STIMULATING HORMONE 4.89 uIU/ML (0.358-3.740)
== END ==
LOC: M PLALAB 09:57
PROVIDERS: ATTEND Family Medicine
DX: N18.32 Chronic kidney disease, stage 3b (principal); E03.9 Hypothyroidism, unspecified; E78.00 Pure hypercholesterolemia, unspecified

== ENCOUNTER → 2022-02-26 | Outpatient (CLI) | payer MEDICARE ==
[2022-02-26 13:55] LABS: HEMOGLOBIN 11.2 g/dl (12.0-15.5); MEAN CORPUSCULAR HEMOGLOBIN 28.8 pg (27.0-33.0); MEAN CORPUSCULAR HGB CONC 31.1 g/dl (32.0-36.5); MEAN CORPUSCULAR VOLUME 92.5 fl (80.0-96.0); PLATELET COUNT, AUTOMATED 197 10^3/uL (150-450); RED BLOOD COUNT 3.89 10^6/uL (4.00-5.40); WHITE BLOOD COUNT 6.8 10^3/uL (4.0-10.0)
[2022-02-26 14:35] LABS: ALBUMIN 3.5 GM/DL (3.2-5.2); BILIRUBIN,TOTAL 0.8 MG/DL (0.2-1.0); CALCIUM LEVEL 9.1 MG/DL (8.8-10.2); CREATININE FOR GFR 1.7 MG/DL (0.55-1.30); GLOMERULAR FILTRATION RATE 30.9 (>39); POTASSIUM SERUM 3.8 MEQ/L (3.5-5.1); TOTAL PROTEIN 7.1 GM/DL (6.4-8.2)
== END ==
LOC: M PLALAB 10:13
PROVIDERS: ATTEND Nurse Practitioner Family
DX: I48.4 Atypical atrial flutter (principal)

== ENCOUNTER → 2022-04-27 | Outpatient (CLI) | payer MEDICARE ==
[~2022-04-27] MED LIST changes: +ALBU2.5V10 INH; -ALBU83IN INH
[2022-04-27 13:05] LABS: BASO % 0.4 % (0.0-1.0); EOS # 0.2 10^3/uL (0.0-0.5); EOS % 2.7 % (0.0-3.0); HEMATOCRIT 38.9 % (36.0-47.0); HEMOGLOBIN 11.7 g/dl (12.0-15.5); LYMPH % 18.7 % (24.0-44.0); MEAN CORPUSCULAR HEMOGLOBIN 28.4 pg (27.0-33.0); MEAN CORPUSCULAR HGB CONC 30.1 g/dl (32.0-36.5); MEAN CORPUSCULAR VOLUME 94.4 fl (80.0-96.0); MONO # 0.6 10^3/uL (0.0-0.8); MONO % 10.6 % (2.0-8.0); NEUTROPHILS # 3.7 10^3/uL (1.5-8.5); NEUTROPHILS % 67.2 % (36.0-66.0); PLATELET COUNT, AUTOMATED 183 10^3/uL (150-450); RED BLOOD COUNT 4.12 10^6/uL (4.00-5.40); WHITE BLOOD COUNT 5.6 10^3/uL (4.0-10.0)
[2022-04-27 14:35] LABS: ALBUMIN 3.5 GM/DL (3.2-5.2); BILIRUBIN,TOTAL 0.7 MG/DL (0.2-1.0); CALCIUM LEVEL 8.9 MG/DL (8.8-10.2); CHOLESTEROL RISK RATIO 1.969 (<5); CREATININE FOR GFR 1.47 MG/DL (0.55-1.30); FREE T4 1.59 NG/DL (0.76-1.46); GLOMERULAR FILTRATION RATE 36.6 (>39); PERCENT SATURATION 9.1 % (13.2-45.0); POTASSIUM SERUM 4.1 MEQ/L (3.5-5.1); THYROID STIMULATING HORMONE 1.32 uIU/ML (0.358-3.740); TOTAL PROTEIN 7.3 GM/DL (6.4-8.2)
== END ==
LOC: M PLALAB 07:33
PROVIDERS: ATTEND Family Medicine
DX: E03.9 Hypothyroidism, unspecified (principal); N18.32 Chronic kidney disease, stage 3b; E78.2 Mixed hyperlipidemia; K50.918 Crohn's disease, unspecified, with other complication; E53.8 Deficiency of other specified B group vitamins; R25.1 Tremor, unspecified; R26.9 Unspecified abnormalities of gait and mobility; Z79.899 Other long term (current) drug therapy

== ENCOUNTER → 2022-04-27 | Outpatient (CLI) | payer MEDICARE ==
[2022-04-27 17:35] LABS: FREE T4 1.71 NG/DL (0.76-1.46); THYROID STIMULATING HORMONE 1.33 uIU/ML (0.358-3.740)
== END ==
LOC: M PLALAB 07:31
PROVIDERS: ATTEND Psychiatry & Neurology Neurology
DX: E53.8 Deficiency of other specified B group vitamins (principal); R25.1 Tremor, unspecified; R26.9 Unspecified abnormalities of gait and mobility

== ENCOUNTER → 2022-04-30 | Outpatient (REF) | payer MEDICARE | LOC: M PLALAB 13:04 | PROVIDERS: ATTEND Psychiatry & Neurology Neurology | DX: E53.8 Deficiency of other specified B group vitamins (principal); R25.1 Tremor, unspecified; R26.81 Unsteadiness on feet ==

== ENCOUNTER → 2022-05-14 | Outpatient (CLI) | payer MEDICARE | LOC: M WHC 08:19 | PROVIDERS: ATTEND Family Medicine | DX: Z12.31 Encounter for screening mammogram for malignant neoplasm of breast (principal); M81.0 Age-related osteoporosis without current pathological fracture ==

== ENCOUNTER → 2022-07-15 | Outpatient (CLI) | payer MEDICARE ==
[~2022-07-15] MED LIST changes: +LEVO1TAB39 PO; -LEVO500T4 PO
== END ==
LOC: M WHC 11:22
PROVIDERS: ATTEND Family Medicine
DX: Z12.31 Encounter for screening mammogram for malignant neoplasm of breast (principal); M81.0 Age-related osteoporosis without current pathological fracture

== ENCOUNTER 2022-12-23 16:28 | Inpatient (IN) | payer OTHER ==
[~2022-12-23] VITALS: Ht 162.6 cm; Wt 100.0 kg
[~2022-12-23 16:28] MED LIST changes: -DOXY-443 PO; -FERR325T18 PO; -SYNT175T2 PO
[2022-12-23] MEDS ORDERED: methylPREDNISolone 125MG 2ML VIAL IV ONE (16:40)
[2022-12-23] MEDS ORDERED: PRED20TA PO (16:46)
[2022-12-23] MEDS ORDERED: DOXY-443 PO (16:46)
[2022-12-23] MEDS: IPRATROPIUM 0.5MG/ALBUTEROL 2.5MG INH SOL UD 3ML (DUONEB) NEB PRN ×2 (16:58→16:59)
[2022-12-23 16:59] LABS: ABG BASE EXCESS -0.9 (-2.0-2.0); ABG HCO3 22.9 MEQ/L (22.0-26.0); ABG PARTIAL PRESSURE CO2 34.9 mmHg (35.0-45.0); ABG PARTIAL PRESSURE O2 88.8 mmHg (75.0-100.0); ABG STANDARD HCO3 23.7 MEQ/L (22.0-26.0); ABG TOTAL CO2 23.9 MEQ/L (23.0-31.0); ABG pH (ARTERIAL) 7.434 UNITS (7.350-7.450)
[2022-12-23 17:09] LABS: BASO % 0.2 % (0.0-1.0); EOS # 0.1 10^3/uL (0.0-0.5); EOS % 0.9 % (0.0-3.0); HEMATOCRIT 37.8 % (36.0-47.0); HEMOGLOBIN 11.8 g/dl (12.0-15.5); LYMPH # 2.2 10^3/uL (1.5-5.0); LYMPH % 22.6 % (24.0-44.0); MEAN CORPUSCULAR HEMOGLOBIN 29.6 pg (27.0-33.0); MEAN CORPUSCULAR HGB CONC 31.2 g/dl (32.0-36.5); MEAN CORPUSCULAR VOLUME 94.7 fl (80.0-96.0); MONO # 0.8 10^3/uL (0.0-0.8); MONO % 8.6 % (2.0-8.0); NEUTROPHILS # 6.4 10^3/uL (1.5-8.5); NEUTROPHILS % 67.1 % (36.0-66.0); PLATELET COUNT, AUTOMATED 252 10^3/uL (150-450); RED BLOOD COUNT 3.99 10^6/uL (4.00-5.40); WHITE BLOOD COUNT 9.5 10^3/uL (4.0-10.0)
[2022-12-23 17:13] LABS: INR 1.27; PROTHROMBIN TIME 16.2 SECONDS (12.5-14.5)
[2022-12-23 17:26] LABS: CK-MB VALUE MASS 1.4 NG/ML (<3.6)
[2022-12-23 17:27] LABS: ALBUMIN 3.1 G/DL (3.2-5.2); BILIRUBIN,DIRECT 0.2 MG/DL (<0.4); BILIRUBIN,TOTAL 0.4 MG/DL (0.3-1.2); CALCIUM LEVEL 8.3 MG/DL (8.3-10.6); CREATININE FOR GFR 1.99 MG/DL (0.55-1.30); GLOMERULAR FILTRATION RATE 25.8 (>39); POTASSIUM SERUM 3.3 MMOL/L (3.5-5.1); TOTAL PROTEIN 6.1 G/DL (5.7-8.2)
[2022-12-23 17:29] LABS: THYROID STIMULATING HORMONE 4.59 uIU/ML (0.55-4.78)
[2022-12-23] MEDS ORDERED: POTASSIUM CHLORIDE 10MEQ SR TABLET PO ONE (17:35)
[2022-12-23 17:47] LABS: MB/CK RELATIVE INDEX 3.18 (< OR =4)
[2022-12-23 18:30] LABS: CK-MB VALUE MASS 1.7 NG/ML (<3.6)
[2022-12-23 18:31] LABS: MB/CK RELATIVE INDEX 3.4 (< OR =4)
[2022-12-23] MEDS ORDERED: AZITHROMYCIN 250MG TABLET PO ONE (18:55)
[2022-12-23] MEDS ORDERED: cefTRIAXone SOD 1 GM in D5W MINI-BAG PLUS 50 ML IV ONE (18:55)
[2022-12-23] MEDS ORDERED: ALBUTEROL SULFATE 2.5MG/0.5ML INH NEB SOLN NEB PRN (20:30)
[2022-12-23] MEDS ORDERED: ACETAMINOPHEN TAB 650MG DOSE (2X325MG) PO PRN (20:30)
[2022-12-23] MEDS ORDERED: SYNT175T2 PO (20:47)
[2022-12-23] MEDS ORDERED: METO25TA4 PO (20:47)
[2022-12-23] MEDS ORDERED: FERR325T18 PO (20:48)
[2022-12-23] MEDS ORDERED: HOME MED LIST COMPLETE! XX SCH (20:50)
[2022-12-23] MEDS: DOXYCYCLINE HYCLATE 100MG TABLET PO SCH (21:45)
[2022-12-23] MEDS: guaiFENesin ER 600 MG TAB PO SCH (21:45)
[2022-12-23] MEDS: METOPROLOL TART 12.5 MG PER 1/2 TAB PO SCH (21:46)
[2022-12-23 23:05] VITALS: BP 132/64
[2022-12-24 00:01] VITALS: O2SAT 93
[2022-12-24] MEDS: IPRATROPIUM 0.5MG/ALBUTEROL 2.5MG INH SOL UD 3ML (DUONEB) NEB SCH ×4 (01:23→19:06)
[2022-12-24 05:15] VITALS: BP 126/61
[2022-12-24] MEDS: LEVOTHYROXINE 150MCG TABLET (0.15MG) PO SCH (05:45)
[2022-12-24] MEDS: LEVOTHYROXINE 25MCG TABLET (0.025MG) PO SCH (05:45)
[2022-12-24] MEDS: methylPREDNISolone 125MG 2ML VIAL IV SCH ×2 (05:45→16:29)
[2022-12-24 06:30] LABS: MEAN CORPUSCULAR HEMOGLOBIN 29.7 pg (27.0-33.0); MEAN CORPUSCULAR HGB CONC 31.4 g/dl (32.0-36.5); MEAN CORPUSCULAR VOLUME 94.6 fl (80.0-96.0); PLATELET COUNT, AUTOMATED 230 10^3/uL (150-450); WHITE BLOOD COUNT 8.3 10^3/uL (4.0-10.0)
[2022-12-24 07:03] LABS: CALCIUM LEVEL 8.6 MG/DL (8.3-10.6); CREATININE FOR GFR 1.76 MG/DL (0.55-1.30); GLOMERULAR FILTRATION RATE 29.7 (>39); MAGNESIUM LEVEL 1.6 MG/DL (1.8-2.4); POTASSIUM SERUM 3.9 MMOL/L (3.5-5.1)
[2022-12-24] MEDS: OMEPRAZOLE 20MG CAP PO SCH (08:53)
[2022-12-24] MEDS: PARoxetine 20MG TABLET PO SCH (08:53)
[2022-12-24] MEDS: FERROUS SULFATE 325MG TAB PO SCH (08:54)
[2022-12-24] MEDS: guaiFENesin ER 600 MG TAB PO SCH ×2 (08:54→20:06)
[2022-12-24] MEDS: FUROSEMIDE 40 MG TAB PO SCH (08:54)
[2022-12-24] MEDS: DOXYCYCLINE HYCLATE 100MG TABLET PO SCH ×2 (08:54→20:07)
[2022-12-24] MEDS: amLODIPine 5 MG TAB PO SCH (08:54)
[2022-12-24] MEDS: METOPROLOL TART 12.5 MG PER 1/2 TAB PO SCH ×2 (08:54→20:07)
[2022-12-24 09:00] VITALS: O2SAT 95
[2022-12-24 14:00] VITALS: BP 137/75
[2022-12-24] MEDS ORDERED: cefTRIAXone SOD 2 GM in D5W MINI-BAG PLUS 50 ML IV SCH (20:00)
[2022-12-24] MEDS ORDERED: cefTRIAXone SOD 1 GM in D5W MINI-BAG PLUS 50 ML IV SCH (20:00)
[2022-12-24 20:45] VITALS: BP 127/54
[2022-12-24] MEDS ORDERED: RIVAROXABAN 15MG TAB (XARELTO) PO SCH (21:00)
[2022-12-24] MEDS ORDERED: ATORVASTATIN 20 MG TAB PO SCH (21:00)
[2022-12-25] MEDS: IPRATROPIUM 0.5MG/ALBUTEROL 2.5MG INH SOL UD 3ML (DUONEB) NEB SCH ×2 (01:39→07:31)
[2022-12-25 05:10] VITALS: BP 122/65
[2022-12-25] MEDS: methylPREDNISolone 125MG 2ML VIAL IV SCH (05:30)
[2022-12-25] MEDS: LEVOTHYROXINE 25MCG TABLET (0.025MG) PO SCH (05:31)
[2022-12-25] MEDS: LEVOTHYROXINE 150MCG TABLET (0.15MG) PO SCH (05:31)
[2022-12-25 07:00] LABS: HEMATOCRIT 34.7 % (36.0-47.0); HEMOGLOBIN 10.7 g/dl (12.0-15.5); MEAN CORPUSCULAR HEMOGLOBIN 29.6 pg (27.0-33.0); MEAN CORPUSCULAR HGB CONC 30.8 g/dl (32.0-36.5); MEAN CORPUSCULAR VOLUME 95.9 fl (80.0-96.0); PLATELET COUNT, AUTOMATED 245 10^3/uL (150-450); RED BLOOD COUNT 3.62 10^6/uL (4.00-5.40); WHITE BLOOD COUNT 13.8 10^3/uL (4.0-10.0)
[2022-12-25 07:22] LABS: CALCIUM LEVEL 8.6 MG/DL (8.3-10.6); CREATININE FOR GFR 1.47 MG/DL (0.55-1.30); GLOMERULAR FILTRATION RATE 36.6 (>39); POTASSIUM SERUM 4.2 MMOL/L (3.5-5.1)
[2022-12-25] MEDS: PARoxetine 20MG TABLET PO SCH (08:21)
[2022-12-25] MEDS: guaiFENesin ER 600 MG TAB PO SCH (08:21)
[2022-12-25] MEDS: DOXYCYCLINE HYCLATE 100MG TABLET PO SCH (08:21)
[2022-12-25] MEDS: FERROUS SULFATE 325MG TAB PO SCH (08:21)
[2022-12-25] MEDS: OMEPRAZOLE 20MG CAP PO SCH (08:21)
[2022-12-25] MEDS: FUROSEMIDE 40 MG TAB PO SCH (08:22)
[2022-12-25 08:23] VITALS: BP 122/65
[2022-12-25] MEDS: amLODIPine 5 MG TAB PO SCH (08:23)
[2022-12-25] MEDS: METOPROLOL TART 12.5 MG PER 1/2 TAB PO SCH (08:23)
[2022-12-25] MEDS ORDERED: CEFD300CAP PO (11:29)
[2022-12-25] MEDS ORDERED: CEFU50TA PO (12:37)
== END 2022-12-25 13:39 | disposition home or self-care (01) | DRG 191 ==
LOC: M ED 16:28 → EDBD 16:28 → M ED INP 20:27 → M MSPAV 23:05
PROVIDERS: ADMIT Family Medicine; ATTEND Family Medicine
DX: J44.1 Chronic obstructive pulmonary disease with (acute) exacerbation (principal); J98.11 Atelectasis; I48.91 Unspecified atrial fibrillation; I25.10 Atherosclerotic heart disease of native coronary artery without angina pectoris; K21.9 Gastro-esophageal reflux disease without esophagitis; G47.33 Obstructive sleep apnea (adult) (pediatric); E87.6 Hypokalemia; I12.9 Hypertensive chronic kidney disease with stage 1 through stage 4 chronic kidney disease, or unspecified chronic kidney disease; E78.5 Hyperlipidemia, unspecified; N18.30 Chronic kidney disease, stage 3 unspecified; D50.9 Iron deficiency anemia, unspecified; E03.9 Hypothyroidism, unspecified; Z87.891 Personal history of nicotine dependence; Z85.3 Personal history of malignant neoplasm of breast; Z98.41 Cataract extraction status, right eye; Z98.42 Cataract extraction status, left eye; Z90.49 Acquired absence of other specified parts of digestive tract; Z96.651 Presence of right artificial knee joint; Z79.01 Long term (current) use of anticoagulants; Z79.890 Hormone replacement therapy; Z79.52 Long term (current) use of systemic steroids; Z79.899 Other long term (current) drug therapy

== ENCOUNTER → 2022-12-23 | Outpatient (CLI) | payer OTHER ==
[~2022-12-23] MED LIST changes: +DOXY-443 PO; +FERR325T18 PO; -PAXI40TA10 PO; +PAXI40TA12 PO; +SYNT175T2 PO
[2022-12-23 16:20] LABS: HEMOGLOBIN 13.2 g/dl (12.0-15.5); MEAN CORPUSCULAR HEMOGLOBIN 29.8 pg (27.0-33.0); MEAN CORPUSCULAR HGB CONC 30.7 g/dl (32.0-36.5); MEAN CORPUSCULAR VOLUME 97.1 fl (80.0-96.0); PLATELET COUNT, AUTOMATED 313 10^3/uL (150-450); RED BLOOD COUNT 4.43 10^6/uL (4.00-5.40); WHITE BLOOD COUNT 14.5 10^3/uL (4.0-10.0)
[2022-12-23 16:34] LABS: CALCIUM LEVEL 8.6 MG/DL (8.3-10.6); CREATININE FOR GFR 1.86 MG/DL (0.55-1.30); GLOMERULAR FILTRATION RATE 27.9 (>39); POTASSIUM SERUM 3.6 MMOL/L (3.5-5.1)
== END ==
LOC: M PLALAB 11:20
PROVIDERS: ATTEND Nurse Practitioner Family
DX: J44.1 Chronic obstructive pulmonary disease with (acute) exacerbation (principal)

== ENCOUNTER → 2023-02-12 | Outpatient (CLI) | payer OTHER ==
[~2023-02-12] MED LIST changes: +CEFD300CAP PO; +CEFU50TA PO; +DOXY-443 PO; +FERR325T18 PO; +SYNT175T2 PO
== END ==
LOC: M SOG 07:56
PROVIDERS: ATTEND Orthopaedic Surgery
DX: M54.50 Low back pain, unspecified (principal); R10.2 Pelvic and perineal pain; M25.562 Pain in left knee

== ENCOUNTER → 2023-03-09 | Outpatient (CLI) | payer OTHER | LOC: M PLAIMG 09:09 | PROVIDERS: ATTEND Orthopaedic Surgery | DX: M47.27 Other spondylosis with radiculopathy, lumbosacral region (principal); M25.80 Other specified joint disorders, unspecified joint; M17.12 Unilateral primary osteoarthritis, left knee ==

== ENCOUNTER → 2023-04-02 | Outpatient (CLI) | payer OTHER | LOC: M SOG 08:06 | PROVIDERS: ATTEND Orthopaedic Surgery | DX: G56.02 Carpal tunnel syndrome, left upper limb (principal) ==

== ENCOUNTER → 2023-07-05 | Outpatient (CLI) | payer OTHER ==
[2023-07-05 11:07] LABS: BASO % 0.5 % (0.0-1.0); EOS # 0.1 10^3/uL (0.0-0.5); HEMATOCRIT 41.7 % (36.0-47.0); HEMOGLOBIN 12.9 g/dl (12.0-15.5); LYMPH # 1.2 10^3/uL (1.5-5.0); LYMPH % 18.4 % (24.0-44.0); MEAN CORPUSCULAR HEMOGLOBIN 29.1 pg (27.0-33.0); MEAN CORPUSCULAR HGB CONC 30.9 g/dl (32.0-36.5); MEAN CORPUSCULAR VOLUME 93.9 fl (80.0-96.0); MONO # 0.6 10^3/uL (0.0-0.8); MONO % 8.5 % (2.0-8.0); NEUTROPHILS # 4.6 10^3/uL (1.5-8.5); NEUTROPHILS % 70.3 % (36.0-66.0); PLATELET COUNT, AUTOMATED 185 10^3/uL (150-450); RED BLOOD COUNT 4.44 10^6/uL (4.00-5.40); WHITE BLOOD COUNT 6.5 10^3/uL (4.0-10.0)
[2023-07-05 11:28] LABS: FREE T4 1.45 NG/DL (0.89-1.76); THYROID STIMULATING HORMONE 5.328 uIU/ML (0.55-4.78)
[2023-07-05 11:29] LABS: ALBUMIN 3.6 G/DL (3.2-5.2); BILIRUBIN,TOTAL 0.4 MG/DL (0.3-1.2); CALCIUM LEVEL 8.6 MG/DL (8.3-10.6); CHOLESTEROL RISK RATIO 2.42 (<5); CREATININE FOR GFR 1.65 MG/DL (0.55-1.30); GLOMERULAR FILTRATION RATE 31.9 (>39); HDL CHOLESTEROL 59.4 MG/DL (>40); LDL CHOLESTEROL 62.6 MG/DL (<100); NON-HDL-C 84.6 MG/DL; POTASSIUM SERUM 4.1 MMOL/L (3.5-5.1); TOTAL PROTEIN 6.6 G/DL (5.7-8.2)
== END ==
LOC: M PLALAB 07:54
PROVIDERS: ATTEND Nurse Practitioner Adult Health
DX: E03.9 Hypothyroidism, unspecified (principal)

== ENCOUNTER → 2023-07-21 | Outpatient (CLI) | payer OTHER ==
[~2023-07-21] MED LIST changes: +B-12100010 PO; +TOLT2CAP4 PO
[2023-07-21 11:36] LABS: CALCIUM LEVEL 8.8 MG/DL (8.3-10.6); CREATININE FOR GFR 1.38 MG/DL (0.55-1.30); GLOMERULAR FILTRATION RATE 39.3 (>39); MAGNESIUM LEVEL 1.7 MG/DL (1.8-2.4); POTASSIUM SERUM 3.8 MMOL/L (3.5-5.1)
== END ==
LOC: M PLALAB 08:00
PROVIDERS: ATTEND Internal Medicine
DX: N17.9 Acute kidney failure, unspecified (principal)

== ENCOUNTER → 2023-07-21 | Outpatient (CLI) | payer OTHER | LOC: M WHC 07:06 | PROVIDERS: ATTEND Nurse Practitioner Adult Health | DX: Z12.31 Encounter for screening mammogram for malignant neoplasm of breast (principal) ==

== ENCOUNTER → 2023-08-03 | Outpatient (CLI) | payer OTHER ==
[2023-08-03 14:21] LABS: CREATININE FOR GFR 1.43 MG/DL (0.55-1.30); GLOMERULAR FILTRATION RATE 37.7 (>39); MAGNESIUM LEVEL 1.9 MG/DL (1.8-2.4)
== END ==
LOC: M PLALAB 10:33
PROVIDERS: ATTEND Nurse Practitioner Adult Health
DX: N17.9 Acute kidney failure, unspecified (principal)

== ENCOUNTER → 2023-08-13 | Outpatient (CLI) | payer OTHER | LOC: M SOG 07:49 | PROVIDERS: ATTEND Orthopaedic Surgery | DX: M25.462 Effusion, left knee (principal) ==

== ENCOUNTER → 2023-11-25 | Outpatient (CLI) | payer OTHER ==
[2023-11-25 12:52] LABS: BASO % 0.4 % (0.0-1.0); EOS # 0.3 10^3/uL (0.0-0.5); EOS % 3.7 % (0.0-3.0); HEMATOCRIT 40.5 % (36.0-47.0); HEMOGLOBIN 12.6 g/dl (12.0-15.5); LYMPH # 1.2 10^3/uL (1.5-5.0); LYMPH % 16.7 % (24.0-44.0); MEAN CORPUSCULAR HEMOGLOBIN 29.3 pg (27.0-33.0); MEAN CORPUSCULAR HGB CONC 31.1 g/dl (32.0-36.5); MEAN CORPUSCULAR VOLUME 94.2 fl (80.0-96.0); MONO # 0.7 10^3/uL (0.0-0.8); MONO % 9.4 % (2.0-8.0); NEUTROPHILS # 4.9 10^3/uL (1.5-8.5); NEUTROPHILS % 69.7 % (36.0-66.0); PLATELET COUNT, AUTOMATED 218 10^3/uL (150-450)
[2023-11-25 13:12] LABS: ALBUMIN 3.6 G/DL (3.2-5.2); BILIRUBIN,TOTAL 0.5 MG/DL (0.3-1.2); CHOLESTEROL RISK RATIO 2.53 (<5); CREATININE FOR GFR 1.39 MG/DL (0.55-1.30); GLOMERULAR FILTRATION RATE 38.9 (>39); HDL CHOLESTEROL 58.8 MG/DL (>40); LDL CHOLESTEROL 65.8 MG/DL (<100); MAGNESIUM LEVEL 1.8 MG/DL (1.8-2.4); NON-HDL-C 90.2 MG/DL; POTASSIUM SERUM 4.2 MMOL/L (3.5-5.1); TOTAL PROTEIN 6.9 G/DL (5.7-8.2)
[2023-11-25 13:14] LABS: FREE T4 1.37 NG/DL (0.89-1.76); THYROID STIMULATING HORMONE 5.121 uIU/ML (0.55-4.78)
== END ==
LOC: M PLALAB 07:52
PROVIDERS: ATTEND Nurse Practitioner Adult Health
DX: I48.0 Paroxysmal atrial fibrillation (principal); E78.2 Mixed hyperlipidemia; E03.9 Hypothyroidism, unspecified; E83.42 Hypomagnesemia

== ENCOUNTER 2023-12-02 08:56 | Day surgery (SDC) | payer OTHER ==
[~2023-12-02] VITALS: Ht 162.6 cm; Wt 94.3 kg
[~2023-12-02 08:56] MED LIST changes: -MELA1TAB9 PO; +MELA5TAB58 PO
[2023-12-02] MEDS: NS 1,000 ML IV ONE (09:13)
[2023-12-02 12:54] VITALS: BP 160/82; TEMP 96.4; O2SAT 97
== END 2023-12-02 12:50 | disposition home or self-care (01) ==
LOC: M OPP 08:56
PROVIDERS: ATTEND Internal Medicine Gastroenterology
DX: D12.6 Benign neoplasm of colon, unspecified (principal); K57.30 Diverticulosis of large intestine without perforation or abscess without bleeding; K64.4 Residual hemorrhoidal skin tags; K64.8 Other hemorrhoids; Z98.0 Intestinal bypass and anastomosis status; I48.91 Unspecified atrial fibrillation; G47.30 Sleep apnea, unspecified; Z79.01 Long term (current) use of anticoagulants; Z79.02 Long term (current) use of antithrombotics/antiplatelets; Z79.51 Long term (current) use of inhaled steroids; Z79.890 Hormone replacement therapy; Z79.899 Other long term (current) drug therapy

== ENCOUNTER 2023-12-13 09:26 | Inpatient (IN) | payer OTHER ==
[2023-12-13] VITALS (21 sets, daily range): BP systolic 90–134; BP diastolic 54–74; TEMP 98–98.4; O2SAT 95–99
[~2023-12-13 09:26] MED LIST changes: +MELA1TAB9 PO; -MELA5TAB58 PO
[2023-12-13] MEDS: AMIODARONE HCL 360 MG in IV 1 EA IV SCH (09:56)
[2023-12-13] MEDS: AMIODARONE HCL 150 MG in IV 1 EA IV ONE ×2 (10:04→10:48)
[2023-12-13] MEDS: METOPROLOL TART 25 MG TABLET PO SCH (10:45)
[2023-12-13] MEDS: ACETAMINOPHEN TAB 650MG DOSE (2X325MG) PO PRN (10:45)
[2023-12-13 10:58] LABS: HEMATOCRIT 37.4 % (36.0-47.0); HEMOGLOBIN 11.9 g/dl (12.0-15.5); LYMPH # 0.5 10^3/uL (1.5-5.0); LYMPH % 8.2 % (24.0-44.0); MEAN CORPUSCULAR HEMOGLOBIN 29.5 pg (27.0-33.0); MEAN CORPUSCULAR HGB CONC 31.8 g/dl (32.0-36.5); MEAN CORPUSCULAR VOLUME 92.8 fl (80.0-96.0); MONO # 0.1 10^3/uL (0.0-0.8); NEUTROPHILS # 4.9 10^3/uL (1.5-8.5); NEUTROPHILS % 89.1 % (36.0-66.0); PLATELET COUNT, AUTOMATED 210 10^3/uL (150-450); RED BLOOD COUNT 4.03 10^6/uL (4.00-5.40); WHITE BLOOD COUNT 5.5 10^3/uL (4.0-10.0)
[2023-12-13] MEDS ORDERED: MAGN400T2 PO (11:15)
[2023-12-13] MEDS ORDERED: POTA10TA67 PO (11:15)
[2023-12-13] MEDS ORDERED: ARIP1TAB6 PO (11:29)
[2023-12-13] MEDS ORDERED: ACET650T15 PO (11:29)
[2023-12-13] MEDS ORDERED: LOPE1CAP5 PO (11:29)
[2023-12-13] MEDS ORDERED: RAMI1CAP21 PO (11:29)
[2023-12-13] MEDS ORDERED: VENTAER INH (11:29)
[2023-12-13] MEDS ORDERED: LORA-1041 PO (11:29)
[2023-12-13] MEDS ORDERED: DICL100G10 TOP (11:29)
[2023-12-13] MEDS ORDERED: CARV6.25 PO (11:29)
[2023-12-13] MEDS ORDERED: FLUO40CA PO (11:29)
[2023-12-13 11:59] LABS: ALBUMIN 3.1 G/DL (3.2-5.2); BILIRUBIN,TOTAL 0.5 MG/DL (0.3-1.2); CALCIUM LEVEL 8.2 MG/DL (8.3-10.6); CREATININE FOR GFR 1.54 MG/DL (0.55-1.30); GLOMERULAR FILTRATION RATE 34.6 (>39); MAGNESIUM LEVEL 1.8 MG/DL (1.8-2.4); PHOSPHORUS LEVEL 4.1 MG/DL (2.4-5.1); POTASSIUM SERUM 4.1 MMOL/L (3.5-5.1); TOTAL PROTEIN 6.2 G/DL (5.7-8.2)
[2023-12-13 12:01] LABS: FREE T4 1.4 NG/DL (0.89-1.76); THYROID STIMULATING HORMONE 0.97 uIU/ML (0.55-4.78)
[2023-12-13] MEDS ORDERED: HOME MED LIST COMPLETE! XX SCH (12:15)
[2023-12-13] MEDS ORDERED: DOBUTamine HCL 500,000 MCG in IV 1 EA IV SCH (12:35)
[2023-12-13] MEDS ORDERED: LORATADINE 10 MG TAB PO PRN (13:50)
[2023-12-13] MEDS: FLUoxetine 20MG CAP PO SCH (14:07)
[2023-12-13] MEDS: FERROUS SULFATE 325MG TAB PO SCH (20:15)
[2023-12-13] MEDS: CYANOCOBALAMIN 500 MCG TAB PO SCH (20:15)
[2023-12-13] MEDS: RIVAROXABAN 15MG TAB (XARELTO) PO SCH (20:15)
[2023-12-13] MEDS: PANTOPRAZOLE 40MG VIAL IV SCH (20:16)
[2023-12-13] MEDS: SIMVASTATIN 20 MG TAB PO SCH (20:16)
[2023-12-13] MEDS: MAGNESIUM OXIDE 400MG TAB (MAG-OX) PO SCH (20:16)
[2023-12-14] VITALS (24 sets, daily range): BP systolic 106–152; BP diastolic 56–84; TEMP 97.1–98.5; O2SAT 93–100
[2023-12-14 04:59] LABS: CALCIUM LEVEL 8.1 MG/DL (8.3-10.6); CREATININE FOR GFR 1.65 MG/DL (0.55-1.30); GLOMERULAR FILTRATION RATE 31.9 (>39); POTASSIUM SERUM 3.6 MMOL/L (3.5-5.1)
[2023-12-14] MEDS: LEVOTHYROXINE 100MCG TABLET (0.1MG) PO SCH (05:56)
[2023-12-14] MEDS: LEVOTHYROXINE 75MCG TABLET (0.075MG) PO SCH (05:56)
[2023-12-14] MEDS ORDERED: AMIODARONE HCL 150 MG/100 ML PREMIXED BAG (NEXTERONE) As Ordered ONE (08:45)
[2023-12-14] MEDS ORDERED: METOPROLOL TART 12.5 MG PER 1/2 TAB PO SCH ×2 (09:00)
[2023-12-14] MEDS: amLODIPine 5 MG TAB PO SCH (09:00)
[2023-12-14] MEDS: FUROSEMIDE 40 MG TAB PO SCH (09:00)
[2023-12-14] MEDS: TOLTERODINE TARTRATE 2 MG LA CAP (DETROL LA) PO SCH (09:00)
[2023-12-14] MEDS: AMIODARONE HCL 150 MG in IV 1 EA IV ONE ×2 (09:01→09:04)
[2023-12-14] MEDS: AMIODARONE 200 MG TAB (PACERONE) PO SCH (09:08)
[2023-12-14] MEDS: PARoxetine 20MG TABLET PO SCH (09:17)
[2023-12-14] MEDS: AMIODARONE HCL 360 MG in IV 1 EA IV SCH (10:19)
[2023-12-14] MEDS: MAG SULF 1GM/100ML (MAG RUN) 1 GM in IV 1 EA IV ONE (11:10)
[2023-12-14] MEDS: METOPROLOL 5 MG/5 ML VIAL IV STA ×2 (11:38→20:51)
[2023-12-14] MEDS: CARVedilol 6.25 MG TAB PO SCH (14:19)
[2023-12-14] MEDS: RAMELTEON 8 MG TAB (ROZEREM) PO ONE (21:35)
[2023-12-15] VITALS (19 sets, daily range): BP systolic 116–155; BP diastolic 56–103; TEMP 97.6–98.2; O2SAT 93–98
[2023-12-15 05:04] LABS: CALCIUM LEVEL 8.1 MG/DL (8.3-10.6); CREATININE FOR GFR 1.52 MG/DL (0.55-1.30); GLOMERULAR FILTRATION RATE 35.1 (>39); POTASSIUM SERUM 3.4 MMOL/L (3.5-5.1)
[2023-12-15] MEDS: POTASSIUM CHLORIDE 10MEQ SR TABLET PO ONE ×3 (08:46→15:30)
[2023-12-15] MEDS ORDERED: METOPROLOL TART 12.5 MG PER 1/2 TAB PO SCH (09:00)
[2023-12-15] MEDS: CARVedilol 3.125 MG TAB PO SCH ×2 (09:00→20:15)
[2023-12-15] MEDS: ALBUTEROL 90 MCG/ACT 8GM HFA INHALER INH PRN (09:12)
[2023-12-15] MEDS: RAMELTEON 8 MG TAB (ROZEREM) PO ONE (20:14)
[2023-12-15] MEDS: BENZONATATE 100MG CAPSULE PO PRN (20:14)
[2023-12-16] VITALS (13 sets, daily range): BP systolic 114–155; BP diastolic 56–68; TEMP 97.9–98.4; O2SAT 92–97
[2023-12-16] MEDS: ALBUTEROL SULFATE 2.5MG/0.5ML INH NEB SOLN INH PRN (04:33)
[2023-12-16 05:22] LABS: BASO % 0.3 % (0.0-1.0); EOS # 0.2 10^3/uL (0.0-0.5); EOS % 3.8 % (0.0-3.0); HEMATOCRIT 33.7 % (36.0-47.0); HEMOGLOBIN 10.7 g/dl (12.0-15.5); LYMPH % 17.1 % (24.0-44.0); MEAN CORPUSCULAR HEMOGLOBIN 29.1 pg (27.0-33.0); MEAN CORPUSCULAR HGB CONC 31.8 g/dl (32.0-36.5); MEAN CORPUSCULAR VOLUME 91.6 fl (80.0-96.0); MONO # 0.6 10^3/uL (0.0-0.8); MONO % 10.6 % (2.0-8.0); NEUTROPHILS # 4.1 10^3/uL (1.5-8.5); PLATELET COUNT, AUTOMATED 170 10^3/uL (150-450); RED BLOOD COUNT 3.68 10^6/uL (4.00-5.40)
[2023-12-16 06:07] LABS: CALCIUM LEVEL 8.3 MG/DL (8.3-10.6); CREATININE FOR GFR 1.34 MG/DL (0.55-1.30); GLOMERULAR FILTRATION RATE 40.6 (>39); MAGNESIUM LEVEL 1.7 MG/DL (1.8-2.4); POTASSIUM SERUM 4.2 MMOL/L (3.5-5.1)
[2023-12-16] MEDS: MAG SULF 1GM/100ML (MAG RUN) 1 GM in IV 1 EA IV ONE (07:30)
[2023-12-16] MEDS ORDERED: CARV3.12 PO (10:15)
[2023-12-16] MEDS ORDERED: AMIO200T49 PO (10:15)
[2023-12-16] MEDS ORDERED: PRED20TA PO (11:11)
[2023-12-16] MEDS ORDERED: METO5TA PO (11:11)
[2023-12-16] MEDS ORDERED: ANOR1AER PO (11:11)
[2023-12-16] MEDS ORDERED: IPRA0.00 INH (11:11)
== END 2023-12-16 12:47 | disposition home health service (06) | DRG 291 ==
LOC: M ICU 09:26
PROVIDERS: ADMIT Internal Medicine Pulmonary Disease; ATTEND Internal Medicine
DX: I13.0 Hypertensive heart and chronic kidney disease with heart failure and stage 1 through stage 4 chronic kidney disease, or unspecified chronic kidney disease (principal); I50.33 Acute on chronic diastolic (congestive) heart failure; J96.01 Acute respiratory failure with hypoxia; I48.92 Unspecified atrial flutter; E87.20 Acidosis, unspecified; R00.0 Tachycardia, unspecified; N18.30 Chronic kidney disease, stage 3 unspecified; J44.9 Chronic obstructive pulmonary disease, unspecified; I95.9 Hypotension, unspecified; E87.6 Hypokalemia; I25.10 Atherosclerotic heart disease of native coronary artery without angina pectoris; F39 Unspecified mood [affective] disorder; N32.81 Overactive bladder; E03.9 Hypothyroidism, unspecified; E53.8 Deficiency of other specified B group vitamins; K21.9 Gastro-esophageal reflux disease without esophagitis; J30.2 Other seasonal allergic rhinitis; Z87.891 Personal history of nicotine dependence; Z79.890 Hormone replacement therapy; Z79.01 Long term (current) use of anticoagulants; Z79.899 Other long term (current) drug therapy

== ENCOUNTER → 2024-01-07 | Outpatient (CLI) | payer OTHER ==
[~2024-01-07] MED LIST changes: +ACET650T15 PO; +ANOR1AER PO; +DICL100G10 TOP; +FLUO40CA PO; +LOPE1CAP5 PO; +LORA-1041 PO; +MAGN400T2 PO; -MELA1TAB9 PO; +MELA5TAB58 PO; +METO5TA PO; +POTA10TA67 PO; +RAMI1CAP21 PO; +VENTAER INH
[2024-01-07 16:07] LABS: CALCIUM LEVEL 9.2 MG/DL (8.3-10.6); CREATININE FOR GFR 1.65 MG/DL (0.55-1.30); GLOMERULAR FILTRATION RATE 31.9 (>39); MAGNESIUM LEVEL 1.9 MG/DL (1.8-2.4); POTASSIUM SERUM 4.3 MMOL/L (3.5-5.1)
== END ==
LOC: M PLALAB 11:48
PROVIDERS: ATTEND Nurse Practitioner Adult Health
DX: I13.0 Hypertensive heart and chronic kidney disease with heart failure and stage 1 through stage 4 chronic kidney disease, or unspecified chronic kidney disease (principal); I48.92 Unspecified atrial flutter; I50.9 Heart failure, unspecified; N18.9 Chronic kidney disease, unspecified

== ENCOUNTER → 2024-01-26 | Outpatient (REF) | payer OTHER | LOC: M LAB REF 16:59 | PROVIDERS: ATTEND Nurse Practitioner Adult Health | DX: Z20.828 Contact with and (suspected) exposure to other viral communicable diseases (principal) ==

== ENCOUNTER → 2024-02-16 | Outpatient (CLI) | payer OTHER ==
[~2024-02-16] MED LIST changes: +DOXY-323 PO; -DOXY-443 PO; +RAMI1.258 PO; -RAMI1CAP21 PO
== END ==
LOC: M SOG 07:59
PROVIDERS: ATTEND Orthopaedic Surgery
DX: M17.12 Unilateral primary osteoarthritis, left knee (principal)

== ENCOUNTER 2024-04-10 17:04 | Inpatient (IN) | payer OTHER ==
[~2024-04-10] VITALS: Ht 165.1 cm; Wt 91.8 kg
[2024-04-10 17:52] LABS: BASO % 0.5 % (0.0-1.0); EOS # 0.2 10^3/uL (0.0-0.5); EOS % 2.7 % (0.0-3.0); HEMATOCRIT 38.5 % (36.0-47.0); LYMPH # 1.3 10^3/uL (1.5-5.0); LYMPH % 19.9 % (24.0-44.0); MEAN CORPUSCULAR HEMOGLOBIN 29.8 pg (27.0-33.0); MEAN CORPUSCULAR HGB CONC 31.2 g/dl (32.0-36.5); MEAN CORPUSCULAR VOLUME 95.5 fl (80.0-96.0); MONO # 0.6 10^3/uL (0.0-0.8); MONO % 8.3 % (2.0-8.0); NEUTROPHILS # 4.5 10^3/uL (1.5-8.5); NEUTROPHILS % 68.3 % (36.0-66.0); PLATELET COUNT, AUTOMATED 184 10^3/uL (150-450); RED BLOOD COUNT 4.03 10^6/uL (4.00-5.40); WHITE BLOOD COUNT 6.6 10^3/uL (4.0-10.0)
[2024-04-10 18:09] LABS: INR 1.35; PROTHROMBIN TIME 16.3 SECONDS (12.5-14.5)
[2024-04-10 19:12] LABS: ALBUMIN 3.3 G/DL (3.2-5.2); BILIRUBIN,DIRECT 0.1 MG/DL (<0.4); BILIRUBIN,TOTAL 0.3 MG/DL (0.3-1.2); CALCIUM LEVEL 8.3 MG/DL (8.3-10.6); CREATININE FOR GFR 1.87 MG/DL (0.55-1.30); GLOMERULAR FILTRATION RATE 27.6 (>32); MAGNESIUM LEVEL 1.8 MG/DL (1.8-2.4); POTASSIUM SERUM 3.8 MMOL/L (3.5-5.1)
[2024-04-10 19:13] LABS: CK-MB VALUE MASS 2.3 NG/ML (<3.6); MB/CK RELATIVE INDEX 3.1 (< OR =4)
[2024-04-10 19:17] LABS: FREE T4 1.68 NG/DL (0.89-1.76); THYROID STIMULATING HORMONE 0.854 uIU/ML (0.55-4.78)
[2024-04-10 20:13] LABS: CK-MB VALUE MASS 1.2 NG/ML (<3.6)
[2024-04-10 20:16] LABS: MB/CK RELATIVE INDEX 1.53 (< OR =4)
[2024-04-10] MEDS ORDERED: MOM 30ML SUSPENSION UDC PO PRN (22:30)
[2024-04-10] MEDS ORDERED: ATOR40TA75 PO (22:37)
[2024-04-10] MEDS ORDERED: AMLO1TAB25 PO (22:37)
[2024-04-10] MEDS ORDERED: LISI40TA4 PO (22:37)
[2024-04-10] MEDS ORDERED: STIO1AER INH (22:37)
[2024-04-10] MEDS ORDERED: PARO40TA2 PO (22:37)
[2024-04-10] MEDS ORDERED: IPRA0.00 NEB (22:40)
[2024-04-10] MEDS ORDERED: HOME MED LIST COMPLETE! XX SCH (22:45)
[2024-04-11] MEDS: POTASSIUM CHLORIDE 10MEQ SR TABLET PO SCH (02:28)
[2024-04-11] MEDS: LR 1,000 ML IV SCH (06:20)
[2024-04-11] MEDS: ceFAZolin SOD 2 GM in IV 1 EA IV ONE (06:21)
[2024-04-11 07:17] LABS: HEMATOCRIT 37.9 % (36.0-47.0); HEMOGLOBIN 12.2 g/dl (12.0-15.5); MEAN CORPUSCULAR HEMOGLOBIN 30.1 pg (27.0-33.0); MEAN CORPUSCULAR HGB CONC 32.2 g/dl (32.0-36.5); MEAN CORPUSCULAR VOLUME 93.6 fl (80.0-96.0); PLATELET COUNT, AUTOMATED 183 10^3/uL (150-450); RED BLOOD COUNT 4.05 10^6/uL (4.00-5.40); WHITE BLOOD COUNT 6.1 10^3/uL (4.0-10.0)
[2024-04-11] MEDS: LEVOTHYROXINE 150MCG TABLET (0.15MG) PO SCH (07:41)
[2024-04-11] MEDS: LEVOTHYROXINE 25MCG TABLET (0.025MG) PO SCH (07:41)
[2024-04-11 07:50] LABS: ALBUMIN 3.5 G/DL (3.2-5.2); BILIRUBIN,TOTAL 0.7 MG/DL (0.3-1.2); CALCIUM LEVEL 9.3 MG/DL (8.3-10.6); CREATININE FOR GFR 1.66 MG/DL (0.55-1.30); GLOMERULAR FILTRATION RATE 31.6 (>32); POTASSIUM SERUM 4.3 MMOL/L (3.5-5.1); TOTAL PROTEIN 6.4 G/DL (5.7-8.2)
[2024-04-11] MEDS: HEPARIN SOD (PORCINE) 5000UNITS/ML 1ML VIAL/SYRINGE SC SCH (09:00)
[2024-04-11] MEDS: FUROSEMIDE 40 MG TAB PO SCH (09:00)
[2024-04-11] MEDS: ATORVASTATIN 20 MG TAB PO SCH (09:00)
[2024-04-11] MEDS: lisinopriL 40MG TAB PO SCH (09:00)
[2024-04-11] MEDS: DOCUSATE SODIUM 100MG CAPSULE PO SCH (09:00)
[2024-04-11] MEDS: PARoxetine 20MG TABLET PO SCH (09:00)
[2024-04-11] MEDS: PANTOPRAZOLE 40MG VIAL IV SCH (10:46)
[2024-04-11] MEDS ORDERED: ONDANSETRON 4MG 2ML VIAL As Ordered ONE (14:31)
[2024-04-11] MEDS ORDERED: fentaNYL 100 MCG/2 ML INJECTION As Ordered ONE (14:31)
[2024-04-11] MEDS ORDERED: propofoL 200 MG/20 ML VIAL As Ordered ONE (14:32)
[2024-04-11] MEDS ORDERED: LIDOCAINE 2% 100MG/5ML SDV (FOR ANES.) As Ordered ONE (14:33)
[2024-04-11] MEDS ORDERED: ACETAMINOPHEN 1000MG 100ML IV BAG As Ordered ONE (14:37)
[2024-04-11] MEDS ORDERED: dexmedeTOMIDine (4MCG/ML)200MCG/50ML BTL (PRECEDEX) As Ordered ONE (14:37)
[2024-04-11] MEDS: ISOVUE-300 61% 100ML VIAL As Ordered ONE (14:52)
[2024-04-11] MEDS: ceFAZolin 2 GM/D5W 50 ML IV BAG As Ordered ONE (15:27)
[2024-04-11] MEDS: LIDOCAINE 1% SDV 30ML VIAL As Ordered ONE (15:32)
[2024-04-11] MEDS ORDERED: LR 1,000 ML IV SCH (18:00)
[2024-04-11] MEDS ORDERED: ONDANSETRON 4MG 2ML VIAL IV PRN (18:00)
[2024-04-11] MEDS ORDERED: oxyCODONE 5MG TAB PO PRN (18:00)
[2024-04-11 19:00] VITALS: BP 170/84; TEMP 97.1; O2SAT 92
[2024-04-11 20:30] VITALS: BP 156/75; TEMP 96.6; O2SAT 95
[2024-04-11] MEDS: MAGNESIUM OXIDE 400MG TAB (MAG-OX) PO SCH (20:58)
[2024-04-11] MEDS: ACETAMINOPHEN 500 MG TAB PO ONE (22:45)
[2024-04-11] MEDS: ceFAZolin SOD 1 GM in D5W MINI-BAG PLUS 50 ML IV SCH (22:46)
[2024-04-12] VITALS: BP 132/61; TEMP 96.7; O2SAT 92
[2024-04-12 04:00] VITALS: BP 164/77; TEMP 96.7; O2SAT 96
[2024-04-12 05:30] LABS: HEMATOCRIT 38.7 % (36.0-47.0); HEMOGLOBIN 12.6 g/dl (12.0-15.5); LYMPH # 0.4 10^3/uL (1.5-5.0); LYMPH % 4.9 % (24.0-44.0); MEAN CORPUSCULAR HEMOGLOBIN 30.1 pg (27.0-33.0); MEAN CORPUSCULAR HGB CONC 32.6 g/dl (32.0-36.5); MEAN CORPUSCULAR VOLUME 92.6 fl (80.0-96.0); MONO # 0.3 10^3/uL (0.0-0.8); MONO % 3.2 % (2.0-8.0); NEUTROPHILS # 8.1 10^3/uL (1.5-8.5); NEUTROPHILS % 91.4 % (36.0-66.0); PLATELET COUNT, AUTOMATED 170 10^3/uL (150-450); RED BLOOD COUNT 4.18 10^6/uL (4.00-5.40); WHITE BLOOD COUNT 8.8 10^3/uL (4.0-10.0)
[2024-04-12 05:48] LABS: CALCIUM LEVEL 9.2 MG/DL (8.3-10.6); CREATININE FOR GFR 1.41 MG/DL (0.55-1.30); GLOMERULAR FILTRATION RATE 38.2 (>32); POTASSIUM SERUM 4.5 MMOL/L (3.5-5.1)
[2024-04-12 07:51] VITALS: BP 162/73; TEMP 98; O2SAT 95
[2024-04-12 09:33] VITALS: BP 162/73
[2024-04-12 11:25] VITALS: BP 141/69; TEMP 97.9; O2SAT 93
[2024-04-12] MEDS ORDERED: CARV6.25 PO (12:52)
== END 2024-04-12 13:42 | disposition home or self-care (01) | DRG 243 ==
LOC: M ED 17:04 → M ED INP 22:29 → M PCU 04-11 18:45
PROVIDERS: ADMIT Family Medicine; ATTEND Family Medicine
PROC: 02HK3JZ Insertion of Pacemaker Lead into Right Ventricle, Percutaneous Approach (ICD-10-PCS; 2024-04-11)
PROC: 02H63JZ Insertion of Pacemaker Lead into Right Atrium, Percutaneous Approach (ICD-10-PCS; 2024-04-11)
PROC: 0JH606Z Insertion of Pacemaker, Dual Chamber into Chest Subcutaneous Tissue and Fascia, Open Approach (ICD-10-PCS; principal; 2024-04-11 16:00)
DX: I44.1 Atrioventricular block, second degree (principal); I13.0 Hypertensive heart and chronic kidney disease with heart failure and stage 1 through stage 4 chronic kidney disease, or unspecified chronic kidney disease; I48.91 Unspecified atrial fibrillation; N18.9 Chronic kidney disease, unspecified; J44.9 Chronic obstructive pulmonary disease, unspecified; E03.9 Hypothyroidism, unspecified; I50.9 Heart failure, unspecified; G47.33 Obstructive sleep apnea (adult) (pediatric); F41.9 Anxiety disorder, unspecified; F32.A Depression, unspecified; K21.9 Gastro-esophageal reflux disease without esophagitis; I25.10 Atherosclerotic heart disease of native coronary artery without angina pectoris; Z98.49 Cataract extraction status, unspecified eye; Z90.49 Acquired absence of other specified parts of digestive tract; Z96.651 Presence of right artificial knee joint; Z90.79 Acquired absence of other genital organ(s); Z87.891 Personal history of nicotine dependence; Z79.01 Long term (current) use of anticoagulants; Z79.890 Hormone replacement therapy; Z79.52 Long term (current) use of systemic steroids; Z79.899 Other long term (current) drug therapy; I44.7 Left bundle-branch block, unspecified

== ENCOUNTER → 2024-05-18 | Outpatient (CLI) | payer OTHER ==
[~2024-05-18] MED LIST changes: +IPRA0.00 NEB; +LISI40TA4 PO; +PARO40TA2 PO; +STIO1AER INH
== END ==
LOC: M SOG 07:49
PROVIDERS: ATTEND Orthopaedic Surgery
DX: M17.12 Unilateral primary osteoarthritis, left knee (principal); Z96.651 Presence of right artificial knee joint

== ENCOUNTER → 2024-06-12 | Outpatient (CLI) | payer OTHER ==
[2024-06-12 12:38] LABS: BASO % 0.7 % (0.0-1.0); EOS # 0.2 10^3/uL (0.0-0.5); EOS % 3.3 % (0.0-3.0); HEMATOCRIT 37.2 % (36.0-47.0); HEMOGLOBIN 11.6 g/dl (12.0-15.5); LYMPH # 1.1 10^3/uL (1.5-5.0); LYMPH % 17.3 % (24.0-44.0); MEAN CORPUSCULAR HEMOGLOBIN 29.9 pg (27.0-33.0); MEAN CORPUSCULAR HGB CONC 31.2 g/dl (32.0-36.5); MEAN CORPUSCULAR VOLUME 95.9 fl (80.0-96.0); MONO # 0.6 10^3/uL (0.0-0.8); MONO % 10.3 % (2.0-8.0); NEUTROPHILS # 4.2 10^3/uL (1.5-8.5); NEUTROPHILS % 68.2 % (36.0-66.0); PLATELET COUNT, AUTOMATED 203 10^3/uL (150-450); RED BLOOD COUNT 3.88 10^6/uL (4.00-5.40); WHITE BLOOD COUNT 6.1 10^3/uL (4.0-10.0)
[2024-06-12 13:08] LABS: FREE T4 1.73 NG/DL (0.89-1.76)
[2024-06-12 13:09] LABS: ALBUMIN 3.5 G/DL (3.2-5.2); BILIRUBIN,TOTAL 0.4 MG/DL (0.3-1.2); CHOLESTEROL RISK RATIO 2.68 (<5); CREATININE FOR GFR 2.14 MG/DL (0.55-1.30); GLOMERULAR FILTRATION RATE 23.6 (>32); HDL CHOLESTEROL 61.5 MG/DL (>40); LDL CHOLESTEROL 78.7 MG/DL (<100); NON-HDL-C 103.5 MG/DL; POTASSIUM SERUM 4.8 MMOL/L (3.5-5.1); THYROID STIMULATING HORMONE 0.904 uIU/ML (0.55-4.78); TOTAL PROTEIN 6.7 G/DL (5.7-8.2)
== END ==
LOC: M PLALAB 09:19
PROVIDERS: ATTEND Nurse Practitioner Adult Health
DX: J44.1 Chronic obstructive pulmonary disease with (acute) exacerbation (principal); E78.00 Pure hypercholesterolemia, unspecified; E07.9 Disorder of thyroid, unspecified; Z79.01 Long term (current) use of anticoagulants; M17.12 Unilateral primary osteoarthritis, left knee; I48.91 Unspecified atrial fibrillation; I13.0 Hypertensive heart and chronic kidney disease with heart failure and stage 1 through stage 4 chronic kidney disease, or unspecified chronic kidney disease; E78.2 Mixed hyperlipidemia; E03.9 Hypothyroidism, unspecified; Z79.899 Other long term (current) drug therapy

== ENCOUNTER → 2024-06-12 | Outpatient (CLI) | payer OTHER ==
[2024-06-12 12:50] LABS: BASO % 0.5 % (0.0-1.0); EOS # 0.2 10^3/uL (0.0-0.5); EOS % 3.3 % (0.0-3.0); HEMATOCRIT 37.1 % (36.0-47.0); HEMOGLOBIN 11.8 g/dl (12.0-15.5); LYMPH # 1.1 10^3/uL (1.5-5.0); LYMPH % 17.1 % (24.0-44.0); MEAN CORPUSCULAR HEMOGLOBIN 30.5 pg (27.0-33.0); MEAN CORPUSCULAR HGB CONC 31.8 g/dl (32.0-36.5); MEAN CORPUSCULAR VOLUME 95.9 fl (80.0-96.0); MONO # 0.6 10^3/uL (0.0-0.8); NEUTROPHILS # 4.2 10^3/uL (1.5-8.5); NEUTROPHILS % 68.9 % (36.0-66.0); PLATELET COUNT, AUTOMATED 197 10^3/uL (150-450); RED BLOOD COUNT 3.87 10^6/uL (4.00-5.40); WHITE BLOOD COUNT 6.1 10^3/uL (4.0-10.0)
[2024-06-12 13:03] LABS: INR 2.08; PROTHROMBIN TIME 22.6 SECONDS (12.5-14.5)
[2024-06-12 13:07] LABS: ALBUMIN 3.8 G/DL (3.2-5.2); BILIRUBIN,TOTAL 0.4 MG/DL (0.3-1.2); CALCIUM LEVEL 9.1 MG/DL (8.3-10.6); CREATININE FOR GFR 2.13 MG/DL (0.55-1.30); GLOMERULAR FILTRATION RATE 23.7 (>32); POTASSIUM SERUM 4.6 MMOL/L (3.5-5.1); TOTAL PROTEIN 6.6 G/DL (5.7-8.2)
[2024-06-12 13:12] LABS: HEMOGLOBIN A1c 5.1 % (4.0-6.0)
== END ==
LOC: M PLALAB 09:22
PROVIDERS: ATTEND Orthopaedic Surgery
DX: M17.12 Unilateral primary osteoarthritis, left knee (principal); Z79.01 Long term (current) use of anticoagulants

== ENCOUNTER 2024-07-10 17:54 | Emergency (ER) | payer OTHER ==
[~2024-07-10] VITALS: Ht 162.6 cm; Wt 90.4 kg
[2024-07-10 19:46] VITALS: BP 146/63; TEMP 96.8; O2SAT 98
== END 2024-07-10 19:49 | disposition home or self-care (01) ==
LOC: M ED 17:54 → EDBD 17:54 → M ED 19:49
DX: S06.0X0A Concussion without loss of consciousness, initial encounter (principal); Y92.019 Unspecified place in single-family (private) house as the place of occurrence of the external cause; Y93.9 Activity, unspecified; Y99.9 Unspecified external cause status; W01.0XXA Fall on same level from slipping, tripping and stumbling without subsequent striking against object, initial encounter; E03.9 Hypothyroidism, unspecified; J44.9 Chronic obstructive pulmonary disease, unspecified; I48.91 Unspecified atrial fibrillation; I50.22 Chronic systolic (congestive) heart failure; E78.5 Hyperlipidemia, unspecified; Z79.1 Long term (current) use of non-steroidal anti-inflammatories (NSAID); Z79.01 Long term (current) use of anticoagulants; Z79.51 Long term (current) use of inhaled steroids; Z79.899 Other long term (current) drug therapy

== ENCOUNTER → 2024-07-20 | Outpatient (REF) | payer OTHER ==
[~2024-07-20] MED LIST changes: -DOXY-323 PO; +DOXY-441 PO; +GABA-1172 PO; -GABA-282 PO
[2024-07-20 19:03] LABS: FREE T4 1.81 NG/DL (0.89-1.76)
[2024-07-20 19:04] LABS: THYROID STIMULATING HORMONE 1.309 uIU/ML (0.55-4.78)
== END ==
LOC: M LAB REF 17:44
PROVIDERS: ATTEND Internal Medicine Nephrology
DX: E03.9 Hypothyroidism, unspecified (principal)

== ENCOUNTER → 2024-07-21 | Outpatient (CLI) | payer OTHER | LOC: M WHC 09:57 | PROVIDERS: ATTEND Nurse Practitioner Adult Health | DX: Z12.31 Encounter for screening mammogram for malignant neoplasm of breast (principal) ==

== ENCOUNTER → 2024-09-04 | Outpatient (CLI) | payer OTHER ==
[~2024-09-04] MED LIST changes: +NYST1POW3 TOP; -NYST1POW9 TOP
== END ==
LOC: M RAD 09:13
PROVIDERS: ATTEND Orthopaedic Surgery
DX: M17.12 Unilateral primary osteoarthritis, left knee (principal)

== ENCOUNTER 2024-09-07 08:04 | Outpatient (RCR) | payer OTHER | END 2024-09-16 | LOC: M PT 08:04 | PROVIDERS: ATTEND Orthopaedic Surgery | DX: M17.12 Unilateral primary osteoarthritis, left knee (principal) ==

== ENCOUNTER → 2024-09-07 | Outpatient (CLI) | payer OTHER ==
[2024-09-07 09:59] LABS: BASO % 0.5 % (0.0-1.0); EOS # 0.1 10^3/uL (0.0-0.5); EOS % 2.1 % (0.0-3.0); HEMATOCRIT 38.3 % (36.0-47.0); LYMPH # 0.9 10^3/uL (1.5-5.0); LYMPH % 14.6 % (24.0-44.0); MEAN CORPUSCULAR HEMOGLOBIN 28.9 pg (27.0-33.0); MEAN CORPUSCULAR HGB CONC 31.3 g/dl (32.0-36.5); MEAN CORPUSCULAR VOLUME 92.3 fl (80.0-96.0); MONO # 0.5 10^3/uL (0.0-0.8); MONO % 8.4 % (2.0-8.0); NEUTROPHILS # 4.5 10^3/uL (1.5-8.5); NEUTROPHILS % 74.1 % (36.0-66.0); PLATELET COUNT, AUTOMATED 196 10^3/uL (150-450); RED BLOOD COUNT 4.15 10^6/uL (4.00-5.40); WHITE BLOOD COUNT 6.1 10^3/uL (4.0-10.0)
[2024-09-07 10:11] LABS: HEMOGLOBIN A1c 5.1 % (4.0-6.0)
[2024-09-07 11:02] LABS: ALBUMIN 3.4 G/DL (3.2-5.2); BILIRUBIN,TOTAL 0.4 MG/DL (0.3-1.2); CALCIUM LEVEL 9.2 MG/DL (8.3-10.6); CREATININE FOR GFR 1.71 MG/DL (0.55-1.30); GLOMERULAR FILTRATION RATE 30.6 (>32); POTASSIUM SERUM 4.3 MMOL/L (3.5-5.1); TOTAL PROTEIN 6.7 G/DL (5.7-8.2)
== END ==
LOC: M LAB 09:13
PROVIDERS: ATTEND Orthopaedic Surgery
DX: M17.12 Unilateral primary osteoarthritis, left knee (principal)

== ENCOUNTER 2024-09-19 06:27 | Observation (INO) | payer OTHER ==
[2024-09-19] VITALS (9 sets, daily range): BP systolic 112–134; BP diastolic 58–92; TEMP 97.3–99; O2SAT 92–100
[~2024-09-19] VITALS: Ht 165.1 cm; Wt 90.7 kg
[2024-09-19] MEDS: NS (Normal Saline) 0.9% 1,000 ML IV SCH ×2 (06:45→10:50)
[2024-09-19] MEDS ORDERED: propofoL 200 MG/20 ML VIAL As Ordered ONE (07:02)
[2024-09-19] MEDS ORDERED: fentaNYL 100 MCG/2 ML INJECTION As Ordered ONE (07:02)
[2024-09-19] MEDS ORDERED: SUGAMMADEX SODIUM 500 MG/5 ML VIAL (BRIDION) As Ordered ONE (07:02)
[2024-09-19] MEDS ORDERED: ACETAMINOPHEN 1000MG/100ML IV BAG As Ordered ONE (07:02)
[2024-09-19] MEDS ORDERED: LIDOCAINE 2% 100MG/5ML SDV (FOR ANES.) As Ordered ONE (07:02)
[2024-09-19] MEDS ORDERED: ONDANSETRON 4MG 2ML VIAL As Ordered ONE (07:02)
[2024-09-19] MEDS ORDERED: ROCURONIUM BROMIDE 50MG/5ML VIAL As Ordered ONE (07:02)
[2024-09-19] MEDS ORDERED: ETOMIDATE INJ 20MG/10ML VIAL As Ordered ONE (07:02)
[2024-09-19] MEDS ORDERED: MIDAZOLAM INJ 2MG/2ML VIAL As Ordered ONE (07:24)
[2024-09-19] MEDS ORDERED: dexmedeTOMIDine (4MCG/ML)200MCG/50ML BTL (PRECEDEX) As Ordered ONE (07:24)
[2024-09-19] MEDS: ceFAZolin SOD 2 GM in IV 1 EA IV ONE (08:05)
[2024-09-19] MEDS: TRANEXAMIC ACID 100 MG/ML 10ML VIAL As Ordered ONE (08:15)
[2024-09-19] MEDS: REK 50ML SYRINGE IA ONE (09:50)
[2024-09-19] MEDS: TRANEXAMIC ACID 100 MG/ML 10ML VIAL IV ONE (09:51)
[2024-09-19] MEDS ORDERED: ONDANSETRON 4MG 2ML VIAL IV PRN (10:25)
[2024-09-19] MEDS ORDERED: COMBIVENT RESPIMAT 100-20MCG INHALER 4GM INH PRN (10:30)
[2024-09-19] MEDS ORDERED: ePHEDrine SULFATE 25 MG/5 ML(5MG/ML) SYRINGE As Ordered ONE (10:42)
[2024-09-19] MEDS ORDERED: PHENYLephrine 500MCG 5ML (100MCG/ML) SYRINGE As Ordered ONE (10:42)
[2024-09-19] MEDS ORDERED: HYDROMORPHONE HCL 0.5 MG/ 0.5 ML SYRINGE IV PRN (10:50)
[2024-09-19] MEDS: MEPERIDINE 25 MG/ML 1ML VIAL IV PRN (11:44)
[2024-09-19] MEDS: oxyCODONE 5MG TAB PO PRN ×2 (11:45→16:35)
[2024-09-19] MEDS: ONDANSETRON 4MG 2ML VIAL IV PRN (11:50)
[2024-09-19] MEDS: fentaNYL 100 MCG/2 ML INJECTION IV PRN (11:51)
[2024-09-19] MEDS ORDERED: DOCU100C16 PO (16:29)
[2024-09-19] MEDS: ceFAZolin SOD 2 GM in IV 1 EA IV SCH (16:29)
[2024-09-19] MEDS ORDERED: HOME MED LIST COMPLETE! XX SCH (16:30)
[2024-09-19] MEDS: ACETAMINOPHEN 325 MG TAB PO SCH (17:15)
[2024-09-19] MEDS: DOCUSATE SODIUM 100MG CAPSULE PO SCH (20:32)
[2024-09-19] MEDS: POTASSIUM CHLORIDE 10MEQ SR TABLET PO SCH (20:32)
[2024-09-19] MEDS: CARVedilol 6.25 MG TAB PO SCH (20:32)
[2024-09-20] VITALS: BP 114/58; TEMP 97.7; O2SAT 93
[2024-09-20 04:00] VITALS: BP 106/85; TEMP 98.2; O2SAT 96
[2024-09-20] MEDS: LEVOTHYROXINE 25MCG TABLET (0.025MG) PO SCH (05:06)
[2024-09-20] MEDS: LEVOTHYROXINE 150MCG TABLET (0.15MG) PO SCH (05:06)
[2024-09-20 06:07] LABS: HEMATOCRIT 28.1 % (36.0-47.0); HEMOGLOBIN 8.8 g/dl (12.0-15.5); MEAN CORPUSCULAR HEMOGLOBIN 29.5 pg (27.0-33.0); MEAN CORPUSCULAR HGB CONC 31.3 g/dl (32.0-36.5); MEAN CORPUSCULAR VOLUME 94.3 fl (80.0-96.0); PLATELET COUNT, AUTOMATED 144 10^3/uL (150-450); RED BLOOD COUNT 2.98 10^6/uL (4.00-5.40); WHITE BLOOD COUNT 10.6 10^3/uL (4.0-10.0)
[2024-09-20 06:40] LABS: ALBUMIN 2.6 G/DL (3.2-5.2); ALKALINE PHOSPHATASE 88 U/L (35-104); ALT/SGPT < 9 U/L (7.0-40); AST/SGOT 15 U/L (<34); BILIRUBIN,TOTAL 0.2 MG/DL (0.3-1.2); BLOOD UREA NITROGEN 29 MG/DL (9-23); CALCIUM LEVEL 8.3 MG/DL (8.3-10.6); CARBON DIOXIDE LEVEL 25 MMOL/L (20-31); CHLORIDE LEVEL 105 MMOL/L (98-107); CREATININE FOR GFR 1.97 MG/DL (0.55-1.30); GLUCOSE, FASTING 120 MG/DL (74-106); POTASSIUM SERUM 3.9 MMOL/L (3.5-5.1); SODIUM LEVEL 138 MMOL/L (136-145); TOTAL PROTEIN 5.4 G/DL (5.7-8.2)
[2024-09-20 08:00] VITALS: BP 116/72; TEMP 97.9; O2SAT 94
[2024-09-20] MEDS ORDERED: RIVAROXABAN 10MG TAB (XARELTO) PO SCH (09:00)
[2024-09-20] MEDS: AMIODARONE 200 MG TAB (PACERONE) PO SCH (09:39)
[2024-09-20] MEDS: FERROUS SULFATE 325MG TAB PO SCH (09:39)
[2024-09-20] MEDS: FUROSEMIDE 40 MG TAB PO SCH (09:41)
[2024-09-20] MEDS: ASCORBIC ACID 500 MG TAB PO SCH (09:42)
[2024-09-20] MEDS: PARoxetine 20MG TABLET PO SCH (09:42)
[2024-09-20] MEDS: ATORVASTATIN 20 MG TAB PO SCH (09:42)
[2024-09-20] MEDS: OMEPRAZOLE 20MG CAP PO SCH (09:44)
[2024-09-20] MEDS: oxyCODONE 5MG TAB PO PRN (10:47)
[2024-09-20 12:00] VITALS: BP 138/64; TEMP 98.4; O2SAT 97
[2024-09-20] MEDS: CEFDINIR 300 MG CAP (OMNICEF) PO SCH (12:26)
[2024-09-20 16:00] VITALS: BP 154/72; TEMP 98.8; O2SAT 96
[2024-09-20] MEDS: RIVAROXABAN 15MG TAB (XARELTO) PO SCH (17:09)
[2024-09-20 20:08] VITALS: BP 137/61; TEMP 98.4; O2SAT 91
[2024-09-21] VITALS: BP 131/61; TEMP 97.5; O2SAT 96
[2024-09-21 04:00] VITALS: BP 130/67; TEMP 97.7; O2SAT 94
[2024-09-21 06:40] LABS: HEMATOCRIT 29.5 % (36.0-47.0); HEMOGLOBIN 9.2 g/dl (12.0-15.5); MEAN CORPUSCULAR HEMOGLOBIN 29.2 pg (27.0-33.0); MEAN CORPUSCULAR HGB CONC 31.2 g/dl (32.0-36.5); MEAN CORPUSCULAR VOLUME 93.7 fl (80.0-96.0); PLATELET COUNT, AUTOMATED 150 10^3/uL (150-450); RED BLOOD COUNT 3.15 10^6/uL (4.00-5.40); WHITE BLOOD COUNT 12.3 10^3/uL (4.0-10.0)
[2024-09-21 07:14] LABS: ALBUMIN 2.5 G/DL (3.2-5.2); ALKALINE PHOSPHATASE 103 U/L (35-104); ALT/SGPT < 9 U/L (7.0-40); AST/SGOT 21 U/L (<34); BILIRUBIN,TOTAL 0.3 MG/DL (0.3-1.2); BLOOD UREA NITROGEN 27 MG/DL (9-23); CALCIUM LEVEL 8.3 MG/DL (8.3-10.6); CARBON DIOXIDE LEVEL 26 MMOL/L (20-31); CHLORIDE LEVEL 104 MMOL/L (98-107); CREATININE FOR GFR 1.58 MG/DL (0.55-1.30); GLOMERULAR FILTRATION RATE 33.5 (>32); GLUCOSE, FASTING 120 MG/DL (74-106); POTASSIUM SERUM 3.9 MMOL/L (3.5-5.1); SODIUM LEVEL 137 MMOL/L (136-145); TOTAL PROTEIN 5.5 G/DL (5.7-8.2)
[2024-09-21 12:00] VITALS: BP 105/52; TEMP 97.7; O2SAT 91
[2024-09-21 20:20] VITALS: BP 142/59; TEMP 98.1; O2SAT 97
[2024-09-22 04:20] VITALS: BP 124/54; TEMP 97.7; O2SAT 95
[2024-09-22 07:40] VITALS: BP 133/59; TEMP 98.6; O2SAT 96
[2024-09-22 08:05] LABS: ALBUMIN 2.1 G/DL (3.2-5.2); ALKALINE PHOSPHATASE 101 U/L (35-104); ALT/SGPT < 9 U/L (7.0-40); AST/SGOT 15 U/L (<34); BILIRUBIN,TOTAL 0.5 MG/DL (0.3-1.2); BLOOD UREA NITROGEN 24 MG/DL (9-23); CALCIUM LEVEL 8.1 MG/DL (8.3-10.6); CARBON DIOXIDE LEVEL 25 MMOL/L (20-31); CHLORIDE LEVEL 104 MMOL/L (98-107); CREATININE FOR GFR 1.36 MG/DL (0.55-1.30); GLOMERULAR FILTRATION RATE 39.8 (>32); GLUCOSE, FASTING 103 MG/DL (74-106); POTASSIUM SERUM 3.8 MMOL/L (3.5-5.1); SODIUM LEVEL 136 MMOL/L (136-145); TOTAL PROTEIN 5.2 G/DL (5.7-8.2)
[2024-09-22 08:30] LABS: HEMATOCRIT 30.7 % (36.0-47.0); HEMOGLOBIN 9.6 g/dl (12.0-15.5); MEAN CORPUSCULAR HGB CONC 31.3 g/dl (32.0-36.5); MEAN CORPUSCULAR VOLUME 92.7 fl (80.0-96.0); PLATELET COUNT, AUTOMATED 163 10^3/uL (150-450); RED BLOOD COUNT 3.31 10^6/uL (4.00-5.40); WHITE BLOOD COUNT 12.3 10^3/uL (4.0-10.0)
[2024-09-22 11:36] VITALS: BP 129/51; TEMP 97.9; O2SAT 96
[2024-09-22 12:00] VITALS: BP 144/63; TEMP 97.9; O2SAT 100
[2024-09-22] MEDS ORDERED: **hydrALAZINE** 50 MG TAB PO ONE (16:25)
[2024-09-22 20:21] VITALS: BP 120/50; TEMP 98.2; O2SAT 95
[2024-09-22] MEDS: CEFDINIR 300 MG CAP (OMNICEF) PO SCH (20:30)
[2024-09-23 04:20] VITALS: BP 131/55; TEMP 97.7; O2SAT 97
[2024-09-23 12:00] VITALS: BP 130/103; TEMP 97.7; O2SAT 99
[2024-09-23 12:05] VITALS: BP 130/62
[2024-09-23] MEDS: SENNA 8.6 MG TAB (SENOKOT) PO PRN (20:54)
[2024-09-23 20:58] VITALS: BP 130/58; TEMP 97.5; O2SAT 96
[2024-09-24 04:00] VITALS: BP 159/79; TEMP 98.2; O2SAT 96
[2024-09-24 10:04] LABS: HEMATOCRIT 27.5 % (36.0-47.0); HEMOGLOBIN 8.6 g/dl (12.0-15.5); MEAN CORPUSCULAR HEMOGLOBIN 29.5 pg (27.0-33.0); MEAN CORPUSCULAR HGB CONC 31.3 g/dl (32.0-36.5); MEAN CORPUSCULAR VOLUME 94.2 fl (80.0-96.0); PLATELET COUNT, AUTOMATED 189 10^3/uL (150-450); RED BLOOD COUNT 2.92 10^6/uL (4.00-5.40); WHITE BLOOD COUNT 5.9 10^3/uL (4.0-10.0)
[2024-09-24 10:35] LABS: BILIRUBIN,TOTAL 0.6 MG/DL (0.3-1.2); CALCIUM LEVEL 8.2 MG/DL (8.3-10.6); CREATININE FOR GFR 1.36 MG/DL (0.55-1.30); GLOMERULAR FILTRATION RATE 39.8 (>32); POTASSIUM SERUM 3.9 MMOL/L (3.5-5.1); TOTAL PROTEIN 5.3 G/DL (5.7-8.2)
[2024-09-24 12:00] VITALS: BP 149/55; TEMP 97.9; O2SAT 100
[2024-09-24 20:00] VITALS: BP 136/54; TEMP 97.5; O2SAT 96
[2024-09-25 04:00] VITALS: BP 114/75; TEMP 97.7; O2SAT 97
[2024-09-25 08:35] VITALS: BP 127/64
[2024-09-25 12:00] VITALS: BP 127/66; TEMP 97.9; O2SAT 99
== END 2024-09-25 15:00 ==
LOC: M SDC 06:27 → M RR INP 06:28 → M MSPAV 13:38
PROVIDERS: ADMIT Orthopaedic Surgery; ATTEND Orthopaedic Surgery
DX: M17.12 Unilateral primary osteoarthritis, left knee (principal); M25.762 Osteophyte, left knee; R33.9 Retention of urine, unspecified; Z95.0 Presence of cardiac pacemaker; I48.0 Paroxysmal atrial fibrillation; G47.30 Sleep apnea, unspecified; F41.9 Anxiety disorder, unspecified; Z90.49 Acquired absence of other specified parts of digestive tract; Z90.89 Acquired absence of other organs; Z98.890 Other specified postprocedural states; Z87.891 Personal history of nicotine dependence; Z79.899 Other long term (current) drug therapy; Z79.01 Long term (current) use of anticoagulants; Z79.890 Hormone replacement therapy
CPT/HCPCS: 27447; 36415; 73560; 80053; 85027; 88300; 96365; 97116; 97161; 97165; 97530; 97535; C1776; G0378; J0131; J0171; J0665; J0690; J1100; J1885; J2175; J2250; J2371; J2405; J2795; J3010; S2900

== ENCOUNTER → 2024-10-02 | Outpatient (CLI) | payer OTHER ==
[~2024-10-02] MED LIST changes: +DOCU100C16 PO
== END ==
LOC: M SOG 07:59
PROVIDERS: ATTEND Orthopaedic Surgery
DX: Z47.1 Aftercare following joint replacement surgery (principal)

== ENCOUNTER → 2025-01-02 | Outpatient (REF) | payer MEDICARE, OTHER | LOC: M LAB REF 10:09 | PROVIDERS: ATTEND Nurse Practitioner Adult Health | DX: A08.32 Astrovirus enteritis (principal); A08.11 Acute gastroenteropathy due to Norwalk agent ==

== ENCOUNTER 2025-02-18 11:29 | Emergency (ER) | payer MEDICARE ==
[~2025-02-18] VITALS: Ht 165.1 cm; Wt 89.4 kg
[2025-02-18 11:32] VITALS: TEMP 97.4
[2025-02-18 12:41] LABS: BASO % 0.4 % (0.0-1.0); EOS # 0.1 10^3/uL (0.0-0.5); EOS % 1.9 % (0.0-3.0); HEMATOCRIT 37.9 % (36.0-47.0); LYMPH # 1.4 10^3/uL (1.5-5.0); LYMPH % 19.5 % (24.0-44.0); MEAN CORPUSCULAR HEMOGLOBIN 29.1 pg (27.0-33.0); MEAN CORPUSCULAR HGB CONC 31.7 g/dl (32.0-36.5); MEAN CORPUSCULAR VOLUME 91.8 fl (80.0-96.0); MONO # 0.7 10^3/uL (0.0-0.8); MONO % 10.1 % (2.0-8.0); NEUTROPHILS # 4.7 10^3/uL (1.5-8.5); PLATELET COUNT, AUTOMATED 182 10^3/uL (150-450); RED BLOOD COUNT 4.13 10^6/uL (4.00-5.40); WHITE BLOOD COUNT 6.9 10^3/uL (4.0-10.0)
[2025-02-18 13:21] LABS: ALBUMIN 3.6 G/DL (3.2-5.2); BILIRUBIN,DIRECT 0.2 MG/DL (<0.4); BILIRUBIN,TOTAL 0.4 MG/DL (0.3-1.2); CALCIUM LEVEL 8.8 MG/DL (8.3-10.6); CREATININE FOR GFR 1.6 MG/DL (0.55-1.30); GLOMERULAR FILTRATION RATE 32.2 (>32); POTASSIUM SERUM 3.7 MMOL/L (3.5-5.1); TOTAL PROTEIN 6.8 G/DL (5.7-8.2)
[2025-02-18 16:45] VITALS: BP 154/68
[2025-02-18 16:46] VITALS: O2SAT 99
== END 2025-02-18 16:53 | disposition home or self-care (01) ==
LOC: M ED 11:29
DX: R19.7 Diarrhea, unspecified (principal); Z79.1 Long term (current) use of non-steroidal anti-inflammatories (NSAID); Z79.01 Long term (current) use of anticoagulants; Z79.51 Long term (current) use of inhaled steroids; Z79.899 Other long term (current) drug therapy

== ENCOUNTER → 2025-02-19 | Outpatient (REF) | payer MEDICARE | LOC: M LAB REF 15:17 | PROVIDERS: ATTEND Emergency Medicine | DX: R19.7 Diarrhea, unspecified (principal) ==

== ENCOUNTER 2025-02-26 11:57 | Emergency (ER) | payer MEDICARE ==
[2025-02-26 12:15] VITALS: TEMP 96.6
[2025-02-26 12:54] LABS: BASO % 0.6 % (0.0-1.0); EOS # 0.1 10^3/uL (0.0-0.5); HEMATOCRIT 41.3 % (36.0-47.0); HEMOGLOBIN 13.3 g/dl (12.0-15.5); LYMPH # 0.9 10^3/uL (1.5-5.0); LYMPH % 14.2 % (24.0-44.0); MEAN CORPUSCULAR HEMOGLOBIN 29.2 pg (27.0-33.0); MEAN CORPUSCULAR HGB CONC 32.2 g/dl (32.0-36.5); MEAN CORPUSCULAR VOLUME 90.6 fl (80.0-96.0); MONO # 0.4 10^3/uL (0.0-0.8); MONO % 6.9 % (2.0-8.0); NEUTROPHILS # 4.8 10^3/uL (1.5-8.5); NEUTROPHILS % 77.1 % (36.0-66.0); PLATELET COUNT, AUTOMATED 181 10^3/uL (150-450); RED BLOOD COUNT 4.56 10^6/uL (4.00-5.40); WHITE BLOOD COUNT 6.2 10^3/uL (4.0-10.0)
[2025-02-26 13:11] LABS: KETONE, URINE AUTO RFX TRACE mg/dL (NEGATIVE); LEUKOCYTE ESTERASE UR AUTO RFX NEGATIVE (NEGATIVE); NITRITE, URINE AUTO RFX NEGATIVE (NEGATIVE); RBC, URINE AUTO RFX 0 /HPF (0-3); SQUAM EPITHELIAL CELL UR AURFX 9 /HPF (0-6); WBC, URINE AUTO RFX 1 /HPF (0-3)
[2025-02-26] MEDS: NS (Normal Saline) 0.9% 1,000 ML IV ONE (13:40)
[2025-02-26 15:57] VITALS: O2SAT 92
[2025-02-26 16:05] VITALS: BP 142/67
== END 2025-02-26 16:30 | disposition home or self-care (01) ==
LOC: EDBD 11:57 → M ED 11:57
DX: R19.7 Diarrhea, unspecified (principal); R53.1 Weakness; I45.81 Long QT syndrome; I10 Essential (primary) hypertension; J44.9 Chronic obstructive pulmonary disease, unspecified; Z86.73 Personal history of transient ischemic attack (TIA), and cerebral infarction without residual deficits; Z79.1 Long term (current) use of non-steroidal anti-inflammatories (NSAID); Z79.01 Long term (current) use of anticoagulants; Z79.51 Long term (current) use of inhaled steroids; Z79.899 Other long term (current) drug therapy

== ENCOUNTER → 2025-04-19 | Outpatient (REF) | payer MEDICARE ==
[~2025-04-19] MED LIST changes: -AMIO200T49 PO; +AMIO200T54 PO; +LISI40TA10 PO; -LISI40TA4 PO
[2025-04-26 18:05] LABS: CALPROTECTIN STOOL 241 mcg/g (<50)
[2025-04-27 01:39] LABS: PANCREATIC ELASTASE STOOL 416 mcg/g (>200)
== END ==
LOC: M LAB REF 10:14
PROVIDERS: ATTEND Physician Assistant Medical
DX: R19.7 Diarrhea, unspecified (principal)

== ENCOUNTER → 2025-05-17 | Outpatient (CLI) | payer MEDICARE ==
[~2025-05-17] MED LIST changes: +ACET-1515 PO; -ACET650T15 PO
== END ==
LOC: M SOG 06:48
PROVIDERS: ATTEND Orthopaedic Surgery
DX: M25.562 Pain in left knee (principal); Z96.652 Presence of left artificial knee joint

== ENCOUNTER → 2025-07-27 | Outpatient (CLI) | payer MEDICARE ==
[~2025-07-27] MED LIST changes: +DICL3GEL13 TD; -DICL3GEL2 TD
== END ==
LOC: M RAD 08:46
PROVIDERS: ATTEND Nurse Practitioner Adult Health
DX: R11.0 Nausea (principal); R63.4 Abnormal weight loss; R19.7 Diarrhea, unspecified

== ENCOUNTER 2025-09-07 09:13 | Outpatient (RCR) | payer MEDICARE ==
[~2025-09-07 09:13] MED LIST changes: +POTA-232 PO; -POTA10TA67 PO
== END 2025-09-16 ==
LOC: M PT 09:13
PROVIDERS: ATTEND Orthopaedic Surgery
DX: M17.12 Unilateral primary osteoarthritis, left knee (principal); Z96.652 Presence of left artificial knee joint

== ENCOUNTER 2025-09-22 13:36 | Inpatient (IN) | payer MEDICARE ==
[~2025-09-22] VITALS: Ht 165.1 cm; Wt 80.6 kg
[2025-09-22] MEDS: IPRATROPIUM 0.5 MG/ALBUTEROL 2.5 MG INH SOL UD 3 ML NEB PRN (14:36)
[2025-09-22 14:42] LABS: BASO # 0.0 10^3/uL (0.0-0.2); BASO % 0.5 % (0.0-1.0); EOS # 0.2 10^3/uL (0.0-0.5); EOS % 2.9 % (0.0-3.0); LYMPH # 1.0 10^3/uL (1.5-5.0); LYMPH % 17.7 % (24.0-44.0); MONO # 0.7 10^3/uL (0.0-0.8); MONO % 11.6 % (2.0-8.0); NEUTROPHILS # 4.0 10^3/uL (1.5-8.5); NEUTROPHILS % 67.1 % (36.0-66.0); PLATELET COUNT, AUTOMATED 189 10^3/uL (150-450)
[2025-09-22 15:00] LABS: THYROXINE (T4) 8.0 UG/DL (4.5-10.9)
[2025-09-22 15:06] LABS: ALT/SGPT 22 U/L (7.0-40); AST/SGOT 31 U/L (<34); CALCIUM LEVEL 7.5 MG/DL (8.3-10.6); CARBON DIOXIDE LEVEL 29 MMOL/L (20-31); CHLORIDE LEVEL 105 MMOL/L (98-107); CREATININE FOR GFR 1.52 MG/DL (0.55-1.30); GLOMERULAR FILTRATION RATE 34.2 (>32); POTASSIUM SERUM 2.9 MMOL/L (3.5-5.1); SODIUM LEVEL 146 MMOL/L (136-145)
[2025-09-22] MEDS: MAG SULF 1GM/100ML (MAG RUN) 1 GM in IV 1 EA IV SCH (15:07)
[2025-09-22 15:23] LABS: MAGNESIUM LEVEL 1.2 MG/DL (1.8-2.4)
[2025-09-22] MEDS: MAG SULF 1GM/100ML (MAG RUN) 1 GM in IV 1 EA IV ONE (16:06)
[2025-09-22] MEDS: POTASSIUM CHLORIDE 10MEQ SR TABLET PO ONE ×2 (16:07→18:33)
[2025-09-22] MEDS ORDERED: ALBUTEROL 90 MCG/ACT 8 GM HFA INHALER INH PRN (16:55)
[2025-09-22] MEDS ORDERED: LOPERAMIDE 2 MG CAPLET PO PRN (16:55)
[2025-09-22] MEDS ORDERED: ALBUTEROL SULFATE 2.5 MG/0.5 ML INH CONCENTRATE NEB SOLN NEB PRN (16:55)
[2025-09-22] MEDS ORDERED: ADVA115A INH (17:13)
[2025-09-22] MEDS ORDERED: PARO20TA4 PO (17:13)
[2025-09-22] MEDS ORDERED: DONE10TA90 PO (17:13)
[2025-09-22] MEDS ORDERED: HOME MED LIST COMPLETE! XX SCH (17:15)
[2025-09-22] MEDS: DOXYCYCLINE HYCLATE 100 MG TABLET PO SCH (18:33)
[2025-09-22] MEDS: IPRATROPIUM 0.5 MG/ALBUTEROL 2.5 MG INH SOL UD 3 ML NEB SCH (20:27)
[2025-09-22] MEDS: ADVAIR HFA 115/21 MCG INHALER INH SCH (20:27)
[2025-09-22 21:40] VITALS: BP 146/74; TEMP 97.3; O2SAT 95
[2025-09-22] MEDS: CYANOCOBALAMIN 500 MCG TAB PO SCH (21:52)
[2025-09-22] MEDS: ATORVASTATIN 20 MG TAB PO SCH (21:53)
[2025-09-22] MEDS: MAGNESIUM OXIDE 400 MG TAB PO SCH (21:53)
[2025-09-22] MEDS: ACETAMINOPHEN 650 MG ER TAB PO PRN (22:31)
[2025-09-22] MEDS: POTASSIUM CHLORIDE 10MEQ SR TABLET PO SCH (22:32)
[2025-09-23 04:00] VITALS: BP_SYST 120; BP_SYST 172; BP_DIAS 56; BP_DIAS 77; TEMP 97.2; TEMP 97.7; O2SAT 95; O2SAT 97
[2025-09-23] MEDS: **hydrALAZINE** 10 MG TAB PO ONE (04:59)
[2025-09-23] MEDS: LEVOTHYROXINE 25 MCG TABLET (0.025MG) PO SCH (05:00)
[2025-09-23] MEDS: LEVOTHYROXINE 150 MCG TABLET (0.15 MG) PO SCH (05:00)
[2025-09-23 06:39] LABS: BASO # 0.0 10^3/uL (0.0-0.2); BASO % 0.0 % (0.0-1.0); EOS # 0.0 10^3/uL (0.0-0.5); EOS % 0.0 % (0.0-3.0); LYMPH # 0.5 10^3/uL (1.5-5.0); LYMPH % 6.8 % (24.0-44.0); MONO # 0.1 10^3/uL (0.0-0.8); MONO % 1.0 % (2.0-8.0); NEUTROPHILS # 6.7 10^3/uL (1.5-8.5); NEUTROPHILS % 91.8 % (36.0-66.0); PLATELET COUNT, AUTOMATED 200 10^3/uL (150-450)
[2025-09-23 07:23] LABS: CALCIUM LEVEL 8.2 MG/DL (8.3-10.6); CARBON DIOXIDE LEVEL 25.0 MMOL/L (20-31); CHLORIDE LEVEL 108.0 MMOL/L (98-107); CREATININE FOR GFR 1.23 MG/DL (0.55-1.30); GLOMERULAR FILTRATION RATE 44.2 (>32); MAGNESIUM LEVEL 2.0 MG/DL (1.8-2.4); POTASSIUM SERUM 4.4 MMOL/L (3.5-5.1); SODIUM LEVEL 143.0 MMOL/L (136-145)
[2025-09-23] MEDS ORDERED: PARoxetine 20MG TABLET PO SCH (09:00)
[2025-09-23] MEDS: FUROSEMIDE 40 MG TAB PO SCH (09:13)
[2025-09-23] MEDS: PARoxetine 20MG TABLET PO SCH (09:13)
[2025-09-23] MEDS: RIVAROXABAN 15MG TAB PO SCH (09:15)
[2025-09-23 12:00] VITALS: BP 144/57; TEMP 97; O2SAT 96
[2025-09-23 20:00] VITALS: BP 163/74; TEMP 97.7; O2SAT 100
[2025-09-24] VITALS (8 sets, daily range): BP systolic 124–193; BP diastolic 60–98; TEMP 97.4–98.2; O2SAT 2–100
[2025-09-24] MEDS: RAMELTEON 8 MG TAB PO PRN (21:35)
[2025-09-25 04:30] VITALS: BP 173/87; TEMP 97.7; O2SAT 98
[2025-09-25 06:00] VITALS: BP 138/80
[2025-09-25 07:38] LABS: BASO # 0.0 10^3/uL (0.0-0.2); BASO % 0.1 % (0.0-1.0); EOS # 0.0 10^3/uL (0.0-0.5); EOS % 0.0 % (0.0-3.0); LYMPH # 0.5 10^3/uL (1.5-5.0); LYMPH % 4.0 % (24.0-44.0); MONO # 0.4 10^3/uL (0.0-0.8); MONO % 3.2 % (2.0-8.0); NEUTROPHILS # 11.4 10^3/uL (1.5-8.5); NEUTROPHILS % 91.6 % (36.0-66.0); PLATELET COUNT, AUTOMATED 248 10^3/uL (150-450)
[2025-09-25 08:12] LABS: CALCIUM LEVEL 8.7 MG/DL (8.3-10.6); CARBON DIOXIDE LEVEL 32.0 MMOL/L (20-31); CHLORIDE LEVEL 101.0 MMOL/L (98-107); CREATININE FOR GFR 1.25 MG/DL (0.55-1.30); GLOMERULAR FILTRATION RATE 43.3 (>32); POTASSIUM SERUM 4.2 MMOL/L (3.5-5.1); SODIUM LEVEL 141.0 MMOL/L (136-145)
[2025-09-25 08:37] VITALS: BP 146/67
[2025-09-25 08:54] VITALS: BP 146/68
[2025-09-25] MEDS ORDERED: PRED10TA2 PO (09:04)
[2025-09-25] MEDS ORDERED: ALBU2.5V10 INH ×2 (09:04→14:56)
[2025-09-25] MEDS ORDERED: AMOX875T2 PO (09:04)
[2025-09-25] MEDS ORDERED: DOXY-440 PO (09:04)
== END 2025-09-25 11:00 | disposition home health service (06) | DRG 191 ==
LOC: EDBD 13:36 → M ED 13:36 → M ED INP 13:37 → M MS4PR 21:15 → OBSVTOIN 09-23 10:00
PROVIDERS: ADMIT Student in an Organized Health Care Education/Training Program; ATTEND Student in an Organized Health Care Education/Training Program
DX: J44.1 Chronic obstructive pulmonary disease with (acute) exacerbation (principal); I13.0 Hypertensive heart and chronic kidney disease with heart failure and stage 1 through stage 4 chronic kidney disease, or unspecified chronic kidney disease; E78.5 Hyperlipidemia, unspecified; I48.91 Unspecified atrial fibrillation; I50.9 Heart failure, unspecified; G47.33 Obstructive sleep apnea (adult) (pediatric); N18.9 Chronic kidney disease, unspecified; F41.9 Anxiety disorder, unspecified; J20.8 Acute bronchitis due to other specified organisms; F32.A Depression, unspecified; J44.0 Chronic obstructive pulmonary disease with (acute) lower respiratory infection; K58.0 Irritable bowel syndrome with diarrhea; B97.89 Other viral agents as the cause of diseases classified elsewhere; E87.6 Hypokalemia; E83.42 Hypomagnesemia; E03.9 Hypothyroidism, unspecified; Z95.0 Presence of cardiac pacemaker; Z90.49 Acquired absence of other specified parts of digestive tract; Z79.01 Long term (current) use of anticoagulants; Z79.890 Hormone replacement therapy; Z79.899 Other long term (current) drug therapy